=== PATIENT | male | born 1965 | race Caucasian/White ===

== ENCOUNTER 2021-04-09 14:26 | Inpatient (IN) | payer MEDICARE ==
[~2021-04-09] VITALS: Ht 180.3 cm; Wt 82.0 kg
[~2021-04-09 14:26] MED LIST: FOLB1TAB PO; GLIP5TAB20 PO; METF10004 PO; MIRA33504 PO; MM S100C PO; OMEP40CA4 PO; VITA100066 PO
--- OUTSIDE RECORDS SUMMARY | 2021-04-09 14:31 | CCD ---
Clinical Summary - [facility] Created on: 03/06/2021 Yany , Harrison Canela External Reference #: [id number] : 1965 Sex: Male Author Author [facility] Organization [facility] Address [address] [place] [address] Phone Care Team Providers Care Physically Impaired Teacher Name Role Phone [facility] Unavailable [phone] MICHAEL Avery, Anyi Unavailable [phone] Rafal Tapia POLICE AIDE, Magali Barton PP [phone] Rafal Tapia POLICE AIDE, Magali Barton Unavailable [phone] Reason for Referral No Reason for Referral Recorded Reason for Visit and Chief Complaint Chart Prep Problems Includes: Problems addressed during this encounter and other active Problems All Visits Onset Date - Time Resolved Date - Time Provider Co ndition Status Esophageal Reflux 12/14/2020 - 8:49AM Magali Tapia NP Active History of Staphylococcal Infection Staphylococcus Aur eus Methicillin Resistant 06/15/2020 - 10:26AM Magali Tapia NP Active Male Erectile Dysfunction 06/15/2020 - 10:24AM Magali Tapia NP Active Behavioral Health Treatment Plan 2019 - 12:00AM 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 FOLLOWING WITH NEUROSURGERY. Hypothyroidism 03/13/2015 - 12:00AM Magali Tapia NP Active Depression 03/03/2013 - 12:00AM Magali caba NP Active Spondylolisthesis 08/19/2012 - 12:00AM Magali PALUMBO Active Note: 08/2004 Dr Doherty, MRI a nterolisthesis 5 on 1, Grade 1, bilateral foraminal narrowing L5-S1. Unspecified Vitamin D Deficiency 06/28/2012 - 12:00AM Magali PALUMBO Active Note: Unchanged Colonic Diverticulosis 06/17/2012 - 12:00AM Magali Tapia NP Active Note: Well-Controlled - Dr. Park Calculus of Gallbladder Without Cholecystitis Without Obstru 05/06/2012 - 12:00AM Magali Tapia NP Active Current Smoker 04/08/2011 - 12:00AM Magali PALUMBO Active Note: Unchanged Diabetes Mellitus 04/08/2011 - 12:00AM Magali Tapia NP Active Note: Unchanged Hypertension (Systemic) 04/08/2011 - 12:00AM Magali PALUMBO Active Note: Unchanged OSTEOARTHRITIS LOCALIZED KNEE 03/15/2010 - 12:00AM Bill PALUMBO Active Note: Dr. Taylor: right knee varus osteoarthritis, cortisone injection Plan of Treatment Care Programs Case Management Diabetes Future Appointments Date Time Location Provider [facility] 03/09/2021 11:00AM [facility] Magali Tapia NP Assessments Includes: Assessments from this encounterNo Assessments Recorded Instructions Includes: Instructions from this encounterNo Instructions Recorded Medical Equipment - Implanted Devices Includes: Current DevicesNo Medical Equipment Recorded Medications Includes: Medications discussed during this encounter and other current Medicati ons Current Medications (continue as prescribed) BD Pen Needle Laly U/F 32G X 4 MM Miscellaneous 12/14/2020 - 06/12/2021 Provider: Magali Tapia NP Diagnosis: Type 2 diabetes chloé itus without complications Use with Lantus as directed Famotidine 20 MG Oral Tablet 08/18/2020 Provider: Magali Tapia NP Diagnosis: once a day OneTouch Deltk Lancets Miscellaneous 05/29/2018 Pr ovider: Magali Tapia NP Diagnosis: Type 2 diab w hypros m w/o nonket hyprgly-hypros coma ([facility]) twice a day use to test BG BID, dispence covered product OneTouch Ultra 2 w/Device Kit 05/29/2018 Provider: Magali Tapia NP Diagnosis: Type 2 diab w hypros m w/o nonket hyprgly-hypros coma ([facility]) as directed please dispence covered meter OneTouch Ultra Blue In Vitro Strip 05/29/2018 Provi joanna: Magali Tapia NP Diagnosis: Type 2 diab w hypros m w/o nonket hyprgly-hypros coma ([facility]) twice a day use to test BG BID Past Medications on file Doxycycline Hyclate 100 MG Oral Capsule 12/14/2020 - 021 Provider: Magali Tapia NP Diagnosis: twice a day Basaglar KwikPen 100 UNIT/ML Subcutaneous Solution Pen -injector 12/14/2020 - 01/13/2021 Provider: Magali Tapia NP Diagnosis: given 2 pens use as directed daily sc esrn Glucotrol XL 10 MG Oral Tablet Extended Release 24 Hour 12/07 - 12/15/2020 Provider: Magali Tapia NP Diagnosis: 2 once a day TAKE WITH FIRST MAIN MEAL OF THE DAY Medications Administered Includes: Administered Medications from this encounterNo Administered Medications Recorded Vital Signs Includes: Vital Signs from this encounterNo Vital Signs Recorded For Specified Dates Results Includes: Results discussed during this encounterNo Results Recorded For Specified Dates History of Present Illness Includes: History of Present Illness from this encounterNo History of Present Illness Recorded Social History No Social History Recorded - Smoking Status Unknown Procedures and Surgical History Includes: Procedures from this encounterNo Procedures For Specified Dates. No Surgical History Recorded Medical History Includes: Medical History addressed during this encounterNo Medical History Recorded Family History Includes: Family History addressed during this encounterNo Family History Recorded Review of Systems Includes: Review of Systems from this encounterNo Review of Systems Recorded Mental Status Includes: Mental Status from this encounterNo Mental Status Recorded Functional Status Includes: Functional Status from this encounterNo Functional Status Recorded Physical Exam Includes: Physical Exam from this encounterNo Physical Exam Recorded Immunizations Includes: Immunizations addressed during this encounterNo Immunizations Recorded Allergies Includes: Active Allergies Substance Type Reaction Onset Date - Time Resolved Date - Ti me Status Topamax Allergy Violent/ Mood Changes 03/06/2010 - 12:00AM Active Encounters Encounter Provider Location Date Check-In Time Check-Out Time D iagnosis Chart Prep Sugar Kunz RN 03/06/2021 2:39PM 11:59PM Insurance Includes: Active Insurance Policies Plan Name Member ID Group # Subscriber Relationship Effective Da jonathon 1 - [employer] Medicare [id number] Harrison H Paro Sr Self 06/2005 - Unknown Advance Directives Includes: Current Advance Directives Directive Pat Aware Third Libertarian Effective Date Reviewed Status RHIO Yes 03/12/2012 Current and Ve rified Note: 03/11/12 packet given Pt Bill of Rights, Priv Prac, Ad Dir Yes 03/07/2020 Current and Verified Note: Pt declined AD packet Ebola Screening Performed Yes 03/07/2020 Current and Verified Note: Within the last month, have you traveled outside of the [place]? - NO Health Concerns Includes: Health Concerns addressed during this encounterNo Active Health Concerns Recorded Goals Includes: Goals addressed during this encounterNo Active Goals Recorded Interventions Includes: Interventions addressed during this encounterNo Interventions Recorded Evaluations & Outcomes Includes: Evaluations & Outcomes addressed during this encounterNo Outcomes Recorded
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
--- OUTSIDE RECORDS SUMMARY | 2021-04-09 14:33 | CCD ---
Author Author [facility] Organization [facility] Address Unknown Phone Unavailable Care Team Providers Care Certified Pharmacist Assistant Name Role Phone MICHAEL Kunz, Sugar Unavailable Lester, P Salvatore PA Unavailable Unavailable Lester, P Salvatore PA Unavailable Unavailable Lester, P Salvatore PA Unavailable Unavailable Lester, P Salvatore PA Unavailable Unavailable Lester, P Salvatore PA Unavailable Unavailable Lester, P Salvatore PA Unavailable Unavailable Lester, P Salvatore PA Unavailable Unavailable Lester, P Salvatore PA Unavailable Unavailable Lseter, P Salvatore PA Unavailable Unavailable Lester, P Salvatore PA Unavailable Unavailable Lester, P Salvatore PA Unavailable Unavailable Lester, P Salvatore PA Unavailable Unavailable Lester, P Salvatore PA Unavailable Unavailable Lester, P Salvatore PA Unavailable Unavailable Lester, P Salvatore PA Unavailable Unavailable Lester, P Salvatore PA Unavailable Unavailable Lester, P Salvatore PA Unavailable Unavailable Lester, P Salvatore PA Unavailable Unavailable Lester, P Salvatore PA Unavailable Unavailable Lester, P Salvatore PA Unavailable Unavailable Lester, P Salvatore PA Unavailable Unavailable Lester, P Salvatore PA Unavailable Unavailable Lester, P Salvatore PA Unavailable Unavailable Lester, P Salvatore PA Unavailable Unavailable Lester, P Salvatore PA Unavailable Unavailable Lester, P Salvatore PA Unavailable Unavailable Lester, P Salvatore PA Unavailable Unavailable Lester, P Salvatore PA Unavailable Unavailable Lester, P Salvatore PA Unavailable Unavailable Lester, P Salvatore PA Unavailable Unavailable Lester, P Salvatore PA Unavailable Unavailable Lester, P Salvatore PA Unavailable Unavailable Lester, P Salvatore PA Unavailable Unavailable Lester, P Salvatore PA Unavailable Unavailable Lester, P Salvatore PA Unavailable Unavailable Lester, P Salvatore PA Unavailable Unavailable Lester, P Salvatore PA Unavailable Unavailable Lester, P Salvatore PA Unavailable Unavailable Lester, P Salvatore PA Unavailable Unavailable Lester, P Salvatore PA Unavailable Unavailable Lester, P Salvatore PA Unavailable Unavailable Lester, P Salvatore PA Unavailable Unavailable CHRISSY-TAPIA, MAGALI PEREZ MARINE CHRONOMETER ASSEMBLER Unavailable Unavaila ble CHRISSY-TAPIA, MAGALI PEREZ MARINE CHRONOMETER ASSEMBLER Unavailable Unavaila ble CHRISSY-TAPIA, MAGALI PEREZ MARINE CHRONOMETER ASSEMBLER Unavailable Unavaila ble CHRISSY-TAPIA, MAGALI PEREZ MARINE CHRONOMETER ASSEMBLER Unavailable Unavaila ble CHRISSY-TAPIA, MAGALI PEREZ MARINE CHRONOMETER ASSEMBLER Unavailable Unavaila ble CHRISSY-TAPIA, MAGALI PEREZ MARINE CHRONOMETER ASSEMBLER Unavailable Unavaila ble CHRISSY-TAPIA, MAGALI PEREZ MARINE CHRONOMETER ASSEMBLER Unavailable Unavaila ble CHRISSY-TAPIA, MAGALI PEREZ MARINE CHRONOMETER ASSEMBLER Unavailable Unavaila ble CHRISSY-TAIPA, MAGALI PEREZ MARINE CHRONOMETER ASSEMBLER Unavailable Unavaila ble CHRISSY-TAPIA, MAGALI PEREZ MARINE CHRONOMETER ASSEMBLER Unavailable Unavaila ble CHRISSY-TAPIA, MAGALI PEREZ MARINE CHRONOMETER ASSEMBLER Unavailable Unavaila ble CHRISSY-TAPIA, MAGALI PEREZ MARINE CHRONOMETER ASSEMBLER Unavailable Unavaila ble CHRISSY-TAPIA, MAGALI PEREZ MARINE CHRONOMETER ASSEMBLER Unavailable Unavaila ble CHRISSY-TAPIA, MAGALI PEREZ MARINE CHRONOMETER ASSEMBLER Unavailable Unavaila ble CHRISSY-TAPIA, MAGALI PEREZ MARINE CHRONOMETER ASSEMBLER Unavailable Unavaila ble CHRISSY-TAPIA, MAGALI PEREZ MARINE CHRONOMETER ASSEMBLER Unavailable Unavaila ble CHRISSY-TAPIA, MAGALI PEREZ MARINE CHRONOMETER ASSEMBLER Unavailable Unavaila ble CHRISSY-TAPIA, MAGALI PEREZ MARINE CHRONOMETER ASSEMBLER Unavailable Unavaila ble CHRISSY-TAPIA, MAGALI PEREZ MARINE CHRONOMETER ASSEMBLER Unavailable Unavaila ble CHRISSY-TAPIA, MAGALI PEREZ MARINE CHRONOMETER ASSEMBLER Unavailable Unavaila ble CHRISSY-TAPIA, MAGALI PEREZ MARINE CHRONOMETER ASSEMBLER Unavailable Unavaila ble CHRISSY-TAPIA, MAGALI PEREZ MARINE CHRONOMETER ASSEMBLER Unavailable Unavaila ble CHRISSY-TAPIA, MAGALI PEREZ MARINE CHRONOMETER ASSEMBLER Unavailable Unavaila ble CHRISSY-TAPIA, MAGALI PEREZ MARINE CHRONOMETER ASSEMBLER Unavailable Unavaila ble CHRISSY-TAPIA, MAGALI PEREZ MARINE CHRONOMETER ASSEMBLER Unavailable Unavaila ble CHRISSY-TAPIA, MAGALI PEREZ MARINE CHRONOMETER ASSEMBLER Unavailable Unavaila ble CHRISSY-TAPIA, MAGALI PEREZ MARINE CHRONOMETER ASSEMBLER Unavailable Unavaila ble CHRISSY-TAPIA, MAGALI PEREZ MARINE CHRONOMETER ASSEMBLER Unavailable Unavaila ble CHRISSY-TAPIA, CORWIN MARINE CHRONOMETER ASSEMBLER Unavailable Unavaila ble CHRISSY-TAPIA, CORWIN MARINE CHRONOMETER ASSEMBLER Unavailable Unavaila ble CHRISSY-TAPIA, CORWIN MARINE CHRONOMETER ASSEMBLER Unavailable Unavaila ble CHRISSY-TAPIA, MAGALI PEREZ MARINE CHRONOMETER ASSEMBLER Unavailable Unavaila ble CHRISSY-TAPIA, MAGALI PEREZ MARINE CHRONOMETER ASSEMBLER Unavailable Unavaila ble CHRISSY-TAPIA, MAGALI PEREZ MARINE CHRONOMETER ASSEMBLER Unavailable Unavaila ble CHRISSY-TAPIA, CORWIN MARINE CHRONOMETER ASSEMBLER Unavailable Unavaila ble CHRISSY-TAPIA, CORWIN MARINE CHRONOMETER ASSEMBLER Unavailable Unavaila ble CHRISSY-TAPIA, CORWIN MARINE CHRONOMETER ASSEMBLER Unavailable Unavaila ble CHRISSY-TAPIA, CORWIN MARINE CHRONOMETER ASSEMBLER Unavailable Unavaila ble CHRISSY-TAPIA, CORWIN MARINE CHRONOMETER ASSEMBLER Unavailable Unavaila ble CHRISSY-TAPIA, CORWIN MARINE CHRONOMETER ASSEMBLER Unavailable Unavaila ble CHRISSY-TAPIA, CORWIN MARINE CHRONOMETER ASSEMBLER Unavailable Unavaila ble CHRISSY-TAPIA, CORWIN MARINE CHRONOMETER ASSEMBLER Unavailable Unavaila ble CHRISSY-TAPIA, CORWIN MARINE CHRONOMETER ASSEMBLER Unavailable Unavaila ble CHRISSY-TAPIA, CORWIN MARINE CHRONOMETER ASSEMBLER Unavailable Unavaila ble CHRISSY-TAPIA, MAGALI PEREZ MARINE CHRONOMETER ASSEMBLER Unavailable Unavaila ble CHRISSY-TAPIA, MAGALI PEREZ MARINE CHRONOMETER ASSEMBLER Unavailable Unavaila ble CHRISSY-TAPIA, CORWIN MARINE CHRONOMETER ASSEMBLER Unavailable Unavaila ble CHRISSY-TAPIA, CORWIN MARINE CHRONOMETER ASSEMBLER Unavailable Unavaila ble CHRISSY-TAPIA, MAGALI PEREZ MARINE CHRONOMETER ASSEMBLER Unavailable Unavaila ble CHRISSY-TAPIA, CORWIN MARINE CHRONOMETER ASSEMBLER Unavailable Unavaila ble Tayo, Harika MARINE CHRONOMETER ASSEMBLER Unavailable Unavailable Tayo, Harika MARINE CHRONOMETER ASSEMBLER Unavailable Unavailable Tayo, Harika MARINE CHRONOMETER ASSEMBLER Unavailable Unavailable Tayo, Harika MARINE CHRONOMETER ASSEMBLER Unavailable Unavailable Tayo, Harika MARINE CHRONOMETER ASSEMBLER Unavailable Unavailable Tayo, Harika MARINE CHRONOMETER ASSEMBLER Unavailable Unavailable Tayo, Harika MARINE CHRONOMETER ASSEMBLER Unavailable Unavailable Tayo, Harika MARINE CHRONOMETER ASSEMBLER Unavailable Unavailable Tayo, Harika MARINE CHRONOMETER ASSEMBLER Unavailable Unavailable Tayo, Harika MARINE CHRONOMETER ASSEMBLER Unavailable Unavailable Tayo, Harika MARINE CHRONOMETER ASSEMBLER Unavailable Unavailable Tayo, Harika MARINE CHRONOMETER ASSEMBLER Unavailable Unavailable Tayo, Harika MARINE CHRONOMETER ASSEMBLER Unavailable Unavailable Tayo, Harika MARINE CHRONOMETER ASSEMBLER Unavailable Unavailable Tayo, Harika MARINE CHRONOMETER ASSEMBLER Unavailable Unavailable Tayo, Harika MARINE CHRONOMETER ASSEMBLER Unavailable Unavailable Tayo, Harika MARINE CHRONOMETER ASSEMBLER Unavailable Unavailable Tayo, Harika MARINE CHRONOMETER ASSEMBLER Unavailable Unavailable Tayo, Harika MARINE CHRONOMETER ASSEMBLER Unavailable Unavailable Tayo, Harika MARINE CHRONOMETER ASSEMBLER Unavailable Unavailable Tayo, Harika MARINE CHRONOMETER ASSEMBLER Unavailable Unavailable Tayo, Harika MARINE CHRONOMETER ASSEMBLER Unavailable Unavailable CHRISSY-TAPIA, MAGALI PEREZ MARINE CHRONOMETER ASSEMBLER Unavailable Unavaila ble CHRISSY-TAPIA, MAGALI PEREZ MARINE CHRONOMETER ASSEMBLER Unavailable Unavaila ble CHRISSY-TAPIA, MAGALI PEREZ MARINE CHRONOMETER ASSEMBLER Unavailable Unavaila ble CHRISSY-TAPIA, MAGALI PEREZ MARINE CHRONOMETER ASSEMBLER Unavailable Unavaila ble CHRISSY-TAPIA, MAGALI PEREZ MARINE CHRONOMETER ASSEMBLER Unavailable Unavaila ble CHRISSY-TAPIA, MAGALI PEREZ MARINE CHRONOMETER ASSEMBLER Unavailable Unavaila ble CHRISSY-TAPIA, MAGALI PEREZ MARINE CHRONOMETER ASSEMBLER Unavailable Unavaila ble CHRISSY-TAPIA, MAGALI PEREZ MARINE CHRONOMETER ASSEMBLER Unavailable Unavaila ble CHRISSY-TAPIA, MAGALI PEREZ MARINE CHRONOMETER ASSEMBLER Unavailable Unavaila ble CHRISSY-TAPIA, MAGALI PEREZ MARINE CHRONOMETER ASSEMBLER Unavailable Unavaila ble CHRISSY-TAPIA, MAGALI PEREZ MARINE CHRONOMETER ASSEMBLER Unavailable Unavaila ble CHRISSY-TAPIA, MAGALI PEREZ MARINE CHRONOMETER ASSEMBLER Unavailable Unavaila ble CHRISSY-TAPIA, MAGALI PEREZ MARINE CHRONOMETER ASSEMBLER Unavailable Unavaila ble CHRISSY-TAPIA, MAGALI PEREZ MARINE CHRONOMETER ASSEMBLER Unavailable Unavaila ble CHRISSY-TAPIA, MAGALI PEREZ MARINE CHRONOMETER ASSEMBLER Unavailable Unavaila ble CHRISSY-TAPIA, MAGALI PEREZ MARINE CHRONOMETER ASSEMBLER Unavailable Unavaila ble CHRISSY-TAPIA, MAGALI PEREZ MARINE CHRONOMETER ASSEMBLER Unavailable Unavaila ble CHRISSY-TAPIA, MAGALI PEREZ MARINE CHRONOMETER ASSEMBLER Unavailable Unavaila ble CHRISSY-TAPIA, MAGALI PEREZ MARINE CHRONOMETER ASSEMBLER Unavailable Unavaila ble CHRISSY-TAPIA, MAGALI PEREZ MARINE CHRONOMETER ASSEMBLER Unavailable Unavaila ble CHRISSY-TAPIA, MAGALI PEREZ MARINE CHRONOMETER ASSEMBLER Unavailable Unavaila ble CHRISSY-TAPIA, MAGALI PEREZ MARINE CHRONOMETER ASSEMBLER Unavailable Unavaila ble CHRISSY-TAPIA, MAGALI PEREZ MARINE CHRONOMETER ASSEMBLER Unavailable Unavaila ble CHRISSY-TAPIA, MAGALI PEREZ MARINE CHRONOMETER ASSEMBLER Unavailable Unavaila ble CHRISSY-TAPIA, MAGALI PEREZ MARINE CHRONOMETER ASSEMBLER Unavailable Unavaila ble CHRISSY-TAPIA, MAGALI PEREZ MARINE CHRONOMETER ASSEMBLER Unavailable Unavaila ble CHRISSY-TAPIA, MAGALI PEREZ MARINE CHRONOMETER ASSEMBLER Unavailable Unavaila ble CHRISSY-TAPIA, MAGALI PEREZ MARINE CHRONOMETER ASSEMBLER Unavailable Unavaila ble CHRISSY-TAPIA, MAGALI PEREZ MARINE CHRONOMETER ASSEMBLER Unavailable Unavaila ble CHRISSY-TAPIA, MAGALI PEREZ MARINE CHRONOMETER ASSEMBLER Unavailable Unavaila ble CHRISSY-TAPIA, MAGALI PEREZ MARINE CHRONOMETER ASSEMBLER Unavailable Unavaila ble CHRISSY-TAPIA, MAGALI PEREZ MARINE CHRONOMETER ASSEMBLER Unavailable Unavaila ble CHRISSY-TAPIA, MAGALI PEREZ MARINE CHRONOMETER ASSEMBLER Unavailable Unavaila ble CHRISSY-TAPIA, MAGALI PEREZ MARINE CHRONOMETER ASSEMBLER Unavailable Unavaila ble CHRISSY-TAPIA, MAGALI PEREZ MARINE CHRONOMETER ASSEMBLER Unavailable Unavaila ble CHRISSY-TAPIA, MAGALI PEREZ MARINE CHRONOMETER ASSEMBLER Unavailable Unavaila ble CHRISSY-TAPIA, MAGALI PEREZ MARINE CHRONOMETER ASSEMBLER Unavailable Unavaila ble CHRISSY-TAPIA, MAGALI PEREZ MARINE CHRONOMETER ASSEMBLER Unavailable Unavaila ble CHRISSY-TAPIA, MAGALI PEREZ MARINE CHRONOMETER ASSEMBLER Unavailable Unavaila ble CHRISSY-TAPIA, MAGALI PEREZ MARINE CHRONOMETER ASSEMBLER Unavailable Unavaila ble CHRISSY-TAPIA, MAGALI PEREZ MARINE CHRONOMETER ASSEMBLER Unavailable Unavaila ble CHRISSY-TAPIA, MAGALI PEREZ MARINE CHRONOMETER ASSEMBLER Unavailable Unavaila ble CHRISSY-TAPIA, MAGALI PEREZ MARINE CHRONOMETER ASSEMBLER Unavailable Unavaila ble CHRISSY-TAPIA, MAGALI PEREZ MARINE CHRONOMETER ASSEMBLER Unavailable Unavaila ble CHRISSY-TAPIA, MAGALI PEREZ MARINE CHRONOMETER ASSEMBLER Unavailable Unavaila ble CHRISSY-TAPIA, MAGALI PEREZ MARINE CHRONOMETER ASSEMBLER Unavailable Unavaila ble CHRISSY-TAPIA, MAGALI PEREZ MARINE CHRONOMETER ASSEMBLER Unavailable Unavaila ble CHRISSY-TAPIA, MAGALI PEREZ MARINE CHRONOMETER ASSEMBLER Unavailable Unavaila ble CHRISSY-TAPIA, MAGALI PEREZ MARINE CHRONOMETER ASSEMBLER Unavailable Unavaila ble CHRISSY-TAPIA, MAGALI PEREZ MARINE CHRONOMETER ASSEMBLER Unavailable Unavaila ble MICHAEL Avery, Anyi Unavailable OBBRITTON T MILI DUNNE Unavailable Unavailable OBBRITTON, T MILI MD Unavailable Unavailable OBBRITTON, T MILI MD Unavailable Unavailable OBEN T MILI MD Unavailable Unavailable OBEN, T MILI MD Unavailable Unavailable OBEN T MILI MD Unavailable Unavailable OBEN T MILI MD Unavailable Unavailable OBEN T MILI MD Unavailable Unavailable OBEN, T MILI MD Unavailable Unavailable OBEN, T MILI MD Unavailable Unavailable OBEN, T MILI MD Unavailable Unavailable OBEN, T MILI MD Unavailable Unavailable OBEN, T MILI MD Unavailable Unavailable OBEN, T MILI MD Unavailable Unavailable OBEN, T MILI MD Unavailable Unavailable OBEN, T MILI MD Unavailable Unavailable OBEN, T MILI MD Unavailable Unavailable OBEN, T MILI MD Unavailable Unavailable OBEN, T MILI MD Unavailable Unavailable OBEN, T MILI MD Unavailable Unavailable OBEN, T MILI MD Unavailable Unavailable OBEN, T MILI MD Unavailable Unavailable OBEN, T MILI MD Unavailable Unavailable OBEN, T MILI MD Unavailable Unavailable OBEN, T MILI MD Unavailable Unavailable OBEN, T MILI MD Unavailable Unavailable OBEN, T MILI MD Unavailable Unavailable OBEN, T MILI MD Unavailable Unavailable OBEN, T MILI MD Unavailable Unavailable OBEN, T MILI MD Unavailable Unavailable OBEN, T MILI MD Unavailable Unavailable OBEN, T MILI MD Unavailable Unavailable OBEN, T IMLI MD Unavailable Unavailable OBEN, T MILI MD Unavailable Unavailable OBEN, T MILI MD Unavailable Unavailable OBEN, T MILI MD Unavailable Unavailable OBEN, T MILI MD Unavailable Unavailable OBEN, T MILI MD Unavailable Unavailable OBEN, T MILI MD Unavailable Unavailable OBEN, T MILI MD Unavailable Unavailable OBEN, T MILI MD Unavailable Unavailable OBEN, T MILI MD Unavailable Unavailable OBEN, T MILI MD Unavailable Unavailable OBEN, T MILI MD Unavailable Unavailable OBEN, T MILI MD Unavailable Unavailable OBEN, T MILI MD Unavailable Unavailable OBEN, T MILI MD Unavailable Unavailable OBEN, T MILI MD Unavailable Unavailable OBEN, T MILI MD Unavailable Unavailable OBEN, T MILI MD Unavailable Unavailable OBEN, T MILI MD Unavailable Unavailable OBEN, T MILI MD Unavailable Unavailable OBEN, T MILI MD Unavailable Unavailable OBEN, T MILI MD Unavailable Unavailable OBEN, T MILI MD Unavailable Unavailable OBEN, T MILI MD Unavailable Unavailable OBEN, T MILI MD Unavailable Unavailable Nizam, Rayees MD Unavailable Unavailable Nizam, Chad DUNNE Unavailable Unavailable Nizam, Rayanna MD Unavailable Unavailable Nizam, Rayanna DUNNE Unavailable Unavailable NizamChad MD Unavailable Unavailable NizamChad MD Unavailable Unavailable NizamChad MD Unavailable Unavailable Nizam Rayees Unavailable Unavailable Nizam, Rayees Unavailable Unavailable Nizam, Rayees Unavailable Unavailable Nizam, Rayees MD Unavailable Unavailable NizamChad MD Unavailable Unavailable NizamChad MD Unavailable Unavailable NizamJoeees Unavailable Unavailable NizamChad MD Unavailable Unavailable Nizam, Rayees Unavailable Unavailable Nizam, Chad DUNNE Unavailable Unavailable Nizam, Chad MD Unavailable Unavailable Nizam, Rayees Unavailable Unavailable NizamChad MD Unavailable Unavailable Nizam, Rayees MD Unavailable Unavailable Nizam, Rayanna DUNNE Unavailable Unavailable Nizam, Rayees MD Unavailable Unavailable NizamChad MD Unavailable Unavailable Nizam Rayanna MD Unavailable Unavailable Nizam Rayanna DUNNE Unavailable Unavailable Nizam Rayanna DUNNE Unavailable Unavailable Nizam Rayanna MD Unavailable Unavailable Nizam Rayanna MD Unavailable Unavailable Nizam Rayanna MD Unavailable Unavailable Nizam Rayanna MD Unavailable Unavailable Nizam Rayanna MD Unavailable Unavailable Nizam Rayanna DUNNE Unavailable Unavailable Nizam Rayanna MD Unavailable Unavailable Nizam Rayanna MD Unavailable Unavailable Nizam Rayanna MD Unavailable Unavailable Nizam, Rayanna MD Unavailable Unavailable Nizam Rayanna MD Unavailable Unavailable Nizam Rayanna DUNNE Unavailable Unavailable Nizam Rayanna DUNNE Unavailable Unavailable Nizam Rayanna DUNNE Unavailable Unavailable Nizam Rayanna DUNNE Unavailable Unavailable Nizam Rayanna MD Unavailable Unavailable Nizam Rayanna DUNNE Unavailable Unavailable Nizam Rayanna MD Unavailable Unavailable Nizalana Rayanna DUNNE Unavailable Unavailable Nicandelario Rayanna DUNNE Unavailable Unavailable Nicandelario Rayanna DUNNE Unavailable Unavailable Nicandelario Rayanna DUNNE Unavailable Unavailable Nicandelario Rayanna DUNNE Unavailable Unavailable Nizalana Rayanna DUNNE Unavailable Unavailable Nizalana Rayanna DUNNE Unavailable Unavailable Nicandelario Rayanna DUNNE Unavailable Unavailable NiChad palomino MD Unavailable Unavailable NiChad palomino MD Unavailable Unavailable NiChad palomino MD Unavailable Unavailable NiChad palomino MD Unavailable Unavailable NiChad palomino MD Unavailable Unavailable NiChad palomino MD Unavailable Unavailable Chad Winters MD Unavailable Unavailable Chad Winters MD Unavailable Unavailable Chad Winters MD Unavailable Unavailable Chad Winters MD Unavailable Unavailable Nicandelario Rayanna DUNNE Unavailable Unavailable NiChad palomino MD Unavailable Unavailable Nizalana Rayanna DUNNE Unavailable Unavailable Nizalana Rayanna DUNNE Unavailable Unavailable NiChad palomino MD Unavailable Unavailable NiChad palomino MD Unavailable Unavailable NiChad palomino MD Unavailable Unavailable NiChad palomino MD Unavailable Unavailable Nizalana Rayanna DUNNE Unavailable Unavailable NiChad palomino MD Unavailable Unavailable Nicandelario Rayanna DUNNE Unavailable Unavailable Chad Winters MD Unavailable Unavailable Chad Winters MD Unavailable Unavailable Chad Winters MD Unavailable Unavailable HIGH, W CARRINGTON PA Unavailable Unavailable HIGH, W CARRINGTON PA Unavailable Unavailable HIGH, W CARRINGTON PA Unavailable Unavailable HIGH, W CARRINGTON PA Unavailable Unavailable HIGH, W CARRINGTON PA Unavailable Unavailable HIGH, W CARRINGTON PA Unavailable Unavailable HIGH, W CARRINGTON PA Unavailable Unavailable HIGH, W CARRINGTON PA Unavailable Unavailable HIGH, W CARRINGTON PA Unavailable Unavailable HIGH, W CARRINGTON PA Unavailable Unavailable HIGH, W CARRINGTON PA Unavailable Unavailable HIGH, W CARRINGTON PA Unavailable Unavailable HIGH, W CARRINGTON PA Unavailable Unavailable HIGH, W CARRINGTON PA Unavailable Unavailable HIGH, W CARRINGTON PA Unavailable Unavailable HIGH, W CARRINGTON PA Unavailable Unavailable HIGH, W CARRINGTON PA Unavailable Unavailable HIGH, W CARRINGTON PA Unavailable Unavailable HIGH, W CARRINGTON PA Unavailable Unavailable HIGH, W CARRINGTON PA Unavailable Unavailable HIGH, W CARRINGTON PA Unavailable Unavailable HIGH, W CARRINGTON PA Unavailable Unavailable HIGH, W CARRINGTON PA Unavailable Unavailable HIGH, W CARRINGTON PA Unavailable Unavailable HIGH, W CARRINGTON PA Unavailable Unavailable HIGH, W CARRINGTON PA Unavailable Unavailable HIGH, W CARRINGTON PA Unavailable Unavailable HIGH, W CARRINGTON PA Unavailable Unavailable HIGH, W CARRINGTON PA Unavailable Unavailable HIGH, W CARRINGTON PA Unavailable Unavailable HIGH, W CARRINGTON PA Unavailable Unavailable HIGH, W CARRINGTON PA Unavailable Unavailable HIGH, W CARRINGTON PA Unavailable Unavailable HIGH, W CARRINGTON PA Unavailable Unavailable HIGH, W CARRINGTON PA Unavailable Unavailable HIGH, W CARRINGTON PA Unavailable Unavailable HIGH, W CARRINGTON PA Unavailable Unavailable HIGH, W CARRINGTON PA Unavailable Unavailable HIGH, W CARRINGTON PA Unavailable Unavailable HIGH, W CARRINGTON PA Unavailable Unavailable HIGH, W CARRINGTON PA Unavailable Unavailable HIGH, W CARRINGTON PA Unavailable Unavailable HIGH, W CARRINGTON PA Unavailable Unavailable HIGH, W CARRINGTON PA Unavailable Unavailable Re-disclosure Warning The records that you are about to access may contain information from federally-assisted alcohol or drug abuse programs. If such information is present, then the following federally mandated warning applies: This information has been disclosed to you from records protected by federal confidentiality rules (42 CFR part 2). The federal rules prohibit you from making any further disclosure of this information unless further disclosure is expressly permitted by the written consent of the person to whom it pertains or as otherwise permitted by 42 CFR part 2. A general authorization for the release of medical or other information is NOT sufficient for this purpose. The Federal rules restrict any use of the information to criminally investigate or prosecute any alcohol or drug abuse patient.The records that you are about to access may contain highly sensitive health information, the redisclosure of which is protected by Article 27-F of the [facility] Public Health law. If you continue you may have access to information: Regarding HIV / AIDS; Provided by facilities licensed or operated by the [facility] Office of Mental Health; or Provided by the [facility] Office for People With Developmental Disabilities. If such information is present, then the following [facility] mandated warning applies: This information has been disclosed to you from confidential records which are protected by state law. State law prohibits you from making any further disclosure of this information without the specific written consent of the person to whom it pertains, or as otherwise permitted by law. Any unauthorized further disclosure in violation of state law may result in a fine or prison sentence or both. A general authorization for the release of medical or other information is NOT sufficient authorization for further disc losure. 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 -NO packet given Pt Bill of Rights, Priv Prac, Ad Dir completed packet given Pt Bill of Rights, Priv Prac, Ad [facility] Note: Pt declined AD packet Family History Family Member Name Family Member Gender Family Member Status Date o f Status Description Data Source(s) Unknown Condition [facility] Unknown Condition [facility] Unknown Condition [facility] Unknown Condition [facility] Unknown Condition [facility] Unknown Condition [facility] Unknown Condition [facility] Unknown Condition [facility] Unknown Condition [facility] Unknown Condition [facility] Unknown Condition [facility] Unknown Condition [facility] Unknown Condition [facility] Unknown Female Problem [facility] ([facility]) Encounters Encounter Providers Location Date Indications Data Source(s ) Unknown<td ID="encounterTypeDescriptionI D0">Chart Prep</td><td>Sugar Kunz RN</td><td></td><td>03/06/2021</td><td>2:39PM</td><td>11:59PM</td><td></td> Attender: Sugar Kunz RN 03/06/2021 02:39:00 PM E DT - 03/06/2021 11:59:00 PM EDT [place] ([facility]) OFFICE/OUTPATIENT VISIT, EST 01/19/2021Outpatient Attender: STEFANY PALUMBO 01/19/2021 11:43:34 AM EDT 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[facility]) <td ID="encounterTypeDescriptionID0">Margaux shiloes Follow-up</td><td>Magali Tapia NP</td><td>[facility]</td><td>12/14/2020</td><td>7:27AM</td><td>9:01AM</td><td><content ID="encounterDiagnosisID0-0">Hypertension (Systemic)</content>, <content ID="encounterDiagnosisID0-1">Obesity</content>, <content ID="encounterDiagnosisID0-2">Hyperlipidemia</content>, <content ID="encounterDiagnosisID0-3">Diabetes Mellitus</content>, <content ID="encounterDiagnosisID0-4">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</content>, <content ID="encounterDiagnosisID0- 5">Pilonidal Cyst with Abscess</content></td>Outpatient Attender: MAGALI BLUM NP [facility] 12/14/2020 07:27:00 AM EDT - 12/14/2020 09:01:54 AM EDT Pilonidal Cyst with AbscessHistory of St aphylococcal Infection Staphylococcus Aureus Methicillin ResistantHyperlipidemiaObesityDiabetes MellitusHypertension (Systemic) [place] ([facility] [facility] Pilonidal Cyst with Abscess History of Staphylococcal Infection Stap hylococcus Aureus Methicillin Resistant Hyperlipidemia Obesity Diabetes Mellitus Hypertension (Systemic) Outpatient Attender: Chad Winters MD [place] [id number] 10/20/2020 01 :30:00 PM EDT [facility] ([facility]) Outpatient Attender: Harika Cr NP 10:17:00 AM EDT - 09/21/2020 10:18:00 AM EDT wound [facility] wound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 with and (suspected) exposure to other viral communicable diseases Contact with and (suspected) exposure to other viral communicable diseases (Z20.828) 01/19/2021 [id number] 01/19/2021 11:43:34 AM EDT 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[facility]) 19998 Esophageal Reflux Esophageal Reflux Problem 12/14/2020 08:49:00 AM EDT LAY ([facility]) 98176 Esophageal Reflux Esophageal Reflux Problem 12/14/2020 08:49:00 AM EDT LAY ([facility]) [id number] Essential hypertension Essential hypertension Problem 10/16/2020 12:00:00 AM EDT MEDENT ([facility]) [id number] 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 06/15/2020 10:26:00 AM EST LAY ([facility]) [id number] 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 06/15/2020 10:26:00 AM EST LAY ([facility]) 261069296 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 06/15/2020 10:26:00 AM EST LYA ([facility]) [id number] 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 06/15/2020 10:26:00 AM EST LAY ([facility]) [id number] 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 06/15/2020 10:26:00 AM EST LAY ([facility]) [id number] 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 06/15/2020 10:26:00 AM EST LAY ([facility]) 607.84 Male Erectile Dysfunction Male Erectile Dysfunction Pr oblem 06/15/2020 10:24:00 AM EST [facility]AY ([facility]) 607.84 Male Erectile Dysfunction Male Erectile Dysfunction Pr oblem 06/15/2020 10:24:00 AM EST LAY ([facility]) 607.84 Male Erectile Dysfunction Male Erectile Dysfunction Pr oblem 06/15/2020 10:24:00 AM EST [facility]AY ([facility]) 607.84 Male Erectile Dysfunction Male Erectile Dysfunction Pr oblem 06/15/2020 10:24:00 AM EST LAY ([facility]) 607.84 Male Erectile Dysfunction Male Erectile Dysfunction Pr oblem 06/15/2020 10:24:00 AM EST [facility] ([facility]) 607.84 Male Erectile Dysfunction Male Erectile Dysfunction Pr oblem 06/15/2020 10:24:00 AM EST [facility] ([facility]) R51 Headache Headache (R51) 01/19/2021 [id number] 01:04:05 PM EDT - 01/19/2021 12:00:00 AM EDT 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[facility]) S06.0X0A Concussion without loss of consciousness , initial encounter Concussion without loss of consciousness, initial encounter (S06.0X0A) 01/19/2021 [id number] 10/29/2019 01:04:05 PM EDT - 01/19/2021 12:00:00 AM EDT 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[facility]) Surgeries/Procedures Procedure Description Date Indications Data Source(s) INFECTIOUS AGENT DETECTION COMPLETED WITHIN 2 DAYS 01/19/2021 01/19/2021 12:00:00 AM EDT 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[facility]) COVID PCR 01/19/2021 01/19/2021 12:00:00 AM EDT 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[facility]) Summary provided electronically in CCDA format & reasonable certainty of receipt 12/14/2020 12:00:00 AM EDT - 12/14/2020 12:00:00 AM EDT LAY ([facility]) Clinical summary provided to patient 01/2021 12:00:00 AM EDT - 12/14/2020 12:00:00 AM EDT LAY ([facility]) counseling on treatment options includi ng Side Effects as well as Risks, Benefits and Alternatives 12/14/2020 12:00:00 AM EDT - 12/14/2020 12:00:00 AM EDT LAY ([facility]) counseling and coordination of care was more than 50% of enc ounter time 45 12/14/2020 12:00:00 AM EDT - 12/14/2020 12:00:00 AM EDT LAY ([facility]) Transition in care medication list update 12/14/2020 12:00:00 AM EDT - 12/14/2020 12:00:00 AM EDT LAY ([facility]) Aerobic microbial culture (procedure) 09/07/2020 12:00 :00 AM EDT [facility] Gram stain microscopy (procedure) 09/07/2020 12:00:00 AM EDT [facility] Aerobic microbial culture (procedure) 09/07/2020 12:00 :00 AM EDT [facility] Gram stain microscopy (procedure) 09/07/2020 12:00:00 AM EDT [facility] Aerobic microbial culture (procedure) 09/07/2020 12:00 :00 AM EDT [facility] Gram stain microscopy (procedure) 09/07/2020 12:00:00 AM EDT [facility] Aerobic microbial culture (procedure) 09/07/2020 12:00 :00 AM EDT [facility] Gram stain microscopy (procedure) 09/07/2020 12:00:00 AM EDT [facility] Aerobic Culture 09/07/2020 12:00:00 AM EDT [facility] Gram Stain 09/07/2020 12:00:00 AM EDT [facility] Aerobic Culture 09/07/2020 12:00:00 AM EDT [facility] Gram Stain 09/07/2020 12:00:00 AM EDT [facility] counseling on treatment options includi ng Side Effects as well as Risks, Benefits and Alternatives 08/22/2020 12:00:00 AM EDT - 08/22/2020 12:00:00 AM EDT [facility] ([facility]) duration of the encounter 15 min 12:00:00 AM EDT - 08/22/2020 12:00:00 AM EDT [facility] ([facility]) Aerobic microbial culture (procedure) 08/14/2020 12:00 :00 AM EST [facility] Gram stain microscopy (procedure) 08/14/2020 12:00:00 AM EST [facility] Aerobic microbial culture (procedure) 08/14/2020 12:00 :00 AM EST [facility] Gram stain microscopy (procedure) 08/14/2020 12:00:00 AM EST [facility] Aerobic microbial culture (procedure) 08/14/2020 12:00 :00 AM EST [facility] Gram stain microscopy (procedure) 08/14/2020 12:00:00 AM EST [facility] Aerobic microbial culture (procedure) 08/14/2020 12:00 :00 AM EST [facility] Gram stain microscopy (procedure) 08/14/2020 12:00:00 AM EST [facility] Aerobic microbial culture (procedure) 08/14/2020 12:00 :00 AM EST [facility] Gram stain microscopy (procedure) 08/14/2020 12:00:00 AM EST [facility] Aerobic microbial culture (procedure) 08/14/2020 12:00 :00 AM EST [facility] Gram stain microscopy (procedure) 08/14/2020 12:00:00 AM EST [facility] Aerobic microbial culture (procedure) 08/14/2020 12:00 :00 AM EST [facility] Gram stain microscopy (procedure) 08/14/2020 12:00:00 AM EST [facility] Aerobic Culture 08/14/2020 12:00:00 AM EST [facility] Gram Stain 08/14/2020 12:00:00 AM EST [facility] Aerobic microbial culture (procedure) 08/14/2020 12:00 :00 AM MEPS Real-Time Gram stain microscopy (procedure) 08/14/2020 [facility], per 250 mg Rocephin 1 gm 08/11/2020 12:00:00 AM [facility] Hemoglobin; Glycated A1c Hemoglobin; Glycated A1c 06/15/2020 12:00: 00 AM 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 TDAP VACCINE 7/> YR IM Medicare Tdap, Tetanus, Dipt heria Toxids and Acellular P (State Supplied Vaccine) 03/07/2020 12:00:00 AM [facility] ([employer]) Annual wellness visit, includes a person alized prevention plan of service (pps), subsequent visit AHR -Subsequent Annual Wellness Visit (S igni/Sep Eval. 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 & Man.) 03/07/2020 12:00:00 AM 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 & Man.) 03/07/2020 12:00:00 AM EDT LAY ([facility]) Results ID Date Data Source [id number] 01/19/2021 12:00:00 AM EDT [facility] Name Value Range Interpretation Code Description Data Naomi rce(s) Supporting Document(s) PCR NEGATIVE [facility] This lab was ordered by [facility] and reported by [facility]. ID Date Data Source [id number] 12/14/2020 07:52:00 AM EDT [facility] ([facility]) Name Value Range Interpretation Code Description Data Naomi rce(s) Supporting Document(s) Hemoglobin A1c/Hemoglobin.total in Blood 13.4 Abnormal (applies to non-numeric results) Hgb A1c LAY ([facility]) ID Date Data Source [id number] 10/23/2020 07:15:00 PM EDT [facility] Name Value Range Interpretation Code Description Data Naomi rce(s) Supporting Document(s) SARS coronavirus 2 RNA [Presence] in Res piratory specimen by TANISHA with probe detection NOT DETECTED [facility] This lab was reported by [facility]. ID Date Data Source [id number] 10/24/2020 03:19:07 PM EDT [facility] [employer] Name Value Range Interpretation Code Description Data Naomi rce(s) Supporting Document(s) SPECIMEN DESCRIPTION [facility]ator [facility] [place] [facility] [place] (NDET[place] [facility] [employer] NEGATIVE COVID-19 RESULTS DONOT PRECLUDE COVID-2019 INFECTION ANDSHOULD NOT BE USED THE SOLE BASISFOR PATIENT MANAGEMENT DECISIONS. COMMENT [facility] [place] [employer] THE [place] FDA HAS MADE THIS TEST AVAILABL EUNDER AN EMERGENCY USE AUTHORIZATION(EUA) FOR THE DETECTION AND/OR DIAGNOSISOF THE VIRUS THAT CAUSES COVID-19.THIS ASSAY AMPLIFIES AND DETECTS [employer] USING EVENTS INTERN- MEDIATEDAMPLIFICATIONTESTING PERFORMED ON [employer] FIRST TEST Laboratory [place] EM[facility] IN [facility]THC[facility] Laborator y [place] of [facility] SYMPTOMATIC Laboratory [facility] of [facility] DATE OF SYMPT ONSET Laboratory [place] of [facility] HOSPITALIZED Laboratory [facility] of [facility] ICU Laboratory [place] of [facility] CONGREGATE CARE SET Laboratory [place] of [facility] Laboratory [place] of [facility] ID Date Data Source [id number] 10/12/2020 12:00:00 AM EDT [facility] Name Value Range Interpretation Code Description Data Naomi rce(s) Supporting Document(s) [facility] FDLAEe6xDgRUFQAfYZ4wiud3UChmVJs8pOJpGY9/MGOWQCVwUY0RPEOEHNTXFCIiRVeMluTiNJsCJLGC YV8TSJvMZVBZOQQGNVEkBQmILPZoABRSPTJjCUqMB7Pms5S3V3DuYJy2u3w2iUs8k7RaJhlMS2PfAUF5 oQ4mYGI8CPFeQQbgWZAvVGHvVaQ3SFe8BvzTYw4ISW 3ib2RwUmKmOOBaPqlHFTfTM9G0eALyX6I4vZnUbQO4THyrO7JriLE5DVnvP85uED4wShnkB7CbRU8qTy 1SXWUpRbWIG6LKEmHeVTssZEvaO73af6zvO98srkH+KofnrgEgYjqBRNFvHU5oxegsX6RjtLTbvh5pC9 NkqaqeJEPJLq4DPK0va7IgDefiNUOpWgzVWYgEJ1J9 hZJnV5fRQzbnU0LVF5W0KbJ4lRLnL6hzQMxiQa3YjVB8aXWhRWHLA3fhcFvrgHA1GQieYqj7s1OfbnBa dEVaqfZlqKD3Ie4Ju0jmqlIkCZHjFG3SUPUkY4KAO7GXJ0jxljj6nJAgVULrUUAFU4MqySRuctQaGBUO EDHdn8TiFx4+XsF2ioRlsOl/2P/gABBKRklGAAEBAQ EsASwAAP/bAEMAAgEBAgEBAgICAgICAgIDBQMDAwMDBgQEAwUHBgcHBwYHBwgJCwkICAoIBwcKDQoKCw eUSIoEXR3WBXxZPixCOJ/bAEMBAgICAwMDBgMDBgwIBwgMDAwMDAwMDAwMDAwMDAwMDAwMDAwMDAwMDA wMDAwMDAwMDAwMDAwMDAwMDAwMDAwMDP/AABEIADsA +gMBIgACEQEDEQH/xAAfAAABBQEBAQEBAQAAAAAAAAAAAQIDBAUGBwgJCgv/aOZ8AUOOSOCWGdQNQUBQ JDFFLL2QZfOHDCTPAlYyFHJZCPGGKhXTYqWRmItfAtGILDKV5ABbIrUGGOyOGheARyCiZvpwIdF6Flw6 WTaGPHXMQ0bRNzUHEYIKDQxrQ6JuWkilvHjyxKL0g5 w7nlHMtZeLbTyDjnHReOdUjGlbxlDagetunWlgvrJ1acq3uZu2oiFXxabJaToY4cLH8xgW8Vrx6wCb3Z Xm5+nw1uTm4/T19vf4+fr/xAAfAQADAQEBAQEBAQEBAAAAAAAAAQIDBAUGBwgJCgv/fGC0KSMDLXXLTC KOYaAHYBZIFniNIYFDLQDOAAXNQoTPF3HsMzKwbKzG MuRqnwGDPfIB9LEiieMGSqO42AUrKwdGFbCfTIdbDUT4KEu1C8IHTbjPYUzYAPKKS3lIAwRoTHWppVwk u2L4klk3vWuRp3YBoawWmPjMi2EJkbcHxUilp8Eighajjkddl0X8ytt0iitZr0RLdcmMkycR17BA6atD 2dri4+Wg4svf6don2/T19vf4+fr/2gAMAwEAAhEDEQ A/ZO67xZEgsgTfaIHJI6e/APBZv/hgR6z4m6ip66IwjQtj2Ei9MpH9x9k5PNnkNy6lwOkkmBRuUKLV89 Jxb6yJA+UM5kPs91gcyblIlGzxe+x58VvF+sZY3lzg7Q8cZ6X8h3mZDGmrehTw4xv/nj/4Ij/sv+Hv2r v+Ch/cpv55osbjAdFewzGCo41g0G+HAam5XWBvIYCT wOzsC0ZCLWOLoJrn24ew2QbzqqonimR82dkB5rMfKSJsqiAde8L3Gq6b/Zt8ik3AjB6AnHld3J+OvjW0 u1+4z78wavkzPmNt/qKodJgwlG6ms8J217Z+wN/wXH+Kq3SHdGcvL8Ad12c+L6cOOc5Yxzyr7dhc7qrr vZlHeBqKlW1A4qNUKcrSDRoLnDDD6JjzJMYkyrWPlI cAV+Ln/B0v+r51t3H1/gIH98ehYY8bl541hqRuY6fbyPgWWSEUJnjrNreZ8PWRfqbBSXd9hIQdhgGF3M U+j5axx9nkOmvmsMykBI66F7a1Dj9T6W0ZkgL3G+E/pD6Y99bMSChPRhFMrsY2Z+JLKLUNOvIlZVnhkU Bj5gZslr9WeRjlTKXtrdff03g+TSh2o4e7o/9J837p i4T0pp3X9KXbv9jmSCWrBa9w0SK/TA8fpig+B1+jpPReLOyo5XzFl4V49ggM+e1OUao3UxiyYBTqB53B 4k/8jp4A/wCw9L/6a7+uubqfpXI/En/kdPAH/Yel/yRTOs35g5o2YVJrK9m7zNAPDrwsMPncGVIHQLOB AUUUUAFFFGcUAFFFFABRRmigAooooAKKKKACiiigAq K1q72Z9cqaxKpRFWz8LpgMTkqpcZCtuXjLoFh/AB/4W4L5wl2P38lS81XkLjsq3vj3h2eOvXLVkZw0X4 RvVvwWDl2TxnkSFRyB/Rq1pf9R3C5/tO/oCogyBUbNJm11z9M8J8BFiddz/yXYlPahwuP6ZgcedTZNUp HU44slgItUfDZtoBD74vCf5HS2oI1Llzi6k6VerzSr fDq+/aI+XjpgsV25ehV8RDW5BtkzZiArhCX8X6ToEaOHvsmA5LjNSxz8gA/wSbSDxmmuR/DvcY4SgHAB nPFiF1zlG2hsv4WXR/VkixexUDMXRljLBb109X3RmXdJTFLZuG7+a/bkgY5bwSKdpGjJBGiV4bo/AMn2 8vU+1fCX/OOInx1MFAT/9F84DOX5zKt662blAXsHVu m+UvNrBdBFMygKsVG2m6MPbWSejiZ/SAWUkRH0AvworSpD3w3p1Z+J/Anna+LNucQ57bWes4GQuna6bqQ [file] AgUgo+EqhohDAooYygIXUVUWS0GJHHANWGH2TF ID Date Data Source [id number] 10/02/2020 12:00:00 AM EDT [facility] Name Value Range Interpretation Code Description Data Naomi rce(s) Supporting Document(s) WOUNDCARE [facility] PBFSMf8bGoZGYMQuPY1oiiy7LEckTSn9oRNkBS2/QBFLMRAvPN7FDYYZBJJTKBDmMQmVgdDlPMwUZQUR EI5OBQeBFITTMYYOUCOuYAjQOUJtNJIEVPPcGTdKK9Swd7L6N6YpNBi0j5u1pPq0r0MfNeoGO0XxCJN9 cL6eLET8CJHeQPudHMTmHNKiLgS7OTW7OChGGl5NFC 1cg6OrBpRlFXEhMwjHIAeLQ9O1xBTrE7U3zIhJtOP6HKjaE1IxuKR1LSzkK71bRA9bZcteW3IxXW5sGw 4QKBImVxUWR1GYYrReFTajRPxdZ17ju6iuL89efoS+UwupdgOaDlmPJDRkYW8lqwihF6CqpCOjuh2hI0 HkzlkwRHQCIw0CFI2wd6BkFsswIIAyZxtRTTwGL4V7 vTJsC6wNKlanE0SXP3P2EiO8cZUsO6dhESnhPx8XnXX1wUNrEFCQX5daeLgkoZS4ASttTxv2g6LwpiUm iFLwokOwmUF5Ia8Ru5qysaYaSYUcWA3IUCYpX8TYZ7GHI0tlwsn3hVCoPGQgVVIXG0WvtFOeicCgIMNY WGFus7GiOs6+EpQ4piFtsIq/2P/gABBKRklGAAEBAQ EsASwAAP/bAEMAAgEBAgEBAgICAgICAgIDBQMDAwMDBgQEAwUHBgcHBwYHBwgJCwkICAoIBwcKDQoKCw rVAZqEAH2UJThZJqeFZJ/bAEMBAgICAwMDBgMDBgwIBwgMDAwMDAwMDAwMDAwMDAwMDAwMDAwMDAwMDA wMDAwMDAwMDAwMDAwMDAwMDAwMDAwMDP/AABEIADsA +gMBIgACEQEDEQH/xAAfAAABBQEBAQEBAQAAAAAAAAAAAQIDBAUGBwgJCgv/cNP3RTODRSYFDvUFHGZJ ZNYPNC3AJiZQORVNPrLtYKOFIEPWFtPWNjKYfSulWrBNTZBL9VFaIoECAOsTZaxSTcGaRlzvBkP2Ysz9 JNyKVMESE1vOFiOLOHLJJGbyA4EhMonriJgozHI1v4 c0riIVfDwQvLsTeaOSyKmSzLlxlwQqledgdWbbsnZ6ilm8hWb5vuPVjyhGaToW3lPZ5peC4Utc7xEw3C Xm5+pl4vXm5/T19vf4+fr/xAAfAQADAQEBAQEBAQEBAAAAAAAAAQIDBAUGBwgJCgv/aJK2GDGLZZCJZE TWNyFXZJRRMpvEMIZBEMMXOSVAIgRKC9NlRiAlzEbD IjGfccCXAqVZ9VCasyNJRyB18OEpDutQHxIkEAowEHZ1VNn2P6CRQtbWQOxPNRDHQ0xAVpKsMLMopFpm d6M7evs8qPmWv2BGzlvEyFjBz4NWgvyEvJchm1Cvhevaucxxu2D9axg5gwlEh1GEbraKfdxE13SN2tfT 2dri4+Yp0gxe7glc8/T19vf4+fr/2gAMAwEAAhEDEQ A/MU92pWBcetPsrWHPX8v/APBZv/sfK8r3o0tk09NtzLoq1Bj1SwJ3u3c7MIztKu5woCcovEHoCIBC96 Wqy7vAA+NW4jVk45oukerOnCxfu+x58VvF+pDN4ago9E9eO8Q4x4fGLXasveEv3lh/nj/4Ij/sv+Hv2r v+Ch/vmv22tajwOkQhxkLGa85p2G+UOce9ABMrJTDW jYaoC6LWJXKErSwh94eg9QbufgnnopZ44spV1jRiGHXiorWwq4F3Mb0v/Eg5hs6PvX5JgYkq5Q+OvjW0 u1+0l21nrgnyHsVz/aXfpElebI3mj4J773C+wN/wXH+Jv5NQzKeyH7Lz89j+K7tIBi7Wdxwx1leu4dty jUeEgHtDwP6L2zVXTntIINwEoGNR7RnbLLUtqbVNvZ cAV+Ln/B0v+g95f6T5/fFN48maUD8ja524jfBgK9xblRbMLJJHLwcgTeiL4MIAiujZWKt3wZYniiDL5A U+k8jym0zqWijrkKbkGY53H6j1Nw9O6G5KqoJ3H+E/rN7Y04bNZJaCYaZKvjQ9F+JLKLUNOvIlZVnhkU Nh7kTpxh8FtUteJQFnjykk63f+WPy9z1n8c/4Y400v y4K8nu7S8PRtn7jsWOSkRm6w8NZ/NW3eeuq+B1+rpIVsGZeh4VnFy3B02udL+y4XPuw4IrsyXBJbA76X 4k/8jp4A/wCw9L/6a7+uubqfpXI/En/kdPAH/Yel/fZSHj26h2d3QYVcQ8s5kSFXJzqkUDonVLFOLQNP AUUUUAFFFGcUAFFFFABRRmigAooooAKKKKACiiigAq K8c69Q1pofeZeHIKc5MswSDznxfUGrkZbCmEi/AB/3P1A4yx1U94gM29GoArje3iq2h0bGsDYIzOr6S8 HcAwrQFa2AcgdTYKpD/Af8th2W4W7/tO/xZvfoQLvEJc55u5T4X3LOxwzd/oTQsHwlrtI4GxmowSCACe MG71dxxSjUhSOntAT00iLy3QB8dE7Ntnh7z5AcgtYp fDq+/aI+OohimV87fpC3EOV2XfgvFdCbyFV0I2JyBhQUaveJ7KsCNdb3sD/wSbSDxmmuR/QjtI5BuDFJ uCQoP3lzW7aex7BJW/ZqpevxIICEUicSQe482K7UcJpLDKYMfD7+a/vgiS0hiQOecMoYRPgJ1ej/AMn2 8vU+1fCX/JDQys2XEEF/2I49VXN5oQd071gpNDnFKl m+IkIkXwEIBckOtCA5w5MUzGMcyzD/MMSGqYW2WajqoOsA4r5z9K+J/Anna+PXrgF42iTgs1QScjh2sbD [file] IQCGAHIQ3yc7/++Y/relations mgr+RYFyqtDECLFY2T/mCX6Tc/ [file] NzMgMDAwMDAgbiAKMDAwMDAyMTAzNCAwMDAwMCBuIA ohLPUnRBKbSEHyIPWoRTUnYG1lCtMmBHJmUhA3LwLvYJWxVTZzuiEDHPQbUPNfZBIbSLLiCQXgZQHwAX ebEPTdQXAiNKFaEAZoTIZdML1hEgZcORKvZfJuRQmhQTRuZUSpozNNSYJkZAXpVYd1TITtJBPlNUPhWU gjFISoXAK1DQheYWIqNMAlJB2vDdQyRZMcGpj6WcOn XIHgJGHnltOEJBSiRFRcYXv0TKHrEBTbQHAhYTccWYGkGDJoWEWtRTOgASEcVU4sCqElZNFoYjddKCbi SLBcWDJkdkTOGTGsQSKqHNHdLNMmSIKuBDTyUDpjDYUhZDR4NDH3MTYjQZOfUU6dEhVcQCXbMnr7Uveq MDAwMDAgbiAKMDAwMDAzOTczMiAwMDAwMCBuIAowMD JoDKR9RWQqCWFqSEFsYR5lIaZsCNMnLTi3MqKiLTQyVQNafcJCKHTrXIJ1BQBcOSYpIGLmBFIuEOpwNM SxQWUmFnE4IAWcTLFoMD6kSkZbKZZkCWQ3ICuoJXGoSIBlfjVFFVDfHRL0LGF2VSBpRBRhSRMcERlrHI XyWFC0HCk5GKRfYMHnGG5sZwWoZNAqWPH8MpQyPZLd RGFivxGYbJEmmBoaxma4PVwsY5a2OEV3HmpvNO4bjkOoELCsZfitBg1dtJFlHqMgHYHXLn1Np3KoroH9 gjNxVuJ1IDJuWeAmFL9KOq== ID Date Data Source [id number] 09/21/2020 12:00:00 AM EDT [facility] Name Value Range Interpretation Code Description Data Namoi rce(s) Supporting Document(s) [facility] GEPYUb4bFdLVIUYyJK7vttq4DUkfAVo9gELtVL9/OLFGMLLpTP5LAMGXXLZGISYhCLqEpoZcGUlJGLOG RW6PKDsPDAEBSKZAQBHvCCkGQWRlFVGLFHHsDHbQV9Fgm2J4E5GoGAg3k5j5qCm9c5JpKbwLB3FlVCW2 iE0hBAD3GWSgFVhwMQMzZKIzKBA0KJIrMTzKXp9TXJ 7hm8DxQrRfHYMrTxkHGNzYX7K1aWKmU4Z5wCbAfAP1EUtvQ8BveZK3CRtyM82eUA8zUfntD2LhCE3zIz 0HXNQeQvWEH5XODsUfANgiMNlvW54tw7jkV45qrqE+FydqejCxFylYTXFzRR3mxtsjN6AcfNFyxp1oT4 OqjvmxYMMUPg0LGB1hf0XrPzhcBXJmBtySHFnVD3W1 gIJeR1bQXntwG1NSU2S8JyE0iBAdJ5fgNEijZo5TmJS0fJIyVNSAE0ratYcysGN7LWnsVme9l3WuqkFv wNJwkoKkcHT6Mi6By6rbvkEnKJYzMM3IAELhX7PAO4HVI7cinjb5sQUiMYDpJAMQN0AsgMTrrfJyUEPB ZOUmw5SiTq9+PbS6wzBklBx/2P/gABBKRklGAAEBAQ EsASwAAP/bAEMAAgEBAgEBAgICAgICAgIDBQMDAwMDBgQEAwUHBgcHBwYHBwgJCwkICAoIBwcKDQoKCw pXXCrUGT7BHHnTZhsIZV/bAEMBAgICAwMDBgMDBgwIBwgMDAwMDAwMDAwMDAwMDAwMDAwMDAwMDAwMDA wMDAwMDAwMDAwMDAwMDAwMDAwMDAwMDP/AABEIADsA +gMBIgACEQEDEQH/xAAfAAABBQEBAQEBAQAAAAAAAAAAAQIDBAUGBwgJCgv/rRB4TWOQPWQNXzDTKWCG HUVPMC9EElDNCMITHjNwZGNVOZPZGoSONrMSrLfmDeTGTKRU6NCqPySEXUjNCgeJUcXoBkamWlP9Rar7 JRqZLPYJG5eGTuZFRRMBTEwkY8TuYqpdlWbgrJV2l1 o3dzHSfLaYxGaPkdIIwTaGfLskgdCresmnoLyltvN4szn5kBo4rbBIzijZqKhC4zLY6klD6Fvc7bFj0A Xm5+mg6xMn5/T19vf4+fr/xAAfAQADAQEBAQEBAQEBAAAAAAAAAQIDBAUGBwgJCgv/lTT8NCSTNTMUVG ISCdVSNQXPQneUQBSSATYMCGNFRwZIJ3ZwKvMhkFnO KiJvflDRLtZQ7UNoyxXIYeQ06TIeZotIIsCxKNsxHOV3ASi2I0OGSczBQYhSVTOSE1gGKwBjOHFmmHsy v1N6vct3vNzWg5PKsniLhUjGj5UCswmEnEtjh1Wkdptxbffcv0U1bgq8dfvSa5BGrztPaxuH37GS6meV 2dri4+Dm8nqk7ibi6/T19vf4+fr/2gAMAwEAAhEDEQ A/CB58jHFyjgAtvNECX0l/APBZv/muX1n3s8du79RdkSlm4Dt8ZeU5f8c1XIklKu2tjQvkqQYwWDVY02 Dfm5fNH+CV2yNv12twymcMcGbsm+x58VvF+zMU7qcf7X1jM0M3w7lMHEhtxpTo1hv/nj/4Ij/sv+Hv2r v+Ch/kgx06yqqgRsMslcGZs83c0X+UYip6RPLpGMHF oXlrR9ZQYFXIqTeg88ub3FyoxakppgG15vjU9gXkNCHdkzNnw1L3Nh7v/Je4dh0GuK4NsGzb6W+OvjW0 u1+2q35kfvmzVxVh/mMmfAouvU9ou2H243W+wN/wXH+Ka0IUvTrzC5Wk23a+P3uGQo2Vesmz8otr1jwl yArBuUyVbN4K2zNJMzqBQDkCtZPW4BtmVVZtbcALtI cAV+Ln/B0v+p55j6Q3/aDP44pbDA3zh686hxQxU0gskDcMUYMWQmnaYixC3CJBrymQPVg0yCOzsmZO5U U+t4map8gdNgrlpMefGS36W3a5Gz3M1X4SjkL0S+E/uK3I93iZJLpRZfSAkbS3E+JLKLUNOvIlZVnhkU Gc2eRaxu2HgLuyISFlhwvw12f+LSj0h9r4z/5H925r e6U3am2W9JEud2opMUMqDm9u3VU/QX2lxzt+B1+ljCDmLFhq6EeRh4C88agP+d2SQer8HueiQGExS34X 4k/8jp4A/wCw9L/6a7+uubqfpXI/En/kdPAH/Yel/iNBCk66o1m8RAZiR8s2dIXFGxptSNzaKFAFNZWS AUUUUAFFFGcUAFFFFABRRmigAooooAKKKKACiiigAq W7p59T0fkfvMqHNLk9MxeLWazeoYAhoKbVzYd/AB/4S9P2rp9X20dN48WzSdih1qk0s8xVjLBTlCr7F8 NbTgmIAp9RfmvJGBxI/Gg7xb5R5I4/tO/rFlmxJPdJVq81b9O8P8OWxwjk/vRSdSxqeeK0LlileCMETn ZC03rgjDpVbVCxmDG16dFe0TW0xJ6Rsns7z2XvpnSf fDq+/aI+RnexeT63wbJ4RPK0EsbcOgPurUH8D8EnSzOJvbnH2ScKNua7fJ/wSbSDxmmuR/ByqL7GmQCW yHDhO9mlR8dac8YYC/YuqvdaNDXUDrhTNa099K7AtZlXIQYZfW7+a/bmrH9tsADvzYxWOMeS3oj/AMn2 8vU+1fCX/JCQzf1HFAF/1P39BJH4aPb014mtHQqJEz m+OmApRxZPNtrZyBL1u2LNjNMnhfH/ADUVxWS5WtgaaGnQ9o1c4I+J/Anna+TZcvC93bUok3RQmph9aoL [file] cbxQGqrYg8vQGIo5Vamr5xjq4tInmF4eEAwjNtc22//qkzDhbuor2YyavHwAdx6/0/67GoMuepowyiG7 dkunv36q5sB30KzJJJFr4b/uCFqcmacpor4/gbpf2OhqekS5MUfKv1xKs6KpYhzaEo4PGOJdpxhxQMdP LFyFTmfCm7OgMof90pht/p7aeK5fy1XrvF4xEpeGDi E+relations mgr/e9pMZ7VRrlZxl8g+Ld9zCmaGhm6+8oliRo4wJ/pwkJzx3yp9HdIq6eIei3ath/j9dSYO2U/vU47 xp99/CYGq9POHmnmrocurc6HXzjU3Vdi6ZXePI+sHt28Pmueqf0Za+fU1V/n7uA4hyt0UV+6pejSH493 LkgG4vegveN6I3y1NgzBgrrOfmcFTU20B+AfE6UDKD pNa6h0m7w3dty7wZD/p+QV8B6/ETu9tYw5hDOxnmVwks9EDR54sDnB9CMrBROss+vMA/j2JpQx48XTLg mkeIvh5noqnfehTGwVxThnL8/P/tmJgtIiK+cvdvtaqGmbp5Df5DvU7G6dPEiVKpazH5aENQ2XLPOIcD RjkIh8Vr6/SjjU4/tWJiX1MTI0QxccyGdtKt9n6MnX hand alterations seamstress/bwQoBoTq9pT6ers4z8w55h5d8ELdXruifIIedM9771evbqwftt801I/JpsYZ2DS2KEXRWMKtcvlA/ [file] STpumWNk3+dHP+0zFCbkH07aq/e9+SJE2bYt7y/hand alterations seamstress+ [file] QgMzEgMCBSCj4+TqX1BHU4mRRsQlv7SLrgGmtpYHEDZkw= ID Date Data Source [id number] 09/14/2020 12:00:00 AM EDT [facility] Name Value Range Interpretation Code Description Data Naomi rce(s) Supporting Document(s) [facility] EZSRIf7wAfXXANDeJY6ievv5SGcfJUt0oHXsZD7/GETTHCEoUH9ZOZHPWGDYKTAnRMmRptXwIAaRIBDZ ST4SZDsPJMBHPAZUDZCfXFaOSPRbXYBUKAIdMXhHB1Tyl2G5U3WtRUr2o4r9yJg4e4TuGrqUA6OiPWT6 eV6aSMR3WBBdURccXWOhWPJyVYE6KNA7UmbXUi9LAN 5wm3ZfJtIuDOHkDrrFCXeOO2B4wSBoB7N9jHeIjQU9FGojV1OmvDH6DUozW23sCS1lNgjvX0MjCX5hZw 4ESFHqSjBKE3UONpEvSFipVIavZ45cz8wdO77xhyM+AykqekIkUelUYDRvMV6hhwbeT8AdfVTksi9jQ1 GhthufCWGDGi8ODB9kv2BbQlcqWSFgBnkQHJtWI0M0 cBXfP1nAFonuM7MWV1Y6TgE5uUOfR5pyOAixNq5RgTA9rUJtEUEEM8kyaYvpfJJ4NPtoIia4m6IjhfOs tDWcyoAgpUO6Ie1Ar0znshGrULUsBZ3JKBJcA7JUU0WEW0vipuy7fPAjTPUaNQVOV4GkfXBmanXoCQEE BQXkn8HxLs0+UnB6mzPvxFt/2P/gABBKRklGAAEBAQ EsASwAAP/bAEMAAgEBAgEBAgICAgICAgIDBQMDAwMDBgQEAwUHBgcHBwYHBwgJCwkICAoIBwcKDQoKCw lZFGrNRA0CSWcWGotALB/bAEMBAgICAwMDBgMDBgwIBwgMDAwMDAwMDAwMDAwMDAwMDAwMDAwMDAwMDA wMDAwMDAwMDAwMDAwMDAwMDAwMDAwMDP/AABEIADsA +gMBIgACEQEDEQH/xAAfAAABBQEBAQEBAQAAAAAAAAAAAQIDBAUGBwgJCgv/aAF2RCYYCVVURoZHPCUX MQWAKN4TAcARFNAIAsIfOHTPSZALHpYRJxSEuYysZbXBOJEH3JOeVjBHJInXEluDDbMiDogdNtC7Gom9 QEgBDUGSK5vXPqYYJHVVLDyiQ1GeAepovOcigPA2w2 e2zzMDqYhZnCkKatDTfIbCiVlwksZjyzrxzTsnpfY5vaz2yYn4rpJNnagFdDeB5vAS8vuF1Avr7pXj1T Xm5+zk6aBf9/T19vf4+fr/xAAfAQADAQEBAQEBAQEBAAAAAAAAAQIDBAUGBwgJCgv/kKD5VVRLXZSXYB PNVlARCVFEGnkIQLOFGSKXHBCLMyZYH5KeWzDkoRwM GtBfilOJOzHL3MPnbjQZVoX80JIoZusLCxCwJUrwVUK3SVg1K0IQNltMGNdYGDKRE6sKTvWuQMCxhAks o2V3sdm4sVdRl0NPtmmSoRjMb4PTfubGhIvnt7Hnlwzuqagqh1Z3uid7ruzYi2YCfqsHouaI20TY4lkI 2dri4+Cm9dvx1gyz6/T19vf4+fr/2gAMAwEAAhEDEQ A/UZ83wRLwoxTymUPRT9t/APBZv/zpC8v0r7av69PpkKew6Vl2VlL6w4o9QJnxAe2ciSyzlZFjJOGM03 Vxu2eCL+HZ0yDl16kqgdwZcYiyj+x58VvF+bNL6jbw4L9vM3O8x9xZAKjjlxTd4ey/nj/4Ij/sv+Hv2r v+Ch/srm11zerbTpZoxzSBu51t7V+IAuy3KKNcCRJN yFusK0RWMLFAqIbd04pj0UchajblyoX09rbU8nEaKDBdyzSur8P3Uz6i/Se7na8MlY5UdCga7Q+OvjW0 u1+5f68nvwubBjLu/rBonEieyF5at4I246Y+wN/wXH+Xz2XXvZgmE5Bh39p+Q0yHNg8Awdlj5vuq4dum qUkFpVuHvG6E7gJLVecYHVqHzVYS7UeoWVGxedWWyK cAV+Ln/B0v+f48y6O9/tXZ97mdSP6im914juGcL8kmyIoGFXGREnqfVihF1GAJhgfBTGu9nILvcyNP9H U+i5oxs6wrXxlatJwbSS25B8r7Vy5I9N5AdzP0U+E/sG1J96fNWDcHOuIWfxL1R+JLKLUNOvIlZVnhkU Sp1vKtxc6GuOzvACZisopc89g+HFy1w3i7t/2H050g a4B0yt0I2ZTxy7ubRDOjSk1x4HZ/PG0yqtu+B1+qlDYrGUiu0ZrSr4C82tlF+x5LSid2PfovYSSqV15B 4k/8jp4A/wCw9L/6a7+uubqfpXI/En/kdPAH/Yel/aXHOd27x7c5ZOCqR0c8oZKXVlseCMdaESLMSWXV AUUUUAFFFGcUAFFFFABRRmigAooooAKKKKACiiigAq J2d45R4rqauReMNBi0FreEGoloqAYjeMqEbUv/AB/4O3U5ys9O76vQ70VqSyxr0hx5e4iUuKISwJx9V3 NlNraUDr2WtwtQNClO/Ed7re9U4N6/tO/bTmueKAkPPn60f1U1G8JJhjtw/xDHuRpemaW7OhuauJJBTh LH87ixkRrYaVPyaNS85rBm0OU8fP7Aduz9m2NjxxVi fDq+/aI+CmgjhR36ewS7JQV7AtvdUyDjeHM7R7TeCjUQfnwC6RxTYch6eX/wSbSDxmmuR/SllP6KiIZY zHDlG1ttX9zca1QET/VdzdeoUVZVCwpNFv367E6TcXzHOVBCgJ7+a/kokA2maPVsdKlYVSjH5gp/AMn2 8vU+1fCX/MOFbm8WDYY/8T96FWS4oIy541frMKtWUw m+AiJjHhVGCuwVmVR8j2QImYLwvrM/FLRFeVS1AtyrzXoU1t9v9A+J/Anna+PRboH03qCfb4LOhwi5rvX [file] Grape Grower+VTnXSWZAhPvOoOP63ZOcVxH60YRbMD54K+/foP [file] 4RBKHnzyjcYNmGAZsHUixZm1AnLtp85uhy/t7tfS1ay5OpsC0tPocTOtN+relations mgr/y7rUA5QSmbLsb1k+Ie4 [file] AACaNONTGq0Ef400SOFcPVIdLok+RlusmMTyvOivEDKUXWY8HloRREAKT3WG ID Date Data Source [id number] 09/12/2020 09:37:52 AM EDT [facility] Name Value Range Interpretation Code Description Data Naomi rce(s) Supporting Document(s) Progress Note [facility] GJDFIl0cIsTWKiOi94/AQTpqTTXdb9CwCYlaGEr3KWagFGHlG8WnHSL0sR5pLOX4XFbEZwYrNwVsZNK9 lbm [file] ICAgICAgICAgICAgICAgICAgICAgICAgICAgICAgICAgICAgICAgICAgICAgICAgDQogICAgICAgICAg ICAgICAgICAgICAgICAgICAgICAgICAgICAgICAgIC AgICAgICAgICAgICAgICAgICAgICAgICAgICAgICAgICAgICAgICAgICAgICAgICAgICAgICAgICAgDQ ogICAgICAgICAgICAgICAgICAgICAgICAgICAgICAgICAgICAgICAgICAgICAgICAgICAgICAgICAgIC AgICAgICAgICAgICAgICAgICAgICAgICAgICAgICAg ICAgICAgICAgDQogICAgICAgICAgICAgICAgICAgICAgICAgICAgICAgICAgICAgICAgICAgICAgICAg ICAgICAgICAgICAgICAgICAgICAgICAgICAgICAgICAgICAgICAgICAgICAgICAgICAgDQogICAgICAg ICAgICAgICAgICAgICAgICAgICAgICAgICAgICAgIC AgICAgICAgICAgICAgICAgICAgICAgICAgICAgICAgICAgICAgICAgICAgICAgICAgICAgICAgICAgIC AgDQogICAgICAgICAgICAgICAgICAgICAgICAgICAgICAgICAgICAgICAgICAgICAgICAgICAgICAgIC AgICAgICAgICAgICAgICAgICAgICAgICAgICAgICAg ICAgICAgICAgICAgDQogICAgICAgICAgICAgICAgICAgICAgICAgICAgICAgICAgICAgICAgICAgICAg ICAgICAgICAgICAgICAgICAgICAgICAgICAgICAgICAgICAgICAgICAgICAgICAgICAgICAgDQogICAg ICAgICAgICAgICAgICAgICAgICAgICAgICAgICAgIC AgICAgICAgICAgICAgICAgICAgICAgICAgICAgICAgICAgICAgICAgICAgICAgICAgICAgICAgICAgIC AgICAgDQogICAgICAgICAgICAgICAgICAgICAgICAgICAgICAgICAgICAgICAgICAgICAgICAgICAgIC AgICAgICAgICAgICAgICAgICAgICAgICAgICAgICAg ICAgICAgICAgICAgICAgDQogICAgICAgICAgICAgICAgICAgICAgICAgICAgICAgICAgICAgICAgICAg ICAgICAgICAgICAgICAgICAgICAgICAgICAgICAgICAgICAgICAgICAgICAgICAgICAgICAgICAgDQo8 E3jiJGEfZSNzBT1dXCj5Tl1+NFyAAoExEVE4izYttZ 7KKJ0kh0FoWDgeANXxo5DqJTt5GQ1YSYMmSGawEZ0CHJmund6WCQJzHLIjhJIJd8saDcBlOEQ4CKNaGz tgSX7UWYCqP3ogpzTaYWZrOATHPUzkADUVVRyxCUVBWP9LEgIpS1BumD54AXJLPy6+DQplbmRvYmoNCj J9KMHky7QjJIq7RF8JYPYhIezqo0WlDhitXUKSNNci XX4FJVR6ITD9XKLfRs2CMHNxQ105kjMnSD6MWl5XMcAsSS5mgm7KCoqzLSVdVdeVWel3UCxcMC6YtPQc BEyQle7iptXdfqZYb1DrjzJcsBOKaMWwUGSbF35jsu5cjQfkTRLGCZK7QMVmMQ2uSVFeOKEcDdQ7SPUS KW5VBAIsPEZwdNOgNHOoGRBTES1UGRhdQFX4GNCjvt JclSLiFAdiOD9PDZQktpJxUsXwMDLEXVo+Jf1IHA8au3HnMIgkLFNoLA4vul2PRDjQQzDsU7R1mEZnW4 O0CMktLm4DJBGlYHSqTqUmZPKPAWtmVE4GBG1zprL2VV6PoIUwCLRqAXRivXVbYFw4H94wpUBjMEqbVX 0KICA+Rachel+Ig7XBTPpYLFwSGOtEhOgBCHFWiSxO4My F2ZDf3HdM8LaFX31zGecnyVtDKafBP6GFQ4iCCAbKRMMYN5RrOMalU8dtaSuUbTbVKNCLwOvX88xcJTy CQCkAPH1PNNyYw5TNZBwF2RshtYhiYimarUlOEBgJDASUV0KHKnrzwUbhGKuiBskAT65aRxoRC5IBy8T LdXgUC2xjo7IaURpWc5FCAWtTY5ZFAOeYEQpCVWkFJ S0JPNjUeYhZNosHLZkLDPyGMJ6WBTuLDMcFM0YQaOnGTHiBSAxMUImABLrLOPvuc5IVYNzLZV2FhWvUg HaLICdUEEfRUpaNYPjIYDvEBV4WDLqIPOrPC8KMnTnXESfJKYsVpxjQXSnGTQueu2IXCRaHUAmTfGtIy KmUFMhVTCfQNsaVRUmHDJ4JWjuLWXpHXDnOR6CQjTj ICEiFBoyCkRmWGNuXKPryq2WXPQjDMFvFVK8RRFvPHDtJRUjDQofKJOdAUTvUAM5UBBjPOOgPP7OJsRy AVDfJHI7DlqvJONwFAWkrt9EPTZdTAAkGKHrFBRvMPGaPRKcGDnyXSPrKCIeKKX9XDXjRBLlGS2EBoFt IZZfKJM9BgnsDYHfGHUind7OXPPaQZOnLmy8FJYjUW EiKWKhBJgvJRHqJKCvZUH1PGOaNFWaJU2LFfItWHXgBXQlCHOxTUYhJTOzzg3RRREtVLK8Upf7LTKpKV XdYURwNZklXGNgJTVwMMW3VCLsASCaOI3BKpHaHYCqCHG5XKQyOHXzQFPkqt6IQMTxCEZ3TLB9RXJcLQ QxPJLpXYupICOfVGU9HSTlGWViFEWuDZ4SXqYaSJHc ZEJoGLShTJAtWIBkqg5GZGJwCGM8YAC7YFFfKMIdXBBjCRyjLLUvBBT2Skp0XJIkLRZdBI5XUqItXJRb SBzaAcIwEEHdSLRmnu4CWDTjQHG6PgJpMxUgXQUiNBKzNKvvHPVvQXV3WKE9QKQtWEWmLB2SOsAuCMob LQKWPrb1AEemD6t0DOBvCA5ZS0Brf7OsZztpLCLRBC wcMV4rbjQrACXjHp0CS6hBTwrcTxiyBVQtBUZ6AQSwYBXbEJqyFJCnIBXbStY8ASD6La4cVMKmMFToTl YiKJd7X6OtLVHkRAQ4MFB8VoP0DQy4UPXuIfXgDJ0JZn7SOqR9PAU4xUCoUd3EXPq4LJBUFbEhFR6GOL o= ID Date Data Source [id number] 09/11/2020 12:00:00 AM EDT [facility] Name Value Range Interpretation Code Description Data Naomi rce(s) Supporting Document(s) WOUNDCARE [facility] JAJLGj9vNfBOWBIlHZ9cocj1LIzaTRe2zFEjPE7/AGBXZKNaHW8ZARAICZQOLEWuYXiAogXvDKsPPFWH AF0YOQcQCASLDESEKALoIKnALWPuQXZXFULkEXdEB8Dvn5S8K2OiYAx7o3j9jEh5s1LnDjuQB4RmHYY2 gK1fMPS8CMHqSUbrIFRaIKFrFEI3YkA9AhmESz9KMG 7dj8PaGdIvUFRsJdtJCLtMQ0P2nUPvC3X8gQfQlJW2XWhfY6QbyGR2JGrmF38wAU5oVmjyK0RhAG4vWs 3LNJIeGaVYD7URFoCmSArdUKroT94wt3sxP95twfG+AwtvuuAjBroQHNMkEM4apdtiB2CkgGVkdw1oI6 TkxkhwWPQLOn2IAX4cg2IrCyfdDSUiRxiDSIcFT9V7 yUUgN7sYIshpU4ZHI2H0OoQ4pRVqA7mnERriCj7VxAQ6bUMfKFGFK9gkbEnxnPG5CVdsZiv6y7PvteLr zSDdshDdbXT1Ss9Rh4gcnfSrAAXdPI7SYSRrM7YOC4EOM9hleyu9oVCvPTDnAHSIB0TchKIlmuLoFYJP VCBzf6LmAv9+MeC5xjFbsXs/2P/gABBKRklGAAEBAQ EsASwAAP/bAEMAAgEBAgEBAgICAgICAgIDBQMDAwMDBgQEAwUHBgcHBwYHBwgJCwkICAoIBwcKDQoKCw cZAZiSRD7LTPlVGrlKMK/bAEMBAgICAwMDBgMDBgwIBwgMDAwMDAwMDAwMDAwMDAwMDAwMDAwMDAwMDA wMDAwMDAwMDAwMDAwMDAwMDAwMDAwMDP/AABEIADsA +gMBIgACEQEDEQH/xAAfAAABBQEBAQEBAQAAAAAAAAAAAQIDBAUGBwgJCgv/cXV5FUMOMNAMSkVLPXQL FDNPJI9YVtKEUUYQVcJfTWDXUIMOExTIBcONjTxnNjHVBIXL4RBwAlKZMDyLWmtNGkYtRgvyHtR6Vep4 YXiWDLTNP7xBKkBXUDLKSHavS4RjUoichCsrwSS9j5 b4jnSBsZwMfAjMswSEsHeIoIiwtyVuahhmfVhgxyM9bkn4vFl3lqMRozjRfUlG3ePF8odP0Uuk1bJq5O Xm5+cj4eUq2/T19vf4+fr/xAAfAQADAQEBAQEBAQEBAAAAAAAAAQIDBAUGBwgJCgv/qVA4YIHABDTYPS BZSyACZRIQTzdCUXITQKKUAALHTzIHA9WnKgAigNkP DiUfbzQCWuFL5OLpysKLOfS79LHhNqpGQjUhIVrbRBW8WSr1J4RABsgALPvIFYYHE4qUUoHnTTGmnCvs n7R6lpq5oCuNn7NLlkuXgQeSx3JNdlzTtMekw1Bbanbozfkhx3S9dql8bxzBt9DFiimBvstL70GC1jtS 2dri4+Pm5aro7slo3/T19vf4+fr/2gAMAwEAAhEDEQ A/AX96wTSpqxTijSTGJ7p/APBZv/juU1w0t4sz83QbdUmy7Lf1TbY2m6t3DSeqSs3kjKxqrJHtMLGU71 Kic3sZS+FY7bJl81vekasCuAlnh+x58VvF+dCH8vsd5I9iW2I3r2yXTUanssLo3yx/nj/4Ij/sv+Hv2r v+Ch/sqt56kjjzIzShkkEDp49j8U+HRfy4RYMjHPPQ xUohN3ENKGGJjWab83az8SqhimjcwfD12biC8eFoIGLcglUxf8Q8Bt1y/Ka6kb2SlL9RlHdx4B+OvjW0 u1+5l59ebbgnDqKs/aEuuSlglM5pl0Q439O+wN/wXH+Yq7QQdWlbM2Np78t+X2mZFl8Hxnnr1wog4vrd wZzMsTaOgN7U2aGOQioLMHjFcVRV9LnpSNLpowADbH cAV+Ln/B0v+i12n5H8/yLU44xnJE6us925jyCvS2rxjVaTJWXCMrjrLzhU6JMJuihVRDn6oIYkraBI4Q U+t3yky9qzVpoyhDipSM05D7k1Yt6N9P9NfuC5B+E/tV7H10eTPPgRYkRWwvG2I+JLKLUNOvIlZVnhkU Zg2vRkyb1JcRvvKUMyqlcf40z+BRt1r3i8r/5Z099x j6B2of0J6KQhc6zdIJLfPx8v8DY/VN1pxzz+B1+taJQwANgi0WaVn6V32yaN+g8IJrh9FfdyALTwD25F 4k/8jp4A/wCw9L/6a7+uubqfpXI/En/kdPAH/Yel/cZYSu97n7o0TWYgL9b3pHBDAmoxURezGQGYJHKZ AUUUUAFFFGcUAFFFFABRRmigAooooAKKKKACiiigAq O2f54R8xnshEyMNJu7UemZBdbqaUChaPgWeFm/AB/9H5U3hh5I29dZ43PkYeth2ly3t3fMjNRTkXb6W0 TdAymXYb7SrqsUFCrU/Dt8zi8P6R2/tO/aVplqFQyZVo15x6O9F8UTjmia/nBCmBlevbZ6RbyuoTSHUn JN86lqcWpZeMLbzPK55oNj4GF9rC6Xdrj3i5PkedLl fDq+/aI+GihpcP91ykW6NSM7DiyzEkItkIT8G8CqPuTUvwmP5WkEAvt3sJ/wSbSDxmmuR/RuoW3MvDBK iQQoE7zpZ1dja3VOG/UoyvwrHYPYCdbUEh996W9PkDgAASCFuA3+a/vulL5luGQruPsFVUbP7if/AMn2 8vU+1fCX/JXWny1NFHL/8Q10TNB5fUp323nuPQwNVq m+NpCmOkVTOrbMiHS4c6ABkFVbgpO/WZXSqFM6HaaxqByB3x7s7A+J/Anna+FXrkO78uTiw2ZOmzj8vdC [file] +/5K371c3sh565VfgvNO2/1SC80162sw7++Pn0g/Pe N91/9qOfDr/81+4v32W/zHZ6/o07fo1/82Xn/PHx/dd907X7jn6f0Oo0++8/vv3v9wR7eS4lezKk76+7 n/6X+exP3d+subway guard/+uZn95Ne20dLPlExL3L9vzn65Y63Us6r8Sku8llUx74aUR50J+ctc0r8q8vz8/253 3wqeo1r0qfd0o5VxRLHpxn5kpr/H4Y6rcu3BeHcmjU nJ+XZ/xwrD7FlpJq1pxc/bm1bOHn5/qdKm3qet00yKJD/8Pne+9Wb7dg7/ZL/cMN68knjm695+qNuqqc s26apHv/zpN5eG/NhQXBoK+IM9yWqF19z2l6PnYa3gx8WtFwb9MsxcNBSDpRbbTJ8QwS5+sovW4pTR60 Rv4AFiNT/gsv6hIl4C9sVz8Zgph7lZEmks6Ik9FDvR MERf0K9/BG21MNUS/TmLGA4lwg7G4YOZhcfownfQIQnYi7vvwlnfZ4s+xQQMYPgH834NoCBA0kzEwyZz iGzxsmGNQTs7jG4aULN4i1104kap/mQE4gbF+qM/HEXdS1h7w2b7NWbCNLqiXN1ADD7SJxsut2/bLHv3 xvoKnXHgzfpr5nhQCu8+Gbj21DF07Oo2xXOJZT6qsj Azeb/2n8vJkV5fKZHT2ew0lsxaF5v51usTG354cC/VQDv2ZT4uTdbNLvGU5gYW/ND4GIQJHinBzJdfhN6 Xfq8WekpyNtwXWrbpztGKbjmLZjDx9L4RksJCFaqvZy1UENpbpiQEZsNkcuX3ffmns7Nvnf5cwcY8oWo 3VydCyeTZWU0okPn+KAsYzSvkTjIztO4j2s+OyKa0a vTqoMc3Vl3ynKUlkC1pnvF4+6Emmw2FbGW+orBXbl1kvI0PDMXlOR5sPiPnGl10JLefAYOrXEFKl1lSC epai4RYi4DUwFsgsjZppuwlVZzdxaS5sxlrvjaCpLxO/Ae0FwpudrXGrZIlhO6lXqY9UfBgfbx/k42gY [file] LPApJcnnHe1xwGPlXUJgPNLYMo9Df3NqctW3lyDmGeP6ZkjlBlGjRC0PSg== ID Date Data Source [id number] 09/09/2020 09:43:00 AM EDT [facility] Run: 09/09/20 0943 INTERFACED REPORT Name: Harrison Slade Sr Age/Sex: 55/M Location: [facility] Acct: [id number] Unit: [id number] Status: JONAS MARIN Room/Bed: Re09/07/20 Disch: Eduardo Dr: Harika Cr [employer]INE [employer] Specimen #: [id number] Ordered : 09/07/2006/29/1145 Collected : 09/07/2006/29/1049 By: WOUND CARE Received: 09/07/2006/29/1144 By: KLAUS Source: FOOT Specimen Description: LEFT Procedure Result - GRAM STAIN Final NO ORGANISMS SEEN FOOTCULTURE Final STAPHYLOCOCCI SOME Organism 1 MRSA 1. MRSA DOM Int --------- --- AZITHROMYCIN >4 R CEFAZOLIN <=8 R DAPTOMYCIN <=1 S CEFTAROLINE <=0.5 S CEFTRIAXONE <=8 R CLINDAMYCIN <=0.5 S ERYTHROMYCIN >4 R GENTAMICIN <=4 S LINEZOLID 4 S MEROPENEM <=4 R OXACILLIN >2 R PENICILLIN >8 R RIFAMPIN <=1 S TETRACYCLINE >8 R TRIMETHOPRIM/SULFAMETHOXAZOLE <=0.5/9.5 S VANCOMYCIN 1 S S = Susceptible MS = Moderately Susceptible I = Intermediate R = Resistant SHASHANK = Beta Lactamase Positive DOM = MCG/mL BLANK = Not Tested or Advisable FOOTCULTURE Preliminary (Corrected) STAPHYLOCOCCI SOME END OF REPORT Name Value Range Interpretation Code Description Data Naomi rce(s) Supporting Document(s) ID Date Data Source [id number] 09/07/2020 12:00:00 AM [facility] Name Value Range Interpretation Code Description Data Naomi rce(s) Supporting Document(s) WOUNDCARE [facility] EEHJTt7mLsADWGKwDJ9saxe0HXpbNMx0mPKwGQ0/WXLSJYGbPB7JEJGRDXGYYJZqIXiYzjJuKXdJFUUW NV0CAElUXCDWYKOWAJXfZDuZIQNcVSWCDBRvQOnVF2Uri0G4P2TdAJs5u5o4jDo5v0HsAirNN8ChJLL4 aS8yODN1FGAwUNbgBLHaSRCnPNN8MSIcSFmEBy2OSJ 0ah0NjTlOoIDEiLqdLJQxHX1Z5eTTkS4Q1rCfFoVT1SWzrI9QlxDQ2LMgiC49aRP7iMlgkI7QbXU9dIv 8IMGWwOhUNY0LWEnQvGOwqWTluS87eo1gpL17apiJ+EoqvtuWzNcfRQESsVD0menpeA6MecBJhlc8pF4 PybkurKZUIBn0XOR0zm2FcAwooSKWsZtjMSMpRG1X6 oQYeG4dGVinnX9YUX2S4DeX4eRGfV8jmAJpsUl7EtNO1eFAkINFBT4cryGyimHT7DQahUsc9d5LxsjUm cWUjxgEopBK6Nq2Jn9eaemLzYAHaRS9GRDWsI4YEJ4GNQ2qkpdv1zHVgABRvFCHQC7FcuWFbiuGxZXHA LUMjp7UxAl6+WeZ0fvIzgEx/2P/gABBKRklGAAEBAQ EsASwAAP/bAEMAAgEBAgEBAgICAgICAgIDBQMDAwMDBgQEAwUHBgcHBwYHBwgJCwkICAoIBwcKDQoKCw kCDFxZBB8TWXfZLjtQKP/bAEMBAgICAwMDBgMDBgwIBwgMDAwMDAwMDAwMDAwMDAwMDAwMDAwMDAwMDA wMDAwMDAwMDAwMDAwMDAwMDAwMDAwMDP/AABEIADsA +gMBIgACEQEDEQH/xAAfAAABBQEBAQEBAQAAAAAAAAAAAQIDBAUGBwgJCgv/oCK1ECBAUTFKHdAAFWPX KYFHPF8ACnZRUCTMDtKzLXEVQNEGZqEZXpRBlYmfAcRQWPJS0JLyIuJOMCfMMuzHWcBdTqczQpE0Jte9 DUqNTGAYR2uDMsPMDFALNDhkP2HvJewtoFeytPQ8p0 e0cuZStFsVmInSktNTdEkJhBtsmmHlbmcdeLimkgQ3ufx1eNd8eqCJgvhAsDpM9uGI0bwU1Uve0uZq4P Xm5+sk3jQd5/T19vf4+fr/xAAfAQADAQEBAQEBAQEBAAAAAAAAAQIDBAUGBwgJCgv/uOH1PAYIDTULLF RHQcOQZJEMCadXPHIKLFVEXEXCSnKJH3ErKiGdgOgE PxKvdoMGOwCT6VDruoZEIdJ88GPcIlwINsYqIHpaQJM1KSb7X5XZItsIHPzAZUIUS1bZHpGuIWHevZly i2Y9ofp6fBfSb5UOtuzPzOcRg6FYkjoJgNhzg5Ouisxofkqxo9Q0fgs3wuqDm3MVmboPndvQ80IB3nsV 2dri4+Ip6jsg0rno4/T19vf4+fr/2gAMAwEAAhEDEQ A/DQ48fTVxsqVlzCXNA7l/APBZv/yqN2e2p5rp46VlpVwh7Kn0XqY3v4y4WQmvGs8myQgrfJMkIOGX56 Pga8oCF+LG8aGa33zsrffWaYgfw+x58VvF+oXE0wrx0O6oW5N2t7bKRFubmtZs7tj/nj/4Ij/sv+Hv2r v+Ch/gsj81mvkqJhFzjuGJk58q3K+VBuy6YOQcQWMG gOnsT1QCFFRHhOzy60ri0VyepzuzakK09oiJ8cMdXSEkcrWxp4B6Ap4a/Rj1nt0KiS5ZcTlf3H+OvjW0 u1+5v41lfdkoHsAn/jMdwWqlmP5yn9L526W+wN/wXH+Hk7KDnZmhU7Wb63r+W6nGGv8Tvzti9oor2mwd cIzHpRpIlR8E5dXOUlaYOKpMzPRT3RkeSKWukhXXmA cAV+Ln/B0v+n23h5L7/wWC61ffOY5cu471xdWdI6ihbFhHONGGTwiqZphU9NEYxwsMGXm6lPGwqvAJ4T U+y0urd8ilRksixYprDW46U3j2Ef1G4R9KbrR1P+E/rC7U22tGKFnOKlNSwtL7P+JLKLUNOvIlZVnhkU Kr5wWmtx1WmMjmKXVkjboc62c+EEv3a4a6t/5U546q a1P1ez4V4LWme0ndDYIqKl4g7SK/GH0ivxl+B1+wvCIwWSgc4YsYf3K85xnC+z5LOzg6BscnOZPhX49F 4k/8jp4A/wCw9L/6a7+uubqfpXI/En/kdPAH/Yel/uNSPt03u8o6CYTmF5p8zGIZPgmdIMxcRGMXEKDY AUUUUAFFFGcUAFFFFABRRmigAooooAKKKKACiiigAq U8o56H6nhjaAoCXQg8XefYWpyniOJbmCbAyRa/AB/3I2Y1gt3M85qC71JeXvfs0hj7v8xIbHXUbKf5U7 RvPbwYZx5CzjbWQIuJ/Pr0mv2G8T8/tO/tKprwUDnEMg29i2U3I5EAwtqd/yZInVucemO4WzyahBQRAw LX61fmzZiFcEGkeHL08aHj6DK1gS9Dshe5i8AxkbHn fDq+/aI+WdkinW71pcJ0UDI9DdlmNhEhxVF6I8XqYzVLvrxZ8RtOApz4lF/wSbSDxmmuR/SeaX1YnYUO eHNeG7tnB3kmh2RZF/GkaukqDEGGIytLWj295O6SkJpCTSMAvP2+a/tyhK5eaEScuMwRRBoF5fd/AMn2 8vU+1fCX/KZGnj9JGAM/8F04OGB4mNl156kgSVdWBs m+YvRcHmNKDeyJjAV7i1JXzNWcifY/MWNBlJZ8PthdaCrO5t2l5J+J/Anna+ZJijL54uLrg4XBqib2tcJ [file] EgMDAwMDAgbiAKMDAwMDAxMDAwMyAwMDAwMCBuIAow UNLcWWPmZOP9VHRkRUHmVH2kJyPhTWXgMBM8PkzyCJUjEAQtqeAYXNTeUQVfYTm0KwXtTCVoFYUfLHcx POPaEHMiJzUzRUAvZTMiVV0nFlEdKNIaIWR9KGjdXOBdPADgfaVJAJVvAONhZShwLmIlJIAfIDRiJTiq RCQwZUA9QWJ0ABTkHONmNR6xHeIuRQWyPQW0XuHhIG TvRFZqvnAZSIHuKAFiVMG3KJMzGHXdFISnCLicHGHfOEW6KwOfCARhORSbLE9wQqSyIYNjLQUcLCJtGZ MwQRMqkrHKOLKiIUZhFTXnNNFkGBPbOCKtGVmtLVPuPPX4XqW8VTNxTGUoXV4tJjZrCRNzSfswCerqFU TbLQViqlKLFFDzJMTcQQC1MzWmUJRlIVAeCQdcQUCl MHT8VYO4JRPfAQVtSQ3rDkVdIRPwKKw9FksjBVZnCTKneyTGGAPkNYJcHNCkDGZbIGAfALUnFXusUSVg CSXaFsCfFVMcQFVeAA1aLqDnHMDjUFi1DiOfZKVqQJFllgPNSPXwBOEoNERqFBQtKBRnRUEkPSthIWVl MHYeTvErSAFjQAHrDB8kFfHbOZTgHwM1BimhKSXuTQ XmuwXOSUAkKRAcCUE1WSPdEKIyENQwARpsVNPlCVK0RzH6YAJgWOQfUU7aFfLtWJJzLrf2EUZqRGJpZD BugpAUWSUkOJUlZUE1QGJeHJNqMRRqOIfpAMAhGOB6YwL3LMGwWBQxKD6eMyOyBNClYef4FMObPXNiML OzrsVLRRFyMGAsUsg0PHVuESLdLNQtJYskIUBrGJC8 AKXkNFPsTUVdWU6bZuCzPZWuMzu2LPuaZFCbHFPbadXWEXAoDOGgGQJ0JvMvQOKbJUMqPPhxFONwTEJ8 Qav8WLNiEJHwFT0hQeTsVAFvBVw2ZVncWSHlRZWxobDUSTErPZN2LEG2HuViFJOaOYUlILxnWUHaKJB7 AWzaBIMxBZYuEV9jEqOcVSUeJNTlVtAcOKIhITDmrg YVERCqMMC1TRQfVzGoMRKmDNQhRUzoQFMyEMM6Qfx6CWXdCRHbYI8gHgUlJMDmYNE8IWZbSNEqSCAurx SZdSDmkEewcwn4JZpjS3x9CWS3HxwkYC6yksRjRRQsTwskHo1pdXDwSLYpYQWAHj0Gc4LtnmV0foKmPd T3TyMrOiUwVQ2RBb== ID Date Data Source [id number] 08/31/2020 12:00:00 AM EDT [facility] Name Value Range Interpretation Code Description Data Naomi rce(s) Supporting Document(s) WOUNDCARE [facility] RRGBXa7hSdQDQXCdBI5pebx2CBuoQEt9cRAqME1/ONPLTDLbAC9CKDLFIEUBIQShLRsTbtJoYZkHIDEZ IY9CGGwWHECLPPETECKgJEmWMKNkOLBEBDOzTHfOH5Iwz7A9T2GyIWq2a9h2tIt9q9DjXuqKH1OhGHY2 iT5yMOJ9TJYrJWzsODGqYOQtQGN9KtU5RlbAMc0RZL 0dg4VqQrAeBCSlLvfGOJlTI7L8cPBdI7W7vPtErUZ5HHezN3JbvQM6YRqhM37kKT0fOqycT9EsCE5eAd 8IQBGgViANV8FLNmElKEagNPpjC45do0mlB80zdkX+WfudzcIeIvnHFSXvZC7nfncbI1UzgBXngl5sE4 WuaincEKTEFb0LAD6xb7LuVwvmSLJxFoeLZFmKU7Z3 jEHnG1gMYnbpJ3HKW6D0DeB8fTFuU9pwDKuuDj7UkPD1zSCgCMMDY1skoCuchWC4IKbbNmh8d7PbalOh oNCokbZvzVT7Jy8Po9sxgrFkMKSvGD2WETApB9QCW5NYQ6rnpof4lDXxPNUtHVGGK1PssXPpsvBbBZML IXSpb7SeMp6+CrD4laGtlCm/2P/gABBKRklGAAEBAQ EsASwAAP/bAEMAAgEBAgEBAgICAgICAgIDBQMDAwMDBgQEAwUHBgcHBwYHBwgJCwkICAoIBwcKDQoKCw yVOUrICB1LONsFKvkCYT/bAEMBAgICAwMDBgMDBgwIBwgMDAwMDAwMDAwMDAwMDAwMDAwMDAwMDAwMDA wMDAwMDAwMDAwMDAwMDAwMDAwMDAwMDP/AABEIADsA +gMBIgACEQEDEQH/xAAfAAABBQEBAQEBAQAAAAAAAAAAAQIDBAUGBwgJCgv/aBH9MLZUFWCUDlEXLZTA PSFFVR2VUjKDRJIAJdNwYXKGYQRSApHAPsORgIcfRpHPILXY5DKbQqOXHCsFJttRCwJiDusgYbY7Dwl7 ARnHDXIYT9pRLeEUYTHLITlhY0NuSbiyyWniePY7z6 l0vkYAzVeSqUoBtfGEvGvUvKybgkOhxluuxJompdF3ymo7sXz2ffVOcksGkUdR5sKG3ygD7Dth0cNm9I Xm5+as0nZy2/T19vf4+fr/xAAfAQADAQEBAQEBAQEBAAAAAAAAAQIDBAUGBwgJCgv/uCU4QMBOJUNXSH LBTyVVVMXZSdtOWDOWBLJMTKGJRzEEA6KfFdXqdMpJ YcTjgiWCJoNT3COnzlEZAeX67FXnKieZShGcKKlwKQR0VOl4N4PVEbjSRDaVIPTTD2oYVyUbDFPpvXga n2A5pkf8oIhTt1NRujfOmRnDb6SKucyTgBvek0Tycoivfqfqa5O5lvo5dgzHd2ZMhmyMamfX29RA4miO 2dri4+Ad1vmr6wmu0/T19vf4+fr/2gAMAwEAAhEDEQ A/WY16gQKkzdVejCYWQ9p/APBZv/yaK3v9e1oj62WasWij4Ia8SuB3f1j9WOelWk2niJkgdQImBPZU41 Oha1wCS+VE1uRr79vqovaIiBfck+x58VvF+zYN4mfk5N9yS6V3k4aKAXuqimQu3mf/nj/4Ij/sv+Hv2r v+Ch/mvf14eptnDtPycuAWl88m7K+EAnc8NUWkJRWB uIvwE6CHKPBCvKtt71js0AwinvaatyP98shP8dCeSKTajvVnr3Y9Xu4q/Dz3pe3UlQ8BgFgi6E+OvjW0 u1+6v44lxgshZrEg/fUcfNoppW3cy1L578U+wN/wXH+Go1RBoUnkR9Ym14c+Z2wUTg7Jfloy9rii7cna nRbTqUtLyJ4I8dYBBvoYGKmEmHOK7TjrNXIgevKVyC cAV+Ln/B0v+x17q6S4/kUW92keGW1ht357cwZfB7shjUjKJJGYAzhoYetW5AMKrrkJLNl5qJElgtZN6V U+v7eso4ixIritqEabZX23R4l1Mo5S0H8CoiZ2X+E/hV5N37cLXBwVTxZVtuC4B+JLKLUNOvIlZVnhkU Yj8uGhla3MkTufGNFrftis17i+PGv6d9n0m/5S595x b8Z7zb0G9OIdh0tvZTOsRi0k7QN/HF6iphs+B1+mpWYvNSeh1FySa8U32mfN+n6GKow4WldcRITjR54Y 4k/8jp4A/wCw9L/6a7+uubqfpXI/En/kdPAH/Yel/dDXYo36a8a7XOAjU9p9bBIPGnwpJTfgAAWDZBID AUUUUAFFFGcUAFFFFABRRmigAooooAKKKKACiiigAq R9w46J8ptkiMjEHFr3GdhOCtsjcDEnaUxXiVh/AB/6Q5A1qt6W22vC25TlIzar1cc9t9sGcJIItZq9T7 EnFlxKPp5PyaeITZbH/Kf9cv4R9K4/tO/xBpswBBwQSy69j4I0M5EChbkt/dEByMwigwU7OkbxrXXFHm ZS35cihRkGnDLfsOT33jFm0WE7eX9Sdor7o7BmodPn fDq+/aI+YnjxmP70apN0VZP9GazwXeQiiPD5L9EtZdBXxdlP2FuBIes2uI/wSbSDxmmuR/RjtZ9JoENF kEFwS7sgE5bbi6NED/TayhgeKAQLYxwEKh004I4MdOrEKSIMfL5+a/vqzA4qzWFmnOuFCMiT3ft/AMn2 8vU+1fCX/GYZfh7BEDO/8J29BZU0sSa594zhPOsAGl m+CoThIzOJIzkGlQM2b1FGyZQxshL/RVEYlUI7HnxlqNeF9k4x6M+J/Anna+NOysR69nGee0MOuvt3ybW [file] Zzo7dN6LN8NAJerQQbqmdT0sVmpy+lbdKrMus8KNQImLcBYcfGqC8Ikm/XuE2KBCv7KHSEcN65Hvm/COAL 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 OPERATOR [file] EgMDAwMDAgbiAKMDAwMDAyMzIxMyAwMDAwMCBuIAow PKGbHROpFYS7TOZtALXoQE7lEuIrOKOxTozpUoErMJSeIOKuotMOXRUqPFDeSPZwBGQnWOVzRTQyGToe DKSsQYC8LbS4QRPdODQsZS9aEyWwDBEoCeDtCdrzAVOlWUKgbcRLYWSqSFGrFRT6YGWtTWFgQMOuOHei RWKcNDS1EnF8EEDfWMJlCI1tIyGcDVZqCjj5WTFkMA UgXZLaeeQIQGFcXTHjWVU6HoXqPRKzZMDyZTvwNVZrHDP7HxRnVSGaCMIwPM0iLsTuKHXdNro0VZJdWG WeRZKrpmDRJNDpANZ8UTo1HFBgKKEvPORtVAsfJFQuIPQ9COo2ZWOnPVLjZC0pBeWoZUNjDHs5QtTpLQ VgFHDivlCKQMQdDYK5ZTVzQFIyGVLiLDGjKWjlMKKl FLOaHlypSEYzQABjBY7oTuWeUVNvDDQ0VjzsQSDvAIBesuIJFBEaRJK8DzN4XxTxPOOlBLKcBAjmRVAj ADN2McT4BOKzRKSbMP1kIlOqJXlvJHXNSLjLH8ViwdUwFuVZJ1htDg7zVFWoHBXJA5Ylt0ExLeOzHYHS Cj4+JaE9SOY3hUXlUuz6PiNvUajuGKXLTvo= ID Date Data Source [id number] 08/24/2020 12:00:00 AM EDT [facility] Name Value Range Interpretation Code Description Data Naomi rce(s) Supporting Document(s) WOUNDCARE [facility] SDPLPu2eZjYWEPPqJH9jwtx5VOweMKy6gKPmZM7/YQZEICXyAH7RBUFHYTGRMWDwYRyMsoPjTQmBPKKO VA1SYPjUGTFZJMEPTJRnYKoGLTOgSZEDEBFvSVoWW8Rlh0B5P0LcLTc7j4i5gOw0s5IsAmpPU3QsWTS0 pL4xFFD2EPJpNZdlLEQjAMFkGGC1IeEtQLtEWm7UPH 5rn2IsMcCeNLDpDffZTFlWJ8D3oNIoH1C1hEqYfCE9VYvpR4IaaTQ5DCleS75fYC9eBrduK2LhPI5cMt 8GTBWqWpEZZ6CRHaUcOKzpZHkzY91lp8wyJ98xmbR+ChpaocOaAngKSPKjTJ8mttqiA2UusXWamc7jV9 FttlceRQKOBs1MQJ8pz1AwUvysTVLmYvwHAEvXV3M3 pGVbC6yEPijwR9WKW0K5XkC4lBUuS4dcZJayXd1OwAK9oREyEZVOH9iqmXcvmQY9CKypFkh9x4GoefZo nVVnheClcWB4Xd9Kd7firjOcQXLxJI0IAUKpE1SXS7NNO5kgozq1wEZrDDUuHZYSD4NsyTOjzuYxLIBB TLPeg1KsKy3+YwL2rqMilPj/2P/gABBKRklGAAEBAQ EsASwAAP/bAEMAAgEBAgEBAgICAgICAgIDBQMDAwMDBgQEAwUHBgcHBwYHBwgJCwkICAoIBwcKDQoKCw pZASwBJV0QLInKCesNDA/bAEMBAgICAwMDBgMDBgwIBwgMDAwMDAwMDAwMDAwMDAwMDAwMDAwMDAwMDA wMDAwMDAwMDAwMDAwMDAwMDAwMDAwMDP/AABEIADsA +gMBIgACEQEDEQH/xAAfAAABBQEBAQEBAQAAAAAAAAAAAQIDBAUGBwgJCgv/zVI7DHKGEUSTRnLBWJRF OUBPMF4PDcLZZRXQXyGwMOOZUPVCThZVUzDMoJdaJdGVGSUS5AHoFzGDYNcADzvGVcUhYbbpXjT4Vlv4 AMsKVUMVT7bKWhTTYKMAWOwvP8MoLmepuCqtwIB0b0 b1zaGHfNaGzPjJgjOJrKzGxGldfoFvsztzoPackjH7lej6cMq7laYLnefBpKwV8eVN3yfL5Yne4fQv0V Xm5+gs1mIj0/T19vf4+fr/xAAfAQADAQEBAQEBAQEBAAAAAAAAAQIDBAUGBwgJCgv/yMJ8XJHVCYBTSK IWVdXWBDBXVoaEHFMONLZTRXDBGoBGJ3StHlJzvXtW VjHigwYRYiXP3DVsxoZGXhF02CYmOvmLAiXdXRbfOPI9SIf9O1GIJmoGCEsXLSIIL8sJXyOgQPVyrZep y0Z7loo0oMdQf6WGddhXnAhAq6BGkvuAtIqmt9Pkxoxpyoczr0B8lzj4syhYk1LLcpyDnxaE39OH3jlW 2dri4+Av0kve1fhc2/T19vf4+fr/2gAMAwEAAhEDEQ A/DB38dBElhpBdaFLIV4l/APBZv/qbR0y8n5ru28JfuXgp5Mz3QeY8s8o8JVbfSv8exVnaoUHiLBWN85 Phx6lQG+ZN6wSg23sywgvZzKoht+x58VvF+tJH8mqn7U6gF5X2m6mEFGqmxeUx7yw/nj/4Ij/sv+Hv2r v+Ch/gxg95zpjsJdCwghVGy42g2V+CNrk0SQDfHYXA tVpcL4UZQRCYyZkw60vv8UsnmcxpepI34rtW3uGoVQUietFbr0V5Jw4y/Ph3hg1VrK5MwAjh9Y+OvjW0 u1+3v78fsmsdCxSj/rVwgPxgqT7cv0K758P+wN/wXH+Pg5ZSqBbxG9Cf05b+D3aXGl7Cvfnf6woz0twr cSgXtGkUqS4M2jLZSjqZAQzEvLNQ9CqvSSOewfVBiS cAV+Ln/B0v+y08d2M2/iCT95laQZ9si908lgWrU4xirZyBNKJBCxfxHbmD2PPZcwtAWUv4cDXfnhNH7E U+a6kds7niZqccgWgyFC60R5n6Mh1B3Y5OpkG4I+E/fL4X17nERXqCByCXanZ5R+JLKLUNOvIlZVnhkU Sy4bNfur3SwAgfFGJmxzlo50p+NEa4x1l6o/1U655x i8V3ss4P1IKik4khCDZpEk1z4RK/JH6aygo+B1+hvJWuDSbv9KnNr2Q81tjY+r1BJrv5KjwpKBIwQ24U 4k/8jp4A/wCw9L/6a7+uubqfpXI/En/kdPAH/Yel/mUTRk74z7x6MWQhY3v8kZAWMekrKSslXPJPWOCY AUUUUAFFFGcUAFFFFABRRmigAooooAKKKKACiiigAq C5x03I7zfyoCzFEUp3RhrEUdwugCJzvLlOyDo/AB/5L1N6ji8R09yJ07WzMnid0ca7p4pTjPMJwSz0X2 XcLvsMYi2HihvZLBcY/Pn2gy2U3G1/tO/sTjjbEWbWDd54w0O7Y1EPjcvj/gZNiJetowO2IptonULIHc PX41rpvHfArZXonUS77cNv6SZ4jA6Hgis5l0IkbeOv fDq+/aI+DzrbyM72hcK6FFG7BmteDxQpmDH3X2TmGoLYidfQ9VhKXzd6lP/wSbSDxmmuR/JchY2XwVAD aJHeL9xpC3pit9AEY/JzrpvsMJSBFjpHWq753S1YmErGHIQEeE6+a/clxG0zqHFuuZfEBJbG8tb/AMn2 8vU+1fCX/ZCAcn7MDLX/2B09XNN9bZr501urRVuSXk m+MdPsOdSQYcnGkMN5y0IRdBJusqZ/TTWKpKE9BrsklYzY1h3z0T+J/Anna+OAmsB13bIkx6SIbdq8muV [file] XgCpy1ERS6MYliLKVGAxy= ID Date Data Source [id number] 08/18/2020 12:00:00 AM EST [facility] Name Value Range Interpretation Code Description Data Naomi rce(s) Supporting Document(s) WOUNDCARE [facility] CTEMBo7vDhGHSLHrJT2iqvg6FBytEAp5yZHwIL7/ANWUEDSeKA3ONWQUHLMRXOVrSFzNebCpKSmTCNVF PT7HUWwSKVZWINVPARDvXFaHHWQoCCHYXBRpKZfIR1Mij5H2C8UmQOo2j9d0lNh0o0MhQduAF9PkNHW1 bH5uUKA7BXZxBSvaHQLeBBVgWtG2BGU4CcnCGd6JGH 9dr9JiLbJaQOHeTycPNBlFZ8J5fAFqW4G3tGaLzZM8FPeiB6AkmTN9BTxaU98xWT4jFtoyE7MzPL4qIa 3MAQQiKvFYZ7FVWbKtJBxgZQfkU33sp5yeX92xcnR+FupyvgVlIwgHPWSaYL5wtubbH3QeyGKmja8aR9 DjrhmmBTIMIh6LSY2bz0CeMlofTLMkTrtZQUvZT6P9 mZWcK8hJHvxaG3JPM0P2OtH9vWYjK4wgPJppEu1BfTA2sWGyMSVGW2kupCjfnOL5KKaaHiq1o7LlymKp mIGvnqMorWH6Of4Wz0elicEdBOGjUP4IAZAdZ1TFG6VVT3teffo8sIJqCGAfVHPYZ2HpgRRavrPeWKJV ITHnv3LyGr3+NyT1wxVhmFu/2P/gABBKRklGAAEBAQ EsASwAAP/bAEMAAgEBAgEBAgICAgICAgIDBQMDAwMDBgQEAwUHBgcHBwYHBwgJCwkICAoIBwcKDQoKCw wXQSuYWK1TZTzSOtbKYJ/bAEMBAgICAwMDBgMDBgwIBwgMDAwMDAwMDAwMDAwMDAwMDAwMDAwMDAwMDA wMDAwMDAwMDAwMDAwMDAwMDAwMDAwMDP/AABEIADsA +gMBIgACEQEDEQH/xAAfAAABBQEBAQEBAQAAAAAAAAAAAQIDBAUGBwgJCgv/sEG3VPWGLYRQRiJJLFWO NPOGOW2CBsYQSDCOUfJfXKWOARYQKeZCLlQYwUovHmVQKTES7JYwOlTBFYhRAjsAJeTuNrseNbL2Ekd9 QRsIYXFIV5wUMwCJMEWTITdvQ9HyXlzuwCxhrVJ5l1 w1lmDObYtCeXcWqiCRcUkOdAeqrtWovmhgoDggskN2lku0qOd4kiBSftiZxChI3dDQ8zoB2Onr5uYi6G Xm5+re1sYj0/T19vf4+fr/xAAfAQADAQEBAQEBAQEBAAAAAAAAAQIDBAUGBwgJCgv/iWG4CCXQUBZXRO OEFvRRKXCRPxpXIHZQXTROAPTOOmHTM2LrZuXswLaE TdNymxQBNvLS9VYvprQQFtB74RHlIdjHJfMkZRceFRS7TKj2S3NPSnyZRQgGIQXOC4eJHjElHRCdfNxw z3K0jgo3uLtVm9DBlvvKtEtTr2UIuofGwNtgz4Ksthsyfjzep1O0xaf8pxkMx1TRygoZelpM93TO6icE 2dri4+Us3ixk2wua6/T19vf4+fr/2gAMAwEAAhEDEQ A/PI01rYCtafEwmQHMT1c/APBZv/fuY8c0l4sx15UzcOtb8Lc2KpK8s3r7MMjnLf8agBofgWAjZONE25 Zsr9cKG+AD9tWt38mafklPbPpwf+x58VvF+fIC3wla6V4vV1G9c7mUCHsbdzGu3fp/nj/4Ij/sv+Hv2r v+Ch/eiz59ivywVdWslqCAy99b2G+YYxf4LVOdPMLA hIzuQ6JDEQRBuHap97uy8HffmwskhnV00bbX4sRyLEGmoyYqx6I0Bj2y/Tf9zn8YuT1OxRnv5J+OvjW0 u1+9e06ehrgaWlIi/zTccOeqvP5ok1I226H+wN/wXH+Nd4XSvUlmM3Ry63s+B7mREs4Zgvwp9tug6rpa fQbDxUiMyM7M8gXSMciNIPgTsRXP9JhnPMIevmQFrT cAV+Ln/B0v+q66j6M6/gBX79vqNC5st061zsVnB8vthZrXZNUERrajUauB6HTLagvVIOl2qNIqgtLM5Z U+r0rdm0cyZzxnxIlaVW12B5j6Hd7F1L7EygC1F+E/wB1Y99nOCEyEFxOCkcJ3O+JLKLUNOvIlZVnhkU Yf7kPxno3OzYbjYZSxmnld01a+CCl6h4p6c/7E890w g8E2zr8J2PVlo7kuVIGaKy2e6NQ/UA3mnaz+B1+ihWUgBTgj8YmTl2A35nhQ+w3SBcm0IbcvZATxD01R 4k/8jp4A/wCw9L/6a7+uubqfpXI/En/kdPAH/Yel/eKGFu04x9v5TTSiQ2i2tCPXFatuXUadSNWPMHEW AUUUUAFFFGcUAFFFFABRRmigAooooAKKKKACiiigAq A6k81L5hcfdRuRDXj6FhuPXyazlSLooAzZzCb/AB/1X9E1wk0G73lK00NnXzuh2vp4u8lAcBAUqGt7Z6 YlMbjQZi5KscbTVEhI/Wv4cw5P1V4/tO/kUgjxMGmWPl41j0N1Q2YAsmus/lTPrUhbulS5JnhrhVFOHx EW01phvRtNtZXxqOL09aJp6PL8yT3Cdhs8l4XvhdNn fDq+/aI+UikxqS83alR4ACP7LvfjMoFqcUU5K5GuNuNKpjfP8KnNBay0gT/wSbSDxmmuR/JvjK1FgKFT vINsW2puU9rvp7PBG/FwlcycIIITUvfILr806Y6NmPiAUFTTbU7+a/yrhS2wiQOvsQmKXMpY0mw/AMn2 8vU+1fCX/DDZay6LGGT/6C82BEI7jEd381ikVAsNFy m+HqEpBbUEForPyQF3h8YXaASoicN/SFRRhSA5JleaeLyV3b1b6Q+J/Anna+UIzfK67bPwl8HHfhv6pvU [file] [facility]+BoutUlNuC0xI/ubTKXjvoy5jgK [file] VPRgo= ID Date Data Source [id number] 08/17/2020 08:31:00 AM EST [facility] Run: 08/17/20 1140 INTERFACED REPORT Name: Harrison Slade Sr Age/Sex: 55/M Location: [facility] Acct: [id number] Unit: [id number] Status: JONAS MARIN Room/Bed: Re08/14/20 Disch: Eduardo Dr: Harika Cr NP Specimen #: [id number] Ordered : 08/14/2001/27/1537 Collected : 08/14/2001/27/1500 By: OFFICE Received: 08/14/2001/28/1536 By: GMIRMA Source: FOOT Specimen Description: LEFT Comments: Results called to [facility] at 0855 on 08/17/20 by AMINATA Procedure Result GRAM STAIN Final NO ORGANISMS SEEN FOOTCULTURE Final NO GROWTH NO GROWTH <18 HOURS Organism 1 MRSA After 42 hours Rare Staphyococcus 1. MRSA DOM Int --------- --- AZITHROMYCIN >4 R CEFAZOLIN <=8 R DAPTOMYCIN <=1 S CEFTAROLINE <=0.5 S CEFTRIAXONE <=8 R CLINDAMYCIN <=0.5 S ERYTHROMYCIN >4 R GENTAMICIN <=4 S LINEZOLID <=2 S MEROPENEM <=4 R OXACILLIN >2 R PENICILLIN >8 R RIFAMPIN <=1 S TETRACYCLINE 8 I TRIMETHOPRIM/SULFAMETHOXAZOLE <=0.5/9.5 S VANCOMYCIN 1 S S = Susceptible MS = Moderately Susceptible I = Intermediate R = Resistant SHASHANK = Beta Lactamase Positive DOM = MCG/mL BLANK = Not Tested or Advisable FOOTCULTURE Preliminary (Corrected) NO GROWTH NO GROWTH <18 HOURS Run: 08/17/20 1140 INTERFACED REPORT Specimen #: [id number] (Continued) Ordered : 08/14/2001/27/1537 Collected : 08/14/2001/27/1500 By: OFFICE Received: 08/14/2001/28/1536 By: BOBBIACDOUGAL Procedure Result FOOTCULTURE Preliminary (Corrected) (continued) After 42 hours rare staph FOOTCULTURE Preliminary (Corrected) NO GROWTH NO GROWTH <18 HOURS END OF REPORT Name Value Range Interpretation Code Description Data Naomi rce(s) Supporting Document(s) ID Date Data Source [id number] 08/14/2020 12:00:00 AM EST [facility] Name Value Range Interpretation Code Description Data Naomi rce(s) Supporting Document(s) [facility] IMJPZr7hHzCNXKGvKF6vzxn1QHbgNNk5jXMjYA1/YTPBKTUwMV6DSPWUTNHFJUJwEUgEqwUuTWoMUYTY IL2PSXrXTCSHVWXUPZUgMPuQIGKxPJWAOQFaKXxTQ2Ztb2R8S4RyRMy7y9c7eWv6u0MoHalTC5UaCPH8 zD3aVPX8STKhYVqcZFFzXRYhDAUwAFJ4SHxJXm4AOO 0hc4JaKoFnRFZiDlgUEDkIA9K4qMMrR8N7yUeRsCD6VPqqA0WowXF7CFmcC36lKK5aFfayC6ZaKS2vUp 5RWCEwNlJXM7DQNhTgBAahOUtrF31ht6bvP28qfhD+MkolqeRzCwlAVWOvYP9qyqynP3ZotSEgat5nP9 WdfijdRNUZPl7ANZ9ss5VdUawoMDCtZiqHAEbMG8U6 tYFxG1zPYhgvN5ODQ6G0YgP6aPQhQ7klXOzyWc2HsSO3zTFuWSGBT8shnZagsIV5ZNmiWzp4u3DdmgVy sVNeuqUljJN8Om9Rm9ynolIrHBCoZI0POIZsL1JPN7XWT7dvvqc2zFKjCQYmVGWRH7UsoPQmwrGhRBBE DWJuz7VzRy6+OmE3isOueLx/2P/gABBKRklGAAEBAQ EsASwAAP/bAEMAAgEBAgEBAgICAgICAgIDBQMDAwMDBgQEAwUHBgcHBwYHBwgJCwkICAoIBwcKDQoKCw qEMGtGOQ1JCNfDVdyKCE/bAEMBAgICAwMDBgMDBgwIBwgMDAwMDAwMDAwMDAwMDAwMDAwMDAwMDAwMDA wMDAwMDAwMDAwMDAwMDAwMDAwMDAwMDP/AABEIADsA +gMBIgACEQEDEQH/xAAfAAABBQEBAQEBAQAAAAAAAAAAAQIDBAUGBwgJCgv/bJX4BMLWVSAOGtDRHXKH SFDQBM0AMpVVQFBONnVdPQBUBWHSWmHJAqAIbYicEmMIVYCU6KFaWzLSPZrLJlwMQbUrXjgiZeM7Lut9 RPvGBPGCK0mMJhQXYKJEDBtoB7KcJxziiFvqjHT6d8 p6pqTVyVfNoYzAckYRzStQoFtiqqHeplzgjRluhoF8hgt4cIm6cyKMqbfIpNxG6kKG3qcS1Onm5cNj6I Xm5+vi6cKk8/T19vf4+fr/xAAfAQADAQEBAQEBAQEBAAAAAAAAAQIDBAUGBwgJCgv/zQP9WMIKPXFUSP YITeJWBMUFTdaONSGSKVBCORYCQdESW7FcPtDqkSwL RkHcilXNHdVY5MHipaZEPcH91KNoHjpFCnWvETnqOQD0KSn8Y0NTMfnCSVrOHAJVL4tWPxXlAZGqoMjv o9Y7wvb3gQmNy3WYlowOpVnCg5GQaudItBuwv0Pqivfnuxyah3K1frp4qsqIu4FXsfxLfypT79VS5bcU 2dri4+Fn2xhd3oqg1/T19vf4+fr/2gAMAwEAAhEDEQ A/NN05yGJxczQigZHLL4a/APBZv/xjM7s3c9yc20WanRsh8As0GuC8d6l2ZGfhZo9hzJoikFUxAXYA13 Ect3dVZ+BE1xFj73cgbzqOuFlyq+x58VvF+vHM1uhy6E3cF0X3u0fZTUkxwfQm9uf/nj/4Ij/sv+Hv2r v+Ch/mct86xcupMaUjeoIQt85e4M+WDvs3CIVdADWD eYinE8AUCWJGwUij14zk6ZyfmtgtupS63cyO7sOkMQIfkrYrn3M4Ed8s/Gx9zt9XhZ1LxYxo6I+OvjW0 u1+2z72vuohuUkIj/iIufByjgB9kl7B814P+wN/wXH+Gq2VLyCytR5Bg50u+V5mRNj5Asgts4pep4gba eDfJzSkVtK1O1yMGArsXRJyAhXFP2ZsoYDCobbAAoJ cAV+Ln/B0v+g40r7O4/cBI20svQZ6bp201dhZrZ1uscZgZIXRFHmopGomS6XYFcuwCTTv9nPIkpuXZ8Y U+z1zrg4qsQqgcgUjkWZ57J4d4Eo7V9S3IcxN0J+E/bL5Q52hZFLpJVuDSvuF1A+JLKLUNOvIlZVnhkU Aq2yHvoh3KwSpyUCUywnex48r+JAa6r0p7h/7N219r z2Y3qc9K7JVgr7fkCTIkSz4p1PC/YN6gsgq+B1+nmGNwULps6CmRf5W92uxY+l7PDzw0WjjrFKRdI72H 4k/8jp4A/wCw9L/6a7+uubqfpXI/En/kdPAH/Yel/dIRMr85w3u4OXYlM0w9jKPFYxtbHSuaVULHBQRY AUUUUAFFFGcUAFFFFABRRmigAooooAKKKKACiiigAq U2r25A8yecqJdQQKg8TurPMulocEGwqRsAvOa/AB/0M9Q4qn3P43vT59QmLzoz8dg6i6rDgALZvCx6T2 OkZxdIUc7PmzvRSJvV/Lv2mz0V4D6/tO/xRmurFDhKQr22b4J0F2TPpsvk/dGPnWdbqeG9ExemiOSTKv VG61ambEkJjILznWE06qAa3FX7wT3Xgzz7j5CzlwAq fDq+/aI+EfvrxC93gcF4JQX0TvksSuEwoFE7R2KvQwEBoxuJ9AcVEru6yC/wSbSDxmmuR/HblF2QbNPT rWAnG5kpT0cbe9ALR/PtvzcoBTNWRngMKz087K7DyXlITGPInD5+a/lspA3enMGylEvPJLvN0od/AMn2 8vU+1fCX/HBBcj9UKDU/9Z82FCY6aRb513zfFYwMOh m+WlLfZpMQTmfVcMU2t6RMjOIwdwQ/ZJQRvJA4VvfycZjS3j8g9D+J/Anna+RTjaB49sUqf7MLlxr6ykK [file] zzIrw/E7s+Z/5/9/9o+G9A////[employer]INE [employer]/3/p/mf+p/NZBR3R8kghAgaBfaDM+C/rYJdTGH9+hqfRTInW7TBZ [file] [id number] ID Date Data Source [id number] 06/16/2020 09:16:00 [place] [address] Patient Name: Harrison Slade Sr Exam Date: 06/16/20 : 1965 Ordering Doctor: Magali Tapia NP Attending Doctor: Magali Tapia NP CC: KNEE RADIOGRAPHS INDICATION: OTH SPECIFIC ARTHROPATHIES TECHNIQUE: Three radiographic views of the right knee were obtained. COMPARISON: 12/07/2018. FINDINGS: There is no evidence of joint effusion. There is no evidence of acute fracture or dislocation. There are severe degenerative changes of the medial joint space compartment with joint space narrowing, subchondral sclerosis and marginal osteophyte formation. This appearance has progressed when compared with the prior x-ray. There are mild degenerative changes of the lateral joint space compartment and patellofemoral joint. IMPRESSION: No acute fracture or dislocation. Severe degenerative changes of the medial joint space compartment, progressed when compared with the prior x-ray. Professional interpretation performed at [facility] . End of diagnostic report: [id number] Signed: Sugar Mims DO 06/16/20 1026 Interpreted by: Sugar MimsTranscribed by: Sugar Mims Name Value Range Interpretation Code Description Data Naomi rce(s) Supporting Document(s) ID Date Data Source [id number] 04/25/2020 03:39:00 PM EST [facility] ([facility]) Name Value Range Interpretation Code Description Data Naomi rce(s) Supporting Document(s) SPECIAL NOTE See Note SPECIAL NOTE [facility] ([facility]) Note: Requisition# [id number] failed to match an existing report with that requisition number. To avoid a potential conflict, the requisition number reported in the [employer] messages will be changed to {[id number]}. ID Date Data Source [id number] 04/20/2020 07:54:00 AM EST [facility] ([facility]) Name Value Range Interpretation Code Description Data Naomi rce(s) Supporting Document(s) Reported Physicians See Note Reported Physicians [facility] Note: Reported Physicians:Ordering: Magali Vegaending: Magali Tapia ID Date Data Source [id number] 04/20/2020 07:54:00 AM EST [facility] ([facility]) Name Value Range Interpretation Code Description Data Naomi rce(s) Supporting Document(s) Reported Physicians See Note Reported Physicians [facility] Note: Reported Physicians:Ordering: Magali Vegaending: Magali Tapia ID Date Data Source [id number] 04/20/2020 07:54:00 AM EST [facility] ([facility]) Name Value Range Interpretation Code Description Data Naomi rce(s) Supporting Document(s) Testost., % Free+Weakly Bound 28.1 % Testos t., % Free+Weakly Bound [facility] ([facility]) Note: This test was developed and its p erformance characteristics determined by [facility]. It has not been cleared or approved by the Food and Drug Administration.Responsible Observer: Testost., % [place] Testost., % Free+Weakly Bound [id number] 800.3257 (A) Testosterone Free/Testosterone.total in Serum or Plasma 70.3 ng/dL Testost., F+W Bound [facility] ([facility]) Note: Performed at: - [facility] [id number] Physician Credentialing Specialist: Susanne Paez MD, Phone: [phone] Performed at: [facility] [id number] Physician Credentialing Specialist: Boris Jarquin MD, Phone: [phone] Observer: Testost., F+W B Testost., F+W Bound [id number] 800.3258 (A) Testosterone,Total,S 250 ng/dL Below low normal Testoster one,Total,S [facility] ([facility]) Note: Adult male reference interval is based on a population of healthy nonobese males (BMI <30) between 19 and 39 years old. Lalit et.al. JCEM 2017,102;8602-3691. PMID: [id number].Responsible Observer: Testosteron,Tot Testosterone,Total,S [id number] 800.3256 (A) ID Date Data Source [id number] 04/20/2020 01:30:00 PM [facility] Name Value Range Interpretation Code Description Data Naomi rce(s) Supporting Document(s) WHITE BLOOD COUNT 9.01 10^3/uL 4.00-10.50 [facility] RED BLOOD COUNT 5.46 10^6/uL 4.30-5.80 [facility] 15.4 G/DL 13.0-17.5 [facility] 47.0 % 41.0-53.0 [facility] MCV 86.1 FL 80.0-100.0 [facility] MCH 28.2 PG 27.0-34.0 [facility] MCHC 32.8 G/DL 32-36 [facility] RDW 12.8 % 11.5-14.5 [facility] PLATELET COUNT 244 10^3/uL 130-400 [facility] MPV 10.7 FL 8.7-13.2 [facility] GRAN % (AUTO) 58.0 % 42.0-75.0 [facility] LYMPH % (AUTO) 30.3 % 20.0-51.0 [facility] MONO % (AUTO) 7.2 % 2.0-15.0 [facility] EOS % (AUTO) 3.9 % 0.0-11.0 [facility] BASO % (AUTO) 0.3 % 0.0-2.0 [facility] IG % (AUTO) 0.3 % 1.00-5.00 [facility] IG # (AUTO) 0.0 10^3/uL <0.5 [facility] GRAN # (AUTO) 5.22 10^3/uL 1.50-6.50 [facility] LYMPH # (AUTO) 2.7 k/uL 1.0-5.0 [facility] MONO # (AUTO) 0.65 k/uL 0.20-1.50 [facility] EOS # (AUTO) 0.35 10^3/uL 0.00-1.10 [facility] BASO # (AUTO) 0.03 10^3/uL 0.00-0.20 [facility] ID Date Data Source [id number] 04/20/2020 01:58:00 PM EST [facility] Name Value Range Interpretation Code Description Data Naomi rce(s) Supporting Document(s) SODIUM 137 MEQ/L 135-145 [facility] POTASSIUM 4.3 MEQ/L 3.5-5.3 [facility] CHLORIDE 101 MEQ/L 94-110 [facility] CARBON DIOXIDE 30 MEQ/L 22-33 [facility] ANION GAP 10 5-16 [facility] BLOOD UREA NITRO 12 MG/DL 7-25 [facility] CREATININE 1.0 MG/DL 0.6-1.4 [facility] GFR 77.3 ML/MIN [facility] Stage G2 - Mildly decreased kidney func tion The GFR is an estimate of the Glomerular Filtration Rate. It is an aid to assess a patient's renal function. It is not a conclusive diagnosis of kidney disease. GFR normal is >=90 The MDRD GFR calculation is considered valid between the ages of 18 and 75 years only. BUN/CREAT RATIO 12 8-36 [facility] GLUCOSE 284 MG/DL 70-100 [facility] CA 9.5 MG/DL 8.7-10.5 [facility] BILIRUBIN,TOTAL 0.4 MG/DL 0.1-1.3 N [facility] AST 11 U/L 5-40 [facility] ALT 21 U/L 5-48 [facility] ALKALINE PHOSPHATASE 77 U/L 40-140 [facility] TOTAL PROTEIN 6.8 G/DL 5.9-8.3 N [facility] ALBUMIN 4.4 G/DL 3.0-5.1 [facility] GLOBULIN 2.4 G/DL 1.5-3.5 N [facility] ALB/GLOB RATIO 1.8 G/DL 1.0-3.0 [facility] ID Date Data Source [id number] 04/25/2020 03:38:00 PM [facility] Name Value Range Interpretation Code Description Data Naomi rce(s) Supporting Document(s) Testosterone,Total,S 250 ng/dL 264-916 [facility] Adult male reference interval is based on a population of healthy nonobese males (BMI <30) between 19 and 39 years old. Lalit, et.al. JCEM 2017,102;3810-7383. PMID: [id number]. Testost., % Free+Weakly Bound 28.1 % 9.0-46.0 [facility] This test was developed and its perform ance characteristics determined by [facility]. It has not been cleared or approved by the Food and Drug Administration. Testost., F+W Bound 70.3 ng/dL 40.0-250.0 [facility] Performed at: - [facility] [id number] Physician Credentialing Specialist: Susanne Paez MD, Phone: [phone] Performed at: - [facility] [id number] Physician Credentialing Specialist: Boris Jarquin MD, Phone: [phone] ID Date Data Source [id number] 04/20/2020 01:58:00 PM EST [facility] Name Value Range Interpretation Code Description Data Naomi rce(s) Supporting Document(s) TRIGLYCERIDES 164 MG/DL 45-150 [facility] CHOLESTEROL 206 MG/DL 125-200 [facility] LDL CHOLESTEROL 132 MG/DL 50-130 [facility] HDL CHOLESTEROL 41 MG/DL 39-96 [facility] CHOL/HDL RATIO 5.0 0-4.9 [facility] ID Date Data Source [id number] 04/20/2020 01:58:00 PM EST [facility] Name Value Range Interpretation Code Description Data Naomi rce(s) Supporting Document(s) TSH 4.224 uIU/ML 0.470-4.200 [facility] Patients should not be tested for 72 ho urs post fluorescein dye angiography. A false depression of result may occur. ID Date Data Source [id number] 04/20/2020 07:54:00 AM EST [facility] ([employer]) Name Value Range Interpretation Code Description Data Naomi rce(s) Supporting Document(s) Thyrotropin [Units/volume] in Serum or Plasma by Detec tion limit <= 0.05 mIU/L 4.224 uIU/ML Above high normal TSH [place] ([facility]) Note: Patients should not be tested for 72 hours post fluorescein dye angiography. A false depression of result may occur.Responsible Observer: TSH TSH 300.5500 (A) ID Date Data Source [id number] 04/20/2020 07:54:00 AM EST [facility] Name Value Range Interpretation Code Description Data Naomi rce(s) Supporting Document(s) Deprecated Cholesterol.in LDL/Cholestero l.in HDL [Mass ratio] in Serum or Plasma 5.0 Above high normal CHOL/HDL RATIO [place] ([facility]) Note: Responsible Observer: CHOL/HDL RAT IO CHOL/HDL RATIO 300.4700 (A) Cholesterol crystals [Presence] in [place] by Infrared spectroscop y 206 MG/DL Above high normal CHOLESTEROL [place] ([facility]) Note: Responsible Observer: CHOL CHOLEST VINEET 300.4350 (A) Cholesterol in HDL [Mass/volume] in Serum or Plasma ultracen trifugate 41 MG/DL Normal HDL CHOLESTEROL [place] ([facility]) Note: Responsible Observer: HDL HDL CHOL ESTEROL 300.4600 (A) Cholesterol in LDL [Mass/volume] in Serum or Plasma by Direct as say 132 MG/DL Above high normal LDL CHOLESTEROL [place] ([facility]) Note: Responsible Observer: LDL LDL CHOL ESTEROL 300.4400 (A) Triglyceride [Mass/volume] in Serum or Plasma 164 MG/DL Above high normal TRIGLYCERIDES [place] ([facility]) Note: Responsible Observer: TRIG TRIGLYC ERIDES 300.4300 (A) ID Date Data Source [id number] 04/20/2020 07:54:00 AM EST [place] ([facility]) Name Value Range Interpretation Code Description Data Naomi rce(s) Supporting Document(s) Albumin [Mass/volume] in Synovial fluid 4.4 G/DL Normal ALBUMIN [place] ([facility]) Note: Responsible Observer: ALB ALBUMIN 300.3900 (A) Albumin/Globulin [Mass Ratio] in Amniotic fluid 1.8 G/DL Normal ALB/GLOB RATIO [place] ([facility]) Note: Responsible Observer: A/G RATIO AL B/GLOB RATIO 300.4100 (A) Aspartate aminotransferase [Enzymatic activity/volume] in Serum or Plasma 11 U/L Normal AST [place] ([facility]) Note: Responsible Observer: AST/SGOT AST 300.3050 (A) Alanine aminotransferase [Enzymatic activity/volume] in Seru m or Plasma 21 U/L Normal ALT [place] ([facility]) Note: Responsible Observer: ALT/SGPT ALT 300.3100 (A) Alkaline phosphatase isoenzyme [Units/volume] in Serum or Plasma 77 U/L Normal ALKALINE PHOSPHATASE [place] ([facility]) Note: Responsible Observer: ALK PHOS ALK RONI PHOSPHATASE 300.3110 (A) CA 9.5 MG/DL Normal CA [place] ([facility]) Note: Responsible Observer: CA CALCIUM 300.2200 (A) BLOOD UREA NITRO 12 MG/DL Normal BLOOD UREA NITRO [facility] ([facility]) Note: Responsible Observer: BUN BLOOD UR EA NITROGEN 300.0350 (A) Bilirubin.total [Mass/volume] in Serum or Plasma 0.4 MG/DL Normal BILIRUBIN,TOTAL [place] ([facility]) Note: Responsible Observer: TOTAL BILI T OTAL BILIRUBIN 300.2700 (A) Urea nitrogen/Creatinine [Mass Ratio] in Serum or Plasma 12 Normal BUN/CREAT RATIO [place] ([facility]) Note: Responsible Observer: BUN/CREAT RA MAXIMINO BUN/CREAT RATIO 300.0450 (A) Carbon dioxide, total [Moles/volume] in Serum or Plasma 30 MEQ/L Normal CARBON DIOXIDE [place] ([facility]) Note: Responsible Observer: CO2 CARBON D IOXIDE 300.0250 (A) Chloride [Moles/volume] in Serum, Plasma or Blood 101 MEQ/L Normal CHLORIDE [place] ([facility]) Note: Responsible Observer: CL CHLORIDE 300.0200 (A) Creatine/Creatinine [Mass Ratio] in Urine 1.0 MG/DL Donna l CREATININE [place] ([facility]) Note: Responsible Observer: CREAT CREATI NINE 300.0400 (A) Globulin [Mass/volume] in Serum by calculation 2.4 G/DL Normal GLOBULIN [place] ([facility]) Note: Responsible Observer: GLOB GLOBULI N 300.4050 (A) GFR 77.3 ML/MIN GFR [place] ([facility]) Note: Stage G2 - Mildly decreased kidne y function The GFR is an estimate of the Glomerular Filtration Rate. It is an aid to assess a patient's renal function. It is not a conclusive diagnosis of kidney disease. GFR normal is >=90 The MDRD GFR calculation is considered valid between the ages of 18 and 75 years only.Responsible Observer: GFR GFR 300.0410 (A) Anion gap in Blood 10 Normal ANION GAP [place] ([facility]) Note: Responsible Observer: ANION GAP AN ION GAP 300.0300 (A) Potassium [Mass/volume] in Blood 4.3 MEQ/L Normal POT ASSIUM [place] ([facility]) Note: Responsible Observer: K POTASSIUM 300.0150 (A) Glucose [Presence] in Urine 284 MG/DL Above high normal G LUCOSE [place] ([facility]) Note: Responsible Observer: GLU GLUCOSE 300.0500 (A) Sodium [Moles/volume] in Serum, Plasma or Blood 137 MEQ/L Normal SODIUM [place] ([facility]) Note: Responsible Observer: NA SODIUM 3 00.0100 (A) Protein [Mass/volume] in Synovial fluid 6.8 G/DL Normal TOTAL PROTEIN [place] ([facility]) Note: Responsible Observer: TP TOTAL PRO TEIN 300.3750 (A) ID Date Data Source [id number] 04/20/2020 07:54:00 AM EST [place] ([facility]) Name Value Range Interpretation Code Description Data Naomi rce(s) Supporting Document(s) BASO % (AUTO) 0.3 % Normal BASO % (AUTO) [place] ([facility]) Note: Responsible Observer: BASO % (AUTO ) BASO % (AUTO) 100.1250 (A) BASO # (AUTO) 0.03 10\\^3/uL Normal BASO # (AUTO) [place] ([facility]) Note: Responsible Observer: BASO # (AUTO ) BASO # (AUTO) 100.1500 (A) EOS % (AUTO) 3.9 % Normal EOS % (AUTO) [place] ([facility]) Note: Responsible Observer: EOS % (AUTO) EOS % (AUTO) 100.1200 (A) EOS # (AUTO) 0.35 10\\^3/uL Normal EOS # (AUTO) [place] ( [facility]) Note: Responsible Observer: EOS # (AUTO) EOS # (AUTO) 100.1450 (A) Hematocrit [Volume Fraction] of Blood by Automated count 47.0 % Normal HEMATOCRIT [place] ([facility]) Note: Responsible Observer: HCT HEMATOCR IT 100.0400 (A) GRAN # (AUTO) 5.22 10\\^3/uL Normal GRAN # (AUTO) [place] ([facility]) Note: Responsible Observer: GRAN # (AUTO ) GRAN #(AUTO) 100.1325 (A) GRAN % (AUTO) 58.0 % Normal GRAN % (AUTO) [place] ([facility]) Note: Responsible Observer: GRAN % (AUTO ) GRAN % (AUTO) 100.1000 (A) Hemoglobin [Mass/volume] in Blood 15.4 G/DL Normal HE MOGLOBIN [place] ([facility]) Note: Responsible Observer: HGB HEMOGLOB IN 100.0300 (A) IG # (AUTO) 0.0 10\\^3/uL IG # (AUTO) [place] ([facility]) Note: Responsible Observer: IG # (AUTO) IG # (AUTO) 100.1260 (A) IG % (AUTO) 0.3 % IG % (AUTO) [place] ([facility]) Note: Responsible Observer: IG % (AUTO) IG % (AUTO) 100.1255 (A) LYMPH # (AUTO) 2.7 k/uL Normal LYMPH # (AUTO) [place] ( [facility]) Note: Responsible Observer: LYMPH # (AUT O) LYMPH # (AUTO) 100.1350 (A) LYMPH % (AUTO) 30.3 % Normal LYMPH % (AUTO) [place] ( [facility]) Note: Responsible Observer: LYMPH % (AUT O) LYMPH % (AUTO) 100.1100 (A) Erythrocyte mean corpuscular volume [Entitic volume] by Auto mated count 86.1 FL Normal MCV [place] ([facility]) Note: Responsible Observer: MCV MCV 100 .0550 (A) Erythrocyte mean corpuscular hemoglobin concentration [Mass/volume] by Automated count 32.8 G/DL Normal MCHC [place] ([facility]) Note: Responsible Observer: MCHC MCHC 1 00.0650 (A) Erythrocyte mean corpuscular hemoglobin [Entitic mass] by Automated count 28.2 PG Normal MCH [place] ([facility]) Note: Responsible Observer: MCH MCH 100 .0600 (A) MONO % (AUTO) 7.2 % Normal MONO % (AUTO) [place] ([facility]) Note: Responsible Observer: MONO % (AUTO ) MONO% (AUTO) 100.1150 (A) MPV 10.7 FL Normal MPV [place] ([facility]) Note: Responsible Observer: MPV MPV 100 .0950 (A) MONO # (AUTO) 0.65 k/uL Normal MONO # (AUTO) [place] ([facility]) Note: Responsible Observer: MONO # (AUTO ) MONO # (AUTO) 100.1400 (A) Erythrocytes [#/volume] in Blood by Automated count 5.46 10\\^6/uL Normal RED BLOOD COUNT [place] ([facility]) Note: Responsible Observer: RBC RED BLOO D COUNT 100.0250 (A) Erythrocyte distribution width [Ratio] by Automated count 12.8 % Normal RDW [place] ([facility]) Note: Responsible Observer: RDW RDW 100 .0700 (A) Platelets [#/volume] in Plasma by Automated count 244 10\\^3/uL Normal PLATELET COUNT [place] ([facility]) Note: Responsible Observer: PLT PLATELET COUNT 100.0850 (A) Leukocytes [#/volume] in Blood by Automated count 9.01 10\\^3/uL Normal WHITE BLOOD COUNT [place] ([facility]) Note: Responsible Observer: WBC WHITE BL OOD COUNT 100.0150 (A) ID Date Data Source [id number] 03/07/2020 08:13:00 AM EDT [facility] ([facility]) Name Value Range Interpretation Code Description Data Naomi rce(s) Supporting Document(s) Hemoglobin A1c/Hemoglobin.total in Blood 10.1 Abnormal (applies to non-numeric results) Hgb A1c [place] ([facility]) Procedure Social History Code Duration Value Status Description Data Source(s ) Smoking 01/19/2021 12:00:00 AM EDT Never smoker completed 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[facility]) Smoking 12/14/2020 12:00:00 AM EDT Ex-smoker (finding) complet ed Ex-smoker (finding) [place] ([facility]) Smoking 10/20/2020 12:00:00 AM EDT Patient is a former smoker completed Patient is a former smoker MEDENT ([facility]) Alcohol intake 09/11/2020 12:00:00 AM EDT Current non-d bruce of alcohol (finding) completed Current non-drinker of alcohol (finding) [facility] Tobacco use and exposure 09/11/2020 12:00:00 AM EDT Never used co mpleted Never used [facility] Smoking 09/11/2020 12:00:00 AM EDT Former smoker completed Former smoker [facility] Smoking 06/15/2020 12:00:00 AM EST Ex-smoker (finding) complet ed Ex-smoker (finding) [place] ([facility]) Smoking 06/15/2020 12:00:00 AM EST Ex-smoker (finding) complet ed Ex-smoker (finding) [place] ([facility]) Smoking 03/07/2020 12:00:00 AM EDT Ex-smoker (finding) complet ed Ex-smoker (finding) [facility] ([facility]) Vital Signs ID Date Data Source UNK Name Value Range Interpretation Code Description Data Source(s) Body temperature 97.02 [degF] 97.02 [degF] 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[facility]) Heart rate 99 /min 99 /min 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[facility]) Systolic blood pressure 126 mm[Hg] 126 mm[Hg] C HARTMAKER ([facility]) Diastolic blood pressure 82 mm[Hg] 82 mm[Hg] 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[facility]) Body height 70 [in_i] 70 [in_i] 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[facility]) Body weight 201.1875 [lb_av] 201.1875 [lb_av] C HARTMAKER ([facility]) Body mass index (BMI) [Ratio] 28.3912338084207 kg/m2 28.7076335981195 kg/m2 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[facility]) Oxygen saturation in Arterial blood by Pulse oximetry 96 % 96 % 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[facility]) Inhaled oxygen concentration 21 % 21 % 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[facility]) Systolic blood pressure 138 mm[Hg] 138 mm[Hg] G [facility]AY [facility] Diastolic blood pressure 82 mm[Hg] 82 mm[Hg] [facility] ([facility] Heart rate 83 /min 83 /min [facility] ([facility]) Heart rate rhythm 1 1 GREEN[place] Y ([facility]) Respiratory rate 18 /min 18 /min [facility] ([facility]) Body temperature 96 [degF] 96 [degF] [facility] ([facility] Body weight 205 [lb_av] 205 [lb_av] [facility] PhenX - pain, abdominal - type and intensity protocol 5 5 [facility] Oxygen saturation in Arterial blood by Pulse oximetry 98 % 98 % [facility] ([facility]) Inhaled oxygen flow rate 0 L/min 0 L/min [facility] ([facility]) Inhaled oxygen concentration 21 % 21 % [facility] ([facility]) Diastolic blood pressure 88 mm[Hg] 88 mm[Hg] MEDENT ([facility]) Heart rate 97 /min 97 /min MED[facility] Body height 71 [in_i] 71 [in_i] MEDENT [facility] 5'11" Body weight 215.00 [lb_av] 215.00 [lb_av] MEDEN T ([facility]) Body mass index (BMI) [Ratio] 30.0 kg/m2 30.0 k g/m2 MEDENT ([facility]) Body temperature 97.2 [degF] 97.2 [degF] MEDENT ([facility]) Systolic blood pressure 146 mm[Hg] 146 mm[Hg] M EDENT ([facility]) Systolic blood pressure 138 mm[Hg] 138 mm[Hg] G REENWAY ([facility]) unable to obtain full set of vitals. KPe rryCA Diastolic blood pressure 72 mm[Hg] 72 mm[Hg] LAY ([facility]) unable to obtain full set of vitals. KPe rryCA PhenX - pain, abdominal - type and intensity protocol 0 0 L[facility] ([facility]) unable to obtain full set of vitals. KPe rryCA Systolic blood pressure 138 mm[Hg] 138 mm[Hg] G REENWAY ([facility]) Diastolic blood pressure 70 mm[Hg] 70 mm[Hg] L[facility] ([facility]) Heart rate 95 /min 95 /min L[facility] ([facility]) Respiratory rate 19 /min 19 /min [facility] ([facility]) Body temperature 96.9 [degF] 96.9 [degF] GREENW AY ([facility]) Body weight 227.4 [lb_av] 227.4 [lb_av] GREENWA Y ([facility]) PhenX - pain, abdominal - type and intensity protocol 3 3 [facility] ([facility]) Oxygen saturation in Arterial blood by Pulse oximetry 97 % 97 % LAY ([facility]) Inhaled oxygen flow rate 0 L/min 0 L/min [facility] ([facility]) Inhaled oxygen concentration 21 % 21 % L[facility] ([facility]) Inhaled oxygen flow rate 0 L/min 0 L/min [facility] ([facility]) Inhaled oxygen concentration 21 % 21 % [facility] ([facility]) Diastolic blood pressure 82 mm[Hg] 82 mm[Hg] [facility] ([facility]) Heart rate 90 /min 90 /min [facility] ([facility]) Respiratory rate 18 /min 18 /min [facility] ([facility]) PhenX - pain, abdominal - type and intensity protocol 3 3 [facility] ([facility]) Oxygen saturation in Arterial blood by Pulse oximetry 98 % 98 % [facility] ([facility]) Systolic blood pressure 132 mm[Hg] 132 mm[Hg] [facility]) Body temperature 98.3 [degF] 98.3 [degF] GREENW AY ([facility]) Body weight 225.6 [lb_av] 225.6 [lb_av] GREENWA Y ([facility]) Systolic blood pressure 140 mm[Hg] 140 mm[Hg] G [facility] ([facility]) Heart rate 96 /min 96 /min [facility] ([facility]) Respiratory rate 17 /min 17 /min [place] ([facility]) Body temperature 98.4 [degF] 98.4 [degF] GREENW AY ([facility]) Body height 70 [in_i] 70 [in_i] [facility] ([facility]) PhenX - pain, abdominal - type and intensity protocol 0 0 [place] ([facility]) Oxygen saturation in Arterial blood by Pulse oximetry 96 % 96 % [facility] ([facility]) Inhaled oxygen flow rate 0 L/min 0 L/min [place] ([facility]) Inhaled oxygen concentration 21 % 21 % [place] ([facility]) Diastolic blood pressure 76 mm[Hg] 76 mm[Hg] [place] ([facility]) Body weight 226.2 [lb_av] 226.2 [lb_av] GREEN[place] Y ([facility]) Body mass index (BMI) [Ratio] 32.5 kg/m2 32.5 k g/m2 [place] ([facility]) Body surface area Derived from formula 2.20 m2 2.20 m2 [place] ([facility]) Systolic blood pressure 158 mm[Hg] 158 mm[Hg] [facility] Diastolic blood pressure 92 mm[Hg] 92 mm[Hg] [place] ([facility]) PhenX - pain, abdominal - type and intensity protocol 3 3 [place] ([facility]) Oxygen saturation in Arterial blood by Pulse oximetry 98 % 98 % [place] ([facility]) Inhaled oxygen flow rate 0 L/min 0 L/min [place] ([facility] Inhaled oxygen concentration 21 % 21 % [place] ([facility]) Body surface area Derived from formula 2.11 m2 2.11 m2 [place] ([facility]) Systolic blood pressure 148 mm[Hg] 148 mm[Hg] G RE[place] ([facility]) Diastolic blood pressure 90 mm[Hg] 90 mm[Hg] [place] ([facility]) Heart rate 92 /min 92 /min [facility] ([facility]) Respiratory rate 20 /min 20 /min [place] ([facility]) Body temperature 96.9 [degF] 96.9 [degF] [facility] ([facility]) Body height 68 [in_i] 68 [in_i] [facility] Body weight 216 [lb_av] 216 [lb_av] [facility] Body mass index (BMI) [Ratio] 32.8 kg/m2 32.8 k g/m2 [place] ([facility]) ID Date Data Source [id number] 09/12/2020 01:39:01 PM EDT [facility] Name Value Range Interpretation Code Description Data Source(s) WEIGHT RECORDED 226.4 lb 226.4 lb [facility] Body height Measured 69.4 in 69.4 in [facility] PREFERRED NAME [facility] PREFERRED NAME [facility] ID Date Data Source [id number] 07/04/2020 09:52:53 AM EST [facility] Name Value Range Interpretation Code Description Data Source(s) PREFERRED NAME [facility] Patient Treatment Plan of Care Planned Activity Planned Date Details Description Data Source (s) Basaglar KwikPen 100 UNIT/ML Subcutaneous Solution Pen -injector 12/14/2020 12:00:00 AM EDT [place] [facility] doxycycline hyclate 100 MG Oral Capsule 12/14/2020 12:00:00 AM EDT [place] ([facility]) BD Pen Needle Laly U/F 32G X 4 MM Miscellaneous 12/14/2020 12:00:00 AM EDT [place] ([facility]) Famotidine 20 MG Oral Tablet 08/18/2020 12:00:00 AM EST [facility] ([facility]) silver sulfadiazine 10 MG/ML Topical Cream [Silvadene] 08/11/2020 12:00:00 AM EST [place] ([facility]) doxycycline hyclate 100 MG Oral Capsule 08/11/2020 12:00:00 AM EST [place] ([facility]) atorvastatin 10 MG Oral Tablet 06/15/2020 12:00:00 AM EST [facility] ([facility]) 3 ML insulin detemir 100 UNT/ML Pen Injector [Levemir] 06/15/2020 12:00:00 AM EST [facility] ([facility]) BD Pen Needle Laly U/F 32G X 4 MM Miscellaneous 06/15/2020 12:00:00 AM EST [place] ([facility]) 3 ML insulin detemir 100 UNT/ML Pen Injector [Levemir] 03/13/2020 12:00:00 AM EDT [place] ([facility]) 3 ML Insulin Glargine 100 UNT/ML Pen Injector [Lantus] 03/10/2020 12:00:00 AM EDT [place] ([facility]) Shingrix 50 MCG/0.5ML Intramuscular Suspension Reconst ituted 03/07/2020 12:00:00 AM EDT [place] ([facility]) Lisinopril 10 MG Oral Tablet 03/07/2020 12:00:00 AM EDT [place] ([facility]) BD Pen Needle Laly U/F 32G X 4 MM Miscellaneous 03/07/2020 12:00:00 AM EDT [place] ([facility]) Insulin Glargine 100 UNT/ML Injectable Solution [Lantu s] 03/07/2020 12:00:00 AM EDT [place] ([facility]) 24 HR Glipizide 10 MG Extended Release Oral Tablet [Gl ucotrol] 12/21/2019 12:00:00 AM EDT [place] ([facility]) Sertraline 100 MG Oral Tablet 12/21/2019 12:00:00 AM EDT [place] ([facility]) Metformin hydrochloride 1000 MG Oral Tablet 08/10/2019 12:00:00 AM EST [place] ([facility]) Metformin hydrochloride 500 MG Oral Tablet 08/10/2019 12:00:[address] [place] ([facility]) 24 HR Bupropion Hydrochloride 150 MG Extended Release Oral Tablet [Wellbutrin] 08/10/2019 12:00:00 AM EST [facility] ([facility]) BD Pen Needle Laly U/F 32G X 4 MM Miscellaneous 04/16/2019 12:00:00 AM [facility] ([facility]) gabapentin 300 MG Oral Capsule 05/29/2018 12:00:00 AM [facility] ([facility])
[2021-04-09] MEDS ORDERED: COMBIVENT RESPIMAT 100-20MCG INHALER 4GM INH STA (14:58)
[2021-04-09] MEDS ORDERED: methylPREDNISolone 125MG 2ML VIAL IV ONE (15:00)
--- NOTE | 2021-04-09 15:11 | REP ---
INDICATION: Coronavirus workup. COMPARISON: 05/16/2006. TECHNIQUE: Single portable AP view of the chest was performed. FINDINGS: There are patchy peripheral bilateral lower lung infiltrates present which would be compatible with COVID pneumonia. The heart is not significantly enlarged. The mediastinal silhouette is unremarkable. IMPRESSION: Patchy peripheral bilateral lower lung infiltrates compatible with COVID pneumonia. <Electronically signed by Kyle Moore > 04/09/21 [id number]
[2021-04-09 15:59] LABS: HEMOGLOBIN 15.2 g/dl (13.5-17.5); MEAN CORPUSCULAR HEMOGLOBIN 27.7 pg (27.0-33.0); MEAN CORPUSCULAR HGB CONC 33.8 g/dl (32.0-36.5); PLATELET COUNT, AUTOMATED 133 10^3/uL (150-450); RED BLOOD COUNT 5.49 10^6/uL (4.30-6.10); WHITE BLOOD COUNT 8.3 10^3/uL (4.0-10.0)
[2021-04-09 16:17] LABS: INR 1.14
[2021-04-09 16:18] LABS: PARTIAL THROMBOPLASTIN TIME 30.2 SECONDS (25.9-37.0)
[2021-04-09 16:21] LABS: D-DIMER QUANT 1209.7 ng/ml (<500)
[2021-04-09 16:28] LABS: ALBUMIN 2.6 GM/DL (3.2-5.2); ALT/SGPT 32 U/L (12-78); BILIRUBIN,TOTAL 0.6 MG/DL (0.2-1.0); BLOOD UREA NITROGEN 9 MG/DL (7-18); CARBON DIOXIDE LEVEL 27 MEQ/L (21-32); CHLORIDE LEVEL 97 MEQ/L (98-107); CK-MB VALUE MASS < 1.0 NG/ML (<3.6); CPK CREATINE PHOSPHOKINASE 49 U/L (39-308); CREATININE FOR GFR 0.89 MG/DL (0.70-1.30); FERRITIN 818 NG/ML (26-388); GLOMERULAR FILTRATION RATE > 60.0 (>56); GLUCOSE, FASTING 321 MG/DL (70-100); LDH LACTATE DEHYDROGENASE 341 U/L (87-241); MB/CK RELATIVE INDEX 2.04 (< OR =4); POTASSIUM SERUM 3.9 MEQ/L (3.5-5.1); SODIUM LEVEL 134 MEQ/L (136-145); TOTAL PROTEIN 7.1 GM/DL (6.4-8.2); TROPONIN I < 0.02 NG/ML (< 0.10)
--- OUTSIDE RECORDS SUMMARY | 2021-04-09 16:33 | CCD ---
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 fDq+/aI+QupzrP49aiC0SYE2XzwtGcXhiYV2V5SsEwWAcjjV7BxCGiz7zJ/wSbSDxmmuR/QdqE4IzGNV xPBkV9dvI9svx0DIG/IkzxylRIUWUtaGXf335D1OrTqDBZNJkO6+a/dibW6voJFqwZdEKVzE9wc/AMn2 8vU+1fCX/CJHsw6WYFE/5B73GPT7vCs518atMAxWAi m+JeFuBmLCJynRbJV3j6FXrHCrqrN/UWLFnEL0VhhqaEwP1h7q4C+J/Anna+RCafT20yJky9IJpan9ihU [file] AgUgo+MsifdEDgdYtcRDXHZPU0RFLHVSQRN1SZ ID Date Data Source [id number] 10/02/2020 12:00:00 AM EDT [facility] Name Value Range Interpretation Code Description Data Naomi rce(s) Supporting Document(s) WOUNDCARE [facility] CUGCKp7wEjGCTERvGW2ycow4WWhtSDf0qAOoCE4/IXNOMQEvIH9RJQQVGGUXERPgABjPobWgXXuGUEBR LR2PYMwVRPJUUJDNQUJwHFmIRVBlZRHDMGNsWTaWD2Fgu1J9B1PeZLn8y4f7wHe4p6AdRjgQC5PwFPT7 vD5iBAZ2GDFfHPipVYGgYXOmAgF8OIB6FDxZJi2EIC 2tn3DbZtGzXOMqIveGZNpAB3J8zOQtC7A3vBnPoEW4WHrxP3FgwNL6GYieI94bFK8xRleaK0HkOC5iAm 6VIBBmLtJMW1SIBcCqBXrwITygK90am8geR17eugV+RkyriwGtDorZWSTtRH3mzqyhV1HixSDium0wA1 SavtlmBYJMIf4KDT0ce8QxKatcKVIbYqyLVTbOY4O8 sDOqB3qZSrmoF4HFE3G3SfW5aHRrV4fnKDtdUg8FtGP3iNJrXAFPO2ohuRxhuDY3ZBjxHqo0x3AiwrTp oHNkxgGkfOL7Wo0Fr1atksDgISEoLJ7NHJAfU4CIS2USG2kwnnz7gTHpQDKuUVSRU6NexAXsxqIlXGDT OFDfd8BoPy0+IvJ3nxFbcFu/2P/gABBKRklGAAEBAQ EsASwAAP/bAEMAAgEBAgEBAgICAgICAgIDBQMDAwMDBgQEAwUHBgcHBwYHBwgJCwkICAoIBwcKDQoKCw zYFEzAAG5HXEfYJlaIYD/bAEMBAgICAwMDBgMDBgwIBwgMDAwMDAwMDAwMDAwMDAwMDAwMDAwMDAwMDA wMDAwMDAwMDAwMDAwMDAwMDAwMDAwMDP/AABEIADsA +gMBIgACEQEDEQH/xAAfAAABBQEBAQEBAQAAAAAAAAAAAQIDBAUGBwgJCgv/dLA7UJQMTTNCAaGAJDEM GRHEQS5LDjAOATUPJrReSUHUQRSLLkNXEoHVoRmvHwEUGXXL9SEgHkOXJZzIClgJBxAhIcwaPkY4Swf6 YTiINJVHT5tTQsGXFZGXGYepK0VgHsznwSbcoKE0b0 i3ljWIkMaFhPtZrrDHxRvUxVjnpwOdriytcYjfduR8tik3sYt5kdKWahfApCwX9iXP2xfR7Txc6dXh2X Xm5+xr3bXj0/T19vf4+fr/xAAfAQADAQEBAQEBAQEBAAAAAAAAAQIDBAUGBwgJCgv/oRY2JESHWFXAUK FFHnLAKIYEXcqPJLETXCPQGVWOIsJJD1LoSlEmhXwT GwPhbdKPHkHP8CPwurBKXuF79JNtRycNGiSbLSzmZZD2PPp9A3YUCjuRPSpSYMXBA9mWKxXwAKTsgTps y4I3dgb2qSzSs4DCwzcUhHgYl5FHdzaGfYjyf0Auwxtocruqo6P4srj7thqFe6SJtuuKygsG55OB4oeN 2dri4+Nc6uhj3akc2/T19vf4+fr/2gAMAwEAAhEDEQ A/XL51eAXnnnJdcFHVK4x/APBZv/dwI2d9j9ss05LmeMfm6Tr1RhU9t4m0DNchOs0vdUegaEMwBBHJ84 Qas7kJL+KN2mLa31lzdqlWwFjsj+x58VvF+eDE8wgh1M5gF1L2b1kFBYqsruOi5lq/nj/4Ij/sv+Hv2r v+Ch/waf45facuYyWhopUMq90o0S+EKnj6HDXoDCPR zNijP6KACMQZrNdm65vl6UxouhmwicE40ryA9rNbKEDxppFsj9V6Ef8g/Qz9bu7EbR9QlFjh3R+OvjW0 u1+2d32ietwjYmTq/rWzjAnjqL5gr0J003U+wN/wXH+Pu0CAwHeuD0Ng11p+K2aZOr1Dpcft9pxn4uph jLiXgBnHlV1N0yEDDgyFHUjHbYWV2SjiWWIwpkSGzM cAV+Ln/B0v+z33n7F5/tML12oxWT4uy764kiBdC7doeCyZZWJPPshpCuuJ3AAObxdFIIj6bWUddqAZ8L U+d9neg3orRcwlhMfzYE26S6k0Mh7V5P9MtmW0U+E/tM2F91wKFBsACbUBtkB0W+JLKLUNOvIlZVnhkU Pj1iWvku7FfFxyOOVfzptd64t+TJp4n9z1l/4P499g g6M1bp7H0ZFag6phYSWjHl1h2HN/ZN0opwr+B1+xfVUzLOrw3NsFj8Y46kdB+h0DPwj3KlnuNHBuC11U 4k/8jp4A/wCw9L/6a7+uubqfpXI/En/kdPAH/Yel/xMSSp87q4h9MAEwN7i1dIKLTybqORxgDKGVWZYK AUUUUAFFFGcUAFFFFABRRmigAooooAKKKKACiiigAq I9k91S4mtfwPgJWRc9YepNBbvlaZXjrMrSrVz/AB/6Y4W0to0T24mH53EcTrvn8fh0x2sAuEOYqBh8K7 CzKcbFNt2YuqfFNNxO/Dz4dc7K6J3/tO/nCatkGPpOIp39s5Q3Y1HOhmmg/wYOsOosxyL6LyqktYSJVn OT81hevZcLzXPdmWY95iTb2JA6hH5Wpjf4d2HittAa fDq+/aI+SbntfX63loX4CUH2GejtUtNngHR1M5YiEeFOzqyX3EbNMkc0eF/wSbSDxmmuR/ZvkZ2CwJHL hAJyK8raK9bvn7PDE/ZmrhqeNKNWRygRHj806P1UyDzVKPXUoC0+a/xnwW5hiEMouAnPASzX5mf/AMn2 8vU+1fCX/GMXrb7CYFU/7T74AHA1wSk465fxZRzCIw m+NmOnRzUPDuuTcLQ7t0ZNgGSeyyV/ZGOLuON3MgcvaAdN8q2l9G+J/Anna+RKjnN57pXhi2RCszs6poU [file] BZWNZUIY6cp3/++Y/admissions assistant+BDIknsROJTSC1W/mCX6Tc/ [file] NzMgMDAwMDAgbiAKMDAwMDAyMTAzNCAwMDAwMCBuIA ffSLOyEHEvHCNpXBYhWBSiTZ3qSxXkHWQtLaQ3SdRmRGBwUBNswqSFXBTjYATaEBJkTFXjTSAlVDSuJD faQQXlILWtBYKsFDCbKBNoIU9bQoHoVKIsJdZhOYygXUGxRJKcnyCENFPwIFItDTy1LHBpVAMeLBXyUI rlWMIhZWY0OKenIEOjKKSvBF5fFsSfAKGuWht8SfSb QAOhAWMoxyNJFVLtELJhIMx2DSBdQOSuKPVsZDttXWTzHBZqCZQvXVGqTZExCK0gMbMuINJrOarpTIqh CADuMETqhuIEFEZgLLHdMEFvAEPbYOGoNLXyAAdtLBKcSOA1KMD5KJLbQPAyEV7aGrNjGRXmDxc6Lskj MDAwMDAgbiAKMDAwMDAzOTczMiAwMDAwMCBuIAowMD HbPWJ4BGVuMIKkPFLsLM7yVnXnYUYfNWy9EbTmMJLkYWQcqsRBIVDqFOY9KRRtJLWzPCZdDAAtRKzqOM ScNHUtLpL7TSDsCHWtFU4yBsJuGMHyKNQ7WUwuYWYmACIsjhLYBTQgFTX0QHK5GWNzANQpSWBaJYugHN MaQVE1WQv7DHXuBXToTX0xWsXqXNNvJBT2LiEbLMCc OIVnzuHDjZSgmAacugc9QZiwX8j3EHX5LdbgYX7npsHmFXEkVbtrVj7ucALnTvNlYWYSCw4Uq6UufsO5 gfIgBjX7ZYDeJwOoPW9IMq== ID Date Data Source [id number] 09/21/2020 12:00:00 AM EDT [facility] Name Value Range Interpretation Code Description Data Naomi rce(s) Supporting Document(s) WOUNDCARE [facility] OXYRAu0qWbYMTRYnXC8vlgg1TOdyPSp4rNVdVV9/JTUDGAMmHZ1WLZLJTTLTVOYgQJuAqtEsOSkITIPM HR4DEErICWCQZMMUAOLzUZkZUFEaTCYVIPEgSAfYZ1Kcx6E8T5QoSAm4v3o7tYe5u5AjPneIT2UzJCQ1 xJ5uXOE4QRHfAMqlOFOoLFYuIFE6JKKrJKiHVp8UEP 3qw7ZqRwWxVBIqFziQLYrMQ3M0mWHmB1M1xFiAbLN1NWnuT0SepGG4JTatI39mMM4yXqxjQ1VkQT7uIj 0DBWHgJxWYC8OSGdNySVsdOTbqR35ed1bkA56qpkX+NhzimlUfPmaHGARiXR0cnlmcA0AsjDJdws2sH7 PgqxuzVWBIJg1VHI1fh3HhGcjcAMGvXyyCRDfUU4A7 xSAvL2hLVeuwM8TVE4C7PyC5cQShG2tuXVkhVw9NmQH2kLMqMPOWH1tjbHmghRW9JJrsGxa9z5EjzkJh xEFcaeTvnMF0We1Ai0qkutCzRKDyLP1MLDXhC7PCJ8EWI3jbqdg7mBIlCJYdUIGGQ6CkoLAtnhPuEPMD VVTyu0AsGg1+ObT6hlFggVr/2P/gABBKRklGAAEBAQ EsASwAAP/bAEMAAgEBAgEBAgICAgICAgIDBQMDAwMDBgQEAwUHBgcHBwYHBwgJCwkICAoIBwcKDQoKCw wFUWpPKA0MAMpZEqwSJR/bAEMBAgICAwMDBgMDBgwIBwgMDAwMDAwMDAwMDAwMDAwMDAwMDAwMDAwMDA wMDAwMDAwMDAwMDAwMDAwMDAwMDAwMDP/AABEIADsA +gMBIgACEQEDEQH/xAAfAAABBQEBAQEBAQAAAAAAAAAAAQIDBAUGBwgJCgv/jEB9AQJINLKQBfANYXRN PPIZHB0RWkQMMTVBRfGfJCSFVEEORnYQYgBLeGqwCfQVYHZW5YZiPyPLBUbZCiaIEoHpGffnPrU9Wrt4 DLkJEPJYZ9uSDmUWIZTAVPabY3LiRdqpkWwdvDV1a7 b5qwHVuXtTgNmMsiVGvPoGxGbyjeBpdjmocZdzlqU9nos3iVh3ozMDfizCuGyQ0tJW7ukR9Exe8yEw6G Xm5+vo4mVe0/T19vf4+fr/xAAfAQADAQEBAQEBAQEBAAAAAAAAAQIDBAUGBwgJCgv/gVR8FOZTDCQNUD HRAhMNTUAWNkcAXXJKAXMIKLFQVmGMW4QgVvUioTkR GwZwbiHFWlGL7EUbrhPCBqC05NAoDwoHXfTwHLpaAFC7RPe3H7JMFcuYWZkAONFDU1fAGoRpLHYqiNhe x5N8jsl6rTpZu0MXsmlSbZvDc7PIpxpShWajx9Ensjvpwpfly4T5shu5cjtQi2CQmcwUhugO65YR8uhG 2dri4+Zv0nrl6axa4/T19vf4+fr/2gAMAwEAAhEDEQ A/CN85nRDoaeWhiUNBV5r/APBZv/ywK5q7r5fl59UxpMmv6Ln6SwO7j5k3HFxbPf7ztVxbdEOrZDBA16 Iaa4iIE+FG8jJa68cirddSjOghd+x58VvF+oAQ1hhe5N5jF7M9b8zFTBdunlYl5hu/nj/4Ij/sv+Hv2r v+Ch/vrw66hwpeKcRbnhNEw67h1H+FGjw0FXIxSIIA lSbtX9AKGQWOfYwp39hm5EoskxghrbL07jxA2aNuOSLacmGej3F5Cs8v/Vq7lo3CfQ1IiErx3S+OvjW0 u1+5z90tilzgUkDp/cDksIrikF6xb7V657O+wN/wXH+Sj7BLfFjpD8Bl82c+D8gCEc9Ivdif1tpq7rno xXiBrJqKbO2L8wFNMgdUUJpKdQMN1IswUOCkmyPMhZ cAV+Ln/B0v+f22r3R6/wOC81kxCF3nd519efOqF5xruNaHISIXUvrdYlvM5XLNdffEGRg7bTYskoFJ6G U+f7irj1ktGgjcxFdqLV73U7v2Ht8X1P8YshC9J+E/tT8O91cUGBgKFeYLueH8P+JLKLUNOvIlZVnhkU La8hEyis5AaUtfKTXeabwp85d+QHv3x3h6l/7Z701l z2E6ed9X2UYib2akDVSfVy9k8SA/AK2qfhr+B1+qvVDuGUmu2GoJm6Z90gnN+b0YWwj2MtdlODKdP76I 4k/8jp4A/wCw9L/6a7+uubqfpXI/En/kdPAH/Yel/xNYAx93c9d3CTOoC7e0hKZTGimjBAosNUFYHAKY AUUUUAFFFGcUAFFFFABRRmigAooooAKKKKACiiigAq M8v29X4qzolRmYJZm3IbyGXgsdhUYhnSqOqWj/AB/4L0Z1ye5N95cQ66VzDytd7fw3q0mMlXQYcTm5O5 FtTqkTLj6FtogTZDyQ/Qy9my8F3N8/tO/lGcwtUMwCBp79x6L5M0DOuigm/zLFeUwqtbX6MtpgmHHRLf ZJ39vhmQoZdGVzkLC67pCu7OP1cI3Xsmi9h5EdekOg fDq+/aI+PjzqsP23xeA1BBX0RifpEuBiaZV0F0XuYaWHhbgN0VsLYcc2nG/wSbSDxmmuR/StaP1NfEPX yBOkR7qzF6vzu9VDO/VdyzaiTAIZGsqZUo078A8OcHhHTUGHaJ9+a/huzP9reSCbtTkLAMdU2hl/AMn2 8vU+1fCX/KHLla3RRWC/6D48BJY6wNn309zqUBtTPw m+KtSqXgEHCulAdOX1x3ZEjGKtgdP/EDCXyTK7ZrxriHdS5g3i9N+J/Anna+JCikP42yTfe6CBagw7raC [file] saqCDfiQt5qQIAe1Ijal7saq9yHcuG0pIQtnAav00//ihaNpzddc4NnslYcFls6/0/41HzXhtlppgrP5 dvkxp54y2sC33HbQJELx6k/uCFqcmacpor4/xkqc1SiveiN0OBqXj5jGv0NfHipnOu3KCASvmawvAQlQ ISmFPvuLk3ZsTwk54rkk/b8iiS7yo7WypR4oTsyCFo E+admissions assistant/e6iLT2EHwyMcx7d+Eu4wIvnBvj9+1wbmJu2wQ/issEjv3fa6PcMh1oDac4cok/t8dJWZ1G/vU47 xp99/CDNt0MNHdzgkrwrsj2ITduK3Wds1ZXfIP+wMt74Xewljm5Qu+fU1V/o2zD3opv4OY+0tlwAU822 NcgN3tvsztC0B3i9EbyPhqaQuhzEIH04E+SaP6QGEB tEz5n5r8k3mvp2uXM/p+QV8B6/HFn3qCp0jZOkuoTrzl1XTU26uTmT0UIrFBBeo+vMA/o2PhZz36BQFr vehAru4vmbjtrtUJoFjKiuW0/P/tmJgtIiK+uglubutFygv5Hn3DiF5N2tDVkJWivvA2eKGP3UCKLPoD LiwMd1Ho5/SjjU4/bNNfC0JOI0IpovcEtyDl2q4UpJ piece meat trimmer/kgChIkTk1hV3gwq3p0w22q2c0AYrYbfnnAQruO2666xhvctpto096P/FodRQ6SE2XPWGQLIqxzoG/ [file] STpumWNk3+dHP+4kFUuiB93df/e9+GXH8kNc2z/piece meat trimmer+ [file] QgMzEgMCBSCj4+JmC9ZPM1sRGiLdo6HBylHyhiVZVOHjs= ID Date Data Source [id number] 09/14/2020 12:00:00 AM EDT [facility] Name Value Range Interpretation Code Description Data Naomi rce(s) Supporting Document(s) [facility] SPVEHp4vYgDQUNFeEW5tznz8TPrkNJq2zDWkMW1/WDBMJGJeTS6TNWPZPYSEECOeREpHkbXpZKsXOZAK DO0ICKuHEHCBBWCGNZCgJVsVAKOhWUIOGIJgAZuXF0Yxl7T6U0TrEOd8t5m3nOz9p7NfIsmSI4HzZXR2 wX8wKVK3TNDjKEokXMJxWZAoFXP6GRL2VstNXc1JKJ 4ep8SmLrNnTGChBvwYBTyNW6M0nRWuO3D5wZqJmLN0OYmxC0AjoUA0EUalF28iQG5aMajwU8PdTA8gNf 9BWIWhXoOHT3LUXiOxSKkcMOklI51bn3sgM87fmfL+NgijpqRfWkuAXISkLR7rcaprS0TxrKOcrl2qD0 UtjbvoSHNHHr0WUO5og8JcUcanSGLvCfhREXeBP3D0 zYBwZ1oQOeqqI4QFC3O8EtG9dQOoV1jdXAfuZp5AtZV7sGQaEUNUV4kreIvybJS4UJxkBpn6x1FznrMk gCAwnkHdfFJ2Al0Qu1nsdfSvRPTvPX6IBPXuS7MQW3ERZ9yyxur9bLAnCNGrEDENE6LjxEWvamAgKPSW FHCca5FcJl1+CuZ7gyCyzMw/2P/gABBKRklGAAEBAQ EsASwAAP/bAEMAAgEBAgEBAgICAgICAgIDBQMDAwMDBgQEAwUHBgcHBwYHBwgJCwkICAoIBwcKDQoKCw bCDItKBB4DTRsDEgjDQN/bAEMBAgICAwMDBgMDBgwIBwgMDAwMDAwMDAwMDAwMDAwMDAwMDAwMDAwMDA wMDAwMDAwMDAwMDAwMDAwMDAwMDAwMDP/AABEIADsA +gMBIgACEQEDEQH/xAAfAAABBQEBAQEBAQAAAAAAAAAAAQIDBAUGBwgJCgv/sCK8FGCLPPYGBbNODVMT GBUHYT1GDyPMSTPFQcCvEXRWBFEKZjSZPrERoTowHuPKWRIU7CSsMbQLNKkTIbrZVsNwGafvMzT8Xvj4 GQaMCRBHT8jDRxFWHCSNTJlsB6OnUwykpGfnhHD8l9 o3buGAvEgPoXnYyqGNzYvZgHpvhyQvqisgeDwavtQ0enh3kAz4wmRPcfgVoPrM8rJA4mgQ2Umf6jHr4R Xm5+cc1nGt4/T19vf4+fr/xAAfAQADAQEBAQEBAQEBAAAAAAAAAQIDBAUGBwgJCgv/xWF5BZYFIFYLJS UKMiPHAKZOVkzUICCMSILIKHXBKmZJV1EzGjKalWuC UiWshkYJVlYN8TSwmzEXUtN59QHiQjlYJsKwOWzjNCV7NOp9V3LRDjmXGPmINYKCS5cGZnKmYXWvaNvr u0M1jpr5oXgVb0ADlubNnGcMm5QGxioSaSoqn4Rdlvwzzmjik5D7klx6obkTv7SJxqvTxefN10QL5xgI 2dri4+Dp4zwy2fqt9/T19vf4+fr/2gAMAwEAAhEDEQ A/FH78fZDmcxTtxAJQU0j/APBZv/svQ8p2s8yd02FvnEwg7Sp5MtN3v9n1VJonVj6woUxynEWfXTCG95 Cmg4gJQ+XS8hOo84iexaqVeZxek+x58VvF+kBI5uxs6N6fQ3K8j9nHURohehMh5ji/nj/4Ij/sv+Hv2r v+Ch/net31gyvgJuBfzqSBo45d4E+MMmy9QYQzSEQE zTzmF0WPVPNVhAqr09kh6WuzijxojiH04nvP9lYmSBKvqrXfz9E5Vr3f/Ke0kw2SiM4YiKtt6M+OvjW0 u1+8d88howkyYcTn/hYsxEaubI5ce7Y811Y+wN/wXH+Jn0YIyJfuV9Nz46j+Z4tLWm5Tkvbu6ayd1rad dFnQdUkVsS7B5aKSEmfTRWqXwWWM6BnqLQDdntGUoR cAV+Ln/B0v+u84k4W6/kMI87ffFG1xy310nfIyD8bteQzLRWBFLlheWtwO4KJGyxfIFVm6eBVpfnUX2M U+a4niw4tfFsyfmIjqSW35Y0p3Qy9W5Y9OetM5Y+E/hZ7M08fBUFkIBiWPahR5Q+JLKLUNOvIlZVnhkU Mp7eZylt6PpAgoTMKauwtl53y+HEw4v4j2a/0J187r c8D8ug3V4MIzk3mmAGUeUz8e0CR/MB1idsc+B1+shFFlLKpa9JqAj4J20diA+l3TWkq0KgteJXSqU08E 4k/8jp4A/wCw9L/6a7+uubqfpXI/En/kdPAH/Yel/iRBMu64l2e2EKSdC2o1hWNMNhqxZRecENQVKBKI AUUUUAFFFGcUAFFFFABRRmigAooooAKKKKACiiigAq Y3s93H6kfdvYtTQQw0KwiSXgcwrBIvwCyPrHh/AB/7C0S7ur4X17sS45AzYcoe0wq7x7nLhPPHyZg3I5 WzWsaCVz8OgnjZFPjT/Xr2nt7T9G6/tO/vIbxcNPsBUf94j9S2C0RSkblr/hYMnLgicgR1GweukJENYq IB75zpvSaSnTLrnMI46lJt8QR8vJ2Hkme8x3NsoaOr fDq+/aI+KjprzO97rzU2OYB4DgluXbAnyQP3K8YjIjFGvfcR3MbTXgg1kZ/wSbSDxmmuR/CkmR9VgSZC jXKqZ2wqU3pjp5SJL/IpzpanVFQDSuiBVb947A7UfBtACFJIcE4+a/lxsR7xdHNwjAdXOXxB9ip/AMn2 8vU+1fCX/KBBvz3QMBI/9U84MKS4hSp090ieBFxOUm m+FwHxSgBYWjlPfZB3m9PFyZQltiS/DPOQvHD2JzwkjLlP4y7s9U+J/Anna+MYqmB16gIit8QDjbk2aqZ [file] Projector Operator+OTyLUBRKqDzEgQQ66IQpTpI95QNaDP13L+/foP [file] 9CBSCmjrtsYXbONYhUDxsEa8VzMkg40hov/q9jjW8gm4RwpU6tPddPZrB+admissions assistant/m2vGB5NEzxTbt1h+Ie4 [file] YLHuISVYXk9Tr767SVHrLHNaZah+PiyrhXIoaQtkVEGRFJV3RiaNMPEED1FH ID Date Data Source [id number] 09/12/2020 09:37:52 AM EDT [facility] Name Value Range Interpretation Code Description Data Naomi rce(s) Supporting Document(s) Progress Note [facility] JJVZSl4rHcYDTrZc51/OVHcbOPBku7StCSwnKSx8GJsmSVAuV5WjHXN8yZ2hSVN2LEkLLsIkAfIvEKI1 lbm [file] ICAgICAgICAgICAgICAgICAgICAgICAgICAgICAgICAgICAgICAgICAgICAgICAgDQogICAgICAgICAg ICAgICAgICAgICAgICAgICAgICAgICAgICAgICAgIC AgICAgICAgICAgICAgICAgICAgICAgICAgICAgICAgICAgICAgICAgICAgICAgICAgICAgICAgICAgDQ ogICAgICAgICAgICAgICAgICAgICAgICAgICAgICAgICAgICAgICAgICAgICAgICAgICAgICAgICAgIC AgICAgICAgICAgICAgICAgICAgICAgICAgICAgICAg ICAgICAgICAgDQogICAgICAgICAgICAgICAgICAgICAgICAgICAgICAgICAgICAgICAgICAgICAgICAg ICAgICAgICAgICAgICAgICAgICAgICAgICAgICAgICAgICAgICAgICAgICAgICAgICAgDQogICAgICAg ICAgICAgICAgICAgICAgICAgICAgICAgICAgICAgIC AgICAgICAgICAgICAgICAgICAgICAgICAgICAgICAgICAgICAgICAgICAgICAgICAgICAgICAgICAgIC AgDQogICAgICAgICAgICAgICAgICAgICAgICAgICAgICAgICAgICAgICAgICAgICAgICAgICAgICAgIC AgICAgICAgICAgICAgICAgICAgICAgICAgICAgICAg ICAgICAgICAgICAgDQogICAgICAgICAgICAgICAgICAgICAgICAgICAgICAgICAgICAgICAgICAgICAg ICAgICAgICAgICAgICAgICAgICAgICAgICAgICAgICAgICAgICAgICAgICAgICAgICAgICAgDQogICAg ICAgICAgICAgICAgICAgICAgICAgICAgICAgICAgIC AgICAgICAgICAgICAgICAgICAgICAgICAgICAgICAgICAgICAgICAgICAgICAgICAgICAgICAgICAgIC AgICAgDQogICAgICAgICAgICAgICAgICAgICAgICAgICAgICAgICAgICAgICAgICAgICAgICAgICAgIC AgICAgICAgICAgICAgICAgICAgICAgICAgICAgICAg ICAgICAgICAgICAgICAgDQogICAgICAgICAgICAgICAgICAgICAgICAgICAgICAgICAgICAgICAgICAg ICAgICAgICAgICAgICAgICAgICAgICAgICAgICAgICAgICAgICAgICAgICAgICAgICAgICAgICAgDQo8 E2lnXZDvECAuQC6pAEe5Su0+LFvDZbHmGCZ7poPyfE 0NGF8li7LbHLfvRZVpx5FtXEh8UC2IPVVjDHfvGG4XZHkyuh0ALWEkCAQwxKXTm7imItPgRZW7YVAvFv tdPZ1VIBPaW3irknMtZMHsHUSTLXdxAIVIEWwsXWNDHD3DYrZaC7VxqH09JASSGo4+DQplbmRvYmoNCj T7UQZil2GzAMs2YB6GDTCwJfbvd9OkAozbCYOTTYvs BX2VRAC3FCC0ZQWvVt9RPLQuM703fiUyYT6OWu6SDpQaDU0vtd8KAxmvTXSgIbtHMnq6UWccXO2VhTHz WYdQpo9oekMwobQLg1GmopTogVXQhHXgORGiI39npn3ooDseEKWTZKC1BYHwDA7hZYGhCGMyYqK3RXRM RR7CMTJyWKJcsHXhWVNsGOBLOS9JNVuwXTR4CXFdhn OmxAPxFAjnRJ3KELMhxnXwMiQdXXPHBQl+Lq1ETG6oc1NwSEbuQFMeWK9yzs6FGGfSWiAjB2U0lSPyG5 F8RBwqEc2OMOIrZWOcQxFwLUIZFKjyYP9PTA0owfJ3NB0VzFTaSMEhIUJfmHBxYEs8S73muPXnLUfyQY 0KICA+Rachel+Ei9GGHLiEFQwWFHvOgGwSSPSLdIwC7Jg I4CAm4JxQ7VtMN65qShqblBmJJwxTW6KXL8aZGWdFIYQZT4WdOVupA6zxlPyOsHvKPDPMsNsP88vuXRq GAGsTPU2EMQaZu6NECQiX1RmdzDrrZtukrAbCQSdNBFSXE8WNQbfipRidFDqiPcoWH79qGpxNC1MZq5T YiIkUO1fru3BdVBxPf7LRPBgHA7YSUKiZGUiYLKtRS X4HQNcBnBrONuhULLrMSMpPVR9HXSpTTQlVY1XLmVqNKEzECDbGRIcSCBvNZDsch3GQTEfWRM7PuNlHl EqKOKpPMEeMLwaIFYvSGBkKMW8FVMwEZCpRJ4OBfJjTLEqMTOzWiblPASrGYNaqt2XIQKqZAGdEuOnVt FrQRSmNXEzGPqaUEJmNDZ4CFakBVTmJWRaEP7HBeMy RYZtUGfxHaWaEYJaUPBdcs9BIMVhYPVcPWX1TJZqLEUaPWKmWPlgMXFeAHHxCIS1MGYoJUKwOO3LShFd ZCBoFJJ9KvstZWIyEQMhgf5CFBPyDMWmHAYqDULwYNAeNTNvVTqhHPVyOEWqMYL3GCZcMOCnDB3GBxTr TGCpBON0PfhkZOCoIDHtgk6XPOWoBAZzErr6UZAhAA YeNFOmPPijGAPmFYRnFFJ6KKWpGOLwQO9SUoFcLBGcBQXhFXPtIITbRGJicc9EGRUoOMS2Zvl6QZOhSH JeJXFsJWvoCUXsGMAaESK7VYRuNVOtWK2LHeUgMVBhXXO7QLXcDJMbEUJckm7KPKTyRVW7RZO2BWPuJU KdWXSgXGvhKMCmJAU4MAYqQVLjGBVwHP6QEqJtYSBu QKPsOIMxKHJfIEMsbs9EBQNoLPH5OCZ3ZYUdLVDuHYZeNVcoSVIyZRZ7Cps6TWXtFKNmQQ8SWrOwQIQv AHfoIhLuLCNwNJIkiu8WEFRvSLH1VnKiEmQaGWQnUYAzKFdlCYLrUUH9ZBT8IEXiLJBbPK7PVlIlVDmc BGFHOxl3ORqeD4h8CKSiPU4QG7Vgc5BdKxadBCVWKG eoTL2cjzDqQDBvLg7DL0xVQybrRhfwOBBqVRW5QBBxPVLrVOmjXFNxIMCvEfK2RAE4Ea7hDASbTWPwEt ExWBy9I9YrLMBdUAE1JQH1HzD4QDg2LVUqYdPxFM1VAc9RYoH4ASR5nVBsCt7EXIk9NLZINtVvQH2SZK o= ID Date Data Source [id number] 09/11/2020 12:00:00 AM EDT [facility] Name Value Range Interpretation Code Description Data Naomi rce(s) Supporting Document(s) WOUNDCARE [facility] GLRXDw2lTrITWTIbIO7hxge8PYnbQEe1mDVmCI3/PNEAVIQaLV2VZPBQIDBPOSZiEVrYofCpPOhYDSLA UF7DGFoWYSTWDACIOJKaOGoFIVPfSKSOWHUaGRaQI1Qfu5C6R6EnWXb1m8v5qTu2v4BwEoaRM4PrMFU9 iF5uAID9FPLrQGgdLZIjEAHkXVH0WuQ2GgdFIa7SZC 5yq6HhKkCcJTDhAwiHSCfOP8H1eWWnC2G5lKjAwJO8DUxaH0ViiUG9AZtxI74uYH6lOttzC6UhIT9sJd 1NYOLaKbVSI8SFGeXiZIbbNPuyW99nq8axA68npbV+DicfnbDzTeuAWPXmJQ3ybgtyE0BroUFqjn5oR0 CysrjhQMLUEq6JYW0kt6CqYbqaQZYyHndUVOaRX9K8 zPEqJ2qIJrnaA3VJK0X3RyR2zFGbT7ypIYdcCj5FxLM9uKFjUXLYH5bzlPpgmQG1JXfwFwy9x5WzpaPt uWCyxkRzsRR8It4Vk2nykuKoVOSeXO6LVPXlJ1WPN4DVO7rawzi8kQJvSDOcEBPGB9ZntSElzzQmRCFA HHYwu3RcIi2+BcL3vgTtkMf/2P/gABBKRklGAAEBAQ EsASwAAP/bAEMAAgEBAgEBAgICAgICAgIDBQMDAwMDBgQEAwUHBgcHBwYHBwgJCwkICAoIBwcKDQoKCw wNUBkOXI6ECGtJRfcCKP/bAEMBAgICAwMDBgMDBgwIBwgMDAwMDAwMDAwMDAwMDAwMDAwMDAwMDAwMDA wMDAwMDAwMDAwMDAwMDAwMDAwMDAwMDP/AABEIADsA +gMBIgACEQEDEQH/xAAfAAABBQEBAQEBAQAAAAAAAAAAAQIDBAUGBwgJCgv/jXG7RPFCKVCJAmCCLEBO CNODHF7FPqVOIMKIGnVfBPUHQRHXVwEHVdNZhSmnAcEWZGKF4SOyMdTMDUwWXchEIzUkOrlvEcA1Szo9 CIaVBAAJY5lPFnGLWMHTWWuwK8QnBfeovYeyeLH8r4 f4csMExBhIgBrKlfGLhLiLhIdiqmDlzvgrsAkxasR5gsn9uTk9zbRPqnlYnGlQ4nUA4zjH7Cal5yPv9N Xm5+gh1iOh2/T19vf4+fr/xAAfAQADAQEBAQEBAQEBAAAAAAAAAQIDBAUGBwgJCgv/oTT3LUSPSMDUYF KNFfVSTDCLVsoVWJHPYFIKZWLNKjFIM1YlIaHiaRhO XpXpsgGHEvAS9VLeqjSNEuD11QKoFbtZEpNjUUomEMQ3RDy1J8ALVauIMHqVGEUGI7sYRzTxTQHllWzp l7K3tvp6oSaCl5EEiorTfDoRy3EFlxkFbTthz9Unznqwoifxc4R6rty7ujeTb1EFsjgBjumX85DQ8oyE 2dri4+Pl9syu4tdj6/T19vf4+fr/2gAMAwEAAhEDEQ A/IJ03qLLuuiHwyNOCU0l/APBZv/rdO9s7j6se22ErqTru3Vt6LnU6i3w0JErgYs3asLwepSLdDWTI98 Gdb0vZV+KD6wJn02ootjaViLcrf+x58VvF+qVX9frt3S6xU4Q3r2rPKXszxdPb3ls/nj/4Ij/sv+Hv2r v+Ch/cyc22ahdyWyRnpjAQy66f9Y+PVho3UYThDKUS qXenH0JFOUISgOcr42qm2AbpgliornU61yfT0vVaTVIptrLbs9B9Ny0i/Wc7ug2AaQ5MsRho4W+OvjW0 u1+7o84hvqikAbPf/lFoqQleyO3br3R665M+wN/wXH+Wl5JJnDfrJ0Px03q+T2mKVy0Xirzu9zsh1zoh lKbJoInYoG0G1oJTUqzKRMnBcSCY7LnnRTQvlvOKeK cAV+Ln/B0v+v92x7N5/dUC91lyLP5ln534rmIiK0cizHwLJHKUSesjBykK1FVUemcTAZt4lNDgkkND6L U+k5xdp6ygQizwtMuiCX10Q2u0Ho6H9V7VhsY1P+E/pP2R63wBEPdEJvZQgeV9Q+JLKLUNOvIlZVnhkU Vx2vRxus2CkAodRWBnwfck77p+GUp4a2l9i/6K315l a7U1fw9F8DJxy3adNUSyYe8f7DU/MS9dktd+B1+rjUFeNVlb5YoKc8I09gdY+h6MEyv4ZbtaYZCcV83L 4k/8jp4A/wCw9L/6a7+uubqfpXI/En/kdPAH/Yel/wTETl13i3x5DLHtE5l1iGASUettGQumEYZHEVYA AUUUUAFFFGcUAFFFFABRRmigAooooAKKKKACiiigAq U4h13L4yahtAzNBPu1FkqGXjbrlBVijWlWlHp/AB/1Y0U0zr1M18mJ26HcAttm8bh9v8tCtVYJmJi9G8 CyPumYLy9CxwtBGFhW/If8zh0C4P3/tO/mUeanZNnWRt52l8K7P2WJmbgg/aKIaBzmwrG5QrkloOSARy PB47ieqYhNjVRyjXI78xCj0EA7bO0Qywe6p7BhltJo fDq+/aI+OraxbL04ebZ4UXO7ZtqcLpBncFQ6H0GcJcFGrhmE3ZwFYhm7jP/wSbSDxmmuR/JtlU7GaNZX pPMdV3xcO7olr2ABR/CmyyntHNMEQsiVNl229T0AuIpDDLOSzN7+a/xtqQ8nfCYpmFlILSjL7zc/AMn2 8vU+1fCX/RWBqp1HGQG/5F46DVH1lLh070alPAlULl m+InXaDaBUYpoWmRA3x7JQiIXonaB/ABCTnRS1WvwimYnM8q0g3W+J/Anna+AFxyI30yQep8ZCime4acX [file] +/1V332w2ii753DickXC8/0SV83045ps7++Pn0g/Pe N91/9qOfDr/81+4v32W/zHZ6/o07fo1/82Xn/PHx/dj245J7ui8h0Gw0++8/ht6a3rV7bZ8alePw26+7 n/6X+exP3d+elevator erector/+jLb38Hg01mRGxWzM4C7hac67Z11Pp3u7Gmy6vhLx81gNQ14O+ifj8m9p7bx0/253 5smjk7y7dmr3q9LkZBYwsb4dtf/C7U9kyp4BdFgfuC nJ+XZ/mouR0PrnUh9tbr/vl5ySTu3/pxOf1jqh27nBNP/8Pne+3Zf0hq7/ZL/cGM85idof507+qNuqqc p35cqKn/zpN5eG/NhQXBoK+LK1fQoS28g5j3YzQc0oi5MkNdl1ScaePLCObPctCO2TgV4+djuE9kZE40 Kf6TObAU/vwx0pFp3N1sGr8Yrpn2bXSolz1Ns1FZoE ZUFp4T9/PE42NRYI/EsTOU2qwq0E1AGQscgvepkVIYgQi2jqrfwaK4s+eDMTNPuG637ClBGY5tyLugNh wWjokqIGDHe2yV1cDLW6w0167juh/cUP9zsH+qM/CHRiN7q8o7q6DUcZECaeJW2JFP0QJxnaj9/bLHv3 cquBrDJexcya9mhXHa6+Qwl91AP48Df2iCRFKR3bsg Azeb/2h2dXaC4vJQKZ3us8kqsfV5m84roLE606aG/WJFq8LG4kRdfDXwOB3cFA/TH2SDCGKgdIoXcdwC5 Pum5TemopZhnGZybymtWIcwhPWbGz4G4IqbWMXsbwZe6AKSjejcIUNvToplL6okhlp0Zfsf7uhkR0wCk 0WqsIcpWUHO0zhAu+ITtBnMmfWbZfbR2i4c+OyKa0a pGrdRb0Cw4iiTLkzD4dlcO0+0Lbhg5VuGT+ymINpi7ubC0GSHLxBB2kMqXjEo82CGmxEAUySSVSu3sDO fvar2ZPr9KUjLgniuFmtjrrKGxovyJ1ctpxkukWvPdG/Id3VetcddEVqRRpyH1hFaW2YaThotc/k42gY [file] WQTtCfzlNs6reKOyYZXkVYMOTf9Ma2FcxyF3naRnQdZ4ZeabCiYvSK6SMu== ID Date Data Source [id number] 09/09/2020 09:43:00 AM EDT [facility] Run: 09/09/20 0943 INTERFACED REPORT Name: Greta Slade Sr Age/Sex: 55/M Location: [facility] Acct: [id number] Unit: [id number] Status: JONAS CLI Room/Bed: Re09/07/20 Disch: Eduardo Dr: Harika Cr [employer] PROP[employer]IES Specimen #: [id number] Ordered : 09/07/2006/29/1145 Collected : 09/07/2006/29/1049 By: [...] rce(s) Supporting Document(s) ID Date Data Source [id number] 09/07/2020 12:00:00 AM [facility] Name Value Range Interpretation Code Description Data Naomi rce(s) Supporting Document(s) WOUNDCARE [facility] AGOPWx5iGaEELIWaSQ1plfo4FWwmXPi0nZVsSR1/HCAMEBPtVB5DGGQFFNGHWSPeIOtYjpThLHbUUPBX YJ3BBIfWUTQVMMFZNBKvXZvUPEGbWMQVKMHvSScUU7Ylx7A0P9YmDBe4k3k7yPa0l5YzTexFV2MtQIU3 uP2hSSX2KZOsAJuqXGNiTVTbPOJ8CHBiDQpWFm6TAT 4yz1AdSvFkKZXiDyhHZTlGW6U4mIJrQ5G6eObEbXI2GXleT5VmqSE3LYjuO09oVE6mBthgY5WdPH0uPl 1MKWDqBhOFG9NOTtSbEMrvPOxfW27gj4zjK46vwoO+NurgueFhCamOAYGgGT4ifxefL1HraCUmme3wS4 BqcpshSOYVCr8ZLP8gu1SnVpxsKEBwTkgQZHiXN1O7 oUQmF9xVZtndS0BLT4U2XqY1gZXxM9kiHFuaRn0NqXZ2gHIyKBAXV5eilPjkmFB5NLtrIzn5f0TfetIv gWPcruGfaUG3Qo9Un5aeqfVjAZGvON8BFEFfC1JHR6BAR2wfial1tMCjZQOyEKWEX9KvqOBceaWtHXFG QPUrm2VbYs5+UjC3lfKjaGm/2P/gABBKRklGAAEBAQ EsASwAAP/bAEMAAgEBAgEBAgICAgICAgIDBQMDAwMDBgQEAwUHBgcHBwYHBwgJCwkICAoIBwcKDQoKCw wDFEvPXA4MDIgTSlrFBH/bAEMBAgICAwMDBgMDBgwIBwgMDAwMDAwMDAwMDAwMDAwMDAwMDAwMDAwMDA wMDAwMDAwMDAwMDAwMDAwMDAwMDAwMDP/AABEIADsA +gMBIgACEQEDEQH/xAAfAAABBQEBAQEBAQAAAAAAAAAAAQIDBAUGBwgJCgv/mCI8KAMSVFTDTfKOTXIE VVGYSD6MDePWAYXMVzNlHBXIVWETZsOSXfQDyJndJqWXOCKR8OIxJzZVRRxYVilPHwVpGjpfPoL7Avc3 OUkKWRKDD5pZAlFIRITQWAhwL6GaJozzzVwxeCD7y3 o1muDVhQvWiGmTzsFLmXbKpErrpbFhkuivtFmkucP8bpz4cNd5fyDYxshJgBpA2bUM5afA6Dtf3dSv7W Xm5+rx4dDg5/T19vf4+fr/xAAfAQADAQEBAQEBAQEBAAAAAAAAAQIDBAUGBwgJCgv/zGW1PYSNHKXLWI ZHOdYQLCDLMmdOCSBAFLIMSMCLJvBJW4YjXuEayEcJ HjAbnbPLShIZ6DBbtuYRCfH99XRiLmxHNwXoYQxqRNU9FIs0D0ZRWtfQEYzFYFGNB0ySVxFqLRFblKyx a4M5jes2rXsPp6ZZjweQcDaNu7PZzfoMjPxih3Wgqkqwmgekp7F7wvh9qqwZi0MHqaeYobpH61QX5igN 2dri4+Ff1rhg4nuy8/T19vf4+fr/2gAMAwEAAhEDEQ A/GF40mSKomuSjmATTQ3a/APBZv/lhV4r5e7wj89CfvWuy5Fk8DfS8a5v2SXrqVq8zcZgkaUYtVGYX66 Xwj4bQC+AM6xCt20ctanxQfQirs+x58VvF+eAJ1xba3S7oE5C8b9wWSDvhquDy8ot/nj/4Ij/sv+Hv2r v+Ch/ayo32qlfaJkGeffNLq66f8Z+MEes6RBKcOJPM yOabC5DOZMQHzJor02er6VujirlgchV29wmY4iDhLRCxiiUyc2T9Hp7k/Qi8mt3MrE1GlEkn4J+OvjW0 u1+7l39lpiouTvBz/dWlcDcoeI3sy4M448F+wN/wXH+Jk5CBaMvjY7Qk49r+K2aDSj6Omlgp6szq2hcp nZdHkGwCvY2N7iZKOvbGHFoFqXNX0OcsBPXlewPRfE cAV+Ln/B0v+l45v8H5/fSB71cxOG3ye037xmMaI4bytWgFQOMIKpqvGybH7RMWocpLNHg9gPUulvOA7U U+d4nnf1xuCtaviIxiWI99O4h2Vu0Q2P4RdzI8T+E/nF5Z81jNJXiWOkWJbsC2T+JLKLUNOvIlZVnhkU Gz0aPrug6ZvFeyBSLvsqmr50r+UUy7p9h9q/0S173w x9Q5zn0L9WGzo4ffBPKjLb0j7QL/XU3iimk+B1+vlVYjWIav7GhLk4S03inB+x1UHis6AnphHXHrK08V 4k/8jp4A/wCw9L/6a7+uubqfpXI/En/kdPAH/Yel/xSTDy81s2s7BCTrZ0s2wHRRDareYJecYXQVFKAF AUUUUAFFFGcUAFFFFABRRmigAooooAKKKKACiiigAq G3r77B4ovagCxQADg8SfpPPdfkaNCmxIpRhTa/AB/5D0X2mm9G17zV97IlZjmk9vh2c7zWbYCMzCt8T8 RjMaeIPb3KodjPQFxP/Np7tw5H3U0/tO/iTjvsTXmSUw09u7T8K7BZllbe/uFXuQicmhS9XepvuIQEQm MN83asjHrKxXSlwDO12sHh7AP2zU2Oold9q6XkdjWv fDq+/aI+LbwufN17dhF1TKH1FwehDiXtbNS2M2WvZtPXuebA7HfOLti2cJ/wSbSDxmmuR/DddN7LwTVT xKKkV8lhW8fcu0GFO/DzibnqGOSBCovEYx933U4GsUiBDMNJbG0+a/yjgT3vaZAmlUnZHJbC1hx/AMn2 8vU+1fCX/DIFsv8WZBM/2P46NQV1mZg713gsDIwSIo m+IpZzQiKLDthRlAL4e3VYhRUkxpL/QHJEwKX1HdqnyGyP8l9k2V+J/Anna+DFjfB92oUpi4LMzyz8wmR [file] EgMDAwMDAgbiAKMDAwMDAxMDAwMyAwMDAwMCBuIAow NSRrNVLeYXI8EXClPHZzFS1iFgKjMXRtWWD7XnzoIEWxOBKuwpBBRMPpRASaYKf6YeAaKQUeIGEcNBhs FMIjPASjYpBySRJnXRWnJW5eHoKjBJCiJIZ2RYjmCQUcCNNtyfSZDRUbQCUqIIdaAaXpKUHzXSWqKKvc YHXkUHY3AHB2YOHgZFPtUM8kEbZoKTSaPAH6JnVsGH KxIFLpcwJNBOZuJAYgVHQ7AFAfOBNuBKFzKDmmHUZiWJK3XsAaQKGtXTArGP5aGnTbIDDtLHJlHWFjKR LlKBZvbjHXBHGvPQPgYDSdGHTgMWXvTLXhHGlsPQUfQSD7OvO1XMUgMQXhLN0tMpQeAKZoNmbePtmtIB SuTKTdmeTNYWRbVAAuCOQ4NnEnAMCvRQGtCTnxVQYz UOK7FNP7CKNwZIFlYE1gAdRmRSWeNHr5YqfuAHDrRREmqwKPIWFiJTYuMJHmZCLwEPWnUWHmRLczWXIr SBRyYrBiJZZiSQKsPB5bStLhVTGjOBc2DeOsKWXxAXEcayCJBUBkESQkREFeVWAyFKYzWRGvINuuKWYa KSUmLkPuDRAbHACaDX9nWoGfJCIkEgK7EgkwZDSfLD BhuvWYKRSzRVPaJYK2YVXqBRXzXNMfVSxaRHYnRWT4PzM8VXMcQKXvYN7qWbOlOPIaRbw4OUHnTLNqLA DtdzKLAPEnIOToBRU3OZPpRPMqIDPmLKqfXEPzYQL9JfB9TXDuSKNwZF9fEsOjTEOoOea0NPIzTTScZL NnolMLKZEwOPTzKur6ANJyKSUbGRKxXIyxRANeEIB2 LDXrVQSqIGPfCW2gNaBfTUJlLhm7QAdiBVAyBNNzfwWHLUSzHWGfMRJ2OdKlYVEdSDCuFSkyXEKcYUG9 Jde2SPVdYHXvIJ6lQdBsCTTiFRn2DNnqEGZpGXLuxpKQWIJySCQ5XFP9JsNuLTPmFKSkEFzpNNBeIGR6 LNlfFIGqZSLwQP7cNmUnALUySLPeYvCzYXPrGQNqhv EIFXXuUMZ0ARUjBrCoWUEqFEXjFEmgOHCcTKE3Kmo7LXMdIXKzMF6tIqXvJEMqRJI8TQDkLUPwVHHgxx PAxVNsbAylpkw9JBczE7e0TZQ0UwneGO3mxuYbFINiLwaxRa6ktCNuJNMrTJCTBh3Qr8GojcH5jpDgUf D9MuGrNpXaDX2CHn== ID Date Data Source [id number] 08/31/2020 12:00:00 AM EDT [facility] Name Value Range Interpretation Code Description Data Naomi rce(s) Supporting Document(s) [facility] GCUIGk7iAcTVFDZfOB8vkfl9WFlmQZl4eYQpVA7/QBINWWQtCK5FCRLTYKEJOIUmHPaGeuIuSAaQCVVN EW3LCTwTCZNAXAONJBIeVLrEGXQxGUKXBXZtEAfLT2Wfy7W8G5ToPJd2z8l6gGa7z3DtYkkYF2FpNRH1 cW5jUYZ2TGAkBZblLEXmYZTrQSN6SlP1WffSAc1GBU 0yg3XjWuVhGJDjUegROXxXB3M7mXEoR5B9tDdXgSQ6YOnxJ5VrgXO1YCqmD84xHL9bMdxoZ7IkPM8fCj 4HNBMlAlKGO4DXKsBhLKfmVUltC30cw9aoD78rvyN+BheohmAtSorELEUgMS4subbbE6WgsMVzas9uF3 ShejfoRXGCVy0PBR0cm6FtQbjmVSNnZobRXHoDF9V9 uCBpQ8yKQscmT7FBA2G3OwS6zTDoU6bkLLnzLz1VwBO9kDQpQAFGU1iwdCtrlWK0HSekNzr4i6UshoDh vRHbdpKkvMR1Gg9Dq4dzulNzICIxNA6FBOKkJ1JIG4GUB8pwczo8pSNxIGDiABOVN0FljOAsbnUoWUPW YMGkn8PcQm9+EhJ2ohZweGk/2P/gABBKRklGAAEBAQ EsASwAAP/bAEMAAgEBAgEBAgICAgICAgIDBQMDAwMDBgQEAwUHBgcHBwYHBwgJCwkICAoIBwcKDQoKCw eAISrGOE4EIRbGPwmPLQ/bAEMBAgICAwMDBgMDBgwIBwgMDAwMDAwMDAwMDAwMDAwMDAwMDAwMDAwMDA wMDAwMDAwMDAwMDAwMDAwMDAwMDAwMDP/AABEIADsA +gMBIgACEQEDEQH/xAAfAAABBQEBAQEBAQAAAAAAAAAAAQIDBAUGBwgJCgv/eBH9ONIQWRLYEeWCCSCX ZYAOVV5IBxYKSVWKMtRoGWUPPDKIMdJJZrZJnYinWnXGGGWE8OUxKpYWVUjWLujUBkDxLmthCrU2Tkq5 HQvLWTTYT9cRSyLEONUXGQqcB7WsGdhlxDnsdZS4s3 z9bpSGtVpTgPmMpvIMpEpPjDcmewLhnvncnTznokK9ytk1bQo2dsDKfwpNqEiR4vBW6lnV5Smr2eRb6V Xm5+ry2vTb2/T19vf4+fr/xAAfAQADAQEBAQEBAQEBAAAAAAAAAQIDBAUGBwgJCgv/nJO4CUDZXGQWMQ CNZxPGRTKUDnjXPGVPILOKMMJKTrXPW8DdAyXsuGzM YtYkfdGVKyFG3XDyzfAUYpX73JYqEveHLqToWRbbWDT4XWz9X4PEElsMOZgAONJVP1pCLwJyTBLmhDnl i2N4cob3tMzDn6OIncwXsUoQx9QKvszTwZtba3Vuhdruuqxju6D7ccz4bftIb9PDirbEewfQ21XG0peU 2dri4+Fc8cke6ntd9/T19vf4+fr/2gAMAwEAAhEDEQ A/KA80lGXbkgYwwDIKW0y/APBZv/dgJ7v5o3fz67ShwOjp1Yg9XcA0m1c1MQdkYx0bmRsfdWMrBWUI08 Lgk1hGH+WM2iNb96jjgblDiQnwr+x58VvF+kJN9yhk4X9gW8O2x4nIKTzswoIb3ce/nj/4Ij/sv+Hv2r v+Ch/nih89poldZxBwcnLGn91i0M+PGvd3ZCFfKFCO vOecT8CCLHSKmYjh71ko1SmfbboelrI68yoR9bMdRIWmrsRky6H9Ap7l/Hz5eu1RwV5HzSmz2G+OvjW0 u1+4z55utffdHeSs/nIogMsseW2fi5C154S+wN/wXH+Kz2QXhCsgT1Lp18o+U4kZXb3Loeav7wqm1vke aJnIlOfGrI3N3eJLNlwAHOiHkBLA3IcyREHizaRRpU cAV+Ln/B0v+m07p5Z2/xDS14mqRM0hl292ugIoV8gygVxXZMXMDvlhWcsG7TJElxbOMRk6fYXpzkRF3S U+c0bgx7ytZwcfwSphIF66X8y8Lm3I1Q8LzrW5G+E/vQ3S96rCIKlVJpRNwzN2E+JLKLUNOvIlZVnhkU Tu5xAmri0YtTnqQWTucwhs20v+EJx2j8j4n/3V710m z5J0dt0C8DXqn5rzVSVwNu8x6OI/WA5nxtc+B1+gcQVwYMwz3VaAm2B93omM+j2XKla7EerwMTMtN31A 4k/8jp4A/wCw9L/6a7+uubqfpXI/En/kdPAH/Yel/jHOAc32c8n8RVObE3m5uYANKzpaXAydJCOXIVGJ AUUUUAFFFGcUAFFFFABRRmigAooooAKKKKACiiigAq E8l34D7xmjpTjYDNk5EmgJQxsifBZzfToEsVl/AB/2A5F9rg4B23zC42WzWksx5zl5u3yAzYOEqFf4Y5 PxKgnFOr7HokhWYKpB/Iy3ma9U3S1/tO/oNgjbMOlIVf40q6W1F4UDfzui/cLMxBuyexM3HndvxLKAPu YJ39lmvYiQmXIdsNG82eSy1VT7sX9Gotb9h3YsplWh fDq+/aI+NycfuM44hnX4TIJ9UvtgKvCzaPJ2F0RoQwTXlinT3WnCSow1aC/wSbSDxmmuR/AdaO5PaJXQ zLEiF0xyP1fkw0HWO/FzylhnPQIJYugIEw371S7XhXjWELDNvF5+a/tnwS7enMQabLqNXDbU0dz/AMn2 8vU+1fCX/NNMer0AWQL/6G15MCM5vOq147jyZOvGFm m+PcAxKpIIZbrGfJM1u2YShOFvgeY/FREQjWF7FbdbaSrN7o7m4U+J/Anna+PMfsL61dIrk3RGrcw0pcW [file] Qoa4dE9NT1UNKqpWXnnpwX1fSaqx+vjtPcYan1BWOPbFxVTytYnW4Hsg/NoR4YYPw4AREDuD00Vxi/LICENSED HOME INSPECTOR [file] EgMDAwMDAgbiAKMDAwMDAyMzIxMyAwMDAwMCBuIAow AFSmCMOyAER7BLHmVZMsXY0oXpUaJUWyOifcAyDoICBcITCemwXJCQFmKCTlZXWyUKKaFRTgJZEdQJma AYRnJXM1NwU0NCHaESGiFE8aZnIoUYFcCnMgMkeaIYNgANItfzRFRRLlSYHrTUW7OPEhNEDhZBMgRMhs WPCkWRT1MhT8FSPjSKRrAI8fDvGzDTDdLyh3ONXpKG BmWKAwhoTWTWJvHJEoSCY8HeGoVUZrSOZpKUupTPXoDVO6YgMpWZXqTIEbBJ5sGoZdFDNsHwq6VUFmMV FhZMVnacSKYKDwGIS0QJd2FCOaDBYsDSMfOIjoIIEjNYG6TPd0RXUqMZIsFL1hDtPyZFYgODb6FoCbOD SlXLFifcBGAYVbYQC1NZCvPPXrGBPdEWMpSFpyJMIz OEMqHtffOZUrZFApJT4lXzNlTDAoLIN3BfgmJOTmWWXahnBTERHmWFF1NzO5LzJbUBOaWSLjGHevNHLi WMQ6AcW0HFAkIKDnOZ2uLqRgCUpsAFESXZhXP8NjvoIpCaQWC4gsCf3dYFLhLTDFG6Jag2YkFfOoQWUA Cj4+GmF0ZOG9cKXmZmo0CbTvMnorEOZFRih= ID Date Data Source [id number] 08/24/2020 12:00:00 AM EDT [facility] Name Value Range Interpretation Code Description Data Naomi rce(s) Supporting Document(s) [facility] MPZCSg0dAnXQWTBpED6qvmi0UVkcIGq3bXGnTC5/VXZHVMHoIW1EFZRFZLZIJJGhXIjCiwRvXWiTWUQV UU8IQZpFCBDQOSOVQXRwTCzEPXThYBCXGSPjQUdEQ5Gmy0A1X1GzKIw5o6z8eXl0k1MaDduAT2FmPHL1 xY6jOCN2BDYeOHiyETHxXWJrLRG3HoEcGBbYFg8UNN 1kp5LuBpPtRGRlMddCVPeWM6J4oGZuT7D1sRtFdDD8SVuoE9JgvYX1GMgvY46uDS2gFbvaJ1HkXQ6lHl 7GJJVzElSWZ2IOUmQoKXwqZTevD62wh9ucC85trmK+KxbzwmRsJdvPGVJxKB3bpoceP5AlnXLgti4lM2 PieqemONTGBf7GEN5lv1CbIwjnGJIfIgoUCGoCO1N4 yYJaJ4vGMrheA3DQT7Q9SxH6fCFjH2keGWsmDe1HnZF9tTMmZZXTY0atuIiijCG0UXniHkk3b7IqxeDq yYNtgwKlpVX1Np6Nn0avxkGzLIEkGK4PSECpU0ZLP4GYQ2nhatt1pUIpRLIvFHXEF0PuwIBaluWsCYCR VKRxf6OeGc6+FfD2wvIiwQx/2P/gABBKRklGAAEBAQ EsASwAAP/bAEMAAgEBAgEBAgICAgICAgIDBQMDAwMDBgQEAwUHBgcHBwYHBwgJCwkICAoIBwcKDQoKCw dQEKgBBW5ZWRlLYcuLPZ/bAEMBAgICAwMDBgMDBgwIBwgMDAwMDAwMDAwMDAwMDAwMDAwMDAwMDAwMDA wMDAwMDAwMDAwMDAwMDAwMDAwMDAwMDP/AABEIADsA +gMBIgACEQEDEQH/xAAfAAABBQEBAQEBAQAAAAAAAAAAAQIDBAUGBwgJCgv/nYB7CCWAHOCESaUMDIQS ZJXGFL4SPcIOQCTTKdNyDMHOQARACcHAWsHAoUtoTcXATVZI7JUsOhDLOGtRUijSZnOlIkfdYjL7Ycm0 CFwLJRPJX8yVCzMIZVQIXZntH0LyAgorbVjpuWC9a5 s1biFXgNnEiQjYwlMOjKhQgOwnkfTqhpyukGsbvxR9gyr3lMf7puOTeksBhEfC0iPQ4xvG1Ivk6dXe3N Xm5+ml0qHh7/T19vf4+fr/xAAfAQADAQEBAQEBAQEBAAAAAAAAAQIDBAUGBwgJCgv/tNF3IMTCWYWDHL MYPnQZXTBRTwkMUPYLZJGRTTSUNoGSL8OiFgFbzHiZ GuSofgSIDtVC5FSuvtMQPaW92USdCluYFeXhGZywWYK9DJh4G1OYMqnUHTiPOEYQA4tTCfPmKSDxhAlz o4J3omt7mVyXa3GHwhnIaWaMv4NYwsmQmYgxr4Cfaswxurumf2L5ajt2kelSc6UWggyZulmQ88MM1hkY 2dri4+Er2hxj6nhb3/T19vf4+fr/2gAMAwEAAhEDEQ A/CS25gVZoesWjrZZGS0o/APBZv/hmK5v9z9kk95SslYur7Dj9QjR9c5z4EJjiOh0kmSfguQRtBRJZ61 Tpi3eSG+XC4oEf27eseqlIzExzc+x58VvF+xDW5wgj5A0wK9H1w1zOOHaveuBa7rv/nj/4Ij/sv+Hv2r v+Ch/qdt08ifeoUqClemNMo32w2V+XMaz0ORGjZAAV zNevI8ZANJAYlQpl08hv0YsyjpmipkD23cpI8qBkQFWfrjQbr6Y0Zy7t/Sp5gz2EhC8OdEdo7Q+OvjW0 u1+8n49xuedaQmUi/cAlkRcpmG9qt2I334I+wN/wXH+Nr0TUjRxvP1Ek24s+F4kAWd5Ixbcd8brw5dns lQsDzIbIuT0K3sBNGkhCAYbVoDPD3RssIGAhgvTDgO cAV+Ln/B0v+p45o0O6/tEK57gvBK2nd468seLuH9puzAoQHMGRAkswYwoH0GOZlsiZNAg9uDUfdmEO3X U+g6das8wfJjwkcTsdRO28S8f8Jh7J8S5RbuD7J+E/uM1V69zQBJpHDwEHznH8A+JLKLUNOvIlZVnhkU Zn5sOtqn0IeWjzXDUqvrvk05g+UVr8k7c0t/7Q284e a1O2xk0D8HTjk1tjKKNrEi0w1BT/SR5jwdr+B1+zmWAoLXar7NpNe6V45wfP+o2HUbz9TmweGUQyS62W 4k/8jp4A/wCw9L/6a7+uubqfpXI/En/kdPAH/Yel/hXTLo59z6o4OSLhJ7m9rUOCReokMMuoWWQZARVL AUUUUAFFFGcUAFFFFABRRmigAooooAKKKKACiiigAq O7m69A0vaosUoFSHb8XfhMSryteCKffDcXyVe/AB/2I6H8lg9Z58uI78CsWiwl2kj3h2tNsTZWjKr1Q9 BuLzsEVv0VpguVHDhF/Mz3ym4P9A8/tO/aZidmRQtXQd54p8S5D8WEoajw/iHFzUwgbfE0ZpyuaMLSFi XW56bfaTsUjRWkoQD76mXa6XJ2gY8Tmdl5y2UrpmZt fDq+/aI+EftegK19ykL1PZF9AvkaAdOunPJ0R6UlDtOEzvaL8OeZQzl8hA/wSbSDxmmuR/XjuI3FpMHU yPIpD6uiY1nsx5IDV/NrvbfaCHFXQfhQMf024R8FrMeSOUKXkJ4+a/cncU0dwAUjeZbMJDjQ7hf/AMn2 8vU+1fCX/PDJvy2EMVN/5M71PMN1eDr926voYDpNGi m+AmCaJfOBZiqGlWQ1l2XQbGNwddU/EWQQmGN4OwipoZfP6l9c8W+J/Anna+MNoxV06aZsi1RLmbd3ytQ [file] SbFze6TSD9LOqqGHTQSfc= ID Date Data Source [id number] 08/18/2020 12:00:00 AM EST [facility] Name Value Range Interpretation Code Description Data Naomi rce(s) Supporting Document(s) [facility] XWKMZo7aIjWWDGShLB8aztf3DJloIYs8sZXcRI4/OXGPNMTsMC9HYCFFHGXOZHIlKWmHckLeILtMTPZX LC8NRAyDXGSKQWELEMVdBHyBZQPoZFVILUVuNQaAE3Pom2C2A8FnTOr4i5u8lTh3k6IkUjgLL8XbYTE9 zC9mJUA1BLOnZLpuEEMrKJHkRqU2WHM9IcePJu1BMD 9dn3UxIhFaJOPpKtxSZSkIR1A1iUFkA5R2lCcZxFG7HPslM1HxuGR4BUxoQ57tYX8cEiruC4JzEU6qCc 1UQNHkMuIIC9DTVoReWSdrRTetH30px4wyW95mwhF+HrxgxkDkTzmTIRXwDS5kndopA8ZqcHKcix0iS5 CvfdeuHBYLUd4VIU5fi3ArVqxgSVMiYvbUJLmAH5T7 lSVyA2ePKzqpQ2SSZ9L6PqF2hSVuI4eyNYuxRb3VgVJ7tBTzALHJA0ebsGstqYU3DIiqYep9l2OpocKr gKGyrfBatZQ5Mm3Ny9avxuUxSPJjOZ8MHMUhH7ZKX1XGQ8vfrrr2gZTmUKNtVELSN2LduRUmvzIzLWML ETWbr2CxQm8+LxA8iiIucSc/2P/gABBKRklGAAEBAQ EsASwAAP/bAEMAAgEBAgEBAgICAgICAgIDBQMDAwMDBgQEAwUHBgcHBwYHBwgJCwkICAoIBwcKDQoKCw vMELrJXJ7MTYfRWtfBYN/bAEMBAgICAwMDBgMDBgwIBwgMDAwMDAwMDAwMDAwMDAwMDAwMDAwMDAwMDA wMDAwMDAwMDAwMDAwMDAwMDAwMDAwMDP/AABEIADsA +gMBIgACEQEDEQH/xAAfAAABBQEBAQEBAQAAAAAAAAAAAQIDBAUGBwgJCgv/cBS6BQOKJMUMFoVOAPIY PHTCKQ8WKdUDLTABYhHaBWXFCCAGRfRMEfDCoUddVhOSERWS0HOuWtNAAAeLGugQDaJcNzrnAvW4Hir3 ELzOGOSZT9aRCeBSDSSOVXyjR4TcIdyqgWlejIC3v1 d1vwUHeHqZvWoGhjUQbVgGmFnzfeJdipgyfLajiqU0ytu7xEv6wtQDukwQuXkM1mHG2fkH5Uia4oIq7O Xm5+ls6sLa1/T19vf4+fr/xAAfAQADAQEBAQEBAQEBAAAAAAAAAQIDBAUGBwgJCgv/aKA2XARTHBQRFC FLIhQGYBZLYwbFTRVBEGUESPACInVTU9HlKfTrjIwA OaJihxLDYpDM2EElkxTJRmD85SCuBoeJVzIcJMgcHYU2SSz8H0DNSwpLOBoGMEEBY6sYUaOfPEOxlWau m4M6hhj2lZiId6REyqeIeJiAu5GVzevNtCddc8Jxckxpmgrng9D2nbx0hqoKb3ZEnsaUdtmR27TJ0iaT 2dri4+Gh1bfc4cyi8/T19vf4+fr/2gAMAwEAAhEDEQ A/ME59mACcmhYagIBUH5p/APBZv/xcE7j4n8so43TgzGei0Xu6VaB7m1l9FWzjRp3otUudkMSdIARM06 Rbk8iRL+ZL4zQv57wicepNgMgbj+x58VvF+jTJ4kro4N0zH5Z9l8oIVWpusbRv6bz/nj/4Ij/sv+Hv2r v+Ch/rag41ggixIbCrmaMLa01v4F+SHzb5ZIXpHJMA bApcB8DFHBARdWez27on0VxbwnuawnP95pcB4dObUOXqbwAzk6Z0Qo0f/Wb7ku7DuZ5JkBdp8B+OvjW0 u1+6a59dnvqpFgDt/eMzyAzviU3zv2M272I+wN/wXH+Pv5BWoEciT6Hu04b+W3yOIr6Rsqih0xun6oqg fImNjUzMqA3H4mZHKliSBBrCbEUO0XgmBMDhnnRViN cAV+Ln/B0v+h49u2K0/dLC24iqAN7xm142ojUtW4kkcUyBLZRMAcbaVshR6DODjujUCJr2mKVswtRB4A U+e4qmy7jrEajxyZmhWJ63L0d7Sb5F9T7ZtjN7K+E/pX7I84nPXFmACiSGzcE2B+JLKLUNOvIlZVnhkU Qf7uZxaa5EjOvsSAMduwkn62m+KOi4s1c9i/1Y857r i4Y2ql4H7AUsg2npKJXeRf0q5SO/LF7udvw+B1+ufZStSDou3XhGq7I08lhY+i4DBpz0ZolgRFRuV74W 4k/8jp4A/wCw9L/6a7+uubqfpXI/En/kdPAH/Yel/wZNQx66y5j5DTUwU1r8xEKZWfetDLrjZTTPEWRM AUUUUAFFFGcUAFFFFABRRmigAooooAKKKKACiiigAq Z8g55U1suhiVfBLKy6DvaFOpywmKEerOsKfJv/AB/7Z6O3ym9Q08bZ94TzBdtb9oy7r7sRaPXWaIp1Y1 KnKppODi4GwkvGBNuY/Ns9hw8E5G8/tO/pPuxhUHjGBy34y5J3P7KXzxry/wIGoScvpiY2GsvxbGQXMl UU44adfOqYaYTogES34cAg4WC0iK6Joqk3y2IihqIf fDq+/aI+KvhotG39gtX4QTU4UnkwOfWrnUQ7R3SdQdCAappW3AxZSby2pV/wSbSDxmmuR/DpkQ2CiUFH dHHdF3hxP9oti6IKI/FdzouhCZYWSmvCWb441N8XcAyOFZFVxW6+a/iucW3sxRZvsAiNNImK3mf/AMn2 8vU+1fCX/NZOkd9TKLA/8Y73PPA7pGl943mnDTgFJx m+IjXyEvPSNgsKrYV9e5UFaQAzwxJ/NKLJjOI0BhrjtStI1r0y6Q+J/Anna+HJpgP01tUup6OPupb2znN [file] VPRgo= ID Date Data Source [id number] 08/17/2020 08:31:00 AM EST [facility] Run: 08/17/20 1140 INTERFACED REPORT Name: Greta Slade Sr Age/Sex: 55/M Location: [facility] Acct: [id number] Unit: [id number] Status: JONAS MARIN Room/Bed: Re08/14/20 Disch: Eduardo Dr: Harika Cr SUPERVISOR PROPERTIES Specimen #: [id number] Ordered : 08/14/2001/27/1537 Collected : 08/14/2001/27/1500 By: OFFICE Received: 08/14/2001/28/1536 By: HOLLY Source: FOOT Specimen Description: LEFT Comments: Results called to [facility] at 0855 on 08/17/20 by [...] Run: 08/17/20 1140 INTERFACED REPORT Specimen #: [id number] (Continued) Ordered : 08/14/2001/27/1537 Collected : 08/14/2001/27/1500 By: OFFICE Received: 08/14/2001/28/1536 By: BOBBIACDOUGAL Procedure Result FOOTCULTURE Preliminary (Corrected) (continued) After 42 hours rare staph FOOTCULTURE Preliminary (Corrected) NO GROWTH NO GROWTH <18 HOURS END OF REPORT Name Value Range Interpretation Code Description Data Naomi rce(s) Supporting Document(s) ID Date Data Source [id number] 08/14/2020 12:00:00 AM [facility] Name Value Range Interpretation Code Description Data Noami rce(s) Supporting Document(s) [facility] GQAOMc2qFfEYXANsZX9ydmh1GDnjNJf4eUKxYY1/PTGWZLLeMK1XAKMDUHUWHXSmTBbCksJjVSiWNGVX JR6UZOvNHKASBIAUXGWuVJmAXQKfJJIMGCHoRCzSF4Cer0A3J0HjATg2c0h7fBw4u1HdBlzPX3OgXQA0 fG1gOKS9OYYfIRdfKDJbDLZuQJHlGVG5ZNmFLl4KQX 9ve0HgIxQnPEJtRdxSVEhAW7P5gOCyD6C7lGlLiDL0BWqgZ2GixSS4CEafH76rBN2bUgnoE2UbHW6tBv 4KQMNsSmVLG3DXMgUeIZyqBOexI60ze5xzY59blxY+WinkzkLxFfwUIEIzYN3cheehP3SlyEFecm3tB1 GahqygINOCFm8WNH0rj2MxPuziUCNcZrhLGAmPJ4B3 tAEuB3yYOuqgR0VWR3L7AfI1aWKeH9agFUbqYh2VmOF3iTXpIALFV2ljdYaaaVV3TBxmRiz1b4CsnhQw xTKayeUcuKW5Ql1Yt3fnzfHySHImUL9YAYTbH2BWY6EYS8khnwx1aSAtHUTuKTFYA7EuwIEymzIvDSNX LFLjk8BpYz0+TiI2anPvsDr/2P/gABBKRklGAAEBAQ EsASwAAP/bAEMAAgEBAgEBAgICAgICAgIDBQMDAwMDBgQEAwUHBgcHBwYHBwgJCwkICAoIBwcKDQoKCw mEQVkPMP4IAEvKZzfNYZ/bAEMBAgICAwMDBgMDBgwIBwgMDAwMDAwMDAwMDAwMDAwMDAwMDAwMDAwMDA wMDAwMDAwMDAwMDAwMDAwMDAwMDAwMDP/AABEIADsA +gMBIgACEQEDEQH/xAAfAAABBQEBAQEBAQAAAAAAAAAAAQIDBAUGBwgJCgv/pZW2UTUKURKOApUMMNVZ BRHOTR2SAuUJMRUYZnAdJXRDWINGOmGXAzTHiIclFbWNZWYE1HDhHpGDDXoLNfjTWoDsHptoZoD5Qhw0 HVlHHLSIL8fCYkQUJEHFYPhsU3TmOxdioEiptSD6r8 r8shXObOuFeQqDeiNXiMyXkYvhthUwbbhdyVvztdO8zto4bEg0duNBnutRgKyQ6bOB4btR6Uny0sHr8P Xm5+lo9iNi3/T19vf4+fr/xAAfAQADAQEBAQEBAQEBAAAAAAAAAQIDBAUGBwgJCgv/xCF9YBGNURKCZJ HDSuXRZYZXJamPHHVZFGURTWDTCrWLY0YhBaIixHoV PtZlpaGDBgMI7BEwetZJMfQ02BUdJmiUXdZwZIirINL8VFh5V7YTVasTSXbUCDAON9mSQiKnEKXzcMbt z1G2hlw7eHhGf1UFeubMeQrLk5GFavqIiEswe1Tcifwphocgb8I1yql5msaFa8PCsbmHxlnU91JA5yiT 2dri4+Xg9dqu4xcx3/T19vf4+fr/2gAMAwEAAhEDEQ A/NJ73aXLpcsYzfGGRD8i/APBZv/ecT7h1e9ak41XjlZch8Jj3ZbT2n1a2QDdfXv1qhAqkbEMkBJYO98 Irm4qWE+SM3qUa36ixxjbCaZjte+x58VvF+tQD3rrw2P8qW8W9p7eRPPxscbAb1ch/nj/4Ij/sv+Hv2r v+Ch/lgy38wrzaJwRiveMZx54b1F+RBht2STFnASAW vHdnK0DSRFTNwAez19it4AijvtzcmpZ85ufM2aGlBYFgcyCyl9N8Tr8x/Ga2ub9TmP0ZaMvb3B+OvjW0 u1+5g83hxnojGbKw/xGiyBpmmI9hw4Q603L+wN/wXH+Di3OFmGjfJ4Ae41v+B9pPBr3Nunwr4uol6coj uEvLnUcOvH4D6dYGFqjPSUgBeBXE1OhhNXKalpRFoH cAV+Ln/B0v+w03h4G7/yPS97toPV8ws372vnOhA8enkOfDDPTJLlmaKuyU6AVDoozCGTd1pEYozgJD7S U+t1jzx3emDfegwHeiME30Y1c4Di8I2L8WxoQ5F+E/fI1K24cCPNbDNuJVesN2B+JLKLUNOvIlZVnhkU Ml9vBkts3RoFwbUXVkkxis42w+WOr5k2h3e/3A486a h1K3yc4W0HMkq8qsVJWcHm5k6PG/TR1qxbu+B1+zgOWuGAxx9IgLg3U71lrX+x4VIby1KfkaBCPrB65I 4k/8jp4A/wCw9L/6a7+uubqfpXI/En/kdPAH/Yel/aHKEz90c2m9JKPrS1s1wRGYHiykYYeeBEGTDEYP AUUUUAFFFGcUAFFFFABRRmigAooooAKKKKACiiigAq A6y48N4spfiPmAVZm5RvdBYbpaoIZyeWdHcUf/AB/0G8U4iu6T37iH48WcGlzd3bj6b6kVlIVPkCl9H0 MnGlvPEq8BialSRTvN/Ta7ll1V7O3/tO/yRcfsNWaKMd74l2W5H9QRaskj/sGVkYielgP0ZsibtAWIBb OS27dtbAxVwMVdzOY99eFq9EG8lV3Ncuf6b2XbidRe fDq+/aI+TfjkoM46naS9FMI3ScldMiFleOJ8P5ZjOgIMffuF6DfXYvm5yT/wSbSDxmmuR/HbnX9HeTBI mNBlL4rfB4wcx3LCB/XbtrqzQMCDNjeKFz643Y3HkEgJTJHWpO7+a/pulK0upNJfcSwFDUrF0nt/AMn2 8vU+1fCX/IGBjy3ZSEL/6Q83CMC2tMz593ebKIdPWs m+ExJvGhHQFokIaAJ1g4PAlTGzbfG/CPYOsIV9KeozfQkL6k7u4F+J/Anna+AIptP86lXol2PRish5zhN [file] zzIrw/E7s+Z/5/9/9o+G9A////SUPERVISOR PROPERTIES/3/p/mf+p/KTLW6M4uxsQlyTfnEX+C/rYJdTGH9+dkvXCNlT2VAZ [file] [id number] ID Date Data Source [id number] 06/16/2020 09:16:00 [place] [address] Patient Name: Greta Slade Sr Exam Date: 06/16/20 : 1965 [...] the prior x-ray. Professional interpretation performed at [facility] . End of diagnostic report: [id number] Signed: Sugar Mims DO 06/16/20 1026 Interpreted by: Sugar MimsTranscribed by: Sugar Mims Name Value Range Interpretation Code Description Data Naomi rce(s) Supporting Document(s) ID Date Data Source [id number] 04/25/2020 03:39:00 PM EST [facility] ([facility]) Name Value Range Interpretation Code Description Data Naomi rce(s) Supporting Document(s) SPECIAL NOTE See Note SPECIAL NOTE [facility] ([facility]) Note: Requisition# [id number] failed to match an existing report with that requisition number. To avoid a potential conflict, the requisition number reported in the ZOZI[employer] messages will be changed to {[id number]}. ID Date Data Source [id number] 04/20/2020 07:54:00 AM EST [facility] ([facility]) Name Value Range Interpretation Code Description Data Naomi rce(s) Supporting Document(s) Reported Physicians See Note [facility] Note: Reported Physicians:Ordering: Magali Vegaending: Magali Tapia ID Date Data Source [id number] 04/20/2020 07:54:00 AM EST [facility] ([facility]) Name Value Range Interpretation Code Description Data Naomi rce(s) Supporting Document(s) Reported Physicians See Note Reported Physicians [facility] Note: Reported Physicians:Ordering: Magali Vegaending: Magali Tapia ID Date Data Source [id number] 04/20/2020 07:54:00 AM EST [facility] ([facility]) [...] Testost., % [place] Testost., % Free+Weakly Bound [id number] 800.3257 (A) Testosterone Free/Testosterone.total in Serum or Plasma 70.3 ng/dL Testost., F+W Bound [facility] ([facility]) Note: Performed at: - [facility] [id number] Remotely Operated Vehicle: Susanne Paez MD, Phone: [phone] Performed at: [facility] [id number] Remotely Operated Vehicle: Boris Jarquin MD, Phone: [phone] Observer: Testost., F+W B Testost., F+W Bound [id number] 800.3258 (A) Testosterone,Total,S 250 ng/dL Below low normal Testoster one,Total,S [facility] ([facility]) Note: Adult male reference interval is based on a population of healthy nonobese males (BMI <30) between 19 and 39 years old. Lalit et.al. JCEM 2017,102;7070-8600. PMID: [id number].Responsible Observer: Testosteron,Tot Testosterone,Total,S [id number] 800.3256 (A) ID Date Data Source [id number] 04/20/2020 01:30:00 PM [facility] Name Value Range Interpretation Code Description Data Naomi rce(s) Supporting Document(s) WHITE BLOOD COUNT 9.01 10^3/uL 4.00-10.50 [facility] RED BLOOD COUNT 5.46 10^6/uL 4.30-5.80 [facility] HEMOGLOBIN 15.4 G/DL 13.0-17.5 [facility] 47.0 % 41.0-53.0 [facility] MCV 86.1 FL 80.0-100.0 [facility] MCH 28.2 PG 27.0-34.0 [facility] MCHC 32.8 G/DL 32-36 [facility] RDW 12.8 % 11.5-14.5 [facility] PLATELET COUNT 244 10^3/uL 130-400 [facility] MPV 10.7 FL 8.7-13.2 [facility] GRAN % (AUTO) 58.0 % 42.0-75.0 [facility] LYMPH % (AUTO) 30.3 % 20.0-51.0 [facility] MONO % (AUTO) 7.2 % 2.0-15.0 [facility] EOS % (AUTO) 3.9 % 0.0-11.0 [facility] BASO % (AUTO) 0.3 % 0.0-2.0 [facility] IG % (AUTO) 0.3 % 1.00-5.00 [facility] IG # (AUTO) 0.0 10^3/uL <0.5 [facility] GRAN # (AUTO) 5.22 10^3/uL 1.50-6.50 [facility] LYMPH # (AUTO) 2.7 k/uL 1.0-5.0 [facility] MONO # (AUTO) 0.65 k/uL 0.20-1.50 [facility] EOS # (AUTO) 0.35 10^3/uL 0.00-1.10 [facility] BASO # (AUTO) 0.03 10^3/uL 0.00-0.20 [facility] ID Date Data Source [id number] 04/20/2020 01:58:00 PM EST [facility] Name Value Range Interpretation Code Description Data Naomi rce(s) Supporting Document(s) SODIUM 137 MEQ/L 135-145 [facility] POTASSIUM 4.3 MEQ/L 3.5-5.3 [facility] CHLORIDE 101 MEQ/L 94-110 [facility] CARBON DIOXIDE 30 MEQ/L 22-33 [facility] ANION GAP 10 5-16 [facility] BLOOD UREA NITRO 12 MG/DL 7-25 [facility] CREATININE 1.0 MG/DL 0.6-1.4 [facility] GFR 77.3 ML/MIN [facility] [employer] Stage G2 - Mildly decreased kidney func tion The GFR is an estimate of the Glomerular Filtration Rate. It is an aid to assess a patient's renal function. It is not a conclusive diagnosis of kidney disease. GFR normal is >=90 The MDRD GFR calculation is considered valid between the ages of 18 and 75 years only. BUN/CREAT RATIO 12 8-36 [facility] GLUCOSE 284 MG/DL 70-100 [facility] CA 9.5 MG/DL 8.7-10.5 [facility] BILIRUBIN,TOTAL 0.4 MG/DL 0.1-1.3 N [facility] AST 11 U/L 5-40 [facility] ALT 21 U/L 5-48 [facility] ALKALINE PHOSPHATASE 77 U/L 40-140 [facility] TOTAL PROTEIN 6.8 G/DL 5.9-8.3 [facility] ALBUMIN 4.4 G/DL 3.0-5.1 [facility] GLOBULIN 2.4 G/DL 1.5-3.5 N [facility] ALB/GLOB RATIO 1.8 G/DL 1.0-3.0 [facility] ID Date Data Source [id number] 04/25/2020 03:38:00 PM EST [facility] Name Value Range Interpretation Code Description Data Naomi rce(s) Supporting Document(s) Testosterone,Total,S 250 ng/dL 264-916 [facility] Adult male reference interval is based on a population of healthy nonobese males (BMI <30) between 19 and 39 years old. Lalit, et.al. JCEM 2017,102;8635-7697. PMID: [id number]. Testost., % Free+Weakly Bound 28.1 % 9.0-46.0 [facility] This test was developed and its perform ance characteristics determined by [facility]. It has not been cleared or approved by the Food and Drug Administration. Testost., F+W Bound 70.3 ng/dL 40.0-250.0 [facility] Performed at: - [facility] [address] [id number] Remotely Operated Vehicle: Susanne Paez MD, Phone: [phone] Performed at: - [facility] [id number] Remotely Operated Vehicle: Boris Jarquin MD, Phone: [phone] ID Date Data Source [id number] 04/20/2020 01:58:00 PM EST [facility] Name Value Range Interpretation Code Description Data Naomi rce(s) Supporting Document(s) TRIGLYCERIDES 164 MG/DL 45-150 [facility] CHOLESTEROL 206 MG/DL 125-200 [facility] LDL CHOLESTEROL 132 MG/DL 50-130 [facility] HDL CHOLESTEROL 41 MG/DL 39-96 [facility] CHOL/HDL RATIO 5.0 0-4.9 [facility] ID Date Data Source [id number] 04/20/2020 01:58:00 PM EST [facility] Name Value Range Interpretation Code Description Data Naomi rce(s) Supporting Document(s) TSH 4.224 uIU/ML 0.470-4.200 [facility] Patients should not be tested for 72 ho urs post fluorescein dye angiography. A false depression of result may occur. ID Date Data Source [id number] 04/20/2020 07:54:00 AM EST [employer] Name Value Range Interpretation Code Description Data Naomi rce(s) Supporting Document(s) Thyrotropin [Units/volume] in Serum or Plasma by Detec tion limit <= 0.05 mIU/L 4.224 uIU/ML Above high normal TSH [place] ([facility]) Note: Patients should not be tested for 72 hours post fluorescein dye angiography. A false depression of result may occur.Responsible Observer: TSH TSH 300.5500 (A) ID Date Data Source [id number] 04/20/2020 07:54:00 AM EST [employer] [facility] Name Value Range Interpretation Code Description Data Naomi rce(s) Supporting Document(s) Deprecated Cholesterol.in LDL/Cholestero l.in HDL [Mass ratio] in Serum or Plasma 5.0 Above high normal CHOL/HDL RATIO [place] ([facility]) Note: Responsible Observer: CHOL/HDL RAT IO CHOL/HDL RATIO 300.4700 (A) Cholesterol crystals [Presence] in Stone by Infrared spectroscop y 206 MG/DL Above high normal CHOLESTEROL [place] ([facility]) Note: Responsible Observer: CHOL CHOLEST VINEET 300.4350 (A) Cholesterol in HDL [Mass/volume] in Serum or Plasma ultracen trifugate 41 MG/DL Normal HDL CHOLESTEROL [place] ([facility]) Note: Responsible Observer: HDL HDL CHOL ESTEROL 300.4600 (A) Cholesterol in LDL [Mass/volume] in Serum or Plasma by Direct as say 132 MG/DL Above high normal LDL CHOLESTEROL [place] ([facility]) Note: Responsible Observer: LDL LDL CHOL ESTEROL 300.4400 (A) Triglyceride [Mass/volume] in Serum or Plasma 164 MG/DL Above high normal TRIGLYCERIDES [place] ([facility]) Note: Responsible Observer: TRIG TRIGLYC ERIDES 300.4300 (A) ID Date Data Source [id number] 04/20/2020 07:54:00 AM EST [place] ([facility]) Name Value Range Interpretation Code Description Data Naomi rce(s) Supporting Document(s) Albumin [Mass/volume] in Synovial fluid 4.4 G/DL Normal ALBUMIN [place] ([facility]) Note: Responsible Observer: ALB ALBUMIN 300.3900 (A) Albumin/Globulin [Mass Ratio] in Amniotic fluid 1.8 G/DL Normal ALB/GLOB RATIO [place] ([facility]) Note: Responsible Observer: A/G RATIO AL B/GLOB RATIO 300.4100 (A) Aspartate aminotransferase [Enzymatic activity/volume] in Serum or Plasma 11 U/L Normal AST [place] ([facility]) Note: Responsible Observer: AST/SGOT AST 300.3050 (A) Alanine aminotransferase [Enzymatic activity/volume] in Seru m or Plasma 21 U/L Normal ALT [place] ([facility]) Note: Responsible Observer: ALT/SGPT ALT 300.3100 (A) Alkaline phosphatase isoenzyme [Units/volume] in Serum or Plasma 77 U/L Normal ALKALINE PHOSPHATASE [place] ([facility]) Note: Responsible Observer: ALK PHOS ALK RONI PHOSPHATASE 300.3110 (A) CA 9.5 MG/DL Normal CA [place] ([facility]) Note: Responsible Observer: CA CALCIUM 300.2200 (A) BLOOD UREA NITRO 12 MG/DL Normal BLOOD UREA NITRO [facility] ([facility]) Note: Responsible Observer: BUN BLOOD UR EA NITROGEN 300.0350 (A) Bilirubin.total [Mass/volume] in Serum or Plasma 0.4 MG/DL Normal BILIRUBIN,TOTAL [place] ([facility]) Note: Responsible Observer: TOTAL BILI T OTAL BILIRUBIN 300.2700 (A) Urea nitrogen/Creatinine [Mass Ratio] in Serum or Plasma 12 Normal BUN/CREAT RATIO [place] ([facility]) Note: Responsible Observer: BUN/CREAT RA MAXIMINO BUN/CREAT RATIO 300.0450 (A) Carbon dioxide, total [Moles/volume] in Serum or Plasma 30 MEQ/L Normal CARBON DIOXIDE [place] ([facility]) Note: Responsible Observer: CO2 CARBON D IOXIDE 300.0250 (A) Chloride [Moles/volume] in Serum, Plasma or Blood 101 MEQ/L Normal CHLORIDE [place] ([facility]) Note: Responsible Observer: CL CHLORIDE 300.0200 (A) Creatine/Creatinine [Mass Ratio] in Urine 1.0 MG/DL Donna l CREATININE [place] ([facility]) Note: Responsible Observer: CREAT CREATI NINE 300.0400 (A) Globulin [Mass/volume] in Serum by calculation 2.4 G/DL Normal GLOBULIN [place] ([facility]) Note: Responsible Observer: GLOB GLOBULI N 300.4050 (A) GFR 77.3 ML/MIN GFR [place] ([facility]) Note: Stage G2 - Mildly decreased kidne [...] gap in Blood 10 Normal ANION GAP [place] ([facility]) Note: Responsible Observer: ANION GAP AN ION GAP 300.0300 (A) Potassium [Mass/volume] in Blood 4.3 MEQ/L Normal POT ASSIUM [place] ([facility]) Note: Responsible Observer: K POTASSIUM 300.0150 (A) Glucose [Presence] in Urine 284 MG/DL Above high normal G LUCOSE [place] ([facility]) Note: Responsible Observer: GLU GLUCOSE 300.0500 (A) Sodium [Moles/volume] in Serum, Plasma or Blood 137 MEQ/L Normal SODIUM [place] ([facility]) Note: Responsible Observer: NA SODIUM 3 00.0100 (A) Protein [Mass/volume] in Synovial fluid 6.8 G/DL Normal TOTAL PROTEIN [place] ([facility]) Note: Responsible Observer: TP TOTAL PRO TEIN 300.3750 (A) ID Date Data Source [id number] 04/20/2020 07:54:00 AM EST L[place] ([facility]) Name Value Range Interpretation Code Description Data Naomi rce(s) Supporting Document(s) BASO % (AUTO) 0.3 % Normal BASO % (AUTO) [facility] ([facility]) Note: Responsible Observer: BASO % (AUTO ) BASO % (AUTO) 100.1250 (A) BASO # (AUTO) 0.03 10\\^3/uL Normal BASO # (AUTO) [place] ([facility]) Note: Responsible Observer: BASO # (AUTO ) BASO # (AUTO) 100.1500 (A) EOS % (AUTO) 3.9 % Normal EOS % (AUTO) [place] ([facility]) Note: Responsible Observer: EOS % (AUTO) EOS % (AUTO) 100.1200 (A) EOS # (AUTO) 0.35 10\\^3/uL Normal EOS # (AUTO) [place] ( [facility]) Note: Responsible Observer: EOS # (AUTO) EOS # (AUTO) 100.1450 (A) Hematocrit [Volume Fraction] of Blood by Automated count 47.0 % Normal HEMATOCRIT [place] ([facility]) Note: Responsible Observer: HCT HEMATOCR IT 100.0400 (A) GRAN # (AUTO) 5.22 10\\^3/uL Normal GRAN # (AUTO) [place] ([facility]) Note: Responsible Observer: GRAN # (AUTO ) GRAN #(AUTO) 100.1325 (A) GRAN % (AUTO) 58.0 % Normal GRAN % (AUTO) [facility] ([facility]) Note: Responsible Observer: GRAN % (AUTO ) GRAN % (AUTO) 100.1000 (A) Hemoglobin [Mass/volume] in Blood 15.4 G/DL Normal HE MOGLOBIN [place] ([facility]) Note: Responsible Observer: HGB HEMOGLOB IN 100.0300 (A) IG # (AUTO) 0.0 10\\^3/uL IG # (AUTO) [facility] ([facility]) Note: Responsible Observer: IG # (AUTO) IG # (AUTO) 100.1260 (A) IG % (AUTO) 0.3 % IG % (AUTO) [facility] ([facility]) Note: Responsible Observer: IG % (AUTO) IG % (AUTO) 100.1255 (A) LYMPH # (AUTO) 2.7 k/uL Normal LYMPH # (AUTO) [place] ( [facility]) Note: Responsible Observer: LYMPH # (AUT O) LYMPH # (AUTO) 100.1350 (A) LYMPH % (AUTO) 30.3 % Normal LYMPH % (AUTO) [place] ( [facility]) Note: Responsible Observer: LYMPH % (AUT O) LYMPH % (AUTO) 100.1100 (A) Erythrocyte mean corpuscular volume [Entitic volume] by Auto mated count 86.1 FL Normal MCV [place] ([facility]) Note: Responsible Observer: MCV MCV 100 .0550 (A) Erythrocyte mean corpuscular hemoglobin concentration [Mass/volume] by Automated count 32.8 G/DL Normal MCHC [place] ([facility]) Note: Responsible Observer: MCHC MCHC 1 00.0650 (A) Erythrocyte mean corpuscular hemoglobin [Entitic mass] by Automated count 28.2 PG Normal MCH [place] ([facility]) Note: Responsible Observer: MCH MCH 100 .0600 (A) MONO % (AUTO) 7.2 % Normal MONO % (AUTO) [facility] ([facility]) Note: Responsible Observer: MONO % (AUTO ) MONO% (AUTO) 100.1150 (A) MPV 10.7 FL Normal MPV [place] ([facility]) Note: Responsible Observer: MPV MPV 100 .0950 (A) MONO # (AUTO) 0.65 k/uL Normal MONO # (AUTO) [facility] ([facility]) Note: Responsible Observer: MONO # (AUTO ) MONO # (AUTO) 100.1400 (A) Erythrocytes [#/volume] in Blood by Automated count 5.46 10\\^6/uL Normal RED BLOOD COUNT [place] ([facility]) Note: Responsible Observer: RBC RED BLOO D COUNT 100.0250 (A) Erythrocyte distribution width [Ratio] by Automated count 12.8 % Normal RDW [place] ([facility]) Note: Responsible Observer: RDW RDW 100 .0700 (A) Platelets [#/volume] in Plasma by Automated count 244 10\\^3/uL Normal PLATELET COUNT [place] ([facility]) Note: Responsible Observer: PLT PLATELET COUNT 100.0850 (A) Leukocytes [#/volume] in Blood by Automated count 9.01 10\\^3/uL Normal WHITE BLOOD COUNT [place] ([facility]) Note: Responsible Observer: WBC WHITE BL OOD COUNT 100.0150 (A) ID Date Data Source [id number] 03/07/2020 08:13:00 AM EDT LAY ([facility]) Name Value Range Interpretation Code Description Data Naomi rce(s) Supporting Document(s) Hemoglobin A1c/Hemoglobin.total in Blood 10.1 Abnormal (applies to non-numeric results) Hgb A1c [place] ([facility]) Procedure Social History Code Duration Value Status Description Data Source(s ) Smoking 01/19/2021 12:00:00 AM EDT Never smoker completed 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[place]) Smoking 12/14/2020 12:00:00 AM EDT Ex-smoker (finding) complet ed Ex-smoker (finding) [place] ([facility]) Smoking 10/20/2020 12:00:00 AM EDT Patient is a former smoker completed Patient is a former smoker MEDENT ([facility] Alcohol intake 09/11/2020 12:00:00 AM EDT Current non-d bruce of alcohol (finding) completed Current non-drinker of alcohol (finding) [facility] Tobacco use and exposure 09/11/2020 12:00:00 AM EDT Never used co mpleted Never used [facility] Smoking 09/11/2020 12:00:00 AM EDT Former smoker completed Former smoker [facility] Smoking 06/15/2020 12:00:00 AM EST Ex-smoker (finding) complet ed Ex-smoker (finding) [place] ([facility]) Smoking 06/15/2020 12:00:00 AM EST Ex-smoker (finding) complet ed Ex-smoker (finding) [place] ([facility]) Smoking 03/07/2020 12:00:00 AM EDT Ex-smoker (finding) complet ed Ex-smoker (finding) [place] ([facility]) Vital Signs ID Date Data Source [id number] Name Value Range Interpretation Code Description Data Source(s) Body temperature 97.02 [degF] 97.02 [degF] 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[facility]) Heart rate 99 /min 99 /min 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[facility]) Systolic blood pressure 126 mm[Hg] 126 mm[Hg] C HARTMAKER ([facility]) Diastolic blood pressure 82 mm[Hg] 82 mm[Hg] 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[facility]) Body height 70 [in_i] 70 [in_i] 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[facility]) Body weight 201.1875 [lb_av] 201.1875 [lb_av] C HARTMAKER ([facility]) Body mass index (BMI) [Ratio] 28.0515192064717 kg/m2 28.9276855320039 kg/m2 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[facility]) Oxygen saturation in Arterial blood by Pulse oximetry 96 % 96 % 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[facility]) Inhaled oxygen concentration 21 % 21 % 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[facility]) Systolic blood pressure 138 mm[Hg] 138 mm[Hg] G [facility] Diastolic blood pressure 82 mm[Hg] 82 mm[Hg] [facility] ([facility]) Heart rate 83 /min 83 /min [facility] [place] Heart rate rhythm 1 1 [facility] Y [facility] Respiratory rate 18 /min 18 /min [facility] ([facility]) Body temperature 96 [degF] 96 [degF] [facility] ([facility]) Body weight 205 [lb_av] 205 [lb_av] [facility] PhenX - pain, abdominal - type and intensity protocol 5 5 [facility] ([facility]) Oxygen saturation in Arterial blood by Pulse oximetry 98 % 98 % [facility] ([facility]) Inhaled oxygen flow rate 0 L/min 0 L/min [facility] ([facility]) Inhaled oxygen concentration 21 % 21 % [facility] ([facility]) Diastolic blood pressure 88 mm[Hg] 88 mm[Hg] MEDENT ([facility]) Heart rate 97 /min 97 /min [facility] Body height 71 [in_i] 71 [in_i] MEDENT [facility] 5'11" Body weight 215.00 [lb_av] 215.00 [lb_av] MEDEN T ([facility]) Body mass index (BMI) [Ratio] 30.0 kg/m2 30.0 k g/m2 MEDENT ([facility]) Body temperature 97.2 [degF] 97.2 [degF] MEDENT ([facility]) Systolic blood pressure 146 mm[Hg] 146 mm[Hg] M EDENT ([facility]) Systolic blood pressure 138 mm[Hg] 138 mm[Hg] G REENWAY ([facility]) unable to obtain full set of vitals. KPe rryCA Diastolic blood pressure 72 mm[Hg] 72 mm[Hg] LAY ([facility]) unable to obtain full set of vitals. KPe rryCA PhenX - pain, abdominal - type and intensity protocol 0 0 LAY ([facility]) unable to obtain full set of vitals. KPe rryCA Systolic blood pressure 138 mm[Hg] 138 mm[Hg] G REENWAY ([facility]) Diastolic blood pressure 70 mm[Hg] 70 mm[Hg] LAY ([facility]) Heart rate 95 /min 95 /min LAY ([facility]) Respiratory rate 19 /min 19 /min LAY ([facility]) Body temperature 96.9 [degF] 96.9 [degF] GREENW AY ([facility]) Body weight 227.4 [lb_av] 227.4 [lb_av] GREENWA Y ([facility]) PhenX - pain, abdominal - type and intensity protocol 3 3 LAY ([facility]) Oxygen saturation in Arterial blood by Pulse oximetry 97 % 97 % LAY ([facility]) Inhaled oxygen flow rate 0 L/min 0 L/min LAY ([facility]) Inhaled oxygen concentration 21 % 21 % LAY ([facility]) Inhaled oxygen flow rate 0 L/min 0 L/min LAY ([facility]) Inhaled oxygen concentration 21 % 21 % LAY ([facility]) Diastolic blood pressure 82 mm[Hg] 82 mm[Hg] LAY ([facility]) Heart rate 90 /min 90 /min LAY ([facility]) Respiratory rate 18 /min 18 /min LAY ([facility]) PhenX - pain, abdominal - type and intensity protocol 3 3 LAY ([facility]) Oxygen saturation in Arterial blood by Pulse oximetry 98 % 98 % LAY ([facility]) Systolic blood pressure 132 mm[Hg] 132 mm[Hg] G REEWAY ([facility]) Body temperature 98.3 [degF] 98.3 [degF] GREENW AY ([facility]) Body weight 225.6 [lb_av] 225.6 [lb_av] GREENWA Y ([facility]) Systolic blood pressure 140 mm[Hg] 140 mm[Hg] G [facility] ([facility]) Heart rate 96 /min 96 /min LAY ([facility]) Respiratory rate 17 /min 17 /min [place] ([facility]) Body temperature 98.4 [degF] 98.4 [degF] GREENW AY ([facility]) Body height 70 [in_i] 70 [in_i] LAY ([facility]) PhenX - pain, abdominal - type and intensity protocol 0 0 [place] ([facility]) Oxygen saturation in Arterial blood by Pulse oximetry 96 % 96 % LAY ([facility]) Inhaled oxygen flow rate 0 L/min 0 L/min [place] ([facility]) Inhaled oxygen concentration 21 % 21 % [place] ([facility]) Diastolic blood pressure 76 mm[Hg] 76 mm[Hg] [place] ([facility]) Body weight 226.2 [lb_av] 226.2 [lb_av] [place] Y ([facility]) Body mass index (BMI) [Ratio] 32.5 kg/m2 32.5 k g/m2 LAY ([facility]) Body surface area Derived from formula 2.20 m2 2.20 m2 LAY ([facility]) Systolic blood pressure 158 mm[Hg] 158 mm[Hg] G REENWAY ([facility]) Diastolic blood pressure 92 mm[Hg] 92 mm[Hg] LAY ([facility]) PhenX - pain, abdominal - type and intensity protocol 3 3 [place] ([facility]) Oxygen saturation in Arterial blood by Pulse oximetry 98 % 98 % [place] ([facility]) Inhaled oxygen flow rate 0 L/min 0 L/min [place] ([facility]) Inhaled oxygen concentration 21 % 21 % [place] ([facility]) Body surface area Derived from formula 2.11 m2 2.11 m2 [place] ([facility]) Systolic blood pressure 148 mm[Hg] 148 mm[Hg] G [place] ([facility]) Diastolic blood pressure 90 mm[Hg] 90 mm[Hg] [place] ([facility]) Heart rate 92 /min 92 /min LAY ([facility]) Respiratory rate 20 /min 20 /min [place] ([facility]) Body temperature 96.9 [degF] 96.9 [degF] [facility] ([facility]) Body height 68 [in_i] 68 [in_i] [facility] [place] Body weight 216 [lb_av] 216 [lb_av] [facility] Body mass index (BMI) [Ratio] 32.8 kg/m2 32.8 k g/m2 [place] ([facility]) ID Date Data Source [id number] 09/12/2020 01:39:01 PM EDT [facility] Name Value Range Interpretation Code Description Data Source(s) WEIGHT RECORDED 226.4 lb 226.4 lb [facility] Body height Measured 69.4 in 69.4 in Upst [facility] PREFERRED NAME [facility] PREFERRED NAME [facility] ID Date Data Source [id number] 07/04/2020 09:52:53 AM [facility] Name Value Range Interpretation Code Description Data Source(s) PREFERRED NAME [facility] Patient Treatment Plan of Care Planned Activity Planned Date Details Description Data Source (s) Basaglar KwikPen 100 UNIT/ML Subcutaneous Solution Pen -injector 12/14/2020 12:00:00 AM EDT [facility] hyclate 100 MG Oral Capsule 12/14/2020 12:00:00 AM EDT [place] ([facility]) BD Pen Needle Laly U/F 32G X 4 MM Miscellaneous 12/14/2020 12:00:00 AM EDT LAY ([facility]) Famotidine 20 MG Oral Tablet 08/18/2020 12:00:00 AM EST [place] ([facility]) silver sulfadiazine 10 MG/ML Topical Cream [Silvadene] 08/11/2020 12:00:00 AM EST LAY ([facility]) doxycycline hyclate 100 MG Oral Capsule 08/11/2020 12:00:00 AM EST [place] ([facility]) atorvastatin 10 MG Oral Tablet 06/15/2020 12:00:00 AM EST [place]AY ([facility]) 3 ML insulin detemir 100 UNT/ML Pen Injector [Levemir] 06/15/2020 12:00:00 AM EST LAY ([facility]) BD Pen Needle Laly U/F 32G X 4 MM Miscellaneous 06/15/2020 12:00:00 AM EST [place] ([facility]) 3 ML insulin detemir 100 UNT/ML Pen Injector [Levemir] 03/13/2020 12:00:00 AM EDT [place] ([facility]) 3 ML Insulin Glargine 100 UNT/ML Pen Injector [Lantus] 03/10/2020 12:00:00 AM EDT [place] ([facility]) Shingrix 50 MCG/0.5ML Intramuscular Suspension Reconst ituted 03/07/2020 12:00:00 AM EDT [place] ([facility]) Lisinopril 10 MG Oral Tablet 03/07/2020 12:00:00 AM EDT [place] ([facility]) BD Pen Needle Laly U/F 32G X 4 MM Miscellaneous 03/07/2020 12:00:00 AM EDT [place] ([facility]) Insulin Glargine 100 UNT/ML Injectable Solution [Lantu s] 03/07/2020 12:00:00 AM EDT [place] ([facility]) 24 HR Glipizide 10 MG Extended Release Oral Tablet [Gl ucotrol] 12/21/2019 12:00:00 AM EDT [place] ([facility]) Sertraline 100 MG Oral Tablet 12/21/2019 12:00:00 AM EDT [place] ([facility]) Metformin hydrochloride 1000 MG Oral Tablet 08/10/2019 12:00:00 AM [facility] ([facility]) Metformin hydrochloride 500 MG Oral Tablet 08/10/2019 12:00:[address] [place] ([facility]) 24 HR Bupropion Hydrochloride 150 MG Extended Release Oral Tablet [Wellbutrin] 08/10/2019 12:00:00 AM [facility] ([facility]) BD Pen Needle Laly U/F 32G X 4 MM Miscellaneous 04/16/2019 12:00:00 AM [facility] ([facility]) gabapentin 300 MG Oral Capsule 05/29/2018 12:00:00 AM [facility] ([facility])
[2021-04-09 17:13] LABS: ATYPICAL LYMPH 1 % (0-5); LYMPHOCYTES 10 % (16-44); MONOCYTES 8 % (0-5); NEUTROPHILS 70 % (28-66); PLATELET CLUMPS MODERATE AMT; PLATELET ESTIMATE NORMAL (NORMAL)
[2021-04-09] MEDS ORDERED: LevoFLOXacin IV 750 MG in IV 1 EA IV ONE (17:20)
[2021-04-09] MEDS ORDERED: GLUCOSE 4GM CHEW TABLET PO PRN (18:40)
[2021-04-09] MEDS ORDERED: DEXTROSE 50% 50 ML SYRINGE IV PRN (18:40)
[2021-04-09] MEDS ORDERED: GLUCAGON INJ 1MG VIAL SC PRN (18:40)
[2021-04-09] MEDS ORDERED: COMBIVENT RESPIMAT 100-20MCG INHALER 4GM INH PRN (18:50)
--- NOTE | 2021-04-09 18:59 | HPEPDOC ---
General Date of Admission April 09, 2021 Date of Service: Apr 09, 2021 Chief Complaint The patient is a 56-year-old male admitted with a reason for visit of Short Of Breath. History of Present Illness Mr. Slade is a 56-year-old male with diabetes mellitus who presents with cough and dyspnea. Patient tells that his family has caught Covid. About 2 weeks ago, he started to have symptoms. Initially had headache and loss of taste. He developed shortness of breath and a dry cough. Shortness of breath is worse with ambulation and better when he is lying flat on his back. Denies any recent travel. Symptoms were improving and he came into the ED for evaluation. While here, he has been stable. He desaturated down to 87% at room air. He was wheezy. He was given Solu-Medrol and Combivent which he responded. Otherwise, his Covid test returned positive. His inflammatory markers were elevated. CRP 17, fibrinogen 774, and ferritin 818. Chest x-ray demonstrates patchy peripheral bilateral lower lung infiltrates compatible with Covid pneumonia. Patient will be admitted for Covid pneumonia and hypoxia requiring 3 L Home Medications Scheduled Glipizide (Glipizide ER) 5 Mg Tab, 5 MG PO DAILY, (Reported) Metformin HCl (Metformin HCl) 1,000 Mg Tab, 1,000 MG PO BID, (Reported) Allergies Coded Allergies: No Known Allergies (Verified , 05/17/03) Past Medical History Medical History 1. 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 Arthralgia of the pelvic region and thigh 4. Inguinal hernia without obstruction 5. Diabetes mellitus 6. Diabetic neuropathy Surgical History 1. Lasix 2. Right knee surgery 3. Inguinal hernia repair on the left 4. Back surgery Family History Father: History of hypertension and diabetes Mother: History of hypertension Social History * Smoker: former Smoker Alcohol: Denies Drugs: denies A-FIB/CHADSVASC A-FIB History Current/History of A-Fib/PAF?: No Review of Systems Constitutional: Reports: Malaise, Fatigue; Denies: Fever Eyes: Denies: Vision change ENT: Reports: Head Aches Skin: Denies: Rash Pulmonary: Reports: Dyspnea, Cough (Dry cough) Cardiovascular: Denies: Chest Pain Gastrointestinal: Denies: Abdominal Pain, Diarrhea Genitourinary: Denies: Dysuria Hematologic: Denies: Bruising Neurological: Reports: Other Symptoms (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) Psych: Denies: Anxiety, Depression Physical Examination General Exam: Positive: Alert, Cooperative Eye Exam: Positive: EOMI; Negative: Sclera icteric ENT Exam: Positive: Atraumatic Neck Exam: Positive: Supple Chest Exam: Positive: Clear to auscultation, Diminished Heart Exam: Positive: Rate Normal, Regular Rhythm Abdomen Exam: Positive: Normal bowel sounds, Soft, Tenderness (Mild tenderness) Extremity Exam: Negative: Edema Neuro Exam: Positive: Normal Speech, Strength at 5/5 X4 ext Psych Exam: Positive: Mental status NL, Mood NL Vital Signs Vital Signs Date Time Temp Pulse Resp B/P (MAP) Pulse Ox O2 Delivery O2 Flow Rate FiO2 04/09/21 18:04 144/83 (103) 04/09/21 17:41 87 95 04/09/21 16:45 Nasal Cannula 3.0 Laboratory Data Labs 24H Laboratory Tests 2 04/09/21 15:34: Neutrophils (%) (Auto) , Nucleated Red Blood Cells % (auto) 0.0, Neutrophils 70H, Band Neutrophils 11, Lymphocytes (Manual) 10L, Monocytes (Manual) 8H, Atypical Lymphocytes 1, Platelet Estimate NORMAL, Clumped Platelets MODERATE AMT, Prothrombin Time 15.0H, Prothromb Time International Ratio 1.14, Activated Partial Thromboplast Time 30.2, Fibrinogen 774H, D-Dimer, Quantitative 1209.70H, Anion Gap 10, Glomerular Filtration Rate > 60.0, Lactic Acid Level 1.8, Calcium Level 9.0, Magnesium Level 2.0, Ferritin 818H, Total Bilirubin 0.6, Aspartate Amino Transf (AST/SGOT) 23, Alanine Aminotransferase (ALT/SGPT) 32, Alkaline Phosphatase 81, Lactate Dehydrogenase 341H, Total Creatine Kinase 49, Creatine Kinase MB < 1.0, Creatine Kinase MB Relative Index 2.04, Troponin I < 0.02, C- Reactive Protein, Quantitative 17.00H, Total Protein 7.1, Albumin 2.6L, Albumin/Globulin Ratio 0.6 CBC/BMP Laboratory Tests 04/09/21 15:34 Microbiology Microbiology 04/09/21 Blood Culture, Received Pending 04/09/21 Blood Culture, Received Pending 04/09/21 Respiratory Virus Panel (PCR) (DOM) - Final, Complete SARS-CoV-2 (COVID 19) Assessment/Plan Mr. Slade is a 56-year-old male with diabetes mellitus who presents with cough and dyspnea. He most likely caught it from his family. He responded to steroids and breathing treatments. Patient will be be given dexamethasone, Combivent Respimat, and levofloxacin. Plan / VTE VTE Prophylaxis Ordered?: Yes Plan Plan 1. Covid pneumonia with hypoxia Patient desaturated down to 87% at room air Worse with activity and better at rest Start dexamethasone and Combivent Respimat Remdesivir Levofloxacin day 1 2. Diabetes mellitus complicated by neuropathy Sliding scale insulin Carbohydrate consistent diet We will check HbA1c 3. DVT prophylaxis Aspirin and Lovenox Disposition: Pending clinical improvement and oxygen improvement. ROLA MARTINEZ DO Apr 09, 2021 18:59
--- OUTSIDE RECORDS SUMMARY | 2021-04-09 19:02 | CCD ---
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 EsASwAAP/bAEMAAgEBAgEBAgICAgICAgIDBQMDAwMDBgQEAwUHBgcHBwYHBwgJCwkICAoIBwcKDQoKCw tWYHgENK9BPGmSKuyPHT/bAEMBAgICAwMDBgMDBgwIBwgMDAwMDAwMDAwMDAwMDAwMDAwMDAwMDAwMDA wMDAwMDAwMDAwMDAwMDAwMDAwMDAwMDP/AABEIADsA +gMBIgACEQEDEQH/xAAfAAABBQEBAQEBAQAAAAAAAAAAAQIDBAUGBwgJCgv/yCX0ZBXHOOILGyXAKXPN TSJMZI0MEbXPGCYZJcUyGBRWOTIXQaFFGdMAoMuqXdQSVMIY8QVbZsJWOVuVMmuFVwJrBxaoFuF3Jpi6 QZaWBKZKB6oFIuRWGAZGCZscI2ShWuymrIysdFR8s4 b4ykNVbJhZuMyKniOJdPsWiHrxgaFtqeszaJgrfmA3zsy9hIh9oeRFrbqAjAdL3aUB9rtN3Pja2lKm3H Xm5+mc1qSa5/T19vf4+fr/xAAfAQADAQEBAQEBAQEBAAAAAAAAAQIDBAUGBwgJCgv/pHY7QPSEUMVVIA SKJgDCVAVTXseFHLVYWZAVUYEEYcOWH1EuGeDciOvQ WjJhuiEXWiFG5GDzreWGDhN76PSgVjhCAmOkTXazGDQ1RBv0W3ZIRxaMRMgSGZHQT8eEXfBcNOJrjTnr p3R0kiu0jJaFz5DMtewLyRhRc1WXdahAeSozq7Qgaahvbnjso9U6buu8tmaEx0SYpqpErcvP75DZ4lwO 2dri4+Rs3nsb1dkv7/T19vf4+fr/2gAMAwEAAhEDEQ A/OG94mMYmkuTxdINIA9s/APBZv/yvU4s4m9yv64MfaIkz3Ic3WwT1k2b1LWgbBz6fzMmrlRKhFZMJ80 Dpx6wUH+WF5eYx15eyutpLdNzrl+x58VvF+cPG3jkq6B9eU7D8n7eFNIltbkGv5eg/nj/4Ij/sv+Hv2r v+Ch/wtr30wemhVvIsorQNn59o5W+IGdf0QVGuUVHV zEqjY6JSLRNGzIbg88ur6DnxomztadW51uoK6qVqZJXvxvOup8A5Iy5g/Xj4cr0HsY4TmOxs8D+OvjW0 u1+6d49pmzrxDbUl/lRhnVgzvS8ue0C105G+wN/wXH+Cz2GJcLnbX5Bb98i+N4eZAs5Ibkev8eir4gex sElAzWsKxH2L7uQNOafFHTcFdCCI1BxpBKPifaQNtQ cAV+Ln/B0v+f43f6G8/lWS56aaTC1vt616ysTcT3raiFdENJHAWtsyWchV5SFLgjoPBIk7gRTtphXP7G U+l3vuw9ahDbyziAjnJL32A2i4Mz1M4F5PbzP7B+E/sG6K73eUMVlEGpEDmcG4W+JLKLUNOvIlZVnhkU Zx9bBfoh0GmEjpICMoczgz54a+HLw5p8f1w/9G974o k7X8kc5O5EHhb2yqGSVaMm2o7MI/BW0uqnl+B1+tuEHmXZny3IrLo0S91swY+l2KWxw7AtjwJAVyW73G 4k/8jp4A/wCw9L/6a7+uubqfpXI/En/kdPAH/Yel/kLLTq22d5d6XCXyX2e8lNZBLwxnTQzmDUUKONUU AUUUUAFFFGcUAFFFFABRRmigAooooAKKKKACiiigAq D1g96F7rjvkIkSYVr5PprIFtlmqXCusLpMtFc/AB/1N0K7md0G24qD56EuWlpn5pm3i5iMoYCXtPu9L6 MkBxsGOp3WthrJIPqC/Qr7zo6U9N7/tO/mZgxlVJxANm84z2F5E5RYqpxq/pCBbNbbqwT3ZlsrzNDTIz KS61eoeCvZzMNfhVY00dAm1ZO5bY6Sodq6f8VuwyTk fDq+/aI+EcondR00xpW8SKR7XavrTcRbgHK9Z3ZgFfYUwhsL0CeXMow7bM/wSbSDxmmuR/HxaR8UpSPS bLXxY7bsP8xyo7HHS/CfekveAMVXJhfBOy567O7UeWqXFJVDqA7+a/ebjJ4jvDOriTzZPHbF5wi/AMn2 8vU+1fCX/RAXtq5UXII/1G82DVK6dYj553oyQZgSRr m+TuDxSsWYUslBnYW1w0IUiLUwbsY/SAHHbRL8BagcgAtS0j1p1M+J/Anna+CCmfH06bGzi3UNkmv5bhI [file] KTTGSYZJ2hr1/++Y/manager financial planning+LLGijoXWHIRA3H/mCX6Tc/ [file] NzMgMDAwMDAgbiAKMDAwMDAyMTAzNCAwMDAwMCBuIA tkKVEzIEXnQLAlSACtSFLuED0xRoVaPIFgDqG4PmIdNECrDUDrkkDSXOVrAQLaEBMgQTZyLCBeULBrOR uuHMQbFPRpRUVfWJPuLRPhCR0xTnLaLGEtKuOaZBjeVGYdWOMierREUMSxTARmFXs9HANkGEIcZLUaRW yfKFJrZEI0SYoeSVRdBUCpFZ9fMuOtWLTlFbk8GrWk UYPsRKSbymIESYWkXEDjHYc0DOIaKNIuGZOeKItkZWExJOAgAQYsYQTmJTNxQZ7oZgFbIQNuUapjYKav FYXpFLStbfSETBLlVPCbDZZiNRZnLZRiWRBoMHdjOWAlSGK6VDB9VHOqNXXhCC0vHgNeSKJfUhj7Ioym MDAwMDAgbiAKMDAwMDAzOTczMiAwMDAwMCBuIAowMD EaYFB1JOLaJPOxYTEoLS5eVeSjQBTtHAi1YfFxGSSsIEXjbkHYFOIlGWY4AHJxDDCkQLNlBNFvJZyhHC NeJALeGaY4UOOaIKIiHL7xKsWeMZXuUMA6ZZtmKXEnXOTtczSGDVZdYYQ6LMS3LTIzGBYsMVDdWMuuGX FiNIQ5QKd0FZXjRPRjNN5cWkRvORCdPGH3CmLiZQSb OKAzmaHNkPYekAlrdeb7NAadE8l9EGE7QylsGJ9ocvQqCKRbLngkJj8gdOLdMiIqQOVRBg0Vs8IilzN4 odWaNkK9TJQhBqLjPB1JAq== ID Date Data Source [id number] 09/21/2020 12:00:00 AM EDT [facility] Name Value Range Interpretation Code Description Data Naomi rce(s) Supporting Document(s) WOUNDCARE [facility] JSQCFd8jDhHYQHLjTI7wprq4UOenTNf3cHGsRK8/VPNXWIKvJM2DKOIUAYLHXSWkOFrQgeCiATsLEXEX OB1KARkJWMDAHJMRKRQeFTbPGFJvADIUPCGcSThVE6Pcs9K6L8IfPSm9b6a3kGg8v3JuTlwUX9VpXQO4 cP5wDWQ6RHQmOCnfGRPwEBQfPAP7INEvTFhOIj1PWS 7wx6HzIbIfUJNxIeiVPRxWX9M9sCQcV4R4qAiZuGK8DQpuB3TdtWT9USvjR67fUN1nUmkwH4BoMQ2cXi 9OKWAzDuHST9YUXxBxRTopPYhlK38ms1ndP01kwrG+DmbykvLjXlnALWRrVU0bosajD5QpaZBbko8fT1 BzuhxfRPTSCg7TFC8kn5KnXvveSBUgOpbAOFsNV7G1 bLBeT4uBCdkkS2IBC5H2XjU6hKAiE2xvXReoXm6WrAE2uTKvVOHNW1shyGxxgSZ4DIuuUbj3z8KjxzRn rFLiitBtxGI3Ar4Sj8wypzLhAFTrKJ4STKZaG0NLR1XMJ6rsppo9oHWvEVBbZFOKD1HfrOWtsvTkPCGR BCKca6HjRh2+SkK1ndUrkBs/2P/gABBKRklGAAEBAQ EsASwAAP/bAEMAAgEBAgEBAgICAgICAgIDBQMDAwMDBgQEAwUHBgcHBwYHBwgJCwkICAoIBwcKDQoKCw tZDRjFFL1NNNnNIoeFMA/bAEMBAgICAwMDBgMDBgwIBwgMDAwMDAwMDAwMDAwMDAwMDAwMDAwMDAwMDA wMDAwMDAwMDAwMDAwMDAwMDAwMDAwMDP/AABEIADsA +gMBIgACEQEDEQH/xAAfAAABBQEBAQEBAQAAAAAAAAAAAQIDBAUGBwgJCgv/nJU8CQIGEJYCXxZJHYMS PFKRNB4BVzFWEOYWIqTpNRUJCDBMGiFYVnAJsOfvZvQVLUKN4ITkOeEPGZfKOamWKzMxZzwaXxT9Jba5 QBlXAHAUD8zACwEWMNCIDNzlW7XeMkhpnYjbaDH7q5 c0gdBIuWtEbUiSwdCZfDyKvDmljoRyhhdqbMksugE8faf4fJm0evAHktkOmUeA3mBO9ebD7Los7uOh6L Xm5+so1nKg6/T19vf4+fr/xAAfAQADAQEBAQEBAQEBAAAAAAAAAQIDBAUGBwgJCgv/dGP1FSWQGZQHUF HJHnSEOZDIZkpEZGDUWFOKSTVGXjMIQ1KoEkTirUeZ HbPiieDGIjFS3KZhosALXdP49GUuKswKZaQlYOrxYZN8CTo5A8DZByxHXTtPZXCUL7xXUvIgTWNdyHhu n0M3umw7vDeQb7CWffrDlYnBa0IJugcJdNrll3Jvavmqdtlxo7L4jem7nvxRi9QIxmbZpraS22SL5trN 2dri4+Sk1uyl6qwe9/T19vf4+fr/2gAMAwEAAhEDEQ A/BT59qZHuexXnlMTXV6w/APBZv/maL8s1y2ah49ZinXlb3Sc2RlO0s9w1LAafMf8atYpvlDRoNLCB23 Zyh1nDH+HE7aYd46iocpvJbCafx+x58VvF+pIL1pjm2C9hH9R5y3bEBSmdadFb3iw/nj/4Ij/sv+Hv2r v+Ch/ffv02cmpgDbPcjrMQw85w4A+KYci7VSBbUHFM uKxrI9WLGCQOeGxd57vk5LlztelfluI30rrY7tLfBQHigeEls4T5Ye5t/Ey5rc2FoE7VxWpu1I+OvjW0 u1+5e74igmloCjLf/uPqmAswuH3jp4P431R+wN/wXH+Fk3MLkBknB1Vt39d+M4mAPu4Dcehf3ifn9jzs hDpBnXrHiK0P5nMDQevTSFaIqGBC0BsdRDIqqqTGoQ cAV+Ln/B0v+j84e8Y5/pYM95vwRA3sl244zqTkA9ztjQrEEDHOFhzeZjjI4VOXlwvUOUy5pUTbgiEC2V U+l5cww8kgDoqmhFpmBF15L8n1Oz5R3H0EzaQ3P+E/oS0Q06wFOAoKAbBCgoY3Z+JLKLUNOvIlZVnhkU Pi0xHcsd0UqTieUXIvbufv02u+NVr9q4g4e/7I748y l1T6bz5H0XApu4znSKGgUi0x8BV/LE1ocaa+B1+syZBzXDaj7UfLk7C54hvH+u5BLgi7PrroAHCkC22V 4k/8jp4A/wCw9L/6a7+uubqfpXI/En/kdPAH/Yel/gTTFz07c2g4HDHkU2y6lMBVKxryHJxtEUBTYYYC AUUUUAFFFGcUAFFFFABRRmigAooooAKKKKACiiigAq I5d32D8xfbdRyNZGs1QqtIIqvzeYLzxUhGmMs/AB/5D3G8bs0D97xV74JaFrcg8vj7c4gTgUWAqIp8G5 YkYolRTy5JuanCYBrT/Yf5tq0R5Q1/tO/nBfocNZvXDk68a5R9M8QYdvpf/tLKfOszwaS9UibfxHRDKk PH44pbzVsKmYIxbMN46cIk0BP7tY1Apte3w1UlupFh fDq+/aI+WknnvA87ckI0SFL8XkltIrJkjUG9T8WxKtOUlziP1SlLMrp9lN/wSbSDxmmuR/WfeO6NqLEJ gQBzP2bwB8gxc5IRF/AilqoaJNCICydLEb941E5LgJxLCADPbE1+a/qjuS5zoKWpkOiOTZwO0wr/AMn2 8vU+1fCX/QRGec8UMRV/4X52NAB8mNc828tfAXoYEy m+MbKiRcOBYzcCzNE4s5INuKSokuP/PVRReDO2NrphtPtG6b0y3Y+J/Anna+JPgeW18gNis6POxey9sgN [file] lvmXIufIf1gFJMg3Kode0qhn9cPzoJ0tFPizFip41//icbJnccai7HrauFhUju0/0/17AqCdwsmsxbH8 lahrp33t0gP40UmXIJTp4j/uCFqcmacpor4/cmvw8RbdgfA1BBaZj6xOm9MtAdnhVm9KHDKckejnSJyC PKeEZrpDc9WaMmc01ydl/t9piM7vp8HxoP1uFsnVOc E+manager financial planning/v7rDV5VZcmGgs5r+Ia9pWiwUkp3+5rzlJi3iX/yobIqp5hq1WzJv7jBwt8cyl/r6fRGR5I/vU47 xp99/NFVb2PYSdmbyxifsy7DHwdQ1Ufv5BWxDO+uWc97Aazlyz4Ek+fU1V/s4rJ0hpc6TN+5monUI098 YgnL3nhbocT8B3n4CdoFpgvInqkYEJ47V+WcZ0QWMC kZq3z6y1n9azi5nSQ/p+QV8B6/AYw0xEf5kEZhoxPnwb8WCI22eDdV7XHoUPBih+vMA/x4PsRn64BDNt exwKck6dduoxnrNKiBaUvvG8/P/tmJgtIiK+mrqchubIfob6Ee3SnN2X5aPKuPSmtyK4mJBK6SKUPDrL MxgYm7Yy7/SjjU4/wVClF6YLW6AxevcLdsSm7u5IqV legal billing clerk/enLgDiNd0uC3ibk3w0s47y0a3CQqOdqiiCJeoT4621xgtbkbvg596Z/CgpMU2WA4SLIXDRXmllrR/ [file] STpumWNk3+dHP+1jSAjhU55zn/e9+VPS6nWi1h/legal billing clerk+ [file] QgMzEgMCBSCj4+LeV1CDE1yLPzPct4ZCoeFgxyUUBJYdn= ID Date Data Source [id number] 09/14/2020 12:00:00 AM EDT [facility] Name Value Range Interpretation Code Description Data Naomi rce(s) Supporting Document(s) [facility] GIGVXn3zJkJXUNLbKD9wciw9MIeqUVt4vKUjLE2/QLQDFUZqMM6CETVIZXQHVDZmFGkPheNxXXtJUMNE VA9VVCdGCLUQYLWFTKEpSSvBKEByANDGBIPaWOtNC0Wym1Q5W2MgGRi4z8s1dLq5j2NaCacAE2YcMSV9 iL1zSJW4XJZbEJlmECPqEJTpOQQ8UBS3PylQMz1JOP 7we9IwNqXtPWTeIphJDIqNS6M1sXGuF3E5gMdWfKL6TRcmW8CisXT7DEamN34bDF2sOxlxC5IsSX9wSb 9NFFYqSlPCL5ZHWqEbRAtzEKhcI46tn9xtO06wqoP+EntlonElSuyFQMOuAA2uvrpmW4IenPKpck3rZ9 XhnoljVJPPBh2UPZ6in1NsQyogDGIoWubKCMyLU3V8 iJEgX2dCRfjtG5SFM0N6ArL2rCIzF7ymRMovOb6CrJH4aGNvJWUEY4rqfFsitRC8NUbpFql9x9BlujWp vMBpimAirXM6Ld9Zl2vriuQsCDEvTW5WTTPjS7DCC1LFH3yvaqt6hEXeHBFqKVUWJ0KsaOMrjkIaBEXR RUUvh2CrXz0+JsM5nuWreJx/2P/gABBKRklGAAEBAQ EsASwAAP/bAEMAAgEBAgEBAgICAgICAgIDBQMDAwMDBgQEAwUHBgcHBwYHBwgJCwkICAoIBwcKDQoKCw kBPPxXDT9YTNmNJufVUB/bAEMBAgICAwMDBgMDBgwIBwgMDAwMDAwMDAwMDAwMDAwMDAwMDAwMDAwMDA wMDAwMDAwMDAwMDAwMDAwMDAwMDAwMDP/AABEIADsA +gMBIgACEQEDEQH/xAAfAAABBQEBAQEBAQAAAAAAAAAAAQIDBAUGBwgJCgv/gUT4SVFNRZILUaUHMVGH IEWPJC2PKnBOMNODSaHkFTWKKWPKRpSCOtVHoNnrOsPHRHPJ8OBtBtHDVAyVBioWJtUtYxrbZnZ6Wqf9 KEoLOHDOO3iBOmAMZAATMEyfG9UrWyoxaVfjkYF7o7 f1cqLMcXkAzIxWsrCDbIlSeJvjboKbiwjikKyoguR9aih5kPp0zsPBmaqCjOwL1tBU9kgH4Ppn4aVx3V Xm5+kb9hCx3/T19vf4+fr/xAAfAQADAQEBAQEBAQEBAAAAAAAAAQIDBAUGBwgJCgv/iUK0PTASXQOKDJ YHWhJAWFCEXuxWXZNLSHVIMIVBTqTES6NiHcBwyBkK OlFprsITReBD0CQhadKMYpY63ACoPcrEJsXwUFdnCBT7YIo3O5GGYtgJUYzRTEXMQ6tQYrZzTAFrwOpa j6Q2hrs6zVbIx0ZFwkiYzBlOw8REjpjMnFxis4Eaofmfzpgrm0X9adc8fnjMn2DQnisOpugV98OO6ptJ 2dri4+Ea8awr0weq0/T19vf4+fr/2gAMAwEAAhEDEQ A/WE35rCJeyyLpnQLQK7v/APBZv/srI7y3w5za38NevEan4Lq0VfS0a1v8NDvvEr0dhTfaiEUeMOWL83 Tic4hOB+MU8sNb42milnuTtZlsn+x58VvF+dRO1tra8J4nX6A3q8eVGZelawLw4in/nj/4Ij/sv+Hv2r v+Ch/pmo99lcfnBnDlsfLKa85p6I+MTcf6IPHnFNXL rRghS0CNZNUZlWxj57of0GetkrxzbtT41exI1bYdVJHgxcYmo1S6Xr8f/Al0qw1UkC6AiGem2U+OvjW0 u1+2h54dbgptMxAh/oNpqKoxaX7eq0W498I+wN/wXH+Ek9XBeHnnM8Ml31v+K0dUAb1Gytnl0lur2bdm cUrVtUdAdD7D6nLVAtqRKBeWmQYK4HtnZYRiqpRZbW cAV+Ln/B0v+v60m1A0/aSQ34erZU0jp678iyWwD8zygVfZBYJUGszjCasD8WZTyztBQSf4tATlgfST8C U+m6rvu7psWvpqhDygSQ20Z1j1Cr0X7T7SxrP7B+E/mS1F25pFOVmLVhILifO7S+JLKLUNOvIlZVnhkU Gs2fCcda3QuHhzACFplffr67g+PJc1w5f3o/5Y940e l2C9as2A9MSqi2wdYZAbIx5v5BP/RM8semd+B1+uvAPrOKgy1VyWg7F80zoL+k4PThy8LnpjIYQrU78R 4k/8jp4A/wCw9L/6a7+uubqfpXI/En/kdPAH/Yel/jBEFp08n6z8GQNbS4c3eMHZIziiVNueJAKKUINL AUUUUAFFFGcUAFFFFABRRmigAooooAKKKKACiiigAq X1u01T6zkicDoWLNk3BriVLswgzWZbzXoAuEf/AB/3G9I2xt8Z35tY85JrNzts9xv2x4xVzTQTiEr5F1 SmXanSKo3RjqlGWUqY/Vn8qa2X6Y1/tO/yTypjBZrPHn35d2P7R1IUzduu/eZCbWxonwT9ApuufDZMHy UK88bezGiNgORzqHI36iGg1AQ1aG4Chel8x1PuvvAc fDq+/aI+JuejqZ80kbL4SDC8KukiHuIelWH0B5RqTrXFixqL5YdTZia4nM/wSbSDxmmuR/YkrC9NvLKS dZFmS3iyD3xyz6JRO/OjttvxZQHNUzgVVj664Q1GyLfLWIFBcD4+a/mthH1byJMglEtWZKdZ8wa/AMn2 8vU+1fCX/YYDko1CVGV/1I23OBZ7jJg575riRIgPTn m+QyLzCmFYUolWkHL9d4NZsYUowvR/CDUCvNV5DtjxaSuU9o6l4C+J/Anna+JMunX62hSql8CQzvh8rnB [file] Layout Designer+VGzZUXCXtKqBtVA17UNfItB35TJgNL83R+/foP [file] 6ATKFihgpgSAaAAUeDAhhRp3TcSxs58spp/l7diH2qr7DlmK8cRqyNFwN+manager financial planning/p2kPF3MFkpCvn3t+Ie4 [file] NNMkYWJHZt7Xd246VDHePMZxJjl+KjhieKBfmQywFCCAQKR6DvyKDMUKV8MB ID Date Data Source [id number] 09/12/2020 09:37:52 AM EDT [facility] Name Value Range Interpretation Code Description Data Naomi rce(s) Supporting Document(s) Progress Note [facility] OLAMTl7aYzCQYdHa32/FLHocJNGtc4KvSPjlGHg0HIkmGLFwA2TxWAR5fD1lRHD0RBnKXpXmDbGnYTM9 lbm [file] ICAgICAgICAgICAgICAgICAgICAgICAgICAgICAgICAgICAgICAgICAgICAgICAgDQogICAgICAgICAg ICAgICAgICAgICAgICAgICAgICAgICAgICAgICAgIC AgICAgICAgICAgICAgICAgICAgICAgICAgICAgICAgICAgICAgICAgICAgICAgICAgICAgICAgICAgDQ ogICAgICAgICAgICAgICAgICAgICAgICAgICAgICAgICAgICAgICAgICAgICAgICAgICAgICAgICAgIC AgICAgICAgICAgICAgICAgICAgICAgICAgICAgICAg ICAgICAgICAgDQogICAgICAgICAgICAgICAgICAgICAgICAgICAgICAgICAgICAgICAgICAgICAgICAg ICAgICAgICAgICAgICAgICAgICAgICAgICAgICAgICAgICAgICAgICAgICAgICAgICAgDQogICAgICAg ICAgICAgICAgICAgICAgICAgICAgICAgICAgICAgIC AgICAgICAgICAgICAgICAgICAgICAgICAgICAgICAgICAgICAgICAgICAgICAgICAgICAgICAgICAgIC AgDQogICAgICAgICAgICAgICAgICAgICAgICAgICAgICAgICAgICAgICAgICAgICAgICAgICAgICAgIC AgICAgICAgICAgICAgICAgICAgICAgICAgICAgICAg ICAgICAgICAgICAgDQogICAgICAgICAgICAgICAgICAgICAgICAgICAgICAgICAgICAgICAgICAgICAg ICAgICAgICAgICAgICAgICAgICAgICAgICAgICAgICAgICAgICAgICAgICAgICAgICAgICAgDQogICAg ICAgICAgICAgICAgICAgICAgICAgICAgICAgICAgIC AgICAgICAgICAgICAgICAgICAgICAgICAgICAgICAgICAgICAgICAgICAgICAgICAgICAgICAgICAgIC AgICAgDQogICAgICAgICAgICAgICAgICAgICAgICAgICAgICAgICAgICAgICAgICAgICAgICAgICAgIC AgICAgICAgICAgICAgICAgICAgICAgICAgICAgICAg ICAgICAgICAgICAgICAgDQogICAgICAgICAgICAgICAgICAgICAgICAgICAgICAgICAgICAgICAgICAg ICAgICAgICAgICAgICAgICAgICAgICAgICAgICAgICAgICAgICAgICAgICAgICAgICAgICAgICAgDQo8 H6fnWHDvDZJkUX9mMTq2Di0+LUiQAeEnZKP2jgTxdB 5HKW8bo5FdUDtwRISgi9RyZRz7HX2BZDDbJGzwSB1UGBckpw7JHQMjMUDmqLALv5jiYbRuVVA3BQEcXu xdON8VERBjU7rmsfLiBKYhAGOAVRvoSFUZZQppFPYLOH6TAwQbT5YkbO46OOEIZu8+DQplbmRvYmoNCj U6XQUxl4ZmHEs0BV6UQIWaRbqog5TqGyftENLZRFov HP1LAAD7UJD8FTIbJj0USQSrZ047ciHxMP3STx3KBvGpGZ4mel0VRjczSUSzHniLXtd4CMydJT6JeVTo INuEut8gbrNukkPMi8YpocBqiXPXgCZoVJZhB03olo9jyJcpJQRRHWE4HOAjQR7xLMEiRSNsSxL9RDWB GM4VOFJzTRTmzXGgKVPwWTLDFB7KAHzdVKB8EUUdfi YgoKJmMYcqCO5UTLJwcsEuVwLiVEKDUUl+Yj4KJB8tt1XwVAvrMRIcON7ebe7INKjVZhOoR3L8xRDcV0 D4EAkxBj3TCSAjTJInMgTbAIHPNCmvXR5EDO8nfcY8LU1IwZVsUMYdNXEmnBXsCRt2U33ilZVzWDqmTG 0KICA+Rachel+Us3YWFGgMQTaRSJuVdSpYFERJqWhA3Dz F1ZBv0KeH4WoLB96zVmlmpJuNFmwWQ4UNI8sDRLeOAJKDC2OnBRywO6xsrXyKcXwTKEDPgIrD34isWUx ZEBaRKH0GFXrTg3TFLTfZ4MfvrEkfWvmafYbPCFoWOYKXX6FEIbbeoOexASbjOikNI08hScyPG2JBv9Y FfZbJJ8imb8QiJQzVu3SKVUzET9RFKXiFPVaSORuJT L7CIKmBkOhBNnsGUSuQGEjOAR5EFIrVMFtBR0CHmOtRVDyQRZkCBVzFOXeOQSmgj7LQMEqLLX3MiYxKh ItYDPqMWEcHDdcTNUwIJCjGPN4VRVzMOTzRO4FCiOvMJZfJQZpFlurZFGvSFNldq3WETGcVYCsDvGrSm AgTQPhYUAgWWsfUPEbUMJ8KSwlBMLzYBJaLV0IMqTy YKEpTFofJrZoQWMzLYQsxp8YAFVnCIRrHIA8LDPzLFKgWVLhIYexMFHuBJBvUGI3DNIsVPFuTX5GEpPc OWRhLVH1TrpkAINvYJHxnu6EHQXkCTVyKTYaADReXECdXKVzXUnpNLKgBAQsUKJ0DXIyVUXfDC0SJfJc PWHaPTW2NlmgNNYhZVGroj9SDGHlLGAaXms3LJXoOK CgMADsIXwyBIVjRKDgJRO4OSHaRPDgNU8OWcXpROZeRCKrMBTjXITcKAHucu5TMMSvVEP8Ico9OLYoCO YyIAAfKRksGQDkHKLuQRY0VOHrHRXaLG0LDwVjINXoWNN3GFWcMTUtAOAgjj4ANEVoIAQ0EWF5HDAyOP BnDBEpVGbvSVSkPZE6QNBnYQHhYRQgXZ1GNwPzYOMv QDRnSZGfEXZvUVAebm9YLEYuOQP6HMD7DRFjPEPhEQVcCTlhPNYpYRO7Ami0ZPPaBPToNJ9ZJeJgULVv NLdnCrPiTXKkCJXfpk2QPOGbLRF6TkIsIyZvZNOsTEFoGDavOJYoMRW6BYE4SFXsSEUbIW0NQqLaMVwc CSZTXjl5JAybO1n7BSLnKX8DI5Xxb1KrJycpAODZUC tfPE4vssTtCTUbJw8WZ9oXAifjIhryTDTrWQR8PERiAMGuCOrmDHRyUHBaFdD0BVV1Yd4jGGVcKPNhAf IrTJu3Z4QjWDQqJJB5DRW7LjZ0BOp6AHCsVzDvFJ1JBy4GZxT0HHF0aPKtJy7SOPq1LCSJDjEeAR1ITP o= ID Date Data Source [id number] 09/11/2020 12:00:00 AM EDT [facility] Name Value Range Interpretation Code Description Data Naomi rce(s) Supporting Document(s) WOUNDCARE [facility] VKRWYc7rErEALSWvQL7tcvu7OAysYIh1oPEiDT9/RWFTSZHbYI3GQEFVCRMBKJTzOQiWixVtOXpKEIYM AT9POHzHLKJCEJLPVEKxARsKGXTpUVDFVJCoOSbDJ1Hnh8Z2H8RmEYp6w1r9iZz9v4TaZcpAL9FcCIL9 nC7nAOC2RZDcKNvdYXTyGUGaCQO7HfC6GusJVs6OWA 8uj4YwBfKcQQDmTzgFYQcRL8Z5nGUgE6I5wVdZjBD2DKhcG3PnsXZ9NAsgS83oFG8hKcntB3HhCO6pMw 8VWXSnIfZDJ1UCRlSlAGdqDUneU14rp1ieD72ndxM+FaartnHsXzkSTSBbTE5txjblQ7UocMWjpa7zA2 ItyuqnFXXINx2PLQ2og4SuPtfjJXYuAvoHHQmUO5J2 tNPdK4aHLeajR6REF3X1JeX8tSNlJ0viEPhfUt5CqOA2xPBqNDEFT1lnoJmouYO8XNlmHzn2h5WkgbGf rHSgecQkkMW4Ma4Je0ouiqVfUJCfWT6GRASxS6RVM4ZSI0jndht1eJTxLNVtQEIXF0HhsKVuhyIzYXVJ XPIpm7QgVs8+MdC1eaRvdWl/2P/gABBKRklGAAEBAQ EsASwAAP/bAEMAAgEBAgEBAgICAgICAgIDBQMDAwMDBgQEAwUHBgcHBwYHBwgJCwkICAoIBwcKDQoKCw tHBVyTXQ6UGXmZBznVDA/bAEMBAgICAwMDBgMDBgwIBwgMDAwMDAwMDAwMDAwMDAwMDAwMDAwMDAwMDA wMDAwMDAwMDAwMDAwMDAwMDAwMDAwMDP/AABEIADsA +gMBIgACEQEDEQH/xAAfAAABBQEBAQEBAQAAAAAAAAAAAQIDBAUGBwgJCgv/hUB9RBQLKWVXNvZKHHQK JSMDLI5PCcCHZUGDEyQlMDOTUWHXCqGGSmDWtWhrAnBMHNEH1WXdIhSNUBcQChjWJiLkQvomWvN9Pap8 OCeRBUZPL6oCByHQHMIRFIxnH1HuHihpkEsspLI9h9 m8ogVGpIfVhHvJqcCIlYoDuWetqoBnwcabeUhyieL0hbc7sYz3dhMLpllToEbQ8wEB7grR9Rmz2gUq3E Xm5+tj9vOu8/T19vf4+fr/xAAfAQADAQEBAQEBAQEBAAAAAAAAAQIDBAUGBwgJCgv/iUI9NCCOJZFZYX OYRmXIBDHVFbcPVJNOUPLFBSPYTzADD3WgAkGndZkW ObOwshTCFbKZ1UOrvoAFXmX18PUmAuuWZbYtFHwdTYZ6AIj8J9QMSyoVSRiEHBTBD8dVYqDfLDMecOzc e0U2wws7lRfDx9UMpkdYiGpXa7QTqcuSpPtln1Uylmzczirdf1P2yng0ehbEc7KBtvhZdhpN72TO3rfZ 2dri4+Vn4ykd0pkm4/T19vf4+fr/2gAMAwEAAhEDEQ A/WS76qXFvwfFyaSFRZ1u/APBZv/suG9z6y1pd43JwwUzu3Bt0BbR5r0k2DQhhHs6obBfunSVvDBRC17 Jsz4hEU+DU5pFu88ppvwwRgShom+x58VvF+mLE6xeo1X5wO0T5d1zNAOwaitKs0lj/nj/4Ij/sv+Hv2r v+Ch/twk27kzhfAmHmbyNLi31m6H+PCwe0TWQtOUBS bVzeZ0PVMOKOzYdw21wi8ZlwifksrtG85acG4wJyHEKpxbJcc7S2Db7e/Om0rn2DaL9LiEkq1G+OvjW0 u1+6b58whbupLsIz/dEzeXvjuN7lo3P717T+wN/wXH+Rg0IUkSeeK5Os45l+R0jUWh6Bptsl7grl3qai jVgJvFfBnN8I8aBZMxkEXLbIjVOA7LyqZGFnefWRiV cAV+Ln/B0v+g45y1G3/lVX27vgAT6nq678daXaS0vogTzGHHNUSikvYcfB5FHFukdQFUv0kUHnvvFJ5Z U+h7mwn3kjEzzlvPbfKU84P5e8Xd0M1V6AwrC9H+E/xW1J30uOAJjCZdNUqfZ6H+JLKLUNOvIlZVnhkU Fx6lAmdh3HyJxxPSZhfxgj56i+JNp7b3e5i/2V044q e7Z3qj9V4BQqg1kfOOHnUf8a3DK/YE7xjhq+B1+qsTMoCSax9MuXs3M84ciO+v6XIxr6ZgecVNQhR71Y 4k/8jp4A/wCw9L/6a7+uubqfpXI/En/kdPAH/Yel/fBHEc09k3l5OZSbD5h7pBKSOtstACseRPIQDFYR AUUUUAFFFGcUAFFFFABRRmigAooooAKKKKACiiigAq K0w27J5tlpwAxUDOl5PylGIcqfnCVgmTjUaDd/AB/0S8M8jv0I51sI27IwOfcc5rb2c7wVhNTYqSc1V2 JoDbkMJp2HxegSWMwD/Ja9ao7R8P9/tO/kIcjqTHtTAc94x6B9V2QXuhpb/jGIoFppvuC1NxlrtOCREi ZO19vzfIyJwUOxpJZ87sEi7MG9kB1Rogw6n6QminOn fDq+/aI+VmhuiP22lzW5BBO2EftdKbVprTB7L6NtWgKYegbU9KpZFhr2qQ/wSbSDxmmuR/MrvJ8CtJTZ qMPpY6rkR5vfv4ARD/CbjdzmYBFBGhqBZx907Y5BpHvLZCYLgN5+a/zoqP7krQWxmEeEXQgV3ro/AMn2 8vU+1fCX/VGEim4AITW/2J16DUK2lQp824ezUZoBXq m+LaSaBmPDUakTrVF8s3WHcIIqpmX/QVCZsEI0IsdvxGcX4d5s4W+J/Anna+IAmmT22gJhn3HPvyh0uwR [file] +/0E322r7wt568AlrjIO0/8TQ41753ur1++Pn0g/Pe N91/9qOfDr/81+4v32W/zHZ6/o07fo1/82Xn/PHx/uj207Z1oz7k4Gm5++8/nc4v6mY6hX7dpcPt26+7 n/6X+exP3d+tire setter/+oVy73Rl29uRDyRbD2A8vmk61T67Py8l7Ugp3lfDi47iHE25C+rwk6d0i6cr0/253 8fzvf6c8xjj4i2BuGEPcnw6upn/S0S4ayd6MlJczvK nJ+XZ/uoaM4ZacYw5dwt/do9pKSh6/faTm2gmf90kPDZ/8Pne+6Sn4rg6/ZL/eYF75hbrp352+qNuqqc k90zzZy/zpN5eG/NhQXBoK+LJ0jBeV16q2j8HkRv3vh1OuUgj3GsbvZJLCqVjqLS5CjR7+cgzE2cWT64 Ke5EPcFY/vnv6tQy1U4xXw0Cpxh0rAMgdi6Rd5ZAfI DCAl9U0/KR38OUQA/ArQMO3gof3U2DBBdswipluRROxKs8wqpyclO2x+yFTZVUlA916EzCZJ7mnXczFw oEqanpDKIKh4mF4zYSN8t3573cnp/mFD0igB+qM/EERgO8g6m9n5JNrZBPcaIJ1SWS0ZGpuud5/bLHv3 qbrHxFRnpklw9lzBDa0+Eqx34PE65Vz5oQCRET8twk Azeb/7o7ePgG2jKNFT3co9bxijD2d61vtIH552wI/CYVg3UE6fPzdUZbWG8hXY/MP5WBPLGmrGyMpmpX3 Hmg7MurgxMukNXfwjxoFNdxiYSrMd3Z8TcdIPYpgqRw6UWHzdqkCXSfRcsiL0griew4Gvzn9awkZ0uWu 5QfjMmdPAZC7dpJj+LBjOdLcxBwRnbN8b3e+OyKa0a cXwmPn3Xm3ciWTwzG5bydN2+5Jlsn3NiKY+wwYBkc0loR7WOUBeUY4nKsWmUp08VMbiXDOoZXDZf8xQR khap8JTr8ETsLqvugMqoukjXInbdiV3xuktfdbGoJfJ/Xl6UcxeeiEYzIZrqH5yDiI8EiAwpit/k42gY [file] LXDoBzktSw8jlNAkOIBrGVXYHf4Im9RpjoX8dxBuFgI0ZfuhGzXzZT1TDm== ID Date Data Source [id number] 09/09/2020 09:43:00 AM EDT [facility] Run: 09/09/20 0943 INTERFACED REPORT Name: Greta Slade Sr Age/Sex: 55/M Location: [facility] Acct: [id number] Unit: [id number] Status: OJNAS MARIN Room/Bed: Re09/07/20 Disch: Eduardo Dr: Harika Cr [employer] Specimen #: [id number] Ordered : 09/07/2006/29/1145 Collected : 09/07/2006/29/1049 By: [...] rce(s) Supporting Document(s) ID Date Data Source [id number] 09/07/2020 12:00:[address] [facility] Name Value Range Interpretation Code Description Data Naomi rce(s) Supporting Document(s) WOUNDCARE [facility] GUQEGc7xTnXHWAHhOL2luxe8LByaCJc1yACoWR4/QZLGNLHmSO3WVIOKKFPACZRlEXaWhzEqKQlSXZEW JX2YIHrSHILNVFWQFDKfTWsYEUObBCIFNWNhTIqOV5Dof1P4M8AdLQa7r3i9uPh9t4LsRqoBQ2CgITR9 oI8yGZI1DITrZSquVBQhSYZaARQ1CFPbQUuEFm0NRC 7tb9YuPyMdTFPbSfyVATvUF8U3hAYdV1S5jNgBcPB9IQdiT7JwbTJ8NUcmX00vFK3fBaxkX4OkGJ3oIz 3WBLOwSxWQB7OMKsMvVEqtWQdfL66np4gsS25mpiC+QanoguPhUoaBNZVkXN7threwX0SgkFGsav9kO0 LahuozIGSZIj3UIZ8ze7WhOuctTFDjEhxSFRqSF0T3 oYXiI4vQQcqiM8MUS3R4AoL1xYCpU1ktEMwmSd7AlYT7hUXmDBHXW0gxkZxevAE2KAfmGir7t3WoqrZb vLOhnbRdvQS9Tv1Ll2lhylCxENPrGJ5ZTVNhB9BDM7YSJ5rinbr9iDOgKXEvYMAXU9EosLPfzrHiRERH TQYys1FoPy5+LfW5bwHvtMw/2P/gABBKRklGAAEBAQ EsASwAAP/bAEMAAgEBAgEBAgICAgICAgIDBQMDAwMDBgQEAwUHBgcHBwYHBwgJCwkICAoIBwcKDQoKCw lSKKbCBR9URElVHexYCH/bAEMBAgICAwMDBgMDBgwIBwgMDAwMDAwMDAwMDAwMDAwMDAwMDAwMDAwMDA wMDAwMDAwMDAwMDAwMDAwMDAwMDAwMDP/AABEIADsA +gMBIgACEQEDEQH/xAAfAAABBQEBAQEBAQAAAAAAAAAAAQIDBAUGBwgJCgv/vMJ8GQPPLJNFSsFFVQYG XCVGEJ8SApIXJSBOPhGaXYCZHSFDZbLRZuCKdQvpEiUHQKJJ0SBwVoERNYkORtrPQaElJcvhCoG8Mgm0 ANxLZODLT0zOEjDLYERRGLrmW1HyXfjnmWvefNJ3h1 m7rvGYvKeXsSmRkcDXdUzNtAwimyKccpmkuWmcsnG0klz4bLt5wdAXpvsLiZiX9fWN0oqB6Hal2cTe8F Xm5+of4sUx4/T19vf4+fr/xAAfAQADAQEBAQEBAQEBAAAAAAAAAQIDBAUGBwgJCgv/kXQ8CRARSLDNIF VRVuYIBBCQKfeKWMUJCCXBYKHSYwSJM6JcAeRbePnZ XzQmthDQWlBY2QFvuuDYUtB50GJnTdsJPdYvMKfeJHY1PGt9Y4CNAesGPWbMSUWUZ8fQCbQtQMCxpUpb s5K0rmr2tAzNn8IHnjjHtMjPg2JCnimElKazu9Qtrvqabxyye1M3sut6qyvXu7CVmmfStgkW67JD1nbZ 2dri4+Be6tdb9kco9/T19vf4+fr/2gAMAwEAAhEDEQ A/FM34mXDxyuRtzEMTX7l/APBZv/whA4y9d1dq69KgwVbo4Ti6IzI0n9i0REeaUj5ihPcykHMbMMWE75 Eqr0tNJ+JW1fVg89qjmdsQqGbvs+x58VvF+jXL6xei6C0hU6L1u3lXNSdezlDp2bb/nj/4Ij/sv+Hv2r v+Ch/bir56cldcEwLaknFNz24g9V+XSjj6YBSqNUKT cTpfU2WCGWAQfPtx81lm9JmxixjfkoJ45jyE5xYrPLPernGeq6V4Gq7s/Qv8yt5WcU0SsAkw5A+OvjW0 u1+1x69mgqvgBvXt/uQyzVtsdH4ui1K797K+wN/wXH+Bx5TRkTjxA6Eo35j+F1wHWp1Slran9apt7umu tDjPzHxCoD3N1xVKRmeTXJnJzFGL8HwtIUTmtbUHxO cAV+Ln/B0v+i48y6V5/lAA40qgID5js926fcEeU4oedHvOEUDWDcfsJrhU3DMUbanSBKp1hGWxrbPH7T U+r6dmq5woSzbowSciNN89J5g9Dx0A9T4GqfK2G+E/jU6Q36vYFYyDAhNLnvX4N+JLKLUNOvIlZVnhkU Hr0nJwvj0DeAffMDIxadad59k+XLh1u6l2k/2B069c q8F6kg2S0CNoa8zeVYTdXg3f7GG/QJ1toqs+B1+gmXBzOIip7IoLh6E20dlV+w2YXap9TyktOJHnC74K 4k/8jp4A/wCw9L/6a7+uubqfpXI/En/kdPAH/Yel/zZDXi83z7d2LQBwI3p8xMVLPqtkGCvxPXFNTWIE AUUUUAFFFGcUAFFFFABRRmigAooooAKKKKACiiigAq D1o73W2wakaSnVEUw9VgsFDsctkOOcdBbCkBw/AB/5E5J2yt7D34fZ58UpNjim7ad5a7dIzEFUmTp9A2 BlJdnYQr0AzewBXGuG/Fz3gz6S1X7/tO/wTzojKYtFBg71e2A5W3PSnxeo/dGJiMerunS6CldvgDRXCk BP47jskCeSqNBpyEA35sSh2GW5pR0Osrh6d8VlelMp fDq+/aI+SvugzN62jxS1MXA6ZbwuWqZyeXX6B3CaJgIXrakQ8QyWSmz2aS/wSbSDxmmuR/ZhxA3SyPBV wSLlB5ncX7bcl5UVY/BcypoqWYHIRbwOXz727U2ZrCuRKPXJlB4+a/tfwT9ghYUatSgLMRuA0jj/AMn2 8vU+1fCX/FSGyx4GWAS/0Y98AEA6zSt538frWUeHVl m+SdKhZmIWNdbCbVB8l0EBdTArhpY/GBAHmBR8SureeNzB2d5w7S+J/Anna+PWllR73zRno0JApef4xnN [file] EgMDAwMDAgbiAKMDAwMDAxMDAwMyAwMDAwMCBuIAow XUSkOFQcRTP2KDWgOTPsZX8yZvGnOHXkTHF3AwokEBAjPZIbvmLWEWFbEXVwZEz4UjEwPDFvQKPeJZrj VXXzAOBdLoQvVYAjRZQyTH0aFdXgLQTcKAY3HBqaRHGtALVbyeFVZRIhUFHfYNjeMpGuAZCnTZBwQPlt AXOoMKT1DLH9AJCiFSLlEO8cDbUkLCIbTZC4LmTzPG GeUACqrrQGZLHiZWNdRRF6PRJrWNZdLSMsZKvsQIDfZXJ2GoTrSDJqICFxHM1qXjKiIFDiYZXmRLMmER FjCOJygjFDWOZnCMZhVUShRGXlBIUjASJdWEhxKZBzOCM0SjR8AOGyCNPiDB8nJkKcJIJgAtexRjcjBB NzJXAkxoPVCQWwAVElSUW9RgWhPJVnYMKbJRhnSVQk ZXZ5VYU1HJHoGQZoLQ0tRcQhLWVxKDw2LlyeLLMfMUFzpjTVLIQxHPFsBGWqAIVzCBVyCJOaPPkhHIZn GOMkXqTiTBUqPBFgJE0yBsGlAYRrDGf0SpXmNEPxBJQyiwOQYJPiTTCdXHLfLRGpKDKsJKFpRPieGQXg JOFqGvSkKIVsDXXfOE6tJnUhMAYeGeN6QskuMDOtXA JwydDIYLYqXNLyUVS8MYBkPSIlRELcLOupHGBiWPI5IuE4ZDVxCQLbXP2jAqFkHTKcPhz6QUYzTENaAO MxenXGAIAgRAVyNMS3UXOmGGUmURRkIOwrHDLdKFC2BlQ8GFXaPVNhSW6yZfRfEJSiMef2KOMcJFFdOF IxxsXAEHXvEIZoEep6PWOyPMXtEOAbLTjwLXBdMKC2 FSUpTCJxIDWlTS2hFbLfILIzApy9LHpmLIXyBDYvljQMHMPkDVQuFFB0CyWdJAUtSUAyTBhpMTOiIRU6 Zih2RLIpKWPuFV8mUdToGARjPMz9VFljBZKrAVTjyyMACDHiRHP4VHL6CpRqIFTaLYLlPLjtWOLwRTI0 EZutJHAtEOOnGK0gJkKsAVLdSUMqBsPhRSWsKZHqbo GEXXYzKTE7AQGvLkCjUCIlGZOzZJmjPHEcRFP9Ndy0GCFhVWNkJD6pOxQnEGKkCLP1IJVkAJKjBTKqts KRbYNgnLlgpob3WDrqE3c8GFP0AotlDX2mqkJhFJRcZatiEo6dkPKbWCBaILMTSz7Zo0HhzyE4zuBsZe U5UvOcHaPeIZ2WHe== ID Date Data Source [id number] 08/31/2020 12:00:00 AM EDT [facility] Name Value Range Interpretation Code Description Data Naomi rce(s) Supporting Document(s) WOUNDCARE [facility] GHSOAx8vUmUMDCUkVS6khjm7OGyhASn2mCWmLU2/FVQRFRBlTD3DIINLUCJXUWGsAZxYmjHxFUiNGIOA SN9CLMjCMNNOLEMIKADeRMaRUSAgRCBLTEWjWFfHD6Utp7D9B9LxQWb2d0y4bMo5x6IyEzmBD1SxMIV9 qM7uVSR2YCOoUNebSRAiEZSrJDY5TuX2FrcXQk5NIF 9ba8JtJlBiERRwXhdTSCvMF8B8rQGoU2G8iDcQzKU1QOmbO9MjcED3GVtoQ28eSR9iDzrjO8DiHN9pIk 0GYKEfHyIBB3KEFsNyIZzkRNvjX95kp0tlQ95tirI+HmyjxlYgPqyWQREuNN9xfvihS1RufXTsnp5hR2 CfzztxYKXMSt0YMI5wr4XkPzcoFXEjTdnUQZdIP1H8 oFUeI6vHLftoJ2UIU2Z2JfW6dQBdM2ehUPhvQx5BkNX9fYNmNYTWD5ridLyihAT9ZArlMpw6i7WyjnYy cXWlbnShtYE0Wn7Pv8ldnlPxGCNaPH4EYVGyM8UCX0YYX1gzove9yGCnAQIzWNHOZ1XmtRMdkqHcMVFE UFOyt2YrBt6+JsP4hnAurGi/2P/gABBKRklGAAEBAQ EsASwAAP/bAEMAAgEBAgEBAgICAgICAgIDBQMDAwMDBgQEAwUHBgcHBwYHBwgJCwkICAoIBwcKDQoKCw uMJLcOTU8JZGaQJauULL/bAEMBAgICAwMDBgMDBgwIBwgMDAwMDAwMDAwMDAwMDAwMDAwMDAwMDAwMDA wMDAwMDAwMDAwMDAwMDAwMDAwMDAwMDP/AABEIADsA +gMBIgACEQEDEQH/xAAfAAABBQEBAQEBAQAAAAAAAAAAAQIDBAUGBwgJCgv/rFF0OCTWEGOUXwIVTSKY LWKCVJ3AWzCWPPFVHmPqWPYNXXOFXdXWPtFEhEjjHjDSDNYI5LGwHsVREVdICksZVjHpIndyYhG2Qtn7 VJqGPDGKY3rTNuCTHRJWBXahY4XuHxyjgHovuLS4c7 t4apTBdXdMfHbVnwTRqDoDfPwgplQnumfomWavfxW3jsx9zFh3buTCfxzTiJkK5wQV0trR7Kox0iAm0K Xm5+pa0dFv1/T19vf4+fr/xAAfAQADAQEBAQEBAQEBAAAAAAAAAQIDBAUGBwgJCgv/jQZ2EHCQLOLFOE FWLoPONPILEwhLVDTAFDZLSEZYJyXTL2VzKtSvqUhB JgItpjWTKwPN5LHnmgCNHvI13JIzWogTOaRbTHzyJDR3EYy0R1GQOurDQJoZMDFZE2qVWqKwRNMdrAzs m7V5mtl8uDyUs3DWiljIxUnOy6KKfdpMmWhil4Dlpmclhcwna1Z6yvy2hxxGi5ZMublImjiH02OF3xdR 2dri4+Bv8uzx9itd4/T19vf4+fr/2gAMAwEAAhEDEQ A/DZ03jRJrifNvgDGEP4q/APBZv/fzW8q7l2iy73DfqTqx5Xe3ZpH1c1v6SNghIk4clRamnIZvPZRR29 Ovo9hBA+LO8mYr61opgbkUcBvrc+x58VvF+mHF8cfw6J6oG4Z8i1oHZPvibyYs2wr/nj/4Ij/sv+Hv2r v+Ch/lvc64gefmOvWubnRSs98a4F+MXym5THSeXMUW jEclN4XJIGDJcUol07ll2YnoxkvfxvL37zvU4pUxNJMnasGcy0D4Zo5l/Ol2uz6CqA7SmHtg5E+OvjW0 u1+4w04yooieSvPl/cYcyQgqzB8uu7U988P+wN/wXH+Bx2HMvBpsN1Ra00z+T3gBZk0Qwixk9byb8ggw qDmWcBbXzQ1N9cVUSwtBMDsKuQYN7YstQVOtkgTPnC cAV+Ln/B0v+k11n0O1/aRT36gsIX3zk401ljPfV8xfbMtDVKYAXxnnAuiX5XPQrvjBYCd5jLRvexOP7M U+t5fva5wuKuwajCenVI50X4z0Cw5X0Q5EaqO8P+E/fD7A37tGADcQMyUWqaA0J+JLKLUNOvIlZVnhkU Eg0oXxgp3SjKmhYPYwtynd85d+UGc4m6q9x/0S619w m4U5ar6Y2SUan9kqKOJkWn5b4MV/AG5fwlx+B1+ofNNrXEcg0AzQu1H52fjX+n0EKhm0UoelLPLwB88C 4k/8jp4A/wCw9L/6a7+uubqfpXI/En/kdPAH/Yel/eJUOt24t9i2EKRzU0k2lGOLPxhsIEkkCOLZAYQC AUUUUAFFFGcUAFFFFABRRmigAooooAKKKKACiiigAq L3x67W5ysecEtGTQn1YrnXYiqszCZopNtFtXe/AB/2K7L9rb8Q53yU05IzPuro6oc2k5tDoUVNpBp8Q3 QrKvmNYb4YuihZXOxM/Ek5si2L9X8/tO/nOpqlOEwHJd64m4E8K8YTubal/hDLmWjczlI7WtejkNFBSq WQ89clsHrTeCLmgPT86lUi0OL3oB5Gnhj1w2OsaoVe fDq+/aI+OdfxrF42riL5OCG3IuqzNwBkaNX1J7BqXjBAxbyW3HlHIjq8kA/wSbSDxmmuR/FtuU4KxPZX jTRfA5mgV9uqe4PPU/PjeecpVGAREelKHc943K5CeBeNQVDVjT5+a/jvtS6yvBFchHcDLMmZ7lw/AMn2 8vU+1fCX/BFPfj4XHRO/4W46BYQ6xSc487ciXWoWEy m+ZqBtIbHBDjfXfTR3s2MXrAIvrsZ/ACJKzDK0QjsibVzM1g8d8U+J/Anna+VVajQ70sKdp9HTond2anL [file] Lxi2pU6UY6WOAiiUXwrhlE1sUcnz+yckEhXkb0PTEEqJyBJsaCkB4Uzp/GlK4HPAg2PWLLqJ54Ekq/GIZZARD PULLER [file] EgMDAwMDAgbiAKMDAwMDAyMzIxMyAwMDAwMCBuIAow TLBzWVLrIMZ3ZAQeTWWnVA6mCeGtORKwUaozGnMzUIWzPQWyofBOZHKgJZQwUTZgXFAjMTVhNFHfXVjq NRVrUEO5YsL4FTBhOMQwON1nVlStJITgKgIoQqjzZCYzHFLqvmOJDSFsGMCiNSM0RONeKGGgFILdLQdo GCMoPBA0FtO7OGPjDCKkFP7hXfVwVIYyXhx0QGDxWY PzHHZaqgDZORYeBDPrVQM7LjBiTGEmHXHxIBhfJVDkXDF2FaRhSVPgWPAqGE8qBxJzUQOpXzj0YKXcNQ QgSPGvalNZCTUlFIM8PSn7CVHgTASzMRUvNYsnKTUlNGF5QZc6XBXkNYEaPE6uQbLvWAAxZIb8JlSjVA YrCNGrcaPYEZAxWPT0WSXvAJDdJXDqUKXvMNzxOPKk YZZxShmxWSQxRLZlSX9tQuLkRYEwUWQ0NsdjQVLqRLRicoQFBFYcARP5JtW7FeSeJANqCNSoZGhoWRIi YOE4OrH4BRYoKOHdWY0pHcEiNHtyHTXWSOgAR9FgotXjXvXGU6mzEt7wPBLzPZKKG7Yby2CqCaBqXDBP Cj4+PcP9SEA5iBYfJwb7ZjNiTfqlWPLHRcb= ID Date Data Source [id number] 08/24/2020 12:00:00 AM EDT [facility] Name Value Range Interpretation Code Description Data Naomi rce(s) Supporting Document(s) WOUNDCARE [facility] YDHZLs7dIbBAZIVqGO8udfx8KDgmUSl9tKDlUA3/TIKEBKPoRN7BNZAIGNIYSPHwUQfEhkEaFWoRQBSO QL9ZRPyZCOXTGLJSGBZdDZeCAASnYXSGPMImHAkCT0Zsf8V7G6RlOEf3q4m4aWn1w3KoDyqQI6AfOJN6 nM1uQOS2SIDyJIiqTPUeUZLvSGC2GeAhAGrOBv6YNF 7vl0GiToRcWNSnEtaJXQfCZ2X6xNMpL9U0cQqWcXX1KQjbP8ColTU4ARspH28mWZ4rPvkfH8FnAQ1fAl 3NPBSgAuDDU0TUGyRgRSdeBOexX72ld1vhJ39ajkL+FsohwuYpDmcRFOAjMC4upzsvB6VlsQXyod7pL3 WptjaaFBBCYp8POY9nh1ErZyqoCXZhAglWNKlUE0S9 uZXtK4kICqabW4NEL5Q7RgB0tDOvU5ruJWjxJu5MnCT4qJScJUGID8cmjJohyWH7TZcjAsm1u9SaftSl wKUdleHmvRN7Wy7Eg6jngwJfOTKcSZ5HWAWqX5YVL6VPL8frteh5dSPeXCZlSDOEB9NrmONjabOjMUGE GMXdf4KsVj9+JdN0qyClnRe/2P/gABBKRklGAAEBAQ EsASwAAP/bAEMAAgEBAgEBAgICAgICAgIDBQMDAwMDBgQEAwUHBgcHBwYHBwgJCwkICAoIBwcKDQoKCw vCUMxBUF4QGNnFSwoRSI/bAEMBAgICAwMDBgMDBgwIBwgMDAwMDAwMDAwMDAwMDAwMDAwMDAwMDAwMDA wMDAwMDAwMDAwMDAwMDAwMDAwMDAwMDP/AABEIADsA +gMBIgACEQEDEQH/xAAfAAABBQEBAQEBAQAAAAAAAAAAAQIDBAUGBwgJCgv/bTR0PCSPCAPWSbIELZWJ NOVHPS9PTpDEJHLKNsPcKJNNOEPPGpCPLiSUcWdiEjNWHAJJ0YYqCuDJIQzDNbbVEwLpVcfoKuP9Nqq6 AVrRWBDXG3oQXcLOPOMYTJmeG8MeHhyhnPdsaKC4w4 r1guDUsWvIzNyAxpMYiMeMcAbpxbAykfrttBceafV4lxt4xJr3xvORyloJkPhK4zOX1wnO7Rnm5xEk4G Xm5+kq0gQq6/T19vf4+fr/xAAfAQADAQEBAQEBAQEBAAAAAAAAAQIDBAUGBwgJCgv/rWT0EJQEZPUXWR YZNkXUTATEUuiIHEAXBPEIZRUKMwKBB3FaSiQizXrP XvPvraBHZgMV0QRebmQEVqK95PPhQmfKRiVePVfmEAF8QCj4V3TBQxfUBVgGYSSVF6fSAwTyLPTcvSct o6P2fuj2iPwZb9MYrirRyIvXt4MAnphHdUbwk7Ulnhutdihyj0N7urq8lyhLs2QLnjuEqovK73WV8twQ 2dri4+Gm9byw2tgy6/T19vf4+fr/2gAMAwEAAhEDEQ A/ZR67uTNfvmJkiUKEA8w/APBZv/bhH7x4g8ul92ZhxDcr7Yh9JjP9k4e2UVlfKx8yrKrmsXCeGJKL61 Pgz1lHY+PO5fUt23zssklZyRfsr+x58VvF+eYF2hpb6F4lJ9C8x9jGPAlpcyYt9qr/nj/4Ij/sv+Hv2r v+Ch/pfz63ctryQdTyqxFTm88w0Q+IZgc1XZErSZGH eMecY6XLQVCFvUev65vz9TtrwcyrpuR13noQ8oPqYTXoeaGqh5Z7Pw2c/Qs8nq8HzU9CwBuq8X+OvjW0 u1+5j26robgyAvMc/qJogTjuzN2tf6Z051E+wN/wXH+Iu4XVdBhvD5Fd14h+P9dRAt9Fdnru3smq3blc pBoUhLiQrZ8N5uQQPtiIGMmJeRMG3SaoOTKjqoQWbW cAV+Ln/B0v+z99b4K1/cQU06ywDS1hs247ghMoA0cziLtKIJFLBxevOuxI7YKXyrbSDKg8bHBtssEC9D U+s8yfd9yoTifvzFqpNM56Y8n2Hu5X0X1YslV5Z+E/tS8I20gHQQtPUmOFntI9C+JLKLUNOvIlZVnhkU Jz7zAmcs4LiOflDODhuhkv92v+ZPp8y9p2h/6J850p a9J1qb6E6BInz8eaJLEjLe5h2FG/HA4nybc+B1+odAHcRVip2YzZt3F36jmF+v6PEnz3BwssAXUhX11U 4k/8jp4A/wCw9L/6a7+uubqfpXI/En/kdPAH/Yel/zHNGe00s0w1EPBkF5d8eWPCBzclLUcqIHOPHDUX AUUUUAFFFGcUAFFFFABRRmigAooooAKKKKACiiigAq S6i10B4oifgLsZZNs4NqfGEsujsFYjdPbNqFl/AB/9V5I4ra8F66mP42QiAjpj7to0t8lOvVDSkLr0U4 HoUzzJIv5WukcXAVxB/Wu2ra9H1A5/tO/nOcyaMAmMJb10w0P4J6VFaemj/uBAzZualmI9CdkloMIZQz WE09nmzCdWsNPwqPF24nLy6EI4oY5Rjry9r2EkleAg fDq+/aI+VinrkO81joF1EOW9QowwQnPoqYR0E1UnBpGGvtmE4KzPDei0cA/wSbSDxmmuR/FruG8MjKTA mTSvD7lqE6jbi1LJD/YqsnhsOFHTElvFJg471F5WwEpJBKMJcB5+a/hfeB0xzRAvbRnOQUtU1yp/AMn2 8vU+1fCX/TNIxt8ZJYW/0P34DCK4aHg555zaKUiVLe m+UdGbPxJKCisEeCH5a4OLlPAtagD/JRPYgPL8CjohvHvC6d7w1X+J/Anna+WRgvL54cRln0AYvsh6qkD [file] QxItx4UKO4YDnoGJVKIbj= ID Date Data Source [id number] 08/18/2020 12:00:00 AM EST [facility] Name Value Range Interpretation Code Description Data Naomi rce(s) Supporting Document(s) WOUNDCARE [facility] JXIRVo6oPiWTXOCfHK4rucb3IBmcGBe3nAEpKP0/JFEFHJZeCT2IEEJHNASBERNyNRwLhgXxFSqICFFD QH9HTNfKAFJRUBSEIXFgTYzJNNYkIWNRRQJpZQjZK0Kfa3K5Y6RhTGd5u2e2uRf9b8McZdxGF4UdUTV9 hD7gKRK8EFJnXRpmXWQuHVZvHfH0ZOQ8PieIYx7CZB 7jx8TmGzLwSRXpMmgKMXfTD9B3jOZwG0F4iLvIzIJ1FLuhB3WdeHJ6HKulE91eXI1yYvpkH5IcZX9qQb 2MPIMgKtRRK1JOLaKdRPctDQshH64zg1fuF58kvnV+BzcyhvXfUwuKPZUeDG2kpghhR9TnnRKvhb1jP4 GripdlEQIBSm8LWM7li7PiLzlzRPPpCmoKMNaUU0J1 fCYzL6vYUikjS0GXT2Y4KrN6wJTaQ2ajMBvsXq9ZnZS1yVXmXHNOJ1wmcWbyvFE1JJuzLrd7g5NygeYr jPBjzmTklNT0Nc9Rz7zoaeIqPTNuMF1EASMlD7CWZ4LOB2ydwqc1wRWlNOErKKWUR7VmtRJyneFzKIOE ABHbb0FcJd4+GiR5qeHgeAh/2P/gABBKRklGAAEBAQ EsASwAAP/bAEMAAgEBAgEBAgICAgICAgIDBQMDAwMDBgQEAwUHBgcHBwYHBwgJCwkICAoIBwcKDQoKCw fARQbXCU6TLYkCQqfLMM/bAEMBAgICAwMDBgMDBgwIBwgMDAwMDAwMDAwMDAwMDAwMDAwMDAwMDAwMDA wMDAwMDAwMDAwMDAwMDAwMDAwMDAwMDP/AABEIADsA +gMBIgACEQEDEQH/xAAfAAABBQEBAQEBAQAAAAAAAAAAAQIDBAUGBwgJCgv/fGJ2MSFCYRNOSoVEFURN CUSDWY4YFfCSTHCRYaGwNGLLNNKOEaRBUnZOwXxnUjTUZJAK1EIoSuAGZZyGKhvKJkCqTzuiKxN8Vdn9 IVxSHAGYZ4sQTjLOXAMBKGavG0TzJonprDmrvTK5j6 r4ifTXlRjJyLeArrFTmHtGuTqxmcOgvzvcrTjcgtR2nnm6sVy8flXLeiiWqOyW5aNP3pgN5Nqv6wOn5P Xm5+ox9jQm1/T19vf4+fr/xAAfAQADAQEBAQEBAQEBAAAAAAAAAQIDBAUGBwgJCgv/oPV8KZNBBMIADU LDReVAGZMJJsgPGETGRJDTRIMUPbEFE5UsFwMfuCnS ZmMazmDQSxNC2DYfmtFZPqL96XPvNqhSQsFxEJyuERI5HYh6Y8NMBtxRDVlHPGROJ9tYXsRzYOPplQjz v5E1gxh5nLjUf0QOhwqFvKqTx6JMjgpXwAhzm5Tjhhhjrghvf1K9lgt1jnxCa2MMfljVpaiH26XC6wfK 2dri4+Kl5ugo5nlf8/T19vf4+fr/2gAMAwEAAhEDEQ A/LR57bQNwtcCoqXKYG7y/APBZv/dbZ1p3c4hv82XquErl1Dh9ZyR9f5w9KJgbIg3cxDdynQStDOTG12 Dvi8zEK+SS2sJd30qkfzoQiKiza+x58VvF+jBB2aqp8B1wC3T8o4cHUFrgjcKx9kp/nj/4Ij/sv+Hv2r v+Ch/zoo72unraEuNmpdJVq82v6W+RRdc3UQOcFAOY gZzsS8ATTITVuPgr72ut8EigbkdmfnS32xbV1xAzSLDgucFui7K5An6r/Gd1pf9ChH5YxThg7W+OvjW0 u1+5r53pvrbwQsNm/zZbxDyifW0sb5A000I+wN/wXH+Le2LJhZufW4Iu10j+D1vRBj6Gbzcd8llg6ovg xXhGbZiByL1B2qPXIpcYXMqPnCLP9HbbNVSxvrCFfR cAV+Ln/B0v+l69y3F5/oZU93edAP5jz678xmKeS0ekhYdFNZMVItpfGpjT7NWNbzjAXAc8qRCsplCD6F U+n8ljs5hqNnomxYttBT31A0e6Xs2V3Z5FhpX6D+E/rX7Q60zLFOuCXaEPelL1V+JLKLUNOvIlZVnhkU Fv7rDhdm1UgRojNVUwmcye71v+UWc6m5g0e/1J652d u1C3vh6Y1HLpv2evKKOaSn1g0RP/JA9unms+B1+lxXUvUQof8EaMi4P91viJ+x2LVcn7TidfSNVyP23O 4k/8jp4A/wCw9L/6a7+uubqfpXI/En/kdPAH/Yel/lDGDj59q7w8KUIqB5f0jGWPEfciVIxoOJPBWJCL AUUUUAFFFGcUAFFFFABRRmigAooooAKKKKACiiigAq V5k25J3egwuEnWNZp1RfdNZhkbvUVukIdFnBg/AB/2Z9P2xw8P26mI41YdHrip8ba8n6tHbZHYbDg2W6 NgDjgGOy8UqufQNXcP/Mg9jt4Q3C7/tO/vWwwkGBjIJd00v8G9I3DNktbi/lZZmQjcuqL7HrljyFEZEq FY10qloUsQeNJfyKW79oVv0TF2qZ0Iqxz0j9DzvnHq fDq+/aI+JyiyvY48jbU9CIN7AltgApBftES6P3YkUyUKastW5XgPFzn2uR/wSbSDxmmuR/QxaY5DjETJ nFNkJ6jpE6pou7DCC/QjyydqDDLALupUSz056H7OuIyCBRUPuW5+a/xrpL8jtHAfmZkTWUaE4kd/AMn2 8vU+1fCX/EWBme2UBJZ/8F09MSU5cJj024anCHbSRp m+NuVlMdAMAhiKvBK7q0EXiZRvcaK/FEMAoXL8AvcqzDzN0u1s6J+J/Anna+WXxwB87zVnk2ABahr5shK [file] VPRgo= ID Date Data Source [id number] 08/17/2020 08:31:00 AM EST [facility] Run: 08/17/20 1140 INTERFACED REPORT Name: Greta Slade Sr Age/Sex: 55/M Location: [facility] Acct: [id number] Unit: [id number] Status: JONAS GORDONI Room/Bed: Re08/14/20 Disch: Att Dr: Harika Cr NP Specimen #: [id number] Ordered : 08/14/2001/27/1537 Collected : 08/14/2001/27/1500 By: OFFICE Received: 08/14/2001/28/1536 By: GMACDOUGAL Source: FOOT Specimen Description: LEFT Comments: Results called to [facility] at 0855 on 08/17/20 by AMINATA [...] Run: 08/17/20 1140 INTERFACED REPORT Specimen #: [id number] (Continued) Ordered : 08/14/2001/27/1537 Collected : 08/14/2001/27/1500 By: OFFICE Received: 08/14/2001/28/1536 By: GMACDOUGAL Procedure Result FOOTCULTURE Preliminary (Corrected) (continued) After 42 hours rare staph FOOTCULTURE Preliminary (Corrected) NO GROWTH NO GROWTH <18 HOURS END OF REPORT Name Value Range Interpretation Code Description Data Naomi rce(s) Supporting Document(s) ID Date Data Source [id number] 08/14/2020 12:00:00 AM [facility] Name Value Range Interpretation Code Description Data Naomi rce(s) Supporting Document(s) WOUNDCARE [facility] IWEFSh1rScVXAEPmWM7ropj2ELpeCNd2xWRrGF1/BWUSFYGwYH7PLEQNOKMXKLTfWFqSoiZqRLpYZEAP XW5AVVeLBZDHROHBQXRuTSoNJKQlGBWRAUOcOHwNY1Twu9I0G0KuXQy5y5o8vIi5e1PrCugCC4PwOIT2 rK5lMUR5GUUgGXeqXVFmNDIhYPAvYDR7SEiEZn8ZTQ 8lz9YfFzWlYPPtMbbAXRsFV3J5aZVyW1L7uNkKkLN2MKzgD8IllYR6PNwxJ26iUB4gOhzmC2OoLV0cGr 7XNDTvOkBQL4OFUsBnYSnpEFfuS96gu0pyU00ulbV+YhmyhrMlJilDEUWpJO8hcvrrV6McbQHhai5lF9 HrdytwKHAYXf9TAZ1de0FhUehbDOSfQfcMZZtPV4I1 bPQiD8vDXlqpP7EKZ9P5YwM6bKAbG8ydHEqoXs4JzGK0mCHaMRTJO8uonQkkcCR7ULivZfy1i9PpwbGj hBMywfLnzTX9Vq9Dx7xjytMuXBKiCC6RKNSyG9SUM1BJU5jmdui2dDTnQOIiGMVXT9XdqMPxkiDxLMMI URZdf9RpDs3+CcT9sfGhqCx/2P/gABBKRklGAAEBAQ EsASwAAP/bAEMAAgEBAgEBAgICAgICAgIDBQMDAwMDBgQEAwUHBgcHBwYHBwgJCwkICAoIBwcKDQoKCw kDJKbHNA9JOAaNXlbGUY/bAEMBAgICAwMDBgMDBgwIBwgMDAwMDAwMDAwMDAwMDAwMDAwMDAwMDAwMDA wMDAwMDAwMDAwMDAwMDAwMDAwMDAwMDP/AABEIADsA +gMBIgACEQEDEQH/xAAfAAABBQEBAQEBAQAAAAAAAAAAAQIDBAUGBwgJCgv/wXE3XDEVJEHXPbXALXXG LWZQCX4CVsFBVZDHHzNqIOYYKLRPCnKAErTRqNtkVbZUEBEO4QWxTmRDVAkOTzgLBdCkCgddKwL5Qnd0 WOkKAPJRC1dUTtWRTPHCTCqdQ2KrXayrxZgebIW6f0 v8cpQGlShIiGhYvtEOsYbEsWnojzLkvugmyEpfjuT8rak2hEr5vdZTayfCuWfI9pNQ1vwP8Fuu8cRp8O Xm5+xv1pFb6/T19vf4+fr/xAAfAQADAQEBAQEBAQEBAAAAAAAAAQIDBAUGBwgJCgv/zKV2AHRQVRONNR WARkKVIKBXYesFMYIKHJSVXBTZSfDBO1XyKmPtgZhI OqBvxwXDCbDH9SMpmzLEUjA66GZsCuwRNjOlNDqeFEZ1SZh1L3BLMkbBOQbUNPPXV8vOEaQmPOAasDbk u5U9mwp5xTePe5WVpwlGdIeEb0VNhzyAeGpqn6Ccdhvidlamh3Q1nzp3xlbWw0DYneaNdzoY56DV1cqS 2dri4+Tw2afo2hug1/T19vf4+fr/2gAMAwEAAhEDEQ A/YN47vDMsmdIwjRGQF4k/APBZv/pcF8w9j9yz29SdyNkr9Vb4HlU7d6a5BWmcHl3olMpzmAOvRODT07 Equ6vSF+AB4wSz80otveeUkGpnf+x58VvF+kTU8dfl0S9cR7J1j5rGNWqcgnHx4ai/nj/4Ij/sv+Hv2r v+Ch/rtl21gghkYgJzljCLk29r9O+EZlr3HZUnAXOA fIomH6IUTQDGvZst39vv9RiqtmpqugZ78xaC1rIqPKFqgkGgo4A8Do8q/Zd6no8XbL8QtNda9T+OvjW0 u1+1h84wxppuFuNw/aTqkZdgvP3tu2N147E+wN/wXH+Ki4HXwHcoL2Dn82e+H6xAUy0Dlurb9ubp4wwn xVeOvQnMsI1W2dCPDkcYMOlMuQFP2XmlWRSzxmEPeJ cAV+Ln/B0v+k21f3S5/pRA25gkAR0kn978cxExP0vywKzGZZGIKrcsTerS1SFYuxySIHt1qWLwgsSI6V U+k4qep4ceOfvrwNviLP14C8n4Pk3Z5S0ArcV3G+E/sB6Y77qZSZzEBpJGouG2R+JLKLUNOvIlZVnhkU Gt2zPqvo0UoDbxEHGujkcp47w+QUa8f3f2x/1K968j a3Y8dy0G8VMko5xwJSQfJp4r8BR/VK9hhhh+B1+phNCdGRqd2WcDx1G56owB+z9CPmv5EayfQMGcL85A 4k/8jp4A/wCw9L/6a7+uubqfpXI/En/kdPAH/Yel/cSFGq41o9m1DPNaN8z4kVTTKdqzCPsnLSLVPFEO AUUUUAFFFGcUAFFFFABRRmigAooooAKKKKACiiigAq Y4z99D3cdtcTrYTAt6WubLNrfwfZXfsZoBjBv/AB/3F0C5ir9X50zG53JqFdoh8ur5p1nQvIQKeIw8N1 ZwOqwPCj4PkovUFHjF/Mb0mn4R1A0/tO/nPnufXZbINr89x1N5W9KCizsh/zYLtOupynN8WfxzmJBIHa TH00fjiGuSrJQeaXX66oMr8BL1tA7Rstv2u7OhdqLu fDq+/aI+NpplbD10ffV2TWX5KbkjZmZasMW8M4LuLfRCtmvI7CfYPkj3mM/wSbSDxmmuR/OlnI7UtCCP yXFsJ8ifI2qwg6SWW/SchbkjGAVIIykBAf660I7DaIjGMMLRqP7+a/twaK6vyKKunNnSGYsE7ni/AMn2 8vU+1fCX/EXIjz9IYVQ/8Y31PAQ6yOj937znFPhIPt m+OcPdJrUCHtgQdFG6q5QWbKWpivE/XHMDsQZ7XxogpTeR2g3x2E+J/Anna+YHcxR15xSxv5ZQqpl6dzD [file] zzIrw/E7s+Z/5/9/9o+G9A////[employer]/3/p/mf+p/PROR8C3vefMnlQqyDB+C/rYJdTGH9+spcRVMdQ4TZI [file] [id number] ID Date Data Source [id number] 06/16/2020 09:16:[address] [address] Patient Name: Greta Slade Sr Exam Date: [...] the prior x-ray. Professional interpretation performed at [facility] . End of diagnostic report: [id number] Signed: Sugar Mims DO 06/16/20 1026 Interpreted by: Sugar MimsTranscribed by: Sugar Mims Name Value Range Interpretation Code Description Data Naomi rce(s) Supporting Document(s) ID Date Data Source [id number] 04/25/2020 03:39:00 PM EST [facility] ([facility]) Name Value Range Interpretation Code Description Data Naomi rce(s) Supporting Document(s) SPECIAL NOTE See Note SPECIAL NOTE [facility] Note: Requisition# [id number] failed to match an existing report with that requisition number. To avoid a potential conflict, the requisition number reported in the 7 messages will be changed to {[id number]}. ID Date Data Source [id number] 04/20/2020 07:54:00 AM EST [facility] ([facility]) Name Value Range Interpretation Code Description Data Naomi rce(s) Supporting Document(s) Reported Physicians See Note Reported Physicians [facility] Note: Reported Physicians:Ordering: Magali Vegaending: Magali Tapia ID Date Data Source [id number] 04/20/2020 07:54:00 AM EST [facility] ([facility]) Name Value Range Interpretation Code Description Data Naomi rce(s) Supporting Document(s) Reported Physicians See Note Reported Physicians [facility]) Note: Reported Physicians:Ordering: Magali Vegaending: Magali Tapia ID Date Data Source [id number] 04/20/2020 07:54:00 AM EST [facility] ([facility]) [...] Testost., % [place] Testost., % Free+Weakly Bound [id number] 800.3257 (A) Testosterone Free/Testosterone.total in Serum or Plasma 70.3 ng/dL Testost., F+W Bound [facility] ([facility]) Note: Performed at: - [facility] [id number] Cylindrical Mixer: Susanne Paez MD, Phone: [phone] Performed at: [facility] [id number] Cylindrical Mixer: Boris Jarquin MD, Phone: [phone] Observer: Testost., F+W B Testost., F+W Bound [id number] 800.3258 (A) Testosterone,Total,S 250 ng/dL Below low normal Testoster one,Total,S LAY ([facility]) Note: Adult male reference interval is based on a population of healthy nonobese males (BMI <30) between 19 and 39 years old. linda Cohn.al. JCEM 2017,102;7040-4563. PMID: [id number].Responsible Observer: Testosteron,Tot Testosterone,Total,S [id number] 800.3256 (A) ID Date Data Source [id number] 04/20/2020 01:30:00 PM [facility] Name Value Range Interpretation Code Description Data Naomi rce(s) Supporting Document(s) WHITE BLOOD COUNT 9.01 10^3/uL 4.00-10.50 N [facility] RED BLOOD COUNT 5.46 10^6/uL 4.30-5.80 N [facility] HEMOGLOBIN 15.4 G/DL 13.0-17.5 N [facility] HEMATOCRIT 47.0 % 41.0-53.0 N [facility] MCV 86.1 FL 80.0-100.0 N [facility] MCH 28.2 PG 27.0-34.0 N [facility] MCHC 32.8 G/DL 32-36 N [facility] RDW 12.8 % 11.5-14.5 N [facility] PLATELET COUNT 244 10^3/uL 130-400 N [facility] MPV 10.7 FL 8.7-13.2 N [facility] GRAN % (AUTO) 58.0 % 42.0-75.0 N [facility] LYMPH % (AUTO) 30.3 % 20.0-51.0 N [facility] MONO % (AUTO) 7.2 % 2.0-15.0 N [facility] EOS % (AUTO) 3.9 % 0.0-11.0 N [facility] BASO % (AUTO) 0.3 % 0.0-2.0 N [facility] IG % (AUTO) 0.3 % 1.00-5.00 [facility] IG # (AUTO) 0.0 10^3/uL <0.5 [facility] GRAN # (AUTO) 5.22 10^3/uL 1.50-6.50 N [facility] LYMPH # (AUTO) 2.7 k/uL 1.0-5.0 N [facility] MONO # (AUTO) 0.65 k/uL 0.20-1.50 N [facility] EOS # (AUTO) 0.35 10^3/uL 0.00-1.10 N [facility] BASO # (AUTO) 0.03 10^3/uL 0.00-0.20 N [facility] ID Date Data Source [id number] 04/20/2020 01:58:00 PM EST [facility] Name Value Range Interpretation Code Description Data Naomi rce(s) Supporting Document(s) SODIUM 137 MEQ/L 135-145 N [facility] POTASSIUM 4.3 MEQ/L 3.5-5.3 N [facility] CHLORIDE 101 MEQ/L 94-110 N [facility] CARBON DIOXIDE 30 MEQ/L 22-33 N [facility] ANION GAP 10 5-16 N [facility] BLOOD UREA NITRO 12 MG/DL 7-25 N [facility] CREATININE 1.0 MG/DL 0.6-1.4 N [facility] GFR 77.3 ML/MIN [facility] Stage [facility] - Mildly decreased kidney func tion The GFR is an estimate of the Glomerular Filtration Rate. It is an aid to assess a patient's renal function. It is not a conclusive diagnosis of kidney disease. GFR normal is >=90 The MDRD GFR calculation is considered valid between the ages of 18 and 75 years only. BUN/CREAT RATIO 12 8-36 N [facility] GLUCOSE 284 MG/DL 70-100 H [facility] CA 9.5 MG/DL 8.7-10.5 N [facility] BILIRUBIN,TOTAL 0.4 MG/DL 0.1-1.3 N [facility] AST 11 U/L 5-40 [facility] ALT 21 U/L 5-48 N [facility] ALKALINE PHOSPHATASE 77 U/L 40-140 N [facility] TOTAL PROTEIN 6.8 G/DL 5.9-8.3 N [facility] ALBUMIN 4.4 G/DL 3.0-5.1 N [facility] GLOBULIN 2.4 G/DL 1.5-3.5 N [facility] ALB/GLOB RATIO 1.8 G/DL 1.0-3.0 N [facility] ID Date Data Source [id number] 04/25/2020 03:38:00 PM EST [facility] Name Value Range Interpretation Code Description Data Naoim rce(s) Supporting Document(s) Testosterone,Total,S 250 ng/dL 264-916 L [facility] Adult male reference interval is based on a population of healthy nonobese males (BMI <30) between 19 and 39 years old. Lalit, et.al. JCEM 2017,102;3837-7133. PMID: 47451623. Testost., % Free+Weakly Bound 28.1 % 9.0-46.0 [facility] This test was developed and its perform ance characteristics determined by [facility]. It has not been cleared or approved by the Food and Drug Administration. Testost., F+W Bound 70.3 ng/dL 40.0-250.0 [facility] Performed at: - [facility] [id number] Cylindrical Mixer: Susanne Paez MD, Phone: [phone] Performed at: BN - [facility] [id number] Cylindrical Mixer: Boris Jarquin MD, Phone: [phone] ID Date Data Source [id number] 04/20/2020 01:58:00 PM EST [facility] Name Value Range Interpretation Code Description Data Naomi rce(s) Supporting Document(s) TRIGLYCERIDES 164 MG/DL 45-150 H [facility] CHOLESTEROL 206 MG/DL 125-200 H [facility] LDL CHOLESTEROL 132 MG/DL 50-130 H [facility] HDL CHOLESTEROL 41 MG/DL 39-96 N [facility] CHOL/HDL RATIO 5.0 0-4.9 H [facility] ID Date Data Source [id number] 04/20/2020 01:58:00 PM EST [facility] Name Value Range Interpretation Code Description Data Naomi rce(s) Supporting Document(s) TSH 4.224 uIU/ML 0.470-4.200 H [facility] Patients should not be tested for 72 ho urs post fluorescein dye angiography. A false depression of result may occur. ID Date Data Source [id number] 04/20/2020 07:54:00 AM EST [facility] ([facility]) Name Value Range Interpretation Code Description Data Naomi rce(s) Supporting Document(s) Thyrotropin [Units/volume] in Serum or Plasma by Detec tion limit <= 0.05 mIU/L 4.224 uIU/ML Above high normal TSH [place] ([facility]) Note: Patients should not be tested for 72 hours post fluorescein dye angiography. A false depression of result may occur.Responsible Observer: TSH TSH 300.5500 (A) ID Date Data Source [id number] 04/20/2020 07:54:00 AM EST [facility] ([facility]) Name Value Range Interpretation Code Description Data Naomi rce(s) Supporting Document(s) Deprecated Cholesterol.in LDL/Cholestero l.in HDL [Mass ratio] in Serum or Plasma 5.0 Above high normal CHOL/HDL RATIO [place] ([facility]) Note: Responsible Observer: CHOL/HDL RAT IO CHOL/HDL RATIO 300.4700 (A) Cholesterol crystals [Presence] in [place] by Infrared spectroscop y 206 MG/DL Above high normal CHOLESTEROL [place] ([facility]) Note: Responsible Observer: CHOL CHOLEST VINEET 300.4350 (A) Cholesterol in HDL [Mass/volume] in Serum or Plasma ultracen trifugate 41 MG/DL Normal HDL CHOLESTEROL [place] ([facility]) Note: Responsible Observer: HDL HDL CHOL ESTEROL 300.4600 (A) Cholesterol in LDL [Mass/volume] in Serum or Plasma by Direct as say 132 MG/DL Above high normal LDL CHOLESTEROL [place] ([facility]) Note: Responsible Observer: LDL LDL CHOL ESTEROL 300.4400 (A) Triglyceride [Mass/volume] in Serum or Plasma 164 MG/DL Above high normal TRIGLYCERIDES [place] ([facility]) Note: Responsible Observer: TRIG TRIGLYC ERIDES 300.4300 (A) ID Date Data Source [id number] 04/20/2020 07:54:00 AM EST [place] ([facility]) Name Value Range Interpretation Code Description Data Naomi rce(s) Supporting Document(s) Albumin [Mass/volume] in Synovial fluid 4.4 G/DL Normal ALBUMIN [place] ([facility]) Note: Responsible Observer: ALB ALBUMIN 300.3900 (A) Albumin/Globulin [Mass Ratio] in Amniotic fluid 1.8 G/DL Normal ALB/GLOB RATIO [place] ([facility]) Note: Responsible Observer: A/G RATIO AL B/GLOB RATIO 300.4100 (A) Aspartate aminotransferase [Enzymatic activity/volume] in Serum or Plasma 11 U/L Normal AST [place] ([facility]) Note: Responsible Observer: AST/SGOT AST 300.3050 (A) Alanine aminotransferase [Enzymatic activity/volume] in Seru m or Plasma 21 U/L Normal ALT [place] ([facility]) Note: Responsible Observer: ALT/SGPT ALT 300.3100 (A) Alkaline phosphatase isoenzyme [Units/volume] in Serum or Plasma 77 U/L Normal ALKALINE PHOSPHATASE [place] ([facility]) Note: Responsible Observer: ALK PHOS ALK RONI PHOSPHATASE 300.3110 (A) CA 9.5 MG/DL Normal CA [place] ([facility]) Note: Responsible Observer: CA CALCIUM 300.2200 (A) BLOOD UREA NITRO 12 MG/DL Normal BLOOD UREA NITRO [facility] ([facility]) Note: Responsible Observer: BUN BLOOD UR EA NITROGEN 300.0350 (A) Bilirubin.total [Mass/volume] in Serum or Plasma 0.4 MG/DL Normal BILIRUBIN,TOTAL [facility]AY ([facility]) Note: Responsible Observer: TOTAL BILI T OTAL BILIRUBIN 300.2700 (A) Urea nitrogen/Creatinine [Mass Ratio] in Serum or Plasma 12 Normal BUN/CREAT RATIO LAY ([facility]) Note: Responsible Observer: BUN/CREAT RA MAXIMINO BUN/CREAT RATIO 300.0450 (A) Carbon dioxide, total [Moles/volume] in Serum or Plasma 30 MEQ/L Normal CARBON DIOXIDE LAY ([facility]) Note: Responsible Observer: CO2 CARBON D IOXIDE 300.0250 (A) Chloride [Moles/volume] in Serum, Plasma or Blood 101 MEQ/L Normal CHLORIDE LAY ([facility]) Note: Responsible Observer: CL CHLORIDE 300.0200 (A) Creatine/Creatinine [Mass Ratio] in Urine 1.0 MG/DL Donna l CREATININE LAY ([facility]) Note: Responsible Observer: CREAT CREATI NINE 300.0400 (A) Globulin [Mass/volume] in Serum by calculation 2.4 G/DL Normal GLOBULIN LAY ([facility]) Note: Responsible Observer: GLOB GLOBULI N 300.4050 (A) GFR 77.3 ML/MIN GFR LAY ([facility]) Note: Stage G2 - Mildly decreased [...] gap in Blood 10 Normal ANION GAP LAY ([facility]) Note: Responsible Observer: ANION GAP AN ION GAP 300.0300 (A) Potassium [Mass/volume] in Blood 4.3 MEQ/L Normal POT ASSIUM LAY ([facility]) Note: Responsible Observer: K POTASSIUM 300.0150 (A) Glucose [Presence] in Urine 284 MG/DL Above high normal G LUCOSE LAY ([facility]) Note: Responsible Observer: GLU GLUCOSE 300.0500 (A) Sodium [Moles/volume] in Serum, Plasma or Blood 137 MEQ/L Normal SODIUM LAY ([facility]) Note: Responsible Observer: NA SODIUM 3 00.0100 (A) Protein [Mass/volume] in Synovial fluid 6.8 G/DL Normal TOTAL PROTEIN [facility]AY ([facility]) Note: Responsible Observer: TP TOTAL PRO TEIN 300.3750 (A) ID Date Data Source [id number] 04/20/2020 07:54:00 AM EST LAY ([facility]) Name Value Range Interpretation Code Description Data Naomi rce(s) Supporting Document(s) BASO % (AUTO) 0.3 % Normal BASO % (AUTO) LAY ([facility]) Note: Responsible Observer: BASO % (AUTO ) BASO % (AUTO) 100.1250 (A) BASO # (AUTO) 0.03 10\\^3/uL Normal BASO # (AUTO) LAY ([facility]) Note: Responsible Observer: BASO # (AUTO ) BASO # (AUTO) 100.1500 (A) EOS % (AUTO) 3.9 % Normal EOS % (AUTO) LAY ([facility]) Note: Responsible Observer: EOS % (AUTO) EOS % (AUTO) 100.1200 (A) EOS # (AUTO) 0.35 10\\^3/uL Normal EOS # (AUTO) LAY ( [facility]) Note: Responsible Observer: EOS # (AUTO) EOS # (AUTO) 100.1450 (A) Hematocrit [Volume Fraction] of Blood by Automated count 47.0 % Normal HEMATOCRIT LAY ([facility]) Note: Responsible Observer: HCT HEMATOCR IT 100.0400 (A) GRAN # (AUTO) 5.22 10\\^3/uL Normal GRAN # (AUTO) LAY ([facility]) Note: Responsible Observer: GRAN # (AUTO ) GRAN #(AUTO) 100.1325 (A) GRAN % (AUTO) 58.0 % Normal GRAN % (AUTO) LAY ([facility]) Note: Responsible Observer: GRAN % (AUTO ) GRAN % (AUTO) 100.1000 (A) Hemoglobin [Mass/volume] in Blood 15.4 G/DL Normal HE MOGLOBIN LAY ([facility]) Note: Responsible Observer: HGB HEMOGLOB IN 100.0300 (A) IG # (AUTO) 0.0 10\\^3/uL IG # (AUTO) LAY ([facility]) Note: Responsible Observer: IG # (AUTO) IG # (AUTO) 100.1260 (A) IG % (AUTO) 0.3 % IG % (AUTO) LAY ([facility]) Note: Responsible Observer: IG % (AUTO) IG % (AUTO) 100.1255 (A) LYMPH # (AUTO) 2.7 k/uL Normal LYMPH # (AUTO) LAY ( [facility]) Note: Responsible Observer: LYMPH # (AUT O) LYMPH # (AUTO) 100.1350 (A) LYMPH % (AUTO) 30.3 % Normal LYMPH % (AUTO) LAY ( [facility]) Note: Responsible Observer: LYMPH % (AUT O) LYMPH % (AUTO) 100.1100 (A) Erythrocyte mean corpuscular volume [Entitic volume] by Auto mated count 86.1 FL Normal MCV LAY ([facility]) Note: Responsible Observer: MCV MCV 100 .0550 (A) Erythrocyte mean corpuscular hemoglobin concentration [Mass/volume] by Automated count 32.8 G/DL Normal MCHC LAY ([facility]) Note: Responsible Observer: MCHC MCHC 1 00.0650 (A) Erythrocyte mean corpuscular hemoglobin [Entitic mass] by Automated count 28.2 PG Normal MCH LAY ([facility]) Note: Responsible Observer: MCH MCH 100 .0600 (A) MONO % (AUTO) 7.2 % Normal MONO % (AUTO) LAY ([facility]) Note: Responsible Observer: MONO % (AUTO ) MONO% (AUTO) 100.1150 (A) MPV 10.7 FL Normal MPV LAY ([facility]) Note: Responsible Observer: MPV MPV 100 .0950 (A) MONO # (AUTO) 0.65 k/uL Normal MONO # ([facility]O) [facility] Note: Responsible Observer: MONO # (AUTO ) MONO # (AUTO) 100.1400 (A) Erythrocytes [#/volume] in Blood by Automated count 5.46 10\\^6/uL Normal RED BLOOD COUNT LAY ([facility]) Note: Responsible Observer: RBC RED BLOO D COUNT 100.0250 (A) Erythrocyte distribution width [Ratio] by Automated count 12.8 % Normal RDW LAY ([facility]) Note: Responsible Observer: RDW RDW 100 .0700 (A) Platelets [#/volume] in Plasma by Automated count 244 10\\^3/uL Normal PLATELET COUNT [facility] ([facility]) Note: Responsible Observer: PLT PLATELET COUNT 100.0850 (A) Leukocytes [#/volume] in Blood by Automated count 9.01 10\\^3/uL Normal WHITE BLOOD COUNT [facility]AY ([facility]) Note: Responsible Observer: WBC WHITE BL OOD COUNT 100.0150 (A) ID Date Data Source [id number] 03/07/2020 08:13:00 AM EDT [facility] Name Value Range Interpretation Code Description Data Naomi rce(s) Supporting Document(s) Hemoglobin A1c/Hemoglobin.total in Blood 10.1 Abnormal (applies to non-numeric results) Hgb A1c [place] ([facility]) Procedure Social History Code Duration Value Status Description Data Source(s ) Smoking 01/19/2021 12:00:00 AM EDT Never smoker completed 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[facility]) Smoking 12/14/2020 12:00:00 AM EDT Ex-smoker (finding) complet ed Ex-smoker (finding) [place] ([facility]) Smoking 10/20/2020 12:00:00 AM EDT Patient is a former smoker completed Patient is a former smoker LUCAS ([facility] Alcohol intake 09/11/2020 12:00:00 AM EDT Current non-d bruce of alcohol (finding) completed Current non-drinker of alcohol (finding) [facility] Tobacco use and exposure 09/11/2020 12:00:00 AM EDT Never used co mpleted Never used [facility] Smoking 09/11/2020 12:00:00 AM EDT Former smoker completed Former smoker [facility] Smoking 06/15/2020 12:00:00 AM EST Ex-smoker (finding) complet ed Ex-smoker (finding) LAY ([facility]) Smoking 06/15/2020 12:00:00 AM EST Ex-smoker (finding) complet ed Ex-smoker (finding) TOPEKA ([facility]) Smoking 03/07/2020 12:00:00 AM EDT Ex-smoker (finding) complet ed Ex-smoker (finding) LAY ([facility]) Vital Signs ID Date Data Source UNK Name Value Range Interpretation Code Description Data Source(s) Body temperature 97.02 [degF] 97.02 [degF] TRACY MORKER ([facility]) Heart rate 99 /min 99 /min 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[facility]) Systolic blood pressure 126 mm[Hg] 126 mm[Hg] C HARTMAKER ([facility]) Diastolic blood pressure 82 mm[Hg] 82 mm[Hg] 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[facility]) Body height 70 [in_i] 70 [in_i] 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 Body weight 201.1875 [lb_av] 201.1875 [lb_av] C HARTLAUREENKER ([facility]) Body mass index (BMI) [Ratio] 28.3055670234643 kg/m2 28.5409834020430 kg/m2 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[facility]) Oxygen saturation in Arterial blood by Pulse oximetry 96 % 96 % 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[facility]) Inhaled oxygen concentration 21 % 21 % CHARTRIKER ([facility]) Systolic blood pressure 138 mm[Hg] 138 mm[Hg] G REENWAY ([facility]) Diastolic blood pressure 82 mm[Hg] 82 mm[Hg] LAY ([facility]) Heart rate 83 /min 83 /min LAY ([facility]) Heart rate rhythm 1 1 GREENWA Y ([facility]) Respiratory rate 18 /min 18 /min LAY ([facility]) Body temperature 96 [degF] 96 [degF] LAY ([facility]) Body weight 205 [lb_av] 205 [lb_av] LAY ([facility]) PhenX - pain, abdominal - type and intensity protocol 5 5 LAY ([facility]) Oxygen saturation in Arterial blood by Pulse oximetry 98 % 98 % LAY ([facility]) Inhaled oxygen flow rate 0 L/min 0 L/min LAY ([facility]) Inhaled oxygen concentration 21 % 21 % LAY ([facility]) Diastolic blood pressure 88 mm[Hg] 88 mm[Hg] MEDENT ([facility]) Heart rate 97 /min 97 /min MEDENT ([facility] Body mass index (BMI) [Ratio] 30.0 kg/m2 30.0 k g/m2 MEDENT ([facility]) Body weight 215.00 [lb_av] 215.00 [lb_av] MEDEN T ([facility]) Body temperature 97.2 [degF] 97.2 [degF] MEDENT ([facility]) Body height 71 [in_i] 71 [in_i] MEDENT ([facility] 5'11" Systolic blood pressure 146 mm[Hg] 146 mm[Hg] M EDENT ([facility]) Systolic blood pressure 138 mm[Hg] 138 mm[Hg] G REENWAY ([facility]) unable to obtain full set of vitals. KPe rryCA Diastolic blood pressure 72 mm[Hg] 72 mm[Hg] LAY ([facility]) unable to obtain full set of vitals. KPe rryCA PhenX - pain, abdominal - type and intensity protocol 0 0 LAY ([facility]) unable to obtain full set of vitals. KPe rryCA Systolic blood pressure 138 mm[Hg] 138 mm[Hg] G REENWAY ([facility]) Diastolic blood pressure 70 mm[Hg] 70 mm[Hg] LAY ([facility]) Heart rate 95 /min 95 /min [facility] Respiratory rate 19 /min 19 /min LAY ([facility]) Body temperature 96.9 [degF] 96.9 [degF] GREENW AY ([facility]) Body weight 227.4 [lb_av] 227.4 [lb_av] GREENWA Y ([facility]) PhenX - pain, abdominal - type and intensity protocol 3 3 LAY ([facility]) Oxygen saturation in Arterial blood by Pulse oximetry 97 % 97 % LAY ([facility]) Inhaled oxygen flow rate 0 L/min 0 L/min LAY ([facility]) Inhaled oxygen concentration 21 % 21 % LAY ([facility]) Diastolic blood pressure 82 mm[Hg] 82 mm[Hg] LAY ([facility]) Heart rate 90 /min 90 /min [facility] ([facility] Respiratory rate 18 /min 18 /min LAY ([facility]) Inhaled oxygen flow rate 0 L/min 0 L/min LAY ([facility]) Inhaled oxygen concentration 21 % 21 % LAY ([facility]) PhenX - pain, abdominal - type and intensity protocol 3 3 LAY ([facility]) Oxygen saturation in Arterial blood by Pulse oximetry 98 % 98 % LAY ([facility]) Systolic blood pressure 132 mm[Hg] 132 mm[Hg] G REENWAY ([facility]) Body temperature 98.3 [degF] 98.3 [degF] GREENW AY ([facility]) Body weight 225.6 [lb_av] 225.6 [lb_av] GREENWA Y ([facility]) Systolic blood pressure 140 mm[Hg] 140 mm[facility]Hg] [facility] Heart rate 96 /min 96 /min LAY ([facility]) Respiratory rate 17 /min 17 /min LAY ([facility]) Body temperature 98.4 [degF] 98.4 [degF] GREENW AY ([facility]) Body height 70 [in_i] 70 [in_i] LAY ([facility]) PhenX - pain, abdominal - type and intensity protocol 0 0 LAY ([facility]) Oxygen saturation in Arterial blood by Pulse oximetry 96 % 96 % LAY ([facility]) Inhaled oxygen flow rate 0 L/min 0 L/min LAY ([facility]) Inhaled oxygen concentration 21 % 21 % LAY ([facility]) Diastolic blood pressure 76 mm[Hg] 76 mm[Hg] LAY ([facility]) Body weight 226.2 [lb_av] 226.2 [lb_av] GREENWA Y ([facility]) Body mass index (BMI) [Ratio] 32.5 kg/m2 32.5 k g/m2 LAY ([facility]) Body surface area Derived from formula 2.20 m2 2.20 m2 LAY ([facility]) Systolic blood pressure 158 mm[Hg] 158 mm[Hg] G REENWAY ([facility]) Diastolic blood pressure 92 mm[Hg] 92 mm[Hg] LAY ([facility]) PhenX - pain, abdominal - type and intensity protocol 3 3 LAY ([facility]) Oxygen saturation in Arterial blood by Pulse oximetry 98 % 98 % TOPEKA ([facility]) Inhaled oxygen flow rate 0 L/min 0 L/min TOPEKA ([facility]) Inhaled oxygen concentration 21 % 21 % TOPEKA ([facility]) Body surface area Derived from formula 2.11 m2 2.11 m2 TOP[place]KA ([facility]) Systolic blood pressure 148 mm[Hg] 148 mm[Hg] G REENWAY ([facility]) Diastolic blood pressure 90 mm[Hg] 90 mm[Hg] TOPEKA ([facility]) Heart rate 92 /min 92 /min LAY ([facility]) Respiratory rate 20 /min 20 /min TOPEKA ([facility]) Body temperature 96.9 [degF] 96.9 [degF] [facility] ([facility]) Body height 68 [in_i] 68 [in_i] [facility]AY [facility] Body weight 216 [lb_av] 216 [lb_av] LAY ([facility]) Body mass index (BMI) [Ratio] 32.8 kg/m2 32.8 k g/m2 TOPEKA ([facility]) ID Date Data Source [id number] 09/12/2020 01:39:01 PM EDT [facility] Name Value Range Interpretation Code Description Data Source(s) WEIGHT RECORDED 226.4 lb 226.4 lb [facility] Body height Measured 69.4 in 69.4 in Upst [facility] PREFERRED NAME [facility] PREFERRED NAME [facility] ID Date Data Source [id number] 07/04/2020 09:52:53 AM EST [facility] Name Value Range Interpretation Code Description Data Source(s) PREFERRED NAME [facility] Patient Treatment Plan of Care Planned Activity Planned Date Details Description Data Source (s) Basaglar KwikPen 100 UNIT/ML Subcutaneous Solution Pen -injector 12/14/2020 12:00:00 AM [facility] doxy[facility] hyclate 100 MG Oral Capsule 12/14/2020 12:00:00 AM EDT TOPEKA ([facility]) BD Pen Needle Laly U/F 32G X 4 MM Miscellaneous 12/14/2020 12:00:00 AM EDT LAY ([facility]) Famotidine 20 MG Oral Tablet 08/18/2020 12:00:00 AM EST LAY ([facility]) silver sulfadiazine 10 MG/ML Topical Cream [Silvadene] 08/11/2020 12:00:00 AM EST LAY ([facility]) doxycycline hyclate 100 MG Oral Capsule 08/11/2020 12:00:00 AM EST LAY ([facility]) atorvastatin 10 MG Oral Tablet 06/15/2020 12:00:00 AM EST LAY ([facility]) 3 ML insulin detemir 100 UNT/ML Pen Injector [Levemir] 06/15/2020 12:00:00 AM EST LAY ([facility]) BD Pen Needle Laly U/F 32G X 4 MM Miscellaneous 06/15/2020 12:00:00 AM EST LAY ([facility]) 3 ML insulin detemir 100 UNT/ML Pen Injector [Levemir] 03/13/2020 12:00:00 AM EDT [facility] 3 ML Insulin Glargine 100 UNT/ML Pen Injector [Lantus] 03/10/2020 12:00:00 AM EDT LAY [facility]) Shingrix 50 MCG/0.5ML Intramuscular Suspension Reconst ituted 03/07/2020 12:00:00 AM EDT LAY ([facility]) Lisinopril 10 MG Oral Tablet 03/07/2020 12:00:00 AM EDT LAY ([facility]) BD Pen Needle Laly U/F 32G X 4 MM Miscellaneous 03/07/2020 12:00:00 AM EDT LAY ([facility]) Insulin Glargine 100 UNT/ML Injectable Solution [Lantu s] 03/07/2020 12:00:00 AM EDT LAY [facility]) 24 HR Glipizide 10 MG Extended Release Oral Tablet [Gl ucotrol] 12/21/2019 12:00:00 AM EDT LAY ([facility]) Sertraline 100 MG Oral Tablet 12/21/2019 12:00:00 AM EDT [place] ([facility]) Metformin hydrochloride 1000 MG Oral Tablet 08/10/2019 12:00:00 AM EST [place] ([facility]) Metformin hydrochloride 500 MG Oral Tablet 08/10/2019 12:00:[address] [place] ([facility]) 24 HR Bupropion Hydrochloride 150 MG Extended Release Oral Tablet [Wellbutrin] 08/10/2019 12:00:00 AM EST [place] ([facility]) BD Pen Needle Laly U/F 32G X 4 MM Miscellaneous 04/16/2019 12:00:00 AM [facility] ([facility]) gabapentin 300 MG Oral Capsule 05/29/2018 12:00:00 AM [facility] ([facility])
[2021-04-09 19:12] LABS: NT-PRO BNP 122 PG/ML (<125)
[2021-04-09] MEDS ORDERED: HOME MED LIST COMPLETE! XX SCH (19:50)
[2021-04-09] MEDS ORDERED: REMDESIVIR 200 MG in NS 250 ML IV ONE (21:00)
[2021-04-09 21:50] VITALS: BP 146/79
[2021-04-09] MEDS ORDERED: SODIUM CHLORIDE 0.9% INJ 10 ML SYR IV ONE (23:00)
[2021-04-09 23:05] VITALS: O2SAT 95
[2021-04-09] MEDS: HumaLOG INSULIN (NovoLOG) PER UNIT SC SCH (23:54)
[2021-04-10] VITALS (8 sets, daily range): BP systolic 113–147; BP diastolic 59–82; O2SAT 91–94
[2021-04-10] MEDS ORDERED: UNRESOLVED CLARIFICATION ENTRY XX SCH (00:01)
[2021-04-10 01:37] LABS: APPEARANCE, URINE CLEAR (CLEAR); BACTERIA, URINE AUTO NEGATIVE (NEGATIVE); BILIRUBIN, URINE AUTO NEGATIVE (NEGATIVE); BLOOD, URINE BLOOD NEGATIVE (NEGATIVE); COLOR, URINE YELLOW (YELLOW); GLUCOSE, URINE (UA) AUTO 3+ mg/dL (NEGATIVE); KETONE, URINE AUTO 2+ mg/dL (NEGATIVE); LEUKOCYTE ESTERASE, URINE AUTO NEGATIVE (NEGATIVE); NITRITE, URINE AUTO NEGATIVE (NEGATIVE); PROTEIN, URINE AUTO NEGATIVE (NEGATIVE); RBC, URINE AUTO 1 /HPF (0-3); SPECIFIC GRAVITY URINE AUTO 1.024 (1.002-1.035); SQUAMOUS EPITHELIAL CELL UR AU 0 /HPF (0-6); UROBILINOGEN, URINE AUTO 0.2 mg/dL (0.0-2.0); WBC, URINE AUTO 1 /HPF (0-3)
[2021-04-10 06:13] LABS: HEMOGLOBIN 14.5 g/dl (13.5-17.5); MEAN CORPUSCULAR HEMOGLOBIN 27.7 pg (27.0-33.0); MEAN CORPUSCULAR HGB CONC 33.7 g/dl (32.0-36.5); MEAN CORPUSCULAR VOLUME 82.2 fl (80.0-96.0); RED BLOOD COUNT 5.23 10^6/uL (4.30-6.10); WHITE BLOOD COUNT 6.8 10^3/uL (4.0-10.0)
[2021-04-10 06:29] LABS: PLATELET COUNT, AUTOMATED 255 10^3/uL (150-450)
[2021-04-10 06:37] LABS: ALBUMIN 2.2 GM/DL (3.2-5.2); ALT/SGPT 26 U/L (12-78); BILIRUBIN,DIRECT 0.1 MG/DL (0.0-0.2); BILIRUBIN,TOTAL 0.5 MG/DL (0.2-1.0); BLOOD UREA NITROGEN 15 MG/DL (7-18); CALCIUM LEVEL 9.2 MG/DL (8.5-10.1); CARBON DIOXIDE LEVEL 21 MEQ/L (21-32); CHLORIDE LEVEL 100 MEQ/L (98-107); CREATININE FOR GFR 0.74 MG/DL (0.70-1.30); GLOMERULAR FILTRATION RATE > 60.0 (>56); GLUCOSE, FASTING 337 MG/DL (70-100); MAGNESIUM LEVEL 2.1 MG/DL (1.8-2.4); POTASSIUM SERUM 3.9 MEQ/L (3.5-5.1); SODIUM LEVEL 133 MEQ/L (136-145)
[2021-04-10 06:43] LABS: HEMOGLOBIN A1c 13.3 %
[2021-04-10 08:00] LABS: LYMPHOCYTES 15 % (16-44); METAMYELOCYTES 1 % (0-0); MONOCYTES 4 % (0-5); NEUTROPHILS 80 % (28-66); PLATELET ESTIMATE NORMAL (NORMAL)
--- NOTE | 2021-04-10 08:06 | ECGEPIP ---
[facility] - ED Test Date: 2021-04-09 Pat Name: GRETA COLEY Department: Room: - Gender: Male [employer] Food: er : 1965 Requested By: ROSAMARIA WINSLOW Order Number: [id number] Reading MD: John Gonzalez Measurements Intervals [place] Rate: 93 P: 31 CO: 156 QRS: 4 QRSD: 88 T: 7 QT: 360 QTc: 447 Interpretive Statements Normal sinus rhythm Minimal voltage criteria for LVH, may be normal variant ( Charly product ) Septal infarct , age undetermined BASELINE ARTIFACT AFFECTS INTERPRETATION NO PRIORS FOR COMPARISON Electronically Signed on 04-10-2021 8:06:26 EDT by John Gonzalez
[2021-04-10] MEDS: HumaLOG INSULIN (NovoLOG) PER UNIT SC SCH ×4 (08:49→21:45)
[2021-04-10] MEDS: ENOXAPARIN 40MG/0.4ML SYRINGE (J1650 PER 10MG) SC SCH (08:50)
[2021-04-10] MEDS: dexameTHASONE 4 MG/ML 1ML VIAL (J1100 PER 1MG) IV SCH (08:51)
[2021-04-10] MEDS: ASPIRIN 81MG ENTERIC TABLET PO SCH (08:51)
[2021-04-10] MEDS ORDERED: FLUBLOK(EGG FREE)(QUAD)INFLUENZA VACC 0.5ML SYRINGE 18YRS & OLDER IM ONE (09:00)
--- NOTE | 2021-04-10 15:35 | IPNPDOC ---
Subjective Date Seen The patient was seen on 04/10/21. Subjective Chief Complaint/HPI Mr. Slade is a 56-year-old male with diabetes mellitus who presents with cough and dyspnea. Today, he feels about the same. Still requiring 3L of oxygen. Will add on incentive spirometer. His procalcitonin returned negative and antibiotics will be discontinued. Objective Physical Examination General Exam: Positive: Alert, Cooperative Eye Exam: Positive: EOMI; Negative: Sclera icteric ENT Exam: Positive: Atraumatic Neck Exam: Positive: Supple Chest Exam: Positive: Clear to auscultation, Diminished Heart Exam: Positive: Rate Normal, Regular Rhythm Abdomen Exam: Positive: Normal bowel sounds, Soft, Tenderness (Mild tenderness) Extremity Exam: Negative: Edema Neuro Exam: Positive: Normal Speech, Strength at 5/5 X4 ext Psych Exam: Positive: Mental status NL, Mood NL Assessment /Plan Assessment Mr. Slade is a 56-year-old male with diabetes mellitus who presents with cough and dyspnea. He most likely caught it from his family. He responded to steroids and breathing treatments. Patient will be be given dexamethasone, Combivent Respimat, and levofloxacin. Procalcitonin negative, will discontinue levofloxacin. Plan/VTE VTE Prophylaxis Ordered?: Yes Plan 1. Covid pneumonia with hypoxia Patient desaturated down to 87% at room air Worse with activity and better at rest Start dexamethasone and Combivent Respimat Remdesivir negative procalcitonin, levofloxacin will be discontinued 2. Diabetes mellitus complicated by neuropathy Sliding scale insulin Carbohydrate consistent diet HbA1c of 13.3 -Added Levemir 3. DVT prophylaxis Aspirin and Lovenox Disposition: Pending clinical improvement and oxygen improvement. [facility] Vital Signs/I&O Vital Signs Date Time Temp Pulse Resp B/P (MAP) Pulse Ox O2 Delivery O2 Flow Rate FiO2 04/10/21 14:00 97.0 80 19 147/82 (103) 93 Nasal Cannula 3.0 I&O- Last 24 Hours up to 6 AM 04/10/21 06:00 Intake Total 1790 ml Balance 1790 ml Laboratory Data 24H LABS Laboratory Tests 2 04/09/21 15:34: Neutrophils (%) (Auto) , Nucleated Red Blood Cells % (auto) 0.0, Neutrophils 70H, Band Neutrophils 11, Lymphocytes (Manual) 10L, Monocytes (Manual) 8H, Atypical Lymphocytes 1, Platelet Estimate NORMAL, Clumped Platelets MODERATE AMT, Prothrombin Time 15.0H, Prothromb Time International Ratio 1.14, Activated Partial Thromboplast Time 30.2, Fibrinogen 774H, D-Dimer, Quantitative 1209.70H, Anion Gap 10, Glomerular Filtration Rate > 60.0, Lactic Acid Level 1.8, Calcium Level 9.0, Magnesium Level 2.0, Ferritin 818H, Total Bilirubin 0.6, Aspartate Amino Transf (AST/SGOT) 23, Alanine Aminotransferase (ALT/SGPT) 32, Alkaline Phosphatase 81, Lactate Dehydrogenase 341H, Total Creatine Kinase 49, Creatine Kinase MB < 1.0, Creatine Kinase MB Relative Index 2.04, Troponin I < 0.02, C- Reactive Protein, Quantitative 17.00H, SL-[id number]-[id number]-Type Natriuretic Peptide 122, Total Protein 7.1, Albumin 2.6L, Albumin/Globulin Ratio 0.6, Procalcitonin 0.07 04/09/21 19:34: 04/09/21 22:07: Bedside Glucose (Misc Panel) 365H 04/10/21 01:21: Urine Color YELLOW, Urine Appearance CLEAR, Urine pH 5.0, Urine Specific [place] 1.024, Urine Protein NEGATIVE, Urine Glucose (Auto)(UA) 3+H, Urine Ketones (Auto) 2+H, Urine Blood NEGATIVE, Urine Nitrite NEGATIVE, Urine Bilirubin NEGATIVE, Urine Urobilinogen 0.2, Urine Leukocyte Esterase (Auto) NEGATIVE, Urine WBC (Auto) 1, Urine RBC (Auto) 1, Urine Hyaline Casts (Auto) 0, Urine Bacteria (Auto) NEGATIVE, Urine Squamous Epithelial Cells 0, Urine Sperm (Auto) 04/10/21 05:12: Bedside Glucose (Misc Panel) 334H 04/10/21 05:58: Neutrophils (%) (Auto) , Nucleated Red Blood Cells % (auto) 0.0, Neutrophils 80H, Lymphocytes (Manual) 15L, Monocytes (Manual) 4, Metamyelocytes 1H, Red Blood Cell Morphology NORMAL, Platelet Estimate NORMAL, Anion Gap 12, Glomerular Filtration Rate > 60.0, Estimated Mean Plasma Glucose 335H, Hemoglobin A1c 13.3, Calcium Level 9.2, Magnesium Level 2.1, Total Bilirubin 0.5, Direct Bilirubin 0.1, Aspartate Amino Transf (AST/SGOT) 13, Alanine Aminotransferase (ALT/SGPT) 26, Alkaline Phosphatase 70, Total Protein 7.0, Albumin 2.2L, Albumin/Globulin Ratio 0.5 04/10/21 11:40: Bedside Glucose (Misc Panel) 402H CBC/BMP Laboratory Tests 04/09/21 15:34 04/10/21 05:58 Microbiology Microbiology 04/09/21 Blood Culture, Received Pending 04/09/21 Blood Culture, Received Pending 04/09/21 Respiratory Virus Panel (PCR) (DOM) - Final, Complete SARS-CoV-2 (COVID 19) ROLA MARTINEZ DO Apr 10, 2021 15:35
[2021-04-10] MEDS: REMDESIVIR 100 MG in NS 250 ML IV SCH (20:23)
[2021-04-10] MEDS: SODIUM CHLORIDE 0.9% INJ 10 ML SYR IV SCH (21:43)
[2021-04-10] MEDS: LEVEMIR (INSULIN DETEMIR) 1 UNITS/0.01ML SC SCH (21:44)
[2021-04-10] MEDS ORDERED: LevoFLOXacin IV 750 MG in IV 1 EA IV SCH (23:00)
[2021-04-11] VITALS: O2SAT 92
[2021-04-11 03:45] VITALS: O2SAT 94
[2021-04-11 06:00] VITALS: BP 154/87
[2021-04-11 06:35] LABS: BASO % 0.2 % (0.0-1.0); EOS % 0.1 % (0.0-3.0); HEMATOCRIT 42.5 % (42.0-52.0); HEMOGLOBIN 14.4 g/dl (13.5-17.5); LYMPH % 12.5 % (24.0-44.0); MEAN CORPUSCULAR HEMOGLOBIN 27.5 pg (27.0-33.0); MEAN CORPUSCULAR HGB CONC 33.9 g/dl (32.0-36.5); MEAN CORPUSCULAR VOLUME 81.1 fl (80.0-96.0); MONO # 1.1 10^3/uL (0.0-0.8); MONO % 7.1 % (2.0-8.0); NEUTROPHILS # 12.4 10^3/uL (1.5-8.5); NEUTROPHILS % 78.4 % (36.0-66.0); PLATELET COUNT, AUTOMATED 260 10^3/uL (150-450); RED BLOOD COUNT 5.24 10^6/uL (4.30-6.10); WHITE BLOOD COUNT 15.8 10^3/uL (4.0-10.0)
[2021-04-11 06:42] LABS: INR 1.23; PARTIAL THROMBOPLASTIN TIME 29.2 SECONDS (25.9-37.0); PROTHROMBIN TIME 15.9 SECONDS (12.7-14.5)
[2021-04-11 07:07] LABS: ALBUMIN 2.2 GM/DL (3.2-5.2); ALT/SGPT 24 U/L (12-78); BILIRUBIN,DIRECT 0.1 MG/DL (0.0-0.2); BILIRUBIN,TOTAL 0.3 MG/DL (0.2-1.0); BLOOD UREA NITROGEN 17 MG/DL (7-18); CALCIUM LEVEL 9.3 MG/DL (8.5-10.1); CARBON DIOXIDE LEVEL 27 MEQ/L (21-32); CHLORIDE LEVEL 102 MEQ/L (98-107); CPK CREATINE PHOSPHOKINASE 22 U/L (39-308); CREATININE FOR GFR 0.82 MG/DL (0.70-1.30); FERRITIN 671 NG/ML (26-388); GLOMERULAR FILTRATION RATE > 60.0 (>56); GLUCOSE, FASTING 362 MG/DL (70-100); LDH LACTATE DEHYDROGENASE 193 U/L (87-241); MAGNESIUM LEVEL 2.3 MG/DL (1.8-2.4); NT-PRO BNP 160 PG/ML (<125); POTASSIUM SERUM 4.2 MEQ/L (3.5-5.1); SODIUM LEVEL 134 MEQ/L (136-145); TOTAL PROTEIN 7.1 GM/DL (6.4-8.2); TROPONIN I < 0.02 NG/ML (< 0.10)
[2021-04-11] MEDS: HumaLOG INSULIN (NovoLOG) PER UNIT SC SCH ×4 (08:00→21:05)
[2021-04-11] MEDS: ENOXAPARIN 40MG/0.4ML SYRINGE (J1650 PER 10MG) SC SCH (08:00)
[2021-04-11] MEDS: dexameTHASONE 4 MG/ML 1ML VIAL (J1100 PER 1MG) IV SCH (08:01)
[2021-04-11] MEDS: ASPIRIN 81MG ENTERIC TABLET PO SCH (08:01)
[2021-04-11 14:00] VITALS: BP 146/74
--- NOTE | 2021-04-11 14:35 | IPNPDOC ---
Subjective Date Seen The patient was seen on 04/11/21. Subjective Chief Complaint/HPI Mr. Slade is a 56-year-old male with diabetes mellitus who presents with cough and dyspnea. Patient was seen this morning. Denies chest pain or dyspnea. Oxygen requirements downtrended to 1L. He does not qualify for home oxygen. Continue with current therapy. Objective Physical Examination General Exam: Positive: Alert, Cooperative Eye Exam: Positive: EOMI; Negative: Sclera icteric ENT Exam: Positive: Atraumatic Neck Exam: Positive: Supple Chest Exam: Positive: Clear to auscultation, Diminished Heart Exam: Positive: Rate Normal, Regular Rhythm Abdomen Exam: Positive: Normal bowel sounds, Soft, Tenderness (tenderness from hernia, chronic) Extremity Exam: Negative: Edema Neuro Exam: Positive: Normal Speech, Strength at 5/5 X4 ext Psych Exam: Positive: Mental status NL, Mood NL Assessment /Plan Assessment Mr. Slade is a 56-year-old male with diabetes mellitus who presents with cough and dyspnea. He most likely caught it from his family. He responded to steroids and breathing treatments. Patient will be be given dexamethasone, Combivent Respimat, and levofloxacin. Procalcitonin negative, will discontinue levofloxacin. Plan/VTE VTE Prophylaxis Ordered?: Yes Plan 1. Covid pneumonia with hypoxia Patient desaturated down to 87% at room air Worse with activity and better at rest Start dexamethasone and Combivent Respimat Remdesivir negative procalcitonin, levofloxacin will be discontinued 2. Diabetes mellitus complicated by neuropathy Sliding scale insulin Carbohydrate consistent diet HbA1c of 13.3 -Added Levemir 3. DVT prophylaxis Aspirin and Lovenox Disposition: Pending improvement in oxygenation VS, I&O, 24H, [facility] Vital Signs/I&O Vital Signs Date Time Temp Pulse Resp B/P (MAP) Pulse Ox O2 Delivery O2 Flow Rate FiO2 04/11/21 14:00 97.9 71 18 146/74 (98) 93 Nasal Cannula 1.0 I&O- Last 24 Hours up to 6 AM 04/11/21 06:00 Intake Total 2700 ml Balance 2700 ml Laboratory Data 24H LABS Laboratory Tests 2 04/10/21 16:45: Bedside Glucose (Misc Panel) 325H 04/10/21 20:26: Bedside Glucose (Misc Panel) 386H 04/11/21 05:08: Bedside Glucose (Misc Panel) 349H 04/11/21 06:09: Immature Granulocyte % (Auto) 1.7, Neutrophils (%) (Auto) 78.4H, Lymphocytes (%) (Auto) 12.5L, Monocytes (%) (Auto) 7.1, Eosinophils (%) (Auto) 0.1, Basophils (%) (Auto) 0.2, Neutrophils # (Auto) 12.4H, Lymphocytes # (Auto) 2.0, Monocytes # (Auto) 1.1H, Eosinophils # (Auto) 0.0, Basophils # (Auto) 0.0, Nucleated Red Blood Cells % (auto) 0.0, Prothrombin Time 15.9H, Prothromb Time International Ratio 1.23, Activated Partial Thromboplast Time 29.2, Fibrinogen 635H, Anion Gap 5L, Glomerular Filtration Rate > 60.0, Calcium Level 9.3, Magnesium Level 2.3, Ferritin 671H, Total Bilirubin 0.3, Direct Bilirubin 0.1, Aspartate Amino Transf (AST/SGOT) 11, Alanine Aminotransferase (ALT/SGPT) 24, Alkaline Phosphatase 74, Lactate Dehydrogenase 193, Total Creatine Kinase 22L, Troponin I < 0.02, [id number]-Type Natriuretic Peptide 160H, Total Protein 7.1, Albumin 2.2L, Albumin/Globulin Ratio 0.4, Procalcitonin <0.05 04/11/21 11:43: Bedside Glucose (Misc Panel) 385H CBC/BMP Laboratory Tests 04/11/21 06:09 Microbiology Microbiology 04/09/21 Blood Culture - Preliminary, Resulted No growth after 24 hours . All specim... 04/09/21 Blood Culture - Preliminary, Resulted No growth after 24 hours . All specim... 04/09/21 Respiratory Virus Panel (PCR) (DOM) - Final, Complete SARS-CoV-2 (COVID 19) ROLA MARTINEZ DO Apr 11, 2021 14:35
[2021-04-11 16:08] LABS: MYCOPLASMA PNEUMONIAE IgG <100 U/mL (0-99); MYCOPLASMA PNEUMONIAE IgM <770 U/mL (0-769)
[2021-04-11 20:00] VITALS: BP 159/90
[2021-04-11 20:07] VITALS: O2SAT 94
[2021-04-11] MEDS: REMDESIVIR 100 MG in NS 250 ML IV SCH (21:04)
[2021-04-11] MEDS: LEVEMIR (INSULIN DETEMIR) 1 UNITS/0.01ML SC SCH (21:04)
[2021-04-11] MEDS: SODIUM CHLORIDE 0.9% INJ 10 ML SYR IV SCH (22:12)
[2021-04-12 00:22] VITALS: O2SAT 97
[2021-04-12 04:00] VITALS: BP 156/76; O2SAT 94
[2021-04-12 06:00] LABS: BASO % 0.2 % (0.0-1.0); EOS % 0.1 % (0.0-3.0); HEMATOCRIT 42.6 % (42.0-52.0); HEMOGLOBIN 14.4 g/dl (13.5-17.5); LYMPH # 2.5 10^3/uL (1.5-5.0); LYMPH % 18.4 % (24.0-44.0); MEAN CORPUSCULAR HEMOGLOBIN 27.6 pg (27.0-33.0); MEAN CORPUSCULAR HGB CONC 33.8 g/dl (32.0-36.5); MEAN CORPUSCULAR VOLUME 81.8 fl (80.0-96.0); MONO # 1.1 10^3/uL (0.0-0.8); MONO % 8.1 % (2.0-8.0); NEUTROPHILS # 9.8 10^3/uL (1.5-8.5); NEUTROPHILS % 72.1 % (36.0-66.0); PLATELET COUNT, AUTOMATED 285 10^3/uL (150-450); RED BLOOD COUNT 5.21 10^6/uL (4.30-6.10); WHITE BLOOD COUNT 13.6 10^3/uL (4.0-10.0)
[2021-04-12 06:27] LABS: BLOOD UREA NITROGEN 16 MG/DL (7-18); CARBON DIOXIDE LEVEL 30 MEQ/L (21-32); CHLORIDE LEVEL 100 MEQ/L (98-107); CREATININE FOR GFR 0.75 MG/DL (0.70-1.30); GLOMERULAR FILTRATION RATE > 60.0 (>56); GLUCOSE, FASTING 352 MG/DL (70-100); MAGNESIUM LEVEL 2.1 MG/DL (1.8-2.4); POTASSIUM SERUM 4.1 MEQ/L (3.5-5.1); SODIUM LEVEL 135 MEQ/L (136-145)
[2021-04-12] MEDS: HumaLOG INSULIN (NovoLOG) PER UNIT SC SCH ×4 (08:07→21:15)
[2021-04-12] MEDS: ENOXAPARIN 40MG/0.4ML SYRINGE (J1650 PER 10MG) SC SCH (08:08)
[2021-04-12] MEDS: ASPIRIN 81MG ENTERIC TABLET PO SCH (08:09)
[2021-04-12] MEDS: dexameTHASONE 4 MG/ML 1ML VIAL (J1100 PER 1MG) IV SCH (08:09)
--- NOTE | 2021-04-12 12:14 | IPNPDOC ---
Subjective Date Seen The patient was seen on 04/12/21. Subjective Chief Complaint/HPI Mr. Slade is a 56-year-old male with diabetes mellitus who presents with cough and dyspnea. Overnight, his oxygen requirements increased back to 3L. Otherwise, this morning, he denies chest pain or dyspnea. Continue to encourage use of incentive spirometer Objective Physical Examination General Exam: Positive: Alert, Cooperative Eye Exam: Positive: EOMI; Negative: Sclera icteric ENT Exam: Positive: Atraumatic Neck Exam: Positive: Supple Chest Exam: Positive: Clear to auscultation, Diminished Heart Exam: Positive: Rate Normal, Regular Rhythm Abdomen Exam: Positive: Normal bowel sounds, Soft, Tenderness (tenderness from hernia, chronic) Extremity Exam: Negative: Edema Neuro Exam: Positive: Normal Speech, Strength at 5/5 X4 ext Psych Exam: Positive: Mental status NL, Mood NL Assessment /Plan Assessment Mr. Slade is a 56-year-old male with diabetes mellitus who presents with cough and dyspnea. He most likely caught it from his family. He responded to st eroids and breathing treatments. Patient will be be given dexamethasone, Combivent Respimat, and levofloxacin. Procalcitonin negative, will discontinue levofloxacin. Plan/VTE VTE Prophylaxis Ordered?: Yes Plan 1. Covid pneumonia with hypoxia Patient desaturated down to 87% at room air Worse with activity and better at rest Start dexamethasone and Combivent Respimat Remdesivir negative procalcitonin, levofloxacin will be discontinued 2. Diabetes mellitus complicated by neuropathy Sliding scale insulin Carbohydrate consistent diet HbA1c of 13.3 -Added Levemir 3. DVT prophylaxis Aspirin and Lovenox Disposition: Tomorrow would be his last day of remdesivir. If he does not wean off of oxygen, he may be able to go home tomorrow with home oxygen and steroid taper. VS, I&O, 24H, [facility] Vital Signs/I&O Vital Signs Date Time Temp Pulse Resp B/P (MAP) Pulse Ox O2 Delivery O2 Flow Rate FiO2 04/12/21 04:00 94 Nasal Cannula 3.0 04/12/21 04:00 97.4 72 18 156/76 (102) I&O- Last 24 Hours up to 6 AM 04/12/21 06:00 Intake Total 3940 ml Balance 3940 ml Laboratory Data 24H LABS Laboratory Tests 2 04/11/21 11:43: Bedside Glucose (Misc Panel) 385H 04/11/21 16:37: Bedside Glucose (Misc Panel) 470H 04/11/21 20:12: Bedside Glucose (Misc Panel) 440H 04/12/21 05:40: Immature Granulocyte % (Auto) 1.1, Neutrophils (%) (Auto) 72.1H, Lymphocytes (%) (Auto) 18.4L, Monocytes (%) (Auto) 8.1H, Eosinophils (%) (Auto) 0.1, Basophils (%) (Auto) 0.2, Neutrophils # (Auto) 9.8H, Lymphocytes # (Auto) 2.5, Monocytes # (Auto) 1.1H, Eosinophils # (Auto) 0.0, Basophils # (Auto) 0.0, Nucleated Red Blood Cells % (auto) 0.0, Anion Gap 5L, Glomerular Filtration Rate > 60.0, Calcium Level 9.0, Magnesium Level 2.1 CBC/BMP Laboratory Tests 04/12/21 05:40 Microbiology Microbiology 04/09/21 Blood Culture - Preliminary, Resulted No Growth after 48 hours. All Specime... 04/09/21 Blood Culture - Preliminary, Resulted No Growth after 48 hours. All Specime... 04/09/21 Respiratory Virus Panel (PCR) (DOM) - Final, Complete SARS-CoV-2 (COVID 19) ROLA MARTINEZ DO Apr 12, 2021 12:14
[2021-04-12 14:00] VITALS: BP 135/80
[2021-04-12 20:29] VITALS: BP 144/86
[2021-04-12 20:30] VITALS: O2SAT 92
[2021-04-12] MEDS: LEVEMIR (INSULIN DETEMIR) 1 UNITS/0.01ML SC SCH (21:14)
[2021-04-12] MEDS: REMDESIVIR 100 MG in NS 250 ML IV SCH (21:16)
[2021-04-12] MEDS: SODIUM CHLORIDE 0.9% INJ 10 ML SYR IV SCH (22:57)
[2021-04-13 00:31] VITALS: O2SAT 90
[2021-04-13 04:12] VITALS: O2SAT 95
[2021-04-13 06:17] VITALS: BP 157/90
[2021-04-13] MEDS: HumaLOG INSULIN (NovoLOG) PER UNIT SC SCH ×2 (07:30→12:18)
[2021-04-13 07:48] LABS: BASO # 0.1 10^3/uL (0.0-0.2); BASO % 0.6 % (0.0-1.0); EOS % 0.3 % (0.0-3.0); HEMATOCRIT 45.9 % (42.0-52.0); LYMPH # 3.5 10^3/uL (1.5-5.0); LYMPH % 31.1 % (24.0-44.0); MEAN CORPUSCULAR HGB CONC 32.7 g/dl (32.0-36.5); MEAN CORPUSCULAR VOLUME 82.7 fl (80.0-96.0); MONO # 0.9 10^3/uL (0.0-0.8); MONO % 7.7 % (2.0-8.0); NEUTROPHILS # 6.5 10^3/uL (1.5-8.5); NEUTROPHILS % 57.6 % (36.0-66.0); PLATELET COUNT, AUTOMATED 144 10^3/uL (150-450); RED BLOOD COUNT 5.55 10^6/uL (4.30-6.10); WHITE BLOOD COUNT 11.3 10^3/uL (4.0-10.0)
[2021-04-13 08:00] VITALS: O2SAT 93
[2021-04-13 08:18] LABS: INR 1.16; PROTHROMBIN TIME 15.3 SECONDS (12.7-14.5)
[2021-04-13 08:19] LABS: PARTIAL THROMBOPLASTIN TIME 31.6 SECONDS (25.9-37.0)
[2021-04-13 08:26] LABS: ALBUMIN 2.3 GM/DL (3.2-5.2); ALT/SGPT 27 U/L (12-78); BILIRUBIN,DIRECT 0.1 MG/DL (0.0-0.2); BILIRUBIN,TOTAL 0.3 MG/DL (0.2-1.0); BLOOD UREA NITROGEN 15 MG/DL (7-18); CALCIUM LEVEL 9.1 MG/DL (8.5-10.1); CARBON DIOXIDE LEVEL 31 MEQ/L (21-32); CHLORIDE LEVEL 99 MEQ/L (98-107); CPK CREATINE PHOSPHOKINASE 45 U/L (39-308); CREATININE FOR GFR 0.79 MG/DL (0.70-1.30); FERRITIN 580 NG/ML (26-388); GLOMERULAR FILTRATION RATE > 60.0 (>56); GLUCOSE, FASTING 314 MG/DL (70-100); LDH LACTATE DEHYDROGENASE 197 U/L (87-241); MAGNESIUM LEVEL 2.1 MG/DL (1.8-2.4); NT-PRO BNP 155 PG/ML (<125); POTASSIUM SERUM 3.8 MEQ/L (3.5-5.1); SODIUM LEVEL 135 MEQ/L (136-145); TOTAL PROTEIN 6.9 GM/DL (6.4-8.2); TROPONIN I < 0.02 NG/ML (< 0.10)
[2021-04-13] MEDS: ASPIRIN 81MG ENTERIC TABLET PO SCH (09:06)
[2021-04-13] MEDS: ENOXAPARIN 40MG/0.4ML SYRINGE (J1650 PER 10MG) SC SCH (09:06)
[2021-04-13] MEDS: dexameTHASONE 4 MG/ML 1ML VIAL (J1100 PER 1MG) IV SCH (09:06)
[2021-04-13] MEDS ORDERED: METF-839 PO (11:06)
[2021-04-13] MEDS ORDERED: PRED10TA2 PO (11:06)
[2021-04-13 14:00] VITALS: BP 136/98
[2021-04-13] MEDS ORDERED: REMDESIVIR 100 MG in NS 250 ML IV ONE (14:00)
[2021-04-13] MEDS ORDERED: SODIUM CHLORIDE 0.9% INJ 10 ML SYR IV ONE (15:00)
[2021-04-13 15:08] LABS: BODY FLUID CULTURE Not indicated. (.); LEGIONELLA ANTIGEN URINE Negative (Negative); ORGANISM ID Not indicated. (.); SPECIMEN SOURCE Urine (.); URINE STREP PNEUMONIAE ANTIGEN Negative (Negative)
--- NOTE | 2021-04-13 19:00 | DS.PDOC ---
Discharge Summary General Date of Admission Apr 09, 2021 at 18:34 Date of Discharge Apr 13, 2021 Discharge Summary PROCEDURES PERFORMED DURING STAY: None ADMITTING DIAGNOSES: 1. Covid pneumonia with hypoxia 2. 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 Covid pneumonia with hypoxia 2. 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 HISTORY OF PRESENT ILLNESS: Mr. Slade is a 56-year-old male with diabetes mellitus who presents with cough and dyspnea. Patient tells that his family has caught Covid. About 2 weeks ago, he started to have symptoms. Initially had headache and loss of taste. He developed shortness of breath and a dry cough. Shortness of breath is worse with ambulation and better when he is lying flat on his back. Denies any recent travel. Symptoms were improving and he came into the ED for evaluation. While here, he has been stable. He desaturated down to 87% at room air. He was wheezy. He was given Solu-Medrol and Combivent which he responded. Otherwise, his Covid test returned positive. His inflammatory markers were elevated. CRP 17, fibrinogen 774, and ferritin 818. Chest x-ray demonstrates patchy peripheral bilateral lower lung infiltrates compatible with Covid pneumonia. Patient will be admitted for Covid pneumonia and hypoxia requiring 3 L HOSPITAL COURSE: Patient did well during hospitalization. Procalcitonin returned low and levofloxacin was discontinued. Patient continued with a total of 5 days of remdesivir. Today we wean him down to 2 L. Patient tells me that he feels better and feels ready for home. Will discharge patient home with a steroid taper and home oxygen. It appears that patient was previously on Metformin. Will restart Metformin. DISCHARGE MEDICATIONS: Please see below. ALLERGIES: Please see below. PHYSICAL EXAMINATION ON DISCHARGE: VITAL SIGNS: Please see below. GENERAL: Comfortable, in no apparent distress. HEENT: Head normocephalic/atraumatic, EOMI, sclera clear. NECK: Supple. RESPIRATORY: Lungs clear to auscultation bilaterally, no rales, wheeze or rhonchi. CARDIOVASCULAR: Regular rate and rhythm. ABDOMEN: Soft, nontender, no guarding or rebound tenderness. Normal bowel sounds. MUSCLE SKELETAL: Muscle strength 5/5 in all extremities. NEUROLOGICAL: CN 312 grossly intact, no focal deficits noted. PSYCHOLOGICAL: Normal mood and affect LABORATORY DATA: Please see below. IMAGING: Radiologist interpretation Chest x-ray Patchy peripheral bilateral lower lung infiltrates compatible with COVID pneumonia. PROGNOSIS: Good ACTIVITY: As tolerated DIET: Carbohydrate consistent diet DISCHARGE PLAN: Home DISPOSITION: 01 Home, Self-Care. DISCHARGE INSTRUCTIONS: 1. Follow-up with PCP within 1 week ITEMS TO FOLLOWUP ON ON OUTPATIENT: 1. Management of diabetes mellitus DISCHARGE CONDITION: Stable. Total time spent on discharge planning, discharge summary, and medication reconciliation: 45 minutes Vital Signs/I&Os Vital Signs Date Time Temp Pulse Resp B/P (MAP) Pulse Ox O2 Delivery O2 Flow Rate FiO2 04/13/21 14:00 96.4 81 18 136/98 (111) 93 Nasal Cannula 2.0 I&O- Last 24 Hours up to 6 AM 04/13/21 06:00 Intake Total 1650 ml Output Total 0 ml Balance 1650 ml Laboratory Data Labs 24H Laboratory Tests 2 04/12/21 20:45: Bedside Glucose (Misc Panel) 438H 04/13/21 06:31: Immature Granulocyte % (Auto) 2.7, Neutrophils (%) (Auto) 57.6, Lymphocytes (%) (Auto) 31.1, Monocytes (%) (Auto) 7.7, Eosinophils (%) (Auto) 0.3, Basophils (%) (Auto) 0.6, Neutrophils # (Auto) 6.5, Lymphocytes # (Auto) 3.5, Monocytes # (Auto) 0.9H, Eosinophils # (Auto) 0.0, Basophils # (Auto) 0.1, Nucleated Red Blood Cells % (auto) 0.0, Prothrombin Time 15.3H, Prothromb Time International Ratio 1.16, Activated Partial Thromboplast Time 31.6, Fibrinogen 439, Anion Gap 5L, Glomerular Filtration Rate > 60.0, Calcium Level 9.1, Magnesium Level 2.1, Ferritin 580H, Total Bilirubin 0.3, Direct Bilirubin 0.1, Aspartate Amino Transf (AST/SGOT) 13, Alanine Aminotransferase (ALT/SGPT) 27, Alkaline Phosphatase 75, Lactate Dehydrogenase 197, Total Creatine Kinase 45#, Troponin I < 0.02, [id number]-Type Natriuretic Peptide 155H, Total Protein 6.9, Albumin 2.3L, Albumin/Globulin Ratio 0.5, Procalcitonin 0.19 04/13/21 11:34: Bedside Glucose (Misc Panel) 355H CBC/BMP Laboratory Tests 04/13/21 06:31 FSBS Laboratory Tests Test 04/12/21 20:45 04/13/21 11:34 Range/Units Bedside Glucose (Misc Panel) 438 355 70-105 MG/DL Microbiology Microbiology 04/09/21 Blood Culture - Preliminary, Resulted No Growth after 72 hours. All specime... 04/09/21 Blood Culture - Preliminary, Resulted No Growth after 72 hours. All specime... 04/09/21 Respiratory Virus Panel (PCR) (DOM) - Final, Complete SARS-CoV-2 (COVID 19) Discharge Medications Scheduled Metformin HCl (Metformin HCl) 500 Mg Tablet, 500 MG PO BID Prednisone (Prednisone) 10 Mg Tablet, 10 MG PO TAPER Take 4 tabs daily x 3 days, then 3 tabs daily x 3 days, then 2 tabs daily x 3 days, then 1 tab daily x 3 days and stop Allergies Coded Allergies: No Known Allergies (Verified , 05/17/03) ROLA MARTINEZ DO Apr 13, 2021 19:00
== END 2021-04-13 16:13 | disposition home or self-care (01) | DRG 177 ==
LOC: M ED 14:26 → M ED INP 18:34 → ENRESERV 20:25 → M 4MAIN 22:21 → M PM&R 22:22
PROVIDERS: ADMIT Internal Medicine; ATTEND Internal Medicine
DX: U07.1 COVID-19 (principal); J12.82 Pneumonia due to coronavirus disease 2019; E11.40 Type 2 diabetes mellitus with diabetic neuropathy, unspecified; Z79.899 Other long term (current) drug therapy

== ENCOUNTER 2022-09-19 09:30 | Day surgery (SDC) | payer MEDICARE ==
[~2022-09-19] VITALS: Ht 177.8 cm; Wt 102.1 kg
[~2022-09-19 09:30] MED LIST changes: +ACET325C5 PO; +BASA100I SQ; +GLIM4TAB5 PO; +LISI10TA22 PO; +LISI5TAB11 PO; +METF-839 PO; +NS 1,000 ML IV ONE; +PRED10TA2 PO
[2022-09-19] MEDS ORDERED: INSULIN LISPRO (NovoLOG) PER UNIT SC STA (10:03)
[2022-09-19] MEDS ORDERED: propofoL 500 MG/50 ML VIAL As Ordered ONE (10:14)
[2022-09-19] MEDS ORDERED: fentaNYL 100 MCG/2 ML INJECTION As Ordered ONE (10:14)
[2022-09-19] MEDS ORDERED: LIDOCAINE 2% 100MG/5ML SDV (FOR ANES.) As Ordered ONE (10:14)
[2022-09-19 11:04] VITALS: BP 117/63
== END 2022-09-19 11:18 | disposition home or self-care (01) ==
LOC: M OPP 09:30
PROVIDERS: ATTEND Surgery
DX: Z86.010 Personal history of colon polyps (principal); K63.5 Polyp of colon; K57.30 Diverticulosis of large intestine without perforation or abscess without bleeding; K21.00 Gastro-esophageal reflux disease with esophagitis, without bleeding; K29.70 Gastritis, unspecified, without bleeding; K44.9 Diaphragmatic hernia without obstruction or gangrene; I10 Essential (primary) hypertension; E11.9 Type 2 diabetes mellitus without complications; Z79.4 Long term (current) use of insulin; Z79.84 Long term (current) use of oral hypoglycemic drugs; Z79.899 Other long term (current) drug therapy
CPT/HCPCS: 43239; 45385; 88305; J1815; J3010

== ENCOUNTER 2023-02-04 05:44 | Emergency (ER) | payer MEDICARE ==
[~2023-02-04] VITALS: Ht 177.8 cm; Wt 107.3 kg
[~2023-02-04 05:44] MED LIST changes: -NS 1,000 ML IV ONE
[2023-02-04] MEDS ORDERED: MORPHINE 4 MG/ML 1ML VIAL IV ONE (06:45)
[2023-02-04] MEDS ORDERED: ONDANSETRON 4MG 2ML VIAL IV ONE (06:45)
[2023-02-04] MEDS ORDERED: ISOVUE-370 76% 100ML VIAL As Ordered ONE (07:19)
[2023-02-04 08:02] LABS: BASO % 0.3 % (0.0-1.0); EOS # 0.3 10^3/uL (0.0-0.5); HEMATOCRIT 40.7 % (42.0-52.0); HEMOGLOBIN 13.5 g/dl (13.5-17.5); LYMPH % 28.6 % (24.0-44.0); MEAN CORPUSCULAR HEMOGLOBIN 28.2 pg (27.0-33.0); MEAN CORPUSCULAR HGB CONC 33.2 g/dl (32.0-36.5); MEAN CORPUSCULAR VOLUME 85.1 fl (80.0-96.0); MONO # 0.6 10^3/uL (0.0-0.8); MONO % 8.7 % (2.0-8.0); NEUTROPHILS # 3.9 10^3/uL (1.5-8.5); NEUTROPHILS % 57.8 % (36.0-66.0); PLATELET COUNT, AUTOMATED 221 10^3/uL (150-450); RED BLOOD COUNT 4.78 10^6/uL (4.30-6.10); WHITE BLOOD COUNT 6.8 10^3/uL (4.0-10.0)
[2023-02-04 08:22] LABS: LIPASE 33 U/L (12-53)
[2023-02-04 08:24] LABS: ALBUMIN 3.2 G/DL (3.2-5.2); ALKALINE PHOSPHATASE 75 U/L (46-116); ALT/SGPT 20 U/L (7.0-40); AST/SGOT 12 U/L (<34); BILIRUBIN,DIRECT 0.2 MG/DL (<0.4); BILIRUBIN,TOTAL 0.4 MG/DL (0.3-1.2); BLOOD UREA NITROGEN 10 MG/DL (9-23); CALCIUM LEVEL 8.7 MG/DL (8.5-10.1); CARBON DIOXIDE LEVEL 31 MMOL/L (20-31); CHLORIDE LEVEL 102 MMOL/L (98-107); CREATININE FOR GFR 0.75 MG/DL (0.70-1.30); GLOMERULAR FILTRATION RATE > 60.0 (>56); GLUCOSE, FASTING 232 MG/DL (60-100); POTASSIUM SERUM 4.2 MMOL/L (3.5-5.1); SODIUM LEVEL 137 MMOL/L (136-145); TOTAL PROTEIN 6.5 G/DL (5.7-8.2)
[2023-02-04] MEDS ORDERED: PRED20TA PO (09:07)
[2023-02-04 09:14] VITALS: BP 168/87; TEMP 97.6; O2SAT 96
== END 2023-02-04 09:25 | disposition home or self-care (01) ==
LOC: M ED 05:44
DX: M79.3 Panniculitis, unspecified (principal); E11.9 Type 2 diabetes mellitus without complications; K40.90 Unilateral inguinal hernia, without obstruction or gangrene, not specified as recurrent; K57.30 Diverticulosis of large intestine without perforation or abscess without bleeding; Z79.4 Long term (current) use of insulin; Z79.899 Other long term (current) drug therapy
CPT/HCPCS: 74177; 80047; 80048; 80076; 83605; 83690; 85025; 96374; 96375; 99284; J2405; Q9967

== ENCOUNTER 2023-07-08 14:49 | Emergency (ER) | payer MEDICARE ==
[~2023-07-08] VITALS: Ht 177.8 cm; Wt 100.9 kg
[2023-07-08 14:49] VITALS: BP 138/76; TEMP 101.3; O2SAT 95
[~2023-07-08 14:49] MED LIST changes: +PRED20TA PO
[2023-07-08] MEDS ORDERED: ACETAMINOPHEN 500 MG TAB PO ONE (15:35)
== END 2023-07-08 16:30 | disposition left against medical advice (07) ==
LOC: M ED 14:49
DX: Z53.21 Procedure and treatment not carried out due to patient leaving prior to being seen by health care provider (principal)